=== PATIENT | male | born 1945 | race Caucasian/White ===

== ENCOUNTER → 2017-10-21 17:05 | Outpatient (CLI) | payer MEDICARE, SELFPAY ==
[2017-10-21 18:10] LABS: Bacteria 0 SEEN /hpf (None Seen); Mucous, Urine 0 SEEN /hpf (<or=2+); Red Blood Cells-Urine 0 SEEN /hpf (0-5); Squamous Epithelial Cells - UA 0 SEEN /hpf (0-5); White Blood Cells 0 SEEN /hpf (0-5)
[2017-10-21 18:25] LABS: Color, Urine Yellow (Yellow); Glucose, Dipstick Normal (Normal); Ketone-Dipstick Negative (Negative); Leukocyte Esterase-Dipstick 25 /ul (Negative); Nitrite-Dipstick Negative (Negative); Occult Blood-Urine Negative /ul (Negative); Protein-Dipstick Negative (Negative); Urine Bilirubin Dipstick Negative (Negative); Urine Clarity Clear (Clear); Urine Urobilinogen 1 mg/dl (Normal)
== END ==
PROVIDERS: Family Provider Internal Medicine; PCP Internal Medicine; Visit Provider Internal Medicine
DX: N39.0 Urinary tract infection, site not specified (principal)
CPT/HCPCS: 81001; 87086; 87088

== ENCOUNTER 2017-12-22 13:30 | Outpatient (RCR) | payer MEDICARE, SELFPAY ==
[2017-12-15 14:12] VITALS: BP 142/81; PULSE 116; RESP 20; TEMP 36.4; BMI 35.4
--- NOTE | 2017-12-16 11:58 | HP.PCM_ITS ---
(1) Stage II pressure ulcer of right buttock Status: Acute Current Visit: Yes Code(s): L89.312 - Pressure ulcer of right buttock, stage 2 (2) Bipolar disorder Status: Chronic Current Visit: No Code(s): F31.9 - Bipolar disorder, unspecified (3) CHF (congestive heart failure) Status: Chronic Current Visit: No Code(s): I50.9 - Heart failure, unspecified (4) Charcot ankle Status: Chronic Current Visit: No Code(s): M14.679 - Charcot's joint, unspecified ankle and foot Comment: BL (5) Edema of both legs Status: Chronic Current Visit: Yes Code(s): R60.0 - Localized edema (6) GERD (gastroesophageal reflux disease) Status: Chronic Current Visit: No Code(s): K21.9 - Gastro-esophageal reflux disease without esophagitis (7) History of CVA (cerebrovascular accident) Status: Chronic Current Visit: No Code(s): Z86.73 - Personal history of transient ischemic attack (TIA), and cerebral infarction without residual deficits (8) History of tobacco use Status: Chronic Current Visit: No Code(s): Z87.891 - Personal history of nicotine dependence (9) Hypothyroidism Status: Chronic Current Visit: No Code(s): E03.9 - Hypothyroidism, unspecified Comment: Noted treated prior, not on regimen list. (10) Incontinence of feces Status: Chronic Current Visit: Yes Code(s): R15.9 - Full incontinence of feces (11) Incontinence of urine Status: Chronic Current Visit: Yes Code(s): R32 - Unspecified urinary incontinence (12) Mood disorder Status: Chronic Current Visit: No (13) Obesity (BMI 30-39.9) Status: Chronic Current Visit: No Code(s): E66.9 - Obesity, unspecified (14) COPD (chronic obstructive pulmonary disease) Status: Suspected Current Visit: No Code(s): J44.9 - Chronic obstructive pulmonary disease, unspecified History of Present Illness Date of Service: 12/15/17 Chief Complaint: ulcer right buttock x 1 month, intermittently open over past year. History of Wound: This is a 72-year-old male who presents due to ulcer on the medial right buttock. The patient has multiple comorbidities and an extensive medical history as listed above. The patient and caregiver () noted the ulceration on his right buttock about a month ago and has been using a and D ointment over this. He has had problems with ulcerations on his buttock intermittently over the past year. The patient also has chronic swelling in his lower extremities. He states that he does have a hospital bed at home, however due to chronic pain in his shoulders is only able to sleep in it at 2 hours at a time and then has to go to his recliner chair to sleep. He has limited mobility due to his pain, Charcot ankle deformities bilaterally, and Parkinson's. He spends most of his day in a sitting position, and requires a wheelchair for mobility. He has not been treated recently with antibiotics. He denies any pain around the ulceration or foul-smelling exudate. He denies any systemic signs of infection. The patient is incontinent of both stool and urine, which causes him to have excoriation at times. However he is not currently excoriated. The patient otherwise denies any fever, chills, nausea, vomiting, shortness of breath, chest pain or pressure, palpitations, orthopnea, lower extremity edema, syncope or presyncopal episodes. Past Medical History Past Medical History: Chronic Problems History of CVA (cerebrovascular accident) (Chronic) History of tobacco use (Chronic) GERD (gastroesophageal reflux disease) (Chronic) Hypothyroidism (Chronic) Noted treated prior, not on regimen list. NSTEMI (non-ST elevated myocardial infarction) (Chronic) Bipolar disorder (Chronic) Mood disorder (Chronic) Edema of both legs (Chronic) Dermatomycosis (Chronic) Obesity (BMI 30-39.9) (Chronic) CHF (congestive heart failure) (Chronic) Charcot ankle (Chronic) BL Pre-diabetes (Chronic) Incontinence of urine (Chronic) Incontinence of feces (Chronic) Incontinence associated dermatitis (Chronic) Benign hypertension (Chronic) Surgical History: tonsillectomy Allergies/Adverse Reactions: Allergies codeine Allergy (Verified 07/29/17 18:12) Rash latex Allergy (Verified 07/29/17 18:12) Rash Penicillins Allergy (Verified 07/29/17 18:12) Other colchicine Adverse Reaction (Verified 08/02/17 07:39) Other Home Medications: Ambulatory Orders Medication Instructions Recorded Aripiprazole [Abilify] 30 mg PO QHS 03/10/17 Aspirin [Aspirin, Baby] 81 mg PO DAILY@0800 03/10/17 Clonidine HCl [Catapres] 0.1 mg PO BID 03/10/17 Divalproex Sodium [Depakote] 1,500 mg PO QHS 03/10/17 Levothyroxine [Synthroid] 25 mcg PO DAILY 03/10/17 Tamsulosin HCl [Flomax] 0.4 mg PO BID 03/10/17 Acetaminophen [Tylenol Tablet] 650 mg PO Q6H PRN PRN tablet 08/03/17 Allopurinol 100 mg PO DAILY #30 tablet 08/03/17 Omeprazole [Prilosec] 10 mg PO DAILY 12/15/17 - Family History Maternal Cancer, - - The patient's mother had a history of Alzheimer's disease. She at the age of 70. Paternal Cancer, - - Patient's father at age of 59 with prostate cancer. Smoking Status: Former smoker Review of Systems Constitutional: Denies: Chills, Fever, Weight Change Eyes: Denies: Pain, Vision Change HEENT: Denies: Difficulty Hearing, Difficulty Swallowing, Sinus Congestion Cardiovascular: Denies: Chest Pain, Palpitations Respiratory: Denies: Cough, Shortness of Breath Gastrointestinal: Denies: Diarrhea, Nausea, Vomiting Genitourinary: Denies: Dysuria, Hematuria Skin: Reports: Wounds - See HPI Endocrine: Denies: Heat/ Cold Intolerance, Polydipsia, Polyuria Hematologic/ Lymphatic: Denies: Easy Bruising, Easy Bleeding - Physical Exam Vital Signs Temp Pulse Resp BP 97.5 F L 116 H 20 H 142/81 H 12/15/17 14:12 12/15/17 14:12 12/15/17 14:12 12/15/17 14:12 General: Alert, Oriented x3, Cooperative, No apparent distress HEENT: Atraumatic Oral: Moist Mucosa Lungs: Clear to auscultation Cardiovascular: Regular rate, Regular Rhythm, Normal S1, Normal S2 Abdomen: Bowel Sounds Present, Soft, Non Tender Extremities: Diminished Peripheral Pulses, Edema - Generalized bilateral lower extremity edema Skin: Ulcer/ Wound - Stage II cluster pressure ulcer present right medial buttock, periwound bed is not inflamed and there are no signs of excoriation or systemic infection, no exudate present on exam, ulcer has slough Wound Measurements and Assessment WC - Nurse 1 - General Ulcer Measurement Start: 12/15/17 13:55 Freq: Status: Active Protocol: Activity Type Activity Date Activity User E-Sign Co-Sign Detail Recorded Client Recorded Date Recorded By Document 12/15/17 14:12 EDDA [id number] 12/15/17 14:21 EDDA 12/15/17 14:12 Wound Center Nurse 1 [Ulcer Assessment] 2-right buttocks cluster -Combined with other wound No -Current Size (cm) - Length 0.2 -Current Size (cm) - Width 0.2 -Current Size (cm) - Depth 0.1 -Total Square Cm 0.04 -Photo Taken Yes -Epithelialization Large 67-100% -Tunneling No -Undermining/Tunneling No -Circular Undermining No -Classification - Pressure Ulcer Stage 1 -Exudate Amt None Present (0 %) -Wound Margin Flat & Intact -Granulation Amt Medium (34-66%) -Granulation Quality Red -Slough/Fibrin Yes -Necrosis Amt Small (1-33%) -Necrotic Tissue Type Adherent Slough -Structure Exposed N/A -Texture (Shell-wound Skin Appearance) Assessed Scarring -Moisture (Shell-wound Skin Appearance Assessed ) Dry/Scaly -Color (Shell-wound Skin Appearance) Assessed -Temperature (Shell-wound Skin No Abnormality Appearance) (Pt Warm) -Tenderness on Palpation (Shell-wound No Skin Appearance) -Ulcer Cleansing Wound Cleanser -Foul Odor after Cleansing No -Anesthetic Used 4% Lidocaine Solution [Edema Assessment] -Lower Limb Edema Present NA WC - Nurse 2 - General Ulcer CM Notes Start: 12/15/17 13:55 Freq: Status: Active Protocol: Activity Type Activity Date Activity User E-Sign Co-Sign Detail Recorded Client Recorded Date Recorded By Document 12/15/17 14:22 DV [id number] 12/15/17 15:05 DV 12/15/17 14:22 Wound Center Nurse 2 [Procedure/Treatment] 2-right buttocks cluster -Time 14:53 -Correct Patient Yes -Correct Side, Site, Position Yes -Correct Procedure Yes -Procedure Performed Yes -Type of Procedure Debridement -Clinical Debridement Subcutaneous -Post Debridement Size (cm) - Length 2.0 -Post Debridement Size (cm) - Width 2.0 -Post Debridement Size (cm) - Depth 0.1 -Total Square Cm 4.00 -Wound/Ulcer Outcome Not Healed -Ulcer Cleansing Rinsed/ Irrigated with Saline -Foul Odor after Cleansing No -Bioengineered Tissue No -Bleeding Controlled with Pressure -Treatment Response Procedure Tolerated Well [See Physician Procedure note for Specifics] Pain Scale: 0-10 Numeric [Pain] -Is Patient Pain Free? Yes Musculoskeletal: - - Patient has an essential tremor bilaterally upper extremities, limited range of motion present bilateral upper extremities due to pain Lymphatic: No Cervical, Supraclavicular, or Inguinal Adenopathy Neurological: Neuro grossly intact Psych/Mental Status: Normal Affect, Alert and oriented to time, place, person, mood and affect Debridement Note Post-Debridement Measurements/Treatment WC - Nurse 2 - General Ulcer CM Notes Start: 12/15/17 13:55 Freq: Status: Active Protocol: Activity Type Activity Date Activity User E-Sign Co-Sign Detail Recorded Client Recorded Date Recorded By Document 12/15/17 14:22 DV [id number] 12/15/17 15:05 DV 12/15/17 14:22 Wound Center Nurse 2 2-right buttocks cluster -Time 14:53 -Correct Patient Yes -Correct Side, Site, Position Yes -Correct Procedure Yes -Procedure Performed Yes -Type of Procedure Debridement -Clinical Debridement Subcutaneous -Post Debridement Size (cm) - Length 2.0 -Post Debridement Size (cm) - Width 2.0 -Post Debridement Size (cm) - Depth 0.1 -Total Square Cm 4.00 -Wound/Ulcer Outcome Not Healed -Ulcer Cleansing Rinsed/ Irrigated with Saline -Foul Odor after Cleansing No -Bioengineered Tissue No -Bleeding Controlled with Pressure -Treatment Response Procedure Tolerated Well Pain Scale: 0-10 Numeric Is Patient Pain Free? Yes Wound debrided: Ulcer right buttock Laterality: Right Wound Grade/Stage: Stage II Type of Debridement: Excisional debridement Anesthesia Used: 4% Lidocaine Solution Depth: in the subcutaneous layer Percentage of wound debrided: 100 Instrument Used: 5mm curette Tissue Removed: Slough and devitalized tissue Severity: Fat Layer Exposed Amount of bleeding with debridement: Mild Bleeding Controlled with: Pressure Patient tolerated procedure well Assessment/Plan Active Problems Stage II pressure ulcer of right buttock (Acute) Edema of both legs (Chronic) Incontinence of urine (Chronic) Incontinence of feces (Chronic) Assessment: Stage II pressure ulcer right buttock. Limited mobility. Urinary and fecal incontinence Plan: The patient was seen and examined at the wound center today and was updated on the plan of care. A subcutaneous debridement was performed today. The patient tolerated the procedure well. The patients wound care will consist of: Moistened fibrocol to be applied daily and as needed if becomes soiled. Wound cultures were collected. Baseline bloodwork was done recently by his PCP, will request records for continuity of care. Patient educated on the importance of diet on wound healing and instructed to increase protein and vitamin C intake. Patient verbalized understanding. Good hygiene has been recommended. Patient's undergarments are to be changed frequently, when soiled by fecal or urinary incontinence. Offloading measures such as utilizing the hospital bed more frequently and frequent turning at minimum of every 1-2 hours and utilizing offloading mechanisms while in the wheelchair or his reclining chair have been thoroughly explained, and should prove of benefit to the patient. Patient is return in 1 week for reassessment. This note was generated with [employer] dictation software. It may contain incorrect words, spelling, and punctuation that were not noted in checking the note before signing. Code Visit Office Visits / Consults: [id number] OV L4 Est [id number]: [id number] Alyssa subq tissue 20 sq cm/<
[2017-12-22 13:42] VITALS: PULSE 84; RESP 20; TEMP 36.7; BMI 35.4
--- NOTE | 2017-12-22 17:01 | PCM.WC.PN ---
(1) Stage II pressure ulcer of right buttock Status: Acute Current Visit: Yes Code(s): L89.312 - Pressure ulcer of right buttock, stage 2 (2) Bipolar disorder Status: Chronic Current Visit: No Code(s): F31.9 - Bipolar disorder, unspecified (3) CHF (congestive heart failure) Status: Chronic Current Visit: No Code(s): I50.9 - Heart failure, unspecified (4) Charcot ankle Status: Chronic Current Visit: No Code(s): M14.679 - Charcot's joint, unspecified ankle and foot Comment: BL (5) Edema of both legs Status: Chronic Current Visit: Yes Code(s): R60.0 - Localized edema (6) GERD (gastroesophageal reflux disease) Status: Chronic Current Visit: No Code(s): K21.9 - Gastro-esophageal reflux disease without esophagitis (7) History of CVA (cerebrovascular accident) Status: Chronic Current Visit: No Code(s): Z86.73 - Personal history of transient ischemic attack (TIA), and cerebral infarction without residual deficits (8) History of tobacco use Status: Chronic Current Visit: No Code(s): Z87.891 - Personal history of nicotine dependence (9) Hypothyroidism Status: Chronic Current Visit: No Code(s): E03.9 - Hypothyroidism, unspecified Comment: Noted treated prior, not on regimen list. (10) Incontinence of feces Status: Chronic Current Visit: Yes Code(s): R15.9 - Full incontinence of feces (11) Incontinence of urine Status: Chronic Current Visit: Yes Code(s): R32 - Unspecified urinary incontinence (12) Mood disorder Status: Chronic Current Visit: No (13) Obesity (BMI 30-39.9) Status: Chronic Current Visit: No Code(s): E66.9 - Obesity, unspecified (14) COPD (chronic obstructive pulmonary disease) Status: Suspected Current Visit: No Code(s): J44.9 - Chronic obstructive pulmonary disease, unspecified Type of Wound Date of Service: 12/24/17 Chief Complaint: ulcer right buttock x 1 month, intermittently open over past year. History of Wound: This is a 72-year-old male who presents due to ulcer on the medial right buttock. The patient has multiple comorbidities and an extensive medical history as listed above. The patient and caregiver () noted the ulceration on his right buttock about a month ago and has been using a and D ointment over this. He has had problems with ulcerations on his buttock intermittently over the past year. The patient also has chronic swelling in his lower extremities. He states that he does have a hospital bed at home, however due to chronic pain in his shoulders is only able to sleep in it at 2 hours at a time and then has to go to his recliner chair to sleep. He has limited mobility due to his pain, Charcot ankle deformities bilaterally, and Parkinson's. He spends most of his day in a sitting position, and requires a wheelchair for mobility. He has not been treated recently with antibiotics. He denies any pain around the ulceration or foul-smelling exudate. He denies any systemic signs of infection. The patient is incontinent of both stool and urine, which causes him to have excoriation at times. However he is not currently excoriated. The patient otherwise denies any fever, chills, nausea, vomiting, shortness of breath, chest pain or pressure, palpitations, orthopnea, lower extremity edema, syncope or presyncopal episodes. Progress of Wound: Stage II pressure ulcer right buttock has entirely epithelialized and healed due to patient's compliance with wound care and offloading mechanisms - Physical Exam Vital Signs Temp Pulse Resp BP 98.0 F 84 20 H 142/81 H 12/22/17 13:42 12/22/17 13:42 12/22/17 13:42 12/15/17 14:12 General: Alert, Oriented x3, Cooperative, No apparent distress HEENT: Atraumatic Lungs: Clear to auscultation, Normal air movement Cardiovascular: Regular rate, Regular Rhythm Extremities: Diminished Peripheral Pulses, Edema Skin: Ulcer/ Wound - Stage II right buttock pressure ulcer epithelialized and healed, no signs of infection at this time. Wound Measurements and Assessment WC - Nurse 1 - General Ulcer Measurement Start: 12/15/17 13:55 Freq: Status: Active Protocol: Activity Type Activity Date Activity User E-Sign Co-Sign Detail Recorded Client Recorded Date Recorded By Document 12/22/17 13:42 JUDI [id number] 12/22/17 14:00 JUDI 12/22/17 13:42 Wound Center Nurse 1 [Ulcer Assessment] 2-right buttocks cluster -Combined with other wound No -Current Size (cm) - Length 0.3 -Current Size (cm) - Width 0.3 -Current Size (cm) - Depth 0 -Total Square Cm 0.09 -Photo Taken No -Epithelialization Large 67-100% -Tunneling No -Undermining/Tunneling No -Circular Undermining No -Exudate Amt Small (1-33%) -Wound Margin Distinct, Outline Attached -Granulation Amt None Present (0 %) -Granulation Quality N/A -Slough/Fibrin No -Necrosis Amt None Present (0 %) -Necrotic Tissue Type Eschar -Structure Exposed N/A -Texture (Shell-wound Skin Appearance) No Abnormality -Moisture (Shell-wound Skin Appearance No Abnormality ) -Color (Shell-wound Skin Appearance) Erythema -Temperature (Shell-wound Skin No Abnormality Appearance) (Pt Warm) -Tenderness on Palpation (Shell-wound No Skin Appearance) -Ulcer Cleansing Rinsed/ Irrigated with Saline -Foul Odor after Cleansing No -Anesthetic Used 4% Lidocaine Solution WC - Nurse 2 - General Ulcer CM Notes Start: 12/15/17 13:55 Freq: Status: Active Protocol: Activity Type Activity Date Activity User E-Sign Co-Sign Detail Recorded Client Recorded Date Recorded By Document 12/22/17 14:22 DV [id number] 12/22/17 14:43 DV 12/22/17 14:22 Wound Center Nurse 2 [Procedure/Treatment] -Time 14:41 -Correct Patient Yes -Correct Side, Site, Position Yes -Correct Procedure Yes -Procedure Performed Yes -Type of Procedure Debridement -Clinical Debridement Subcutaneous -Post Debridement Size (cm) - Length 0 -Post Debridement Size (cm) - Width 0 -Post Debridement Size (cm) - Depth 0 -Total Square Cm 0 -Wound/Ulcer Outcome Healed- Epithelialized -Ulcer Cleansing Rinsed/ Irrigated with Saline -Foul Odor after Cleansing No -Bioengineered Tissue No -Bleeding Controlled with Pressure -Treatment Response Procedure Tolerated Well [See Physician Procedure note for Specifics] Pain Scale: 0-10 Numeric [Pain] -Is Patient Pain Free? Yes Neurological: Neuro grossly intact Psych/Mental Status: Normal Affect, Alert and oriented to time, place, person, mood and affect Debridement Note Post-Debridement Measurements/Treatment WC - Nurse 2 - General Ulcer CM Notes Start: 12/15/17 13:55 Freq: Status: Active Protocol: Activity Type Activity Date Activity User E-Sign Co-Sign Detail Recorded Client Recorded Date Recorded By Document 12/15/17 14:22 DV [id number] 12/15/17 15:05 DV Document 12/22/17 14:22 DV [id number] 12/22/17 14:43 DV 12/15/17 12/22/17 14:22 14:22 Wound Center Nurse 2 2-right buttocks cluster -Time 14:53 14:41 -Correct Patient Yes Yes -Correct Side, Site, Position Yes Yes -Correct Procedure Yes Yes -Procedure Performed Yes Yes -Type of Procedure Debridement Debridement -Clinical Debridement Subcutaneous Subcutaneous -Post Debridement Size (cm) - Length 2.0 0 -Post Debridement Size (cm) - Width 2.0 0 -Post Debridement Size (cm) - Depth 0.1 0 -Total Square Cm 4.00 0 -Wound/Ulcer Outcome Not Healed Healed- Epithelialized -Ulcer Cleansing Rinsed/ Rinsed/ Irrigated with Irrigated with Saline Saline -Foul Odor after Cleansing No No -Bioengineered Tissue No No -Bleeding Controlled with Pressure Pressure -Treatment Response Procedure Procedure Tolerated Well Tolerated Well Pain Scale: 0-10 Numeric Is Patient Pain Free? Yes Yes No debridement was completed today Assessment/Plan Active Problems Stage II pressure ulcer of right buttock (Acute) Edema of both legs (Chronic) Incontinence of urine (Chronic) Incontinence of feces (Chronic) Assessment: Stage II pressure ulcer right buttock. Limited mobility. Urinary and fecal incontinence Plan: The patient was seen and examined at the wound center today and was updated on the plan of care. The patient's pressure ulcer on his right buttock has entirely healed secondary to wound care and proper offloading mechanisms. Wound cultures were reviewed with the patient that demonstrated 1+ staph and enterococcus faeCialis where no antibiotic is indicated.. Baseline bloodwork was done recently by his PCP, will request records for continuity of care. Patient educated on the importance of diet on wound healing and instructed to increase protein and vitamin C intake. Patient verbalized understanding. Good hygiene has been recommended. Patient's undergarments are to be changed frequently, when soiled by fecal or urinary incontinence. Offloading measures such as utilizing the hospital bed more frequently and frequent turning at minimum of every 1-2 hours and utilizing offloading mechanisms while in the wheelchair or his reclining chair have been thoroughly explained, and should prove of benefit to the patient. Patient is return to wound healing center on an as-needed basis and educated again on the importance of his offloading mechanisms. This note was generated with [employer] dictation software. It may contain incorrect words, spelling, and punctuation that were not noted in checking the note before signing. Code Visit Office Visits / Consults: [id number] OV L3 Est
== END 2017-12-24 23:59 ==
LOC: WC 13:30
PROVIDERS: Family Provider Internal Medicine; PCP Internal Medicine; Visit Provider Nurse Practitioner Family
DX: L89.312 Pressure ulcer of right buttock, stage 2 (principal)
CPT/HCPCS: 11042; 87070; 87075; 87077; 87186; 87205; 99212; 99213; G0463

== ENCOUNTER → 2018-02-08 15:34 | Outpatient (CLI) | payer MEDICARE, SELFPAY ==
[2018-02-08 15:48] LABS: Absolute Lymphocyte Count 2.27 X10^3/ul (0.83-4.51); Absolute Neutrophil Count 4.5 X10^3/uL (2.0-7.7); Basophil# 0.03 X10^3/uL; Basophil% 0.4 % (0-1); Eosinophil# 0.09 X10^3/uL; Eosinophils% 1.1 % (0-5); Hemoglobin 15.4 g/dl (13.0-16.5); Lymphocyte # 2.27 X10^3/ul (4.0); Lymphocyte % 28.7 % (19-41); Mean Corp Hgb Conc 33.5 g/gl (32-36); Mean Corpuscular Hgb 30.9 pg (27.0-32.0); Mean Corpuscular Volume 92.4 fL (80-94); Mean Platelet Vol. 11.6 fl (6.2-12.0); Monocyte# 0.94 X10^3/uL; Monocyte% 11.9 % (0-10); Neutrophil # 4.53 X10^3/uL (2.7-7.7); Neutrophil % 57.3 % (47-70); Platelet Count 194 K/mm3 (150-450); RBC Distribution Width CV 14.2 % (11.6-14.6); RBC Distribution Width SD 46.4 fl (35.1-43.9); Red Blood Count 4.98 M/mm3 (4.6-6.2); White Blood Count 7.9 K/mm3 (4.4-11.0)
[2018-02-08 15:50] LABS: POSITIVE COUNT NO; POSITIVE DIFFERENTIAL NO; POSITIVE MORPHOLOGY NO
[2018-02-08 16:17] LABS: Vitamin B12 806 pg/mL (211-911)
== END ==
PROVIDERS: Family Provider Internal Medicine; PCP Internal Medicine; Visit Provider Internal Medicine
DX: E53.8 Deficiency of other specified B group vitamins (principal); R53.83 Other fatigue
CPT/HCPCS: 82607; 84550; 85025

== ENCOUNTER 2018-07-05 14:37 | Observation (INO) | payer MEDICARE, SELFPAY ==
[2018-07-05 14:38] VITALS: BP 154/67; PULSE 96; RESP 16; TEMP 36.6; O2SAT 96; BMI 35.4
[2018-07-05 17:03] VITALS: BP 130/94; PULSE 65; RESP 18; O2SAT 95
--- NOTE | 2018-07-05 17:08 | EKG12_ITS ---
Test Reason : WEAKNESS Blood Pressure : / mmHG Vent. Rate : 059 BPM Atrial Rate : 059 BPM P-R Int : 200 ms QRS Dur : 106 ms QT Int : 430 ms P-R-T Axes : 020 -01 022 degrees QTc Int : 425 ms Sinus bradycardia Otherwise normal ECG Confirmed by JORDIN GREENWOOD, ANDREW ([id number]), senior editor REBECCA HILL ([id number]) on 07/10/2018 3:41:37 PM Referred By: ADDISON Confirmed By:ANDREW BRENNER MD
--- NOTE | 2018-07-05 17:10 | ED.VISSUMM ---
- ER Visit Summary Date of Service: 07/05/18 Chief Complaint: Generalized weakness History of Present Illness: The patient is a 73 M who presents for 4 days of progressively worsening weakness. At baseline patient has a lift chair and is able to transfer from his lift chair to his wheelchair from the most upright position. He was also able to take a couple steps with his nurse holding onto his gait belt. Today he has been unable to do any transfers and cannot get out of his chair. Patient denies any associated symptoms other than pain on a buttocks wound and difficulty urinating. He has bipolar disorder, Parkinson-like disease, and Charcot joint in the right foot. He has been on Sinemet for the last 3-4 weeks but stopped taking it 2 days ago because he thought it was contributing to his weakness. Physical Examination: Vital signs: afebrile, hemodynamically stable, no hypoxia on room air General: well nourished, well developed, in no distress Skin: warm, dry, no pallor, skin breakdown of the superficial layer on the bilateral gluteal cleft superior region, abrasion to the right lateral hip HEENT: normocephalic and atraumatic; PERRL, 2 millimeters, EOMI, tacky mucous membranes Cardiovascular: regular rate and rhythm without murmurs, mild peripheral edema in the right ankle, 2+ pulses all distal extremities Respiratory: No increased work of breathing, lungs are clear to auscultation bilaterally, no rales, rhonchi or wheezing Abdominal: Abdomen is soft, nontender with normoactive bowel sounds, no guarding or rebound, no masses MSK: Moves all extremities, diffuse weakness Neuro: Awake and alert, oriented ?4. No facial droop, sensation and motor function intact and symmetric Test Results: Abnormal Lab Results 07/05/18 07/05/18 07/05/18 17:33 17:33 17:33 WBC 8.6 RBC 4.45 L Hgb 14.1 Hct 43.0 MCV 96.6 H MCH 31.7 MCHC 32.8 RDW 14.1 RDW Differential 48.5 H Plt Count 131 L MPV 11.7 Immature Gran % (Auto) 1.200 H Neut % (Auto) 62.3 Lymph % (Auto) 21.0 [place] % (Auto) 12.4 H Eos % (Auto) 2.9 Baso % (Auto) 0.2 Absolute Neuts (auto) 5.3 Absolute Lymphs (auto) 1.80 Total Counted Not Reportable PT 13.0 INR 1.0 APTT 28.8 Sodium 143 Potassium 4.9 Chloride 102 Carbon Dioxide 34.0 H Anion Gap 7 BUN 34 H Creatinine 1.94 H Estim Creat Clear Calc 33.30 Est GFR (MDRD) Af Amer 44 L Est GFR (MDRD) Non-Af 36 L BUN/Creatinine Ratio 17.5 Glucose 111 H Calcium 9.3 Total Bilirubin 0.40 AST 17 ALT 20 Alkaline Phosphatase 118 H Troponin I < 0.015 Total Protein 7.0 Albumin 3.6 Globulin 3.4 Albumin/Globulin Ratio 1.1 Lipase 91 TSH Urine Color Urine Clarity Urine pH Ur Specific [place] Urine Protein Urine Glucose (UA) Urine Ketones Urine Occult Blood Urine Nitrite Urine Bilirubin Urine Urobilinogen Ur Leukocyte Esterase Urine RBC Urine WBC Ur Squamous Epith Cells Urine Bacteria Hyaline Casts Urine Mucus POC Glucose 07/05/18 07/05/18 07/05/18 17:33 17:52 18:10 WBC RBC Hgb Hct MCV MCH MCHC RDW RDW Differential Plt Count MPV Immature Gran % (Auto) Neut % (Auto) Lymph % (Auto) [place] % (Auto) Eos % (Auto) Baso % (Auto) Absolute Neuts (auto) Absolute Lymphs (auto) Total Counted PT INR APTT Sodium Potassium Chloride Carbon Dioxide Anion Gap BUN Creatinine Estim Creat Clear Calc Est GFR (MDRD) Af Amer Est GFR (MDRD) Non-Af BUN/Creatinine Ratio Glucose Calcium Total Bilirubin AST ALT Alkaline Phosphatase Troponin I Total Protein Albumin Globulin Albumin/Globulin Ratio Lipase TSH 3.78 H Urine Color Yellow Urine Clarity Clear Urine pH 5.0 Ur Specific [place] 1.015 Urine Protein Negative Urine Glucose (UA) Normal Urine Ketones Negative Urine Occult Blood Negative Urine Nitrite Negative Urine Bilirubin Negative Urine Urobilinogen Normal Ur Leukocyte Esterase Negative Urine RBC 0 SEEN Urine WBC 0-5 SEEN Ur Squamous Epith Cells 0-5 SEEN Urine Bacteria 0 SEEN Hyaline Casts 0-5 SEEN Urine Mucus 0 SEEN POC Glucose 104 Clinical Impression(s) from Imaging Studies Chest X-Ray 07/05/18 17:25 IMPRESSION: Degenerative changes, as described above. No demonstrated acute cardiopulmonary process. Electronically Signed: Niraj Castellanos MD at 17:51 EDT , Service support , Medications Given Discontinued Medications Last Admin: 07/05/18 17:51 Dose: 1,000 mls/hr Sodium Chloride () 5 - 30 ml IV UD PRN PRN Reason: SALINE FLUSH Emergency Department Course and Treatment: Patient presents for worsening weakness. Discussed with him and the family that if no underlying cause could be identified, he may require admission for placement, and they were amenable to this as they are having difficulty taking care of him at home. Patient was given IV fluids for hydration. EKG showed no ischemia or ectopy. No lab abnormalities noted except for patient's creatinine was elevated above his baseline. Troponin negative. Chest x-ray showed no acute process. No reversible cause of patient's increased weakness was noted. However he is unable to even get out of his own chair even with assistance, and thus will require admission for placement into a intermediate facility or rehab center. Patient was discussed with the hospitalist and admitted. Treatment Plan: [] Disposition: [] Impression: Generalized weakness, acute on chronic renal insufficiency, decubitus ulcer This note was generated with [employer] dictation software. It may contain incorrect words, spelling, and punctuation that were not noted in review of the chart prior to signing ED Disposition - Plan for ED Patient: Disposition: Acute Care Hospital [facility] Chief Complaint: Weakness
--- NOTE | 2018-07-05 17:13 | ED.DCSUM_ITS ---
- ER Visit Summary Date of Service: 07/05/18 Chief Complaint: Generalized weakness History of Present Illness: The patient is a 73 M who presents for 4 days of progressively worsening weakness. At baseline patient has a lift chair and is able to transfer from his lift chair to his wheelchair from the most upright position. He was also able to take a couple steps with his nurse holding onto his gait belt. Today he has been unable to do any transfers and cannot get out of his chair. Patient denies any associated symptoms other than pain on a buttocks wound and difficulty urinating. He has bipolar disorder, Parkinson- like disease, and Charcot joint in the right foot. He has been on Sinemet for the last 3-4 weeks but stopped taking it 2 days ago because he thought it was contributing to his weakness. Physical Examination: Vital signs: afebrile, hemodynamically stable, no hypoxia on room air General: well nourished, well developed, in no distress Skin: warm, dry, no pallor, skin breakdown of the superficial layer on the bilateral gluteal cleft superior region, abrasion to the right lateral hip HEENT: normocephalic and atraumatic; PERRL, 2 millimeters, EOMI, tacky mucous membranes Cardiovascular: regular rate and rhythm without murmurs, mild peripheral edema in the right ankle, 2+ pulses all distal extremities Respiratory: No increased work of breathing, lungs are clear to auscultation bilaterally, no rales, rhonchi or wheezing Abdominal: Abdomen is soft, nontender with normoactive bowel sounds, no guarding or rebound, no masses MSK: Moves all extremities, diffuse weakness Neuro: Awake and alert, oriented ?4. No facial droop, sensation and motor function intact and symmetric Test Results: Abnormal Lab Results 07/05/18 07/05/18 07/05/18 17:33 17:33 17:33 WBC 8.6 RBC 4.45 L Hgb 14.1 Hct 43.0 MCV 96.6 H MCH 31.7 MCHC 32.8 RDW 14.1 RDW Differential 48.5 H Plt Count 131 L MPV 11.7 Immature Gran % (Auto) 1.200 H Neut % (Auto) 62.3 Lymph % (Auto) 21.0 [place] % (Auto) 12.4 H Eos % (Auto) 2.9 Baso % (Auto) 0.2 Absolute Neuts (auto) 5.3 Absolute Lymphs (auto) 1.80 Total Counted Not Reportable PT 13.0 INR 1.0 APTT 28.8 Sodium 143 Potassium 4.9 Chloride 102 Carbon Dioxide 34.0 H Anion Gap 7 BUN 34 H Creatinine 1.94 H Estim Creat Clear Calc 33.30 Est GFR (MDRD) Af Amer 44 L Est GFR (MDRD) Non-Af 36 L BUN/Creatinine Ratio 17.5 Glucose 111 H Calcium 9.3 Total Bilirubin 0.40 AST 17 ALT 20 Alkaline Phosphatase 118 H Troponin I < 0.015 Total Protein 7.0 Albumin 3.6 Globulin 3.4 Albumin/Globulin Ratio 1.1 Lipase 91 TSH Urine Color Urine Clarity Urine pH Ur Specific [place] Urine Protein Urine Glucose (UA) Urine Ketones Urine Occult Blood Urine Nitrite Urine Bilirubin Urine Urobilinogen Ur Leukocyte Esterase Urine RBC Urine WBC Ur Squamous Epith Cells Urine Bacteria Hyaline Casts Urine Mucus POC Glucose 07/05/18 07/05/18 07/05/18 17:33 17:52 18:10 WBC RBC Hgb Hct MCV MCH MCHC RDW RDW Differential Plt Count MPV Immature Gran % (Auto) Neut % (Auto) Lymph % (Auto) [place] % (Auto) Eos % (Auto) Baso % (Auto) Absolute Neuts (auto) Absolute Lymphs (auto) Total Counted PT INR APTT Sodium Potassium Chloride Carbon Dioxide Anion Gap BUN Creatinine Estim Creat Clear Calc Est GFR (MDRD) Af Amer Est GFR (MDRD) Non-Af BUN/Creatinine Ratio Glucose Calcium Total Bilirubin AST ALT Alkaline Phosphatase Troponin I Total Protein Albumin Globulin Albumin/Globulin Ratio Lipase TSH 3.78 H Urine Color Yellow Urine Clarity Clear Urine pH 5.0 Ur Specific [place] 1.015 Urine Protein Negative Urine Glucose (UA) Normal Urine Ketones Negative Urine Occult Blood Negative Urine Nitrite Negative Urine Bilirubin Negative Urine Urobilinogen Normal Ur Leukocyte Esterase Negative Urine RBC 0 SEEN Urine WBC 0-5 SEEN Ur Squamous Epith Cells 0-5 SEEN Urine Bacteria 0 SEEN Hyaline Casts 0-5 SEEN Urine Mucus 0 SEEN POC Glucose 104 Clinical Impression(s) from Imaging Studies Chest X-Ray 07/05/18 17:25 IMPRESSION: Degenerative changes, as described above. No demonstrated acute cardiopulmonary process. Electronically Signed: Niraj Castellanos MD at 17:51 EDT , Service support , Medications Given Discontinued Medications Last Admin: 07/05/18 17:51 Dose: 1,000 mls/hr Sodium Chloride () 5 - 30 ml IV UD PRN PRN Reason: SALINE FLUSH Emergency Department Course and Treatment: Patient presents for worsening weakness. Discussed with him and the family that if no underlying cause could be identified, he may require admission for placement, and they were amenable to this as they are having difficulty taking care of him at home. Patient was given IV fluids for hydration. EKG showed no ischemia or ectopy. No lab abnormalities noted except for patient's creatinine was elevated above his baseline. Troponin negative. Chest x-ray showed no acute process. No reversible cause of patient's increased weakness was noted. However he is unable to even get out of his own chair even with assistance, and thus will require admission for placement into a [facility] facility or rehab center. Patient was discussed with the hospitalist and admitted. Treatment Plan: [] Disposition: [] Impression: Generalized weakness, acute on chronic renal insufficiency, decubitus ulcer This note was generated with [employer] dictation software. It may contain incorrect words, spelling, and punctuation that were not noted in review of the chart prior to signing ED Disposition - Plan for ED Patient: Disposition: Acute Care Hospital [facility] Chief Complaint: Weakness
--- NOTE | 2018-07-05 17:25 | RAD_ITS ---
STUDY: X-RAY CHEST REASON FOR EXAM: Male, 73 years old. Weakness TECHNIQUE: Single AP portable view of the chest. COMPARISON: July 28, 2015 FINDINGS: The lungs are clear and expanded. There is no demonstrated pleural abnormality. Normal size heart. Normal mediastinum and shawna. Normal visualized pulmonary arteries. There is atherosclerotic tortuosity of the aortic arch and descending thoracic aorta. There are diffuse degenerative changes of the visualized thoracic spine. Normal visualized ribs, clavicles, and shoulders. There is no demonstrated abnormality of the visualized soft tissue structures of the upper abdomen. RAD/Chest 1 View (Portable) IMPRESSION: Degenerative changes, as described above. No demonstrated acute cardiopulmonary process. Electronically Signed: Niraj Castellanos MD at 17:51 EDT , Service support ,
[2018-07-05 18:16] LABS: Bedside Glucose 104 mg/dL (70-110)
[2018-07-05 18:16] LABS: Bacteria 0 SEEN /hpf (None Seen); Mucous, Urine 0 SEEN /hpf (<or=2+); Red Blood Cells-Urine 0 SEEN /hpf (0-5)
[2018-07-05 18:20] LABS: Color, Urine Yellow (Yellow); Glucose, Dipstick Normal (Normal); Ketone-Dipstick Negative (Negative); Leukocyte Esterase-Dipstick Negative /ul (Negative); Nitrite-Dipstick Negative (Negative); Occult Blood-Urine Negative /ul (Negative); Protein-Dipstick Negative (Negative); Specific Gravity, Urine 1.015 (1.002-1.030); Urine Bilirubin Dipstick Negative (Negative); Urine Clarity Clear (Clear); Urine Urobilinogen Normal (Normal)
[2018-07-05 18:30] LABS: Hyaline Cast 0-5 SEEN /lpf (0-5); Squamous Epithelial Cells - UA 0-5 SEEN /hpf (0-5); White Blood Cells 0-5 SEEN /hpf (0-5)
[2018-07-05 18:35] LABS: Absolute Neutrophil Count 5.3 X10^3/uL (2.0-7.7); Basophil# 0.02 X10^3/uL; Basophil% 0.2 % (0-1); Eosinophil# 0.25 X10^3/uL; Eosinophils% 2.9 % (0-5); Hemoglobin 14.1 g/dl (13.0-16.5); Mean Corp Hgb Conc 32.8 g/gl (32-36); Mean Corpuscular Hgb 31.7 pg (27.0-32.0); Mean Corpuscular Volume 96.6 fL (80-94); Mean Platelet Vol. 11.7 fl (6.2-12.0); Monocyte# 1.06 X10^3/uL; Monocyte% 12.4 % (0-10); Neutrophil # 5.34 X10^3/uL (2.7-7.7); Neutrophil % 62.3 % (47-70); Platelet Count 131 K/mm3 (150-450); RBC Distribution Width CV 14.1 % (11.6-14.6); RBC Distribution Width SD 48.5 fl (35.1-43.9); Red Blood Count 4.45 M/mm3 (4.6-6.2); White Blood Count 8.6 K/mm3 (4.4-11.0)
[2018-07-05 18:37] LABS: POSITIVE COUNT NO; POSITIVE DIFFERENTIAL NO; POSITIVE MORPHOLOGY NO
[2018-07-05 18:41] LABS: ALB/GLOB Ratio 1.1 RATIO (0.9-2.4); AST(SGOT) 17 U/L (15-37); Alanine Aminotransfer ALT/SGPT 20 U/L (16-61); Albumin, Serum 3.6 g/dL (3.2-5.0); Alkaline Phosphatase 118 U/L (45-117); Anion Gap 7 (5-15); BUN 34 mg/dL (7-18); BUN/Creat Ratio 17.5 RATIO (10-20); Calcium,Total 9.3 mg/dL (8.5-10.1); Chloride 102 mmol/L (98-107); Creatinine, Serum 1.94 mg/dL (0.70-1.30); EST Glomerular Filtration Rate 36 mL/min (>60); Est Glom Filt Rate - Afr Amer 44 mL/min (>60); Globulin 3.4 g/dL (2.2-4.2); Glucose 111 mg/dL (74-106); Lipase 91 U/L (73-393); Potassium 4.9 mmol/L (3.5-5.1); Sodium Level 143 mmol/L (136-145)
[2018-07-05 18:45] LABS: Partial Thromboplast Time 28.8 Seconds (24.1-36.2)
[2018-07-05 19:00] VITALS: PULSE 56; RESP 18; O2SAT 98
[2018-07-05 19:07] VITALS: BP 130/78
--- NOTE | 2018-07-05 19:14 | HP.PCM_ITS ---
Problem List (1) Weakness Status: Acute History of Present Illness Date of Admission: 07/05/18 Chief Complaint: Weakness The patient is a 73 year old M with past medical history of Parkinson's disease, hypothyroidism, BPH and hypertension. He was admitted through the ED on 07/05/2018 with a complaint of worsening generalized weakness. History was taken from patient and his . According to , patient has been getting progressively weak over the past year. is usually able to assist him with activities of daily living. However 1 day ago patient became much more weak and could not even assist him out of the chair or to undertake his activities of daily living. They think he is not able to stay at home because of his worsening weakness and so want to consider placement. Patient was therefore brought to the ED were no other complaints were really elicited. He denied any fever or chills, any cough or chest pain, any shortness of breath, any abdominal pain, any diarrhea vomiting. Review of systems otherwise negative. Patient does complain of persistent weakness. Vitals in the ED show pulse rate of 56 was otherwise normal. CMP showed bicarb of 34 and creatinine of 1.94 with troponin of less than 0.015. CBC was essentially unremarkable. EKG showed mild sinus bradycardia. Chest x-ray done showed degenerative changes of the visualized thoracic spine but no acute cardiopulmonary process. He has been admitted to be managed for severe worsening debility and is for placement. [] Past Medical History Past Medical History (Chronic Problems): Chronic Problems History of CVA (cerebrovascular accident) (Chronic) History of tobacco use (Chronic) GERD (gastroesophageal reflux disease) (Chronic) Hypothyroidism (Chronic) Noted treated prior, not on regimen list. NSTEMI (non-ST elevated myocardial infarction) (Chronic) Bipolar disorder (Chronic) Mood disorder (Chronic) Edema of both legs (Chronic) Dermatomycosis (Chronic) Obesity (BMI 30-39.9) (Chronic) CHF (congestive heart failure) (Chronic) Charcot ankle (Chronic) BL Pre-diabetes (Chronic) Incontinence of urine (Chronic) Incontinence of feces (Chronic) Incontinence associated dermatitis (Chronic) Benign hypertension (Chronic) Allergies codeine Allergy (Verified 07/05/18 14:43) Rash latex Allergy (Verified 07/05/18 14:43) Rash Penicillins Allergy (Verified 07/05/18 14:43) Other Home Medications: Ambulatory Orders Medication Instructions Recorded Aripiprazole [Abilify] 15 mg PO QHS 03/10/17 Aspirin [Aspirin, Baby] 81 mg PO DAILY@0800 03/10/17 Clonidine HCl [Catapres] 0.1 mg PO BID 03/10/17 Divalproex Sodium [Depakote] 1,500 mg PO QHS 03/10/17 Levothyroxine [Synthroid] 25 mcg PO DAILY 03/10/17 Tamsulosin HCl [Flomax] 0.4 mg PO DAILY 03/10/17 Omeprazole [Prilosec] 20 mg PO DAILY 12/15/17 Allopurinol [Zyloprim] 100 mg PO TID 07/05/18 Furosemide 40 mg PO BID 07/05/18 Metoprolol Succinate 25 mg PO DAILY 07/05/18 Naproxen Sodium [Aleve] 220 mg PO Q12H PRN PRN 07/05/18 Quetiapine Fumarate [Seroquel] 100 mg PO DAILY 07/05/18 Surgical History: tonsillectomy Psychiatric History: Bipolar Lives: Spouse/ Significant Other Smoking Status: Former smoker Alcohol: None - *Family History Maternal History Items: Cancer, - - The patient's mother had a history of Alzheimer's disease. She at the age of 70. Paternal History Items: Cancer, - - Patient's father at age of 59 with prostate cancer. Review of Systems Constitutional: Reports: Malaise, Weakness, Fatigue. Denies: Chills, Fever, Weight Change Eyes: Denies: Blurred vision HEENT: Denies: Head Aches, Sinus Congestion, Sinus Drainage Cardiovascular: Denies: Chest Pain, Edema, Heaviness, Light Headedness, Palpitations Respiratory: Denies: Cough, Shortness of breath at rest, Sputum production Gastrointestinal: Denies: Abdominal Pain, Nausea, Vomiting Genitourinary: Denies: Dysuria Musculoskeletal: Denies: Foot Pain, Joint Pain, Joint Tenderness Skin: Denies: Rash, Wounds Neurological: Reports: Balance problems - due to Alzheimer's disease. Denies: Confusion, Focal weakness, Numbness, Tingling Hematologic/ Lymphatic: Denies: Easy Bruising, Easy Bleeding VTE Information - Inpt Only VTE Present on Admission: No VTE Mechan Device Prophylaxis: None VTE Pharm Prophylaxis ordered?: Yes Patient Problems: Active and Suspected Problems Weakness (Acute) - Physical Exam General: Alert, Oriented x3, Cooperative, No apparent distress HEENT: Atraumatic, PERRLA, EOMI, Normocephalic Oral: Dry Mucosa Neck: Supple, No JVD, Negative Carotid Bruits Lungs: Clear to auscultation, Normal air movement, - - breath sounds diminished in all lung corona Cardiovascular: Regular rate, Regular Rhythm, Normal S1, Normal S2, No murmurs Abdomen: Bowel Sounds Present, Soft, Non Tender, Non-Distended, No Hepato- splenomegaly Extremities: No clubbing, No cyanosis, No edema, Capillary Refill Less than 3 Seconds, - - Charcot joint of both feet Skin: - - Stage 2 decubitus ulcer of buttocks Musculoskeletal: No Tenderness to Palpation of Joints or Extremities Lymphatic: No Cervical, Supraclavicular, or Inguinal Adenopathy Neurological: Cranial nerves II-XII grossly intact, Neuro grossly intact Psych/Mental Status: Normal Affect, Appropriate, Alert and oriented to time, place, person, mood and affect Vital Signs Temp Pulse Resp BP Pulse Ox 98 F 56 L 18 130/78 H 98 07/05/18 14:38 07/05/18 19:00 07/05/18 19:00 07/05/18 19:07 07/05/18 19:00 Oxygen Delivery Method Room Air Weight: 233 lb Body Mass Index (BMI) 35.4 Finger Stick Blood Glucose 104 Laboratory Tests Past 24 Hrs 07/05/18 07/05/18 07/05/18 17:33 17:33 17:33 WBC 8.6 RBC 4.45 L Hgb 14.1 Hct 43.0 MCV 96.6 H MCH 31.7 MCHC 32.8 RDW 14.1 RDW Differential 48.5 H Plt Count 131 L MPV 11.7 Immature Gran % (Auto) 1.200 H Neut % (Auto) 62.3 Lymph % (Auto) 21.0 [place] % (Auto) 12.4 H Eos % (Auto) 2.9 Baso % (Auto) 0.2 Absolute Neuts (auto) 5.3 Absolute Lymphs (auto) 1.80 Total Counted Not Reportable PT 13.0 INR 1.0 APTT 28.8 Sodium 143 Potassium 4.9 Chloride 102 Carbon Dioxide 34.0 H Anion Gap 7 BUN 34 H Creatinine 1.94 H Estim Creat Clear Calc 33.30 Est GFR (MDRD) Af Amer 44 L Est GFR (MDRD) Non-Af 36 L BUN/Creatinine Ratio 17.5 Glucose 111 H Calcium 9.3 Total Bilirubin 0.40 AST 17 ALT 20 Alkaline Phosphatase 118 H Troponin I < 0.015 Total Protein 7.0 Albumin 3.6 Globulin 3.4 Albumin/Globulin Ratio 1.1 Lipase 91 Urine Color Urine Clarity Urine pH Ur Specific [place] Urine Protein Urine Glucose (UA) Urine Ketones Urine Occult Blood Urine Nitrite Urine Bilirubin Urine Urobilinogen Ur Leukocyte Esterase Urine RBC Urine WBC Ur Squamous Epith Cells Urine Bacteria Hyaline Casts Urine Mucus 07/05/18 17:52 WBC RBC Hgb Hct MCV MCH MCHC RDW RDW Differential Plt Count MPV Immature Gran % (Auto) Neut % (Auto) Lymph % (Auto) [place] % (Auto) Eos % (Auto) Baso % (Auto) Absolute Neuts (auto) Absolute Lymphs (auto) Total Counted PT INR APTT Sodium Potassium Chloride Carbon Dioxide Anion Gap BUN Creatinine Estim Creat Clear Calc Est GFR (MDRD) Af Amer Est GFR (MDRD) Non-Af BUN/Creatinine Ratio Glucose Calcium Total Bilirubin AST ALT Alkaline Phosphatase Troponin I Total Protein Albumin Globulin Albumin/Globulin Ratio Lipase Urine Color Yellow Urine Clarity Clear Urine pH 5.0 Ur Specific [place] 1.015 Urine Protein Negative Urine Glucose (UA) Normal Urine Ketones Negative Urine Occult Blood Negative Urine Nitrite Negative Urine Bilirubin Negative Urine Urobilinogen Normal Ur Leukocyte Esterase Negative Urine RBC 0 SEEN Urine WBC 0-5 SEEN Ur Squamous Epith Cells 0-5 SEEN Urine Bacteria 0 SEEN Hyaline Casts 0-5 SEEN Urine Mucus 0 SEEN POC Glucose 07/05/18 18:10 POC Glucose 104 Diagnostic Data Chest X-Ray 07/05/18 17:25 IMPRESSION: Degenerative changes, as described above. No demonstrated acute cardiopulmonary process. Electronically Signed: Niraj Castellanos MD at 17:51 EDT , Service support , Assessment/Plan All Active Problems Stage II pressure ulcer of right buttock (Acute) Weakness (Acute) Superficial thrombophlebitis of left upper extremity (Acute) Acute gouty arthritis (Acute) ADÁN (acute kidney injury) (Ruled-out) UTI (urinary tract infection) (Ruled-out) History of urinary tract infection (Ruled-out) 73-year-old male presenting with a history of progressive worsening weakness. 1. Worsening generalised debility possibly due to Alzheimer's disease * Vision unable to perform activities of daily living at home. Has home health janitor caretaker who go in daily. usually helps him with his activities of daily living but she is now unable to. * admit to [facility] with telemetry * EKG showed mild sinus bradycardia, but no acute ST changes * CBC remarkable for platelets of 131 * UA unremarkable * CMP showed Cr of 1.34, with baseline of ~1.5 * hydrate gently with IVF NS ~ 75cc/hr * fall precautions * PT/OT consult * for placement * check TSH * 2. ADÁN likely due to dehydration * Creatinine is 1.94. Baseline is around 1.5. * Patient has dry oral. Will hydrate gently with IV fluids and monitor. * 3. Thrombocytopenia * Platelets of 131 and admission. Baseline is within normal limits * has no petechiae on skin * no clumping of platelets * will monitor, and hold DVT prophylaxis if it falls to <50 * consider hematology referral on outpatient basis if it persists * 4. Hypothyroidism: On Synthroid 25 mg daily. Check TSH. 5. Hypertension. Controlled. On clonidine 0.1 mg twice daily and metoprolol 25 mg daily. 6. history of gout: On allopurinol 100 mg 3 times daily. 7. BPH: on flomaxi 0.4mg daily. DVT prophylaxis: heparin Code status; full code. * According to , she is the patient's healthcare power of proof clerk. Patient and were counseled about differences between full code, DNR CCA and DNR CCA. and patient would want him to be DNR CCA now. however states she has a sister who is a nurse and she wants to discuss it further with a to decide if they would change CODE STATUS subsequently. Total [id number] time-17 minutes. Code Visit Inpatient E&M: 73420 Init Hosp L3 Procedures: 37830 Advncd Care Plan 30 Min
[2018-07-05 19:24] VITALS: BMI 35.4
[2018-07-05 20:23] VITALS: BMI 36.1
[2018-07-05 20:25] VITALS: BP 122/59; PULSE 61; RESP 15; TEMP 36.4; O2SAT 96
[2018-07-05 22:15] LABS: Thyroid Stim Hormone (TSH) 3.78 uIU/mL (0.358-3.74)
[2018-07-05] MEDS: Allopurinol 100 MG Tablet PO (23:12)
[2018-07-05] MEDS: ARIPiprazole 5 MG Tablet 15 MG PO (23:12)
[2018-07-05] MEDS: cloNIDine HCl 0.1 MG Tablet PO (23:12)
[2018-07-05] MEDS: Furosemide 40 MG Tablet PO (23:12)
[2018-07-05] MEDS: Heparin Injection (Vial) 5,000 UNIT/ML VIAL 5000 UNIT SC (23:12)
[2018-07-05] MEDS: 0.9% Normal Saline 1,000 ML 100 ML IV (23:13)
[2018-07-05] MEDS: 0.9% Saline Lock 10 ML Syringe IV (23:19)
[2018-07-06] VITALS (15 sets, daily range): BP systolic 107–140; BP diastolic 63–86; PULSE 57–68; RESP 16–18; TEMP 36.5–36.7; O2SAT 95–96
[2018-07-06] MEDS: Heparin Injection (Vial) 5,000 UNIT/ML VIAL 5000 UNIT SC ×3 (06:11→21:10)
[2018-07-06] MEDS: Allopurinol 100 MG Tablet PO ×3 (06:11→21:09)
[2018-07-06] MEDS: Levothyroxine 25 MCG TABLET PO (06:11)
[2018-07-06 06:20] LABS: Absolute Lymphocyte Count 2.28 X10^3/ul (0.83-4.51); Absolute Neutrophil Count 3.9 X10^3/uL (2.0-7.7); Basophil# 0.02 X10^3/uL; Basophil% 0.3 % (0-1); Eosinophil# 0.27 X10^3/uL; Eosinophils% 3.7 % (0-5); Hematocrit 39.1 % (40-54); Hemoglobin 13.2 g/dl (13.0-16.5); Lymphocyte # 2.28 X10^3/ul (4.0); Lymphocyte % 31.1 % (19-41); Mean Corp Hgb Conc 33.8 g/gl (32-36); Mean Corpuscular Hgb 32.3 pg (27.0-32.0); Mean Corpuscular Volume 95.6 fL (80-94); Mean Platelet Vol. 11.2 fl (6.2-12.0); Monocyte# 0.78 X10^3/uL; Monocyte% 10.7 % (0-10); Neutrophil # 3.88 X10^3/uL (2.7-7.7); Platelet Count 142 K/mm3 (150-450); RBC Distribution Width CV 13.9 % (11.6-14.6); RBC Distribution Width SD 47.1 fl (35.1-43.9); Red Blood Count 4.09 M/mm3 (4.6-6.2); White Blood Count 7.3 K/mm3 (4.4-11.0)
[2018-07-06 06:23] LABS: POSITIVE COUNT NO; POSITIVE DIFFERENTIAL NO; POSITIVE MORPHOLOGY NO
[2018-07-06 06:36] LABS: Anion Gap 6 (5-15); BUN 29 mg/dL (7-18); BUN/Creat Ratio 17.2 RATIO (10-20); Calcium,Total 8.7 mg/dL (8.5-10.1); Chloride 106 mmol/L (98-107); Creatinine, Serum 1.69 mg/dL (0.70-1.30); EST Glomerular Filtration Rate 43 mL/min (>60); Est Glom Filt Rate - Afr Amer 52 mL/min (>60); Estimated Creatinine Clearance 38.22 ml/min; Glucose 87 mg/dL (74-106); Potassium 4.3 mmol/L (3.5-5.1); Sodium Level 142 mmol/L (136-145)
[2018-07-06] MEDS: Aspirin 81 MG TAB.CHEW PO (08:31)
[2018-07-06] MEDS: Tamsulosin HCl 0.4 MG Capsule PO (08:31)
[2018-07-06] MEDS: Menthol/Lanolin/Calamine/Znox 113 GM Tube 1 APPLIC TOPICAL ×3 (08:32→21:10)
[2018-07-06] MEDS: Pantoprazole Sodium 20 MG Tablet PO (08:32)
[2018-07-06] MEDS: QUEtiapine 100 MG Tablet PO (10:21)
[2018-07-06] MEDS: Metoprolol(XL)Succ 25 MG Tablet PO (10:22)
[2018-07-06] MEDS: cloNIDine HCl 0.1 MG Tablet PO ×2 (10:22→21:10)
[2018-07-06] MEDS: Furosemide 40 MG Tablet PO (10:22)
[2018-07-06] MEDS: 0.9% Saline Lock 10 ML Syringe IV (10:26)
--- NOTE | 2018-07-06 11:01 | PN_ITS ---
Patient Problems: Active and Suspected Problems Weakness (Acute) Subjective: Patient was seen and examined. He feels much improved, denies any new complaints. No acute events since being admitted this morning Vitals/I&O's: Vital Signs Temp Pulse Resp BP Pulse Ox 97.9 F 65 18 140/86 H 95 07/06/18 08:08 07/06/18 10:22 07/06/18 10:18 07/06/18 10:18 07/06/18 08:08 Oxygen Delivery Method Room Air Weight: 107.7 kg Body Mass Index (BMI) 36.1 Finger Stick Blood Glucose 104 Intake and Output for Last 24 Hours 07/04/18 07/05/18 07/06/18 23:59 23:59 23:59 Intake Total 812 / 812 Balance 812 / 812 General: Alert, Oriented x3, Cooperative, No apparent distress, - - appears weak HEENT: Atraumatic, PERRLA, EOMI, Normocephalic Oral: Moist Mucosa Neck: Supple, No JVD, Negative Carotid Bruits Lungs: Clear to auscultation, Normal air movement Cardiovascular: Regular rate, Regular Rhythm, Normal S1, Normal S2, No murmurs Abdomen: Bowel Sounds Present, Soft, Non Tender, Non-Distended, No Hepato- splenomegaly Extremities: No edema, Capillary Refill Less than 3 Seconds Skin: No rashes, No breakdown Musculoskeletal: No Tenderness to Palpation of Joints or Extremities Lymphatic: No Cervical, Supraclavicular, or Inguinal Adenopathy Neurological: Cranial nerves II-XII grossly intact, - - slight masked facies Psych/Mental Status: Normal Affect, Appropriate Laboratory Results 07/05/18 17:33: WBC 8.6, RBC 4.45 L, Hgb 14.1, Hct 43.0, MCV 96.6 H, MCH 31.7, MCHC 32.8, RDW 14.1, RDW Differential 48.5 H, Plt Count 131 L, MPV 11.7, Immature Gran % (Auto) 1.200 H, Neut % (Auto) 62.3, Lymph % (Auto) 21.0, [place] % (Auto) 12.4 H, Eos % (Auto) 2.9, Baso % (Auto) 0.2, Absolute Neuts (auto) 5.3, Absolute Lymphs (auto) 1.80, Total Counted Not Reportable 07/05/18 17:33: PT 13.0, INR 1.0, APTT 28.8 07/05/18 17:33: Sodium 143, Potassium 4.9, Chloride 102, Carbon Dioxide 34.0 H, Anion Gap 7, BUN 34 H, Creatinine 1.94 H, Estim Creat Clear Calc 33.30, Est GFR (MDRD) Af Amer 44 L, Est GFR (MDRD) Non-Af 36 L, BUN/Creatinine Ratio 17.5, Glucose 111 H, Calcium 9.3, Total Bilirubin 0.40, AST 17, ALT 20, Alkaline Phosphatase 118 H, Troponin I < 0.015, Total Protein 7.0, Albumin 3.6, Globulin 3.4, Albumin/Globulin Ratio 1.1, Lipase 91 07/05/18 17:33: TSH 3.78 H 07/05/18 17:52: Urine Color Yellow, Urine Clarity Clear, Urine pH 5.0, Ur Specific [place] 1.015, Urine Protein Negative, Urine Glucose (UA) Normal, Urine Ketones Negative, Urine Occult Blood Negative, Urine Nitrite Negative, Urine Bilirubin Negative, Urine Urobilinogen Normal, Ur Leukocyte Esterase Negative, Urine RBC 0 SEEN, Urine WBC 0-5 SEEN, Ur Squamous Epith Cells 0-5 SEEN, Urine Bacteria 0 SEEN, Hyaline Casts 0-5 SEEN, Urine Mucus 0 SEEN 07/05/18 18:10: POC Glucose 104 07/06/18 05:48: WBC 7.3, RBC 4.09 L, Hgb 13.2, Hct 39.1 L, MCV 95.6 H, MCH 32.3 H, MCHC 33.8, RDW 13.9, RDW Differential 47.1 H, Plt Count 142 L, MPV 11.2, I mmature Gran % (Auto) 1.200 H, Neut % (Auto) 53.0, Lymph % (Auto) 31.1, [place] % (Auto) 10.7 H, Eos % (Auto) 3.7, Baso % (Auto) 0.3, Absolute Neuts (auto) 3.9, Absolute Lymphs (auto) 2.28, Total Counted Not Reportable 07/06/18 05:48: Sodium 142, Potassium 4.3, Chloride 106, Carbon Dioxide 30.0, Anion Gap 6, BUN 29 H, Creatinine 1.69 H, Estim Creat Clear Calc 38.22, Est GFR (MDRD) Af Amer 52 L, Est GFR (MDRD) Non-Af 43 L, BUN/Creatinine Ratio 17.2, Glucose 87, Calcium 8.7 Current Medications Allopurinol (Zyloprim) 100 mg PO TID COUNTS [facility]CLUDE 234 BEDS AT [facility] Last Admin: 07/06/18 06:11 Dose: 100 mg Aripiprazole (Abilify) 15 mg PO QHS COUNTS [facility]CLUDE 234 BEDS AT [facility] Last Admin: 07/05/18 23:12 Dose: 15 mg Aspirin (Aspirin, Baby) 81 mg PO DAILY@0800 [facility]S [facility]CLUDE 234 BEDS AT [facility] Last Admin: 07/06/18 08:31 Dose: 81 mg Calamine/Phenol (Calmoseptine Ointment) 1 applic TOPICAL TID COUNTS INCLUDE 234 BEDS AT [facility]; Protocol Last Admin: 07/06/18 08:32 Dose: 1 applicatio Clonidine (Catapres) 0.1 mg PO BID COUNTS INCLUDE 234 BEDS AT [facility] Last Admin: 07/06/18 10:22 Dose: 0.1 mg Divalproex Sodium (Depakote) 1,500 mg PO QHS COUNTS INCLUDE 234 BEDS AT [facility] Furosemide (Lasix) 40 mg PO BID COUNTS INCLUDE 234 BEDS AT [facility] Last Admin: 07/06/18 10:22 Dose: 40 mg Heparin Sodium (Porcine) (Heparin Na) 5,000 unit SC Q8 COUNTS INCLUDE 234 BEDS AT [facility] Last Admin: 07/06/18 06:11 Dose: 5,000 unit Levothyroxine Sodium (Synthroid) 25 mcg PO DAILY@0600 COUNTS [facility]CLUDE 234 BEDS AT [facility] Last Admin: 07/06/18 06:11 Dose: 25 mcg Magnesium Hydroxide (Milk Of Magnesia) 30 ml PO DAILY PRN PRN PRN Reason: Constipation Metoprolol Succinate (Toprol Xl (Beta Milagros)) 25 mg PO DAILY COUNTS [facility]CLUDE 234 BEDS AT [facility] Last Admin: 07/06/18 10:22 Dose: 25 mg Naproxen (Naprosyn) 250 mg PO Q12H PRN PRN PRN Reason: MILD PAIN (1-310) Nutritional Formula (Lactose Free) (Ensure Enlive) 120 ml PO 4X/DAY COUNTS INCLUDE 234 BEDS AT THE [facility] Last Admin: 07/06/18 08:31 Dose: 120 ml Pantoprazole Sodium (Protonix) 20 mg PO DAILY COUNTS [facility]CLUDE 234 BEDS AT [facility] Last Admin: 07/06/18 08:32 Dose: 20 mg Quetiapine Fumarate (Seroquel) 100 mg PO DAILY COUNTS [facility]CLUDE 234 BEDS AT [facility] Last Admin: 07/06/18 10:21 Dose: 100 mg Sodium Chloride () 5 - 30 ml IV UD PRN PRN Reason: SALINE FLUSH Last Admin: 07/06/18 10:26 Dose: 10 ml Tamsulosin HCl (Flomax) 0.4 mg PO DAILY [facility] Last Admin: 07/06/18 08:31 Dose: 0.4 mg Medical Necessity - Tobacco Use Smoking Status: Former smoker Assessment/Plan All Active Problems Stage II pressure ulcer of right buttock (Acute) Weakness (Acute) Superficial thrombophlebitis of left upper extremity (Acute) Acute gouty arthritis (Acute) ADÁN (acute kidney injury) (Ruled-out) UTI (urinary tract infection) (Ruled-out) History of urinary tract infection (Ruled-out) 73-year-old male with past medical history of Parkinson's disease, hypothyroidism, hypertension, BPH who was admitted with progressive weakness with the inability to care for him. 1. Debility related to worsening Parkinson's disease/possibly Alzheimer's disease Family is unable to take care of him, PT and OT as well as case management consulted [facility] Continue on Seroquel, Abilify, will check for QT prolongation in EKG tomorrow 2. ADÁN secondary to dehydration, improving with hydration, creatinine down to 1.69 from 1.94, will hold Lasix for now, resume when renal function is improved 3. Hypothyroidism, on replacement 4. Hypertension, controlled on metoprolol, clonidine, to to monitor vital 5. BPH, on Flomax 6. Gout, no signs of acute exacerbation, on allopurinol 7. DVT prophylaxis on heparin subcu Code Visit Inpatient E&M: 03566 Subs Hosp L2
--- NOTE | 2018-07-06 13:20 | CASEMGMT ---
MATHEW GASPAR Face to Face with patient for initial transition planning/care coordination assessment. MATHEW GASPAR introduced self and role at [facility]. Patient lying in bed, alert and oriented, at bedside. Patient willing to participate in assessment and is able to answer all questions appropriately. Care providers, pharmacy, and demographics verified. Patient lives with in 1 story home. Patient requires 1 assist from to assist with ADLs. Patient has shower chair, raised toilet seat, hospital bed, walker, and WC at home. Patient is currently receiving HHC through [facility]. Patient and wish for patient to discharge to SNF. First choice is TCU and list of in-network facilities provided. Pt states he has no further needs or concerns at this time. FRANK Taylor notified of patient and family request for SNF at discharge. Disposition Plan: SNF pending precert. Patsy CATALAN, RN, CM
--- NOTE | 2018-07-06 14:23 | CHAPLAIN ---
Type of Pastoral Visit _x__ Initial Visit ___ Follow-up Visit ___ On-call Visit ___ General Patient Visit ___ Spiritual Assessment ___ Family Conference ___ Bereavement ___ Rapid Response ___ Code Blue ___ Other (describe below) Pastoral Care Referral From _x__ Patient ___ Family ___ Nurse ___ Physician ___ Database Coordinator ___ Logistics Engineering Manager ___ Other (describe below) Sacrament/Intervention _x__ Active listening ___ Anointing ___ Tenriism ___ Bereavement ___ Communion _x__ Afsaneh exploration ___ _x__ Life review _x__ Prayer ___ Reconciliation ___ Sacrament of Sick _x__ Supportive presence ___ Wedding ___ Other (describe below) Pastoral Comments 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
--- NOTE | 2018-07-06 15:06 | CASEMGMT ---
Social Work Note MATHEW Wilson updated this worker that pt and pt's Patsy are agreeable to TCU at discharge. SW placed a call to Mandy in TCU who states she doesn't have any beds available at this time. MATHEW Wilson informed this worker that she provided list of in network facilities to pt's and encouraged his to review facilities and to have a second and third choice. SW attempted to see pt and pt's regarding discharge plans. Pt's not present in room. SW placed a call to pt's Patsy and left her a message informing her that TCU doesn't have any beds and to give this worker a call back so this worker can send referrals to another facility. SW waiting for call back from pt's . Plan: SNF pending acceptance and pre-cert Patsy Taylor BARGE LOADER, CESSPOOL CLEANER
[2018-07-06] MEDS: Divalproex Sodium 250 MG Tablet 1500 MG PO (21:09)
[2018-07-06] MEDS: ARIPiprazole 5 MG Tablet 15 MG PO (21:09)
[2018-07-07] VITALS (8 sets, daily range): BP systolic 119–155; BP diastolic 72–91; PULSE 54–70; RESP 16–18; TEMP 36.4–36.6; O2SAT 97–98
[2018-07-07] MEDS: Allopurinol 100 MG Tablet PO ×3 (05:18→22:37)
[2018-07-07] MEDS: Menthol/Lanolin/Calamine/Znox 113 GM Tube 1 APPLIC TOPICAL ×3 (05:18→22:38)
[2018-07-07] MEDS: Heparin Injection (Vial) 5,000 UNIT/ML VIAL 5000 UNIT SC ×3 (05:18→22:37)
[2018-07-07] MEDS: Levothyroxine 25 MCG TABLET PO (05:18)
--- NOTE | 2018-07-07 05:55 | EKG12_ITS ---
Test Reason : AM EKG Blood Pressure : / mmHG Vent. Rate : 057 BPM Atrial Rate : 057 BPM P-R Int : 208 ms QRS Dur : 096 ms QT Int : 424 ms P-R-T Axes : 039 -02 035 degrees QTc Int : 412 ms Sinus bradycardia Otherwise normal ECG Confirmed by IVANA GREENWOOD, CAMERON ([id number]), metropolitan editor REBECCA HILL ([id number]) on 07/13/2018 11:57:06 AM Referred By: ROSIE Confirmed By:CAMERON HEATH MD
[2018-07-07 06:40] LABS: Absolute Lymphocyte Count 2.86 X10^3/ul (0.83-4.51); Absolute Neutrophil Count 3.2 X10^3/uL (2.0-7.7); Basophil# 0.02 X10^3/uL; Basophil% 0.3 % (0-1); Eosinophil# 0.27 X10^3/uL; Eosinophils% 3.7 % (0-5); Hematocrit 39.4 % (40-54); Hemoglobin 13.3 g/dl (13.0-16.5); Lymphocyte # 2.86 X10^3/ul (4.0); Lymphocyte % 38.7 % (19-41); Mean Corp Hgb Conc 33.8 g/gl (32-36); Mean Corpuscular Hgb 32.2 pg (27.0-32.0); Mean Corpuscular Volume 95.4 fL (80-94); Mean Platelet Vol. 11.1 fl (6.2-12.0); Monocyte# 0.93 X10^3/uL; Monocyte% 12.6 % (0-10); Neutrophil # 3.17 X10^3/uL (2.7-7.7); Neutrophil % 42.8 % (47-70); Platelet Count 145 K/mm3 (150-450); RBC Distribution Width CV 13.9 % (11.6-14.6); RBC Distribution Width SD 46.4 fl (35.1-43.9); Red Blood Count 4.13 M/mm3 (4.6-6.2); White Blood Count 7.4 K/mm3 (4.4-11.0)
[2018-07-07 06:42] LABS: POSITIVE COUNT NO; POSITIVE DIFFERENTIAL NO; POSITIVE MORPHOLOGY NO
[2018-07-07 06:56] LABS: Anion Gap 8 (5-15); BUN 33 mg/dL (7-18); Calcium,Total 9.2 mg/dL (8.5-10.1); Chloride 108 mmol/L (98-107); Creatinine, Serum 1.65 mg/dL (0.70-1.30); EST Glomerular Filtration Rate 44 mL/min (>60); Est Glom Filt Rate - Afr Amer 53 mL/min (>60); Estimated Creatinine Clearance 39.15 ml/min; Glucose 105 mg/dL (74-106); Potassium 4.3 mmol/L (3.5-5.1); Sodium Level 145 mmol/L (136-145)
[2018-07-07] MEDS: cloNIDine HCl 0.1 MG Tablet PO ×2 (10:20→22:36)
[2018-07-07] MEDS: Aspirin 81 MG TAB.CHEW PO (10:20)
[2018-07-07] MEDS: Tamsulosin HCl 0.4 MG Capsule PO (10:20)
[2018-07-07] MEDS: Pantoprazole Sodium 20 MG Tablet PO (10:20)
[2018-07-07] MEDS: 0.9% Normal Saline 1,000 ML 75 ML IV (10:21)
[2018-07-07] MEDS: 0.9% Saline Lock 10 ML Syringe IV (10:30)
--- NOTE | 2018-07-07 11:04 | CASEMGMT ---
Addendum entered by Patsy Taylor 07/07/18 11:48: FRANK discussed case with RN CHASITY Wilson. SW placed a call to Mandy in TCU who states she will have a bed Tuesday. Per previous notes, TCU is pt and pt's first choice. SW placed a call to Mandy in TCU who again confirms she will have a bed on Tuesday. Mandy reviewed pt and she is able to accept and will submit for pre-cert. SW placed a call to pt's Patsy and updated her on this. Patsy states understanding and is so happy that a bed opened up on TCU. SW explained that pre-cert has been submitted for pt and if pre-cert is received pt will be able to discharge to TCU on Tuesday. Patsy states understanding. Original Note: Social Work Note SW spoke with pt's twice today to discuss discharge plans. SW and pt's Patsy discussed how on the SNF list there are no facilities in [place] that accept pt's insurance and the closest one is 17 miles away and per Patsy that is too far of a distance for her to travel to. FRANK explained that this worker can confirm with SNF in [place] that they aren't in network with pt's insurance.SW also informed Patsy that [facility] has been known to be able to attempt a one time contract with insurances out of network. Patsy states that she would prefer to go to SNF that is individually owned instead of corporate owned. FRANK explained that medically the pt is ready for discharge and this worker would like to have a facility accept pt so pre-cert can be submitted and pt still may be able to be discharged over the weekend. FRANK explained pre-cert process to Patsy. Patsy states understanding. [facility] mentioned that they believe they are in network with pt's insurance. SW updated Patsy of this. Patsy states that [facility] is a place that she won't send pt to as he has visited the place before and it made him sick. Patsy states that she will be calling [facility] next and will give this worker a call back. Plan: SNF pending acceptance and pre-cert Patsy Taylor MAINTENANCE WELDER, SOLDER SPRAYER
--- NOTE | 2018-07-07 13:12 | CASEMGMT ---
MATHEW GASPAR attempted to complete [place] with over the phone. NO answer, voice message left with return contact information.
--- NOTE | 2018-07-07 14:22 | PCM.PN.HOSP ---
Patient Problems: Active and Suspected Problems Weakness (Acute) Subjective: Patient was seen and examined. No acute events overnight. Denies any complaints. Review of systems is negative Objective: Physical exam: General: Alert, Oriented x3, Cooperative, No apparent distress, - - appears weak HEENT: Atraumatic, PERRLA, EOMI, Normocephalic Oral: Moist Mucosa Neck: Supple, No JVD, Negative Carotid Bruits Lungs: Clear to auscultation, Normal air movement Cardiovascular: Regular rate, Regular Rhythm, Normal S1, Normal S2, No murmurs Abdomen: Bowel Sounds Present, Soft, Non Tender, Non-Distended, No Hepato-splenomegaly Extremities: No edema, Capillary Refill Less than 3 Seconds Skin: No rashes, No breakdown Musculoskeletal: No Tenderness to Palpation of Joints or Extremities Lymphatic: No Cervical, Supraclavicular, or Inguinal Adenopathy Neurological: Cranial nerves II-XII grossly intact, - - slight masked facies Psych/Mental Status: Normal Affect, Appropriate Vitals/I&O's: Vital Signs Temp Pulse Resp BP Pulse Ox 97.7 F L 66 18 119/82 H 97 07/07/18 13:51 07/07/18 14:01 07/07/18 13:51 07/07/18 13:51 07/07/18 13:51 Oxygen Delivery Method Room Air Weight: 107.7 kg Body Mass Index (BMI) 36.1 Finger Stick Blood Glucose 104 Intake and Output for Last 24 Hours 07/05/18 07/06/18 07/07/18 23:59 23:59 23:59 Intake Total 1252 / 1252 1025.3 / 1025.3 Balance 1252 / 1252 1025.3 / 1025.3 Microbiology Past 72 Hours 07/05/18 17:52 Urine Catheter - Catheter Urine Culture - Preliminary Culture exhibits no growth. Laboratory Results 07/07/18 06:00: WBC 7.4, RBC 4.13 L, Hgb 13.3, Hct 39.4 L, MCV 95.4 H, MCH 32.2 H, MCHC 33.8, RDW 13.9, RDW Differential 46.4 H, Plt Count 145 L, MPV 11.1, Immature Gran % (Auto) 1.900 H, Neut % (Auto) 42.8 L, Lymph % (Auto) 38.7, [place] % (Auto) 12.6 H, Eos % (Auto) 3.7, Baso % (Auto) 0.3, Absolute Neuts (auto) 3.2, Absolute Lymphs (auto) 2.86, Total Counted Not Reportable 07/07/18 06:00: Sodium 145, Potassium 4.3, Chloride 108 H, Carbon Dioxide 29.0, Anion Gap 8, BUN 33 H, Creatinine 1.65 H, Estim Creat Clear Calc 39.15, Est GFR (MDRD) Af Amer 53 L, Est GFR (MDRD) Non-Af 44 L, BUN/Creatinine Ratio 20.0, Glucose 105, Calcium 9.2 Current Medications Allopurinol (Zyloprim) 100 mg PO TID [facility] Last Admin: 07/07/18 13:56 Dose: 100 mg Aripiprazole (Abilify) 15 mg PO QHS [facility] Last Admin: 07/06/18 21:09 Dose: 15 mg Aspirin (Aspirin, Baby) 81 mg PO DAILY@0800 [facility] Last Admin: 07/07/18 10:20 Dose: 81 mg Calamine/Phenol (Calmoseptine Ointment) 1 applic TOPICAL TID [facility]; Protocol Last Admin: 07/07/18 13:56 Dose: 1 applicatio Clonidine (Catapres) 0.1 mg PO BID [facility] Last Admin: 07/07/18 10:20 Dose: 0.1 mg Divalproex Sodium (Depakote) 1,500 mg PO QHS [facility] Last Admin: 07/06/18 21:09 Dose: 1,500 mg Heparin Sodium (Porcine) (Heparin Na) 5,000 unit SC Q8 [facility] Last Admin: 07/07/18 13:54 Dose: 5,000 unit Sodium Chloride () 1,000 mls @ 75 mls/hr IV .[id number] [facility] Stop: 07/07/18 22:19 Last Admin: 07/07/18 10:21 Dose: 75 mls/hr Levothyroxine Sodium (Synthroid) 25 mcg PO DAILY@0600 [facility] Last Admin: 07/07/18 05:18 Dose: 25 mcg Magnesium Hydroxide (Milk Of Magnesia) 30 ml PO DAILY PRN PRN PRN Reason: Constipation Metoprolol Succinate (Toprol Xl (Beta Milagros)) 25 mg PO DAILY [facility] Last Admin: 07/07/18 10:20 Dose: Not Given Naproxen (Naprosyn) 250 mg PO Q12H PRN PRN PRN Reason: MILD PAIN (-12/03) Nutritional Formula (Lactose Free) (Ensure Enlive) 120 ml PO 4X/DAY [facility] Last Admin: 07/07/18 13:54 Dose: 120 ml Pantoprazole Sodium (Protonix) 20 mg PO DAILY [facility] Last Admin: 07/07/18 10:20 Dose: 20 mg Quetiapine Fumarate (Seroquel) 100 mg PO DAILY [facility] Last Admin: 07/07/18 02:47 Dose: Not Given Sodium Chloride () 5 - 30 ml IV UD PRN PRN Reason: SALINE FLUSH Last Admin: 07/07/18 10:30 Dose: 10 ml Tamsulosin HCl (Flomax) 0.4 mg PO DAILY [facility] Last Admin: 07/07/18 10:20 Dose: 0.4 mg Medical Necessity - Tobacco Use Smoking Status: Former smoker Assessment/Plan All Active Problems Stage II pressure ulcer of right buttock (Acute) Weakness (Acute) Superficial thrombophlebitis of left upper extremity (Acute) Acute gouty arthritis (Acute) ADÁN (acute kidney injury) (Ruled-out) UTI (urinary tract infection) (Ruled-out) History of urinary tract infection (Ruled-out) 73-year-old male with past medical history of Parkinson's disease, hypothyroidism, hypertension, BPH who was admitted with progressive weakness with the inability to care for him. 1. Debility related to worsening Parkinson's disease/possibly Alzheimer's disease, patient is a 2 person assist, Family is unable to take care of him, PT and OT as well as case management consulted Continue on insurance precertification, Continue on Seroquel, Abilify. QTC is 424. 2. ADÁN secondary to dehydration, baseline creatinine of 1.2, steady improvement in creatinine, improving with hydration, will continue to hold Lasix, resume when renal function is improved 3. Hypothyroidism, on replacement 4. Hypertension, controlled on metoprolol, clonidine, will continue monitoring. 5. BPH, on Flomax 6. Gout, no signs of acute exacerbation, on allopurinol 7. DVT prophylaxis on heparin subcu Code Visit Inpatient E&M: 31400 Subs Hosp L2
--- NOTE | 2018-07-07 14:30 | PN_ITS ---
Patient Problems: Active and Suspected Problems Weakness (Acute) Subjective: Patient was seen and examined. No acute events overnight. Denies any complaints. Review of systems is negative Objective: Physical exam: General: Alert, Oriented x3, Cooperative, No apparent distress, - - appears weak HEENT: Atraumatic, PERRLA, EOMI, Normocephalic Oral: Moist Mucosa Neck: Supple, No JVD, Negative Carotid Bruits Lungs: Clear to auscultation, Normal air movement Cardiovascular: Regular rate, Regular Rhythm, Normal S1, Normal S2, No murmurs Abdomen: Bowel Sounds Present, Soft, Non Tender, Non-Distended, No Hepato- splenomegaly Extremities: No edema, Capillary Refill Less than 3 Seconds Skin: No rashes, No breakdown Musculoskeletal: No Tenderness to Palpation of Joints or Extremities Lymphatic: No Cervical, Supraclavicular, or Inguinal Adenopathy Neurological: Cranial nerves II-XII grossly intact, - - slight masked facies Psych/Mental Status: Normal Affect, Appropriate Vitals/I&O's: Vital Signs Temp Pulse Resp BP Pulse Ox 97.7 F L 66 18 119/82 H 97 07/07/18 13:51 07/07/18 14:01 07/07/18 13:51 07/07/18 13:51 07/07/18 13:51 Oxygen Delivery Method Room Air Weight: 107.7 kg Body Mass Index (BMI) 36.1 Finger Stick Blood Glucose 104 Intake and Output for Last 24 Hours 07/05/18 07/06/18 07/07/18 23:59 23:59 23:59 Intake Total 1252 / 1252 1025.3 / 1025.3 Balance 1252 / 1252 1025.3 / 1025.3 Microbiology Past 72 Hours 07/05/18 17:52 Urine Catheter - Catheter Urine Culture - Preliminary Culture exhibits no growth. Laboratory Results 07/07/18 06:00: WBC 7.4, RBC 4.13 L, Hgb 13.3, Hct 39.4 L, MCV 95.4 H, MCH 32.2 H, MCHC 33.8, RDW 13.9, RDW Differential 46.4 H, Plt Count 145 L, MPV 11.1, Immature Gran % (Auto) 1.900 H, Neut % (Auto) 42.8 L, Lymph % (Auto) 38.7, [place] % (Auto) 12.6 H, Eos % (Auto) 3.7, Baso % (Auto) 0.3, Absolute Neuts (auto) 3.2, Absolute Lymphs (auto) 2.86, Total Counted Not Reportable 07/07/18 06:00: Sodium 145, Potassium 4.3, Chloride 108 H, Carbon Dioxide 29.0, Anion Gap 8, BUN 33 H, Creatinine 1.65 H, Estim Creat Clear Calc 39.15, Est GFR (MDRD) Af Amer 53 L, Est GFR (MDRD) Non-Af 44 L, BUN/Creatinine Ratio 20.0, Glucose 105, Calcium 9.2 Current Medications Allopurinol (Zyloprim) 100 mg PO TID [facility] Last Admin: 07/07/18 13:56 Dose: 100 mg Aripiprazole (Abilify) 15 mg PO QHS [facility] Last Admin: 07/06/18 21:09 Dose: 15 mg Aspirin (Aspirin, Baby) 81 mg PO DAILY@0800 [facility] Last Admin: 07/07/18 10:20 Dose: 81 mg Calamine/Phenol (Calmoseptine Ointment) 1 applic TOPICAL TID [facility]; Protocol Last Admin: 07/07/18 13:56 Dose: 1 applicatio Clonidine (Catapres) 0.1 mg PO BID [facility] Last Admin: 07/07/18 10:20 Dose: 0.1 mg Divalproex Sodium (Depakote) 1,500 mg PO QHS [facility] Last Admin: 07/06/18 21:09 Dose: 1,500 mg Heparin Sodium (Porcine) (Heparin Na) 5,000 unit SC Q8 [facility] Last Admin: 07/07/18 13:54 Dose: 5,000 unit Sodium Chloride () 1,000 mls @ 75 mls/hr IV .[id number] [facility] Stop: 07/07/18 22:19 Last Admin: 07/07/18 10:21 Dose: 75 mls/hr Levothyroxine Sodium (Synthroid) 25 mcg PO DAILY@0600 [facility] Last Admin: 07/07/18 05:18 Dose: 25 mcg Magnesium Hydroxide (Milk Of Magnesia) 30 ml PO DAILY PRN PRN PRN Reason: Constipation Metoprolol Succinate (Toprol Xl (Beta Milagros)) 25 mg PO DAILY [facility] Last Admin: 07/07/18 10:20 Dose: Not Given Naproxen (Naprosyn) 250 mg PO Q12H PRN PRN PRN Reason: MILD PAIN (-12/03) Nutritional Formula (Lactose Free) (Ensure Enlive) 120 ml PO 4X/DAY [facility] Last Admin: 07/07/18 13:54 Dose: 120 ml Pantoprazole Sodium (Protonix) 20 mg PO DAILY [facility] Last Admin: 07/07/18 10:20 Dose: 20 mg Quetiapine Fumarate (Seroquel) 100 mg PO DAILY [facility] Last Admin: 07/07/18 02:47 Dose: Not Given Sodium Chloride () 5 - 30 ml IV UD PRN PRN Reason: SALINE FLUSH Last Admin: 07/07/18 10:30 Dose: 10 ml Tamsulosin HCl (Flomax) 0.4 mg PO DAILY [facility] Last Admin: 07/07/18 10:20 Dose: 0.4 mg Medical Necessity - Tobacco Use Smoking Status: Former smoker Assessment/Plan All Active Problems Stage II pressure ulcer of right buttock (Acute) Weakness (Acute) Superficial thrombophlebitis of left upper extremity (Acute) Acute gouty arthritis (Acute) ADÁN (acute kidney injury) (Ruled-out) UTI (urinary tract infection) (Ruled-out) History of urinary tract infection (Ruled-out) 73-year-old male with past medical history of Parkinson's disease, hypothyroidism, hypertension, BPH who was admitted with progressive weakness with the inability to care for him. 1. Debility related to worsening Parkinson's disease/possibly Alzheimer's disease, patient is a 2 person assist, Family is unable to take care of him, PT and OT as well as case management consulted Continue on insurance precertification, Continue on Seroquel, Abilify. QTC is 424. 2. ADÁN secondary to dehydration, baseline creatinine of 1.2, steady improvement in creatinine, improving with hydration, will continue to hold Lasix, resume when renal function is improved 3. Hypothyroidism, on replacement 4. Hypertension, controlled on metoprolol, clonidine, will continue monitoring. 5. BPH, on Flomax 6. Gout, no signs of acute exacerbation, on allopurinol 7. DVT prophylaxis on heparin subcu Code Visit Inpatient E&M: 89961 Subs Hosp L2
--- NOTE | 2018-07-07 16:01 | CASEMGMT ---
Social Work Note SW received call from pt's Patsy requesting Medicaid application to be left in pt's room. SW left Medicaid application in room for pt's to complete. FRANK placed a call to Mandy in TCU and informed her this worker is leaving for the day and to call [facility] if pre-cert is obtained. Green sheet on chart in the event pre-cert is obtained. Plan: TCU pending pre-cert Patsy Taylor [employer], AUTOPSY ASSISTANT
--- NOTE | 2018-07-07 16:07 | NURSING ---
received phone call from bo guzman mgmt tcu, aware we got precert for tcu however, plan not to come until tuesday because of bed status.
[2018-07-07] MEDS: ARIPiprazole 5 MG Tablet 15 MG PO (22:36)
[2018-07-07] MEDS: QUEtiapine 100 MG Tablet PO (22:37)
[2018-07-07] MEDS: Divalproex Sodium 250 MG Tablet 1500 MG PO (22:42)
[2018-07-08] VITALS (10 sets, daily range): BP systolic 113–152; BP diastolic 66–94; PULSE 60–76; RESP 16–18; TEMP 36.4–36.8; O2SAT 95–98
[2018-07-08] MEDS: Heparin Injection (Vial) 5,000 UNIT/ML VIAL 5000 UNIT SC ×3 (07:14→21:14)
[2018-07-08] MEDS: Menthol/Lanolin/Calamine/Znox 113 GM Tube 1 APPLIC TOPICAL ×3 (07:15→21:12)
[2018-07-08] MEDS: Allopurinol 100 MG Tablet PO ×3 (07:15→21:25)
[2018-07-08] MEDS: Levothyroxine 25 MCG TABLET PO (07:15)
[2018-07-08] MEDS: Metoprolol(XL)Succ 25 MG Tablet PO (09:52)
[2018-07-08] MEDS: cloNIDine HCl 0.1 MG Tablet PO ×2 (09:53→21:12)
[2018-07-08] MEDS: Tamsulosin HCl 0.4 MG Capsule PO (09:53)
[2018-07-08] MEDS: Pantoprazole Sodium 20 MG Tablet PO (09:53)
[2018-07-08] MEDS: Aspirin 81 MG TAB.CHEW PO (09:53)
--- NOTE | 2018-07-08 13:29 | PCM.PN.HOSP ---
Patient Problems: Active and Suspected Problems Weakness (Acute) Subjective: Patient was seen and examined. Denies any new complains. No acute events overnight. Denies fever, chills, SOB. Possibly will be discharged to TCU in am Objective: Physical exam: General: Alert, Oriented x3, Cooperative, No apparent distress, - - appears weak HEENT: Atraumatic, PERRLA, EOMI, Normocephalic Oral: Moist Mucosa Neck: Supple, No JVD, Negative Carotid Bruits Lungs: Clear to auscultation, Normal air movement Cardiovascular: Regular rate, Regular Rhythm, Normal S1, Normal S2, No murmurs Abdomen: Bowel Sounds Present, Soft, Non Tender, Non-Distended, No Hepato-splenomegaly Extremities: No edema, Capillary Refill Less than 3 Seconds Skin: No rashes, No breakdown Musculoskeletal: No Tenderness to Palpation of Joints or Extremities Lymphatic: No Cervical, Supraclavicular, or Inguinal Adenopathy Neurological: Cranial nerves II-XII grossly intact, - - slight masked facies Psych/Mental Status: Normal Affect, Appropriate Vitals/I&O's: Vital Signs Temp Pulse Resp BP Pulse Ox 97.5 F L 62 16 113/69 95 07/08/18 09:51 07/08/18 11:29 07/08/18 09:51 07/08/18 09:52 07/08/18 09:51 Oxygen Flow Rate (L/min) 1 Oxygen Delivery Method Room Air Weight: 107.7 kg Body Mass Index (BMI) 36.1 Finger Stick Blood Glucose 104 Intake and Output for Last 24 Hours 07/06/18 07/07/18 07/08/18 23:59 23:59 23:59 Intake Total 1252 / 1252 1704.3 / 1704.3 760 / 760 Balance 1252 / 1252 1704.3 / 1704.3 760 / 760 Microbiology Past 72 Hours 07/05/18 17:52 Urine Catheter - Catheter Urine Culture - Final Culture exhibits no growth. Current Medications Allopurinol (Zyloprim) 100 mg PO TID [facility] Last Admin: 07/08/18 07:15 Dose: 100 mg Aripiprazole (Abilify) 15 mg PO QHS [facility] Last Admin: 07/07/18 22:36 Dose: 15 mg Aspirin (Aspirin, Baby) 81 mg PO DAILY@0800 [facility] Last Admin: 07/08/18 09:53 Dose: 81 mg Calamine/Phenol (Calmoseptine Ointment) 1 applic TOPICAL TID [facility]; Protocol Last Admin: 07/08/18 07:15 Dose: 1 applicatio Clonidine (Catapres) 0.1 mg PO BID [facility] Last Admin: 07/08/18 09:53 Dose: 0.1 mg Divalproex Sodium (Depakote) 1,500 mg PO QHS [facility] Last Admin: 07/07/18 22:42 Dose: 1,500 mg Heparin Sodium (Porcine) (Heparin Na) 5,000 unit SC Q8 [facility] Last Admin: 07/08/18 07:14 Dose: 5,000 unit Levothyroxine Sodium (Synthroid) 25 mcg PO DAILY@0600 [facility] Last Admin: 07/08/18 07:15 Dose: 25 mcg Magnesium Hydroxide (Milk Of Magnesia) 30 ml PO DAILY PRN PRN PRN Reason: Constipation Metoprolol Succinate (Toprol Xl (Beta Milagros)) 25 mg PO DAILY [facility] Last Admin: 07/08/18 09:52 Dose: 25 mg Naproxen (Naprosyn) 250 mg PO Q12H PRN PRN PRN Reason: MILD PAIN (1-310) Nutritional Formula (Lactose Free) (Ensure Enlive) 120 ml PO 4X/DAY [facility] Last Admin: 07/08/18 09:54 Dose: 120 ml Pantoprazole Sodium (Protonix) 20 mg PO DAILY [facility] Last Admin: 07/08/18 09:53 Dose: 20 mg Quetiapine Fumarate (Seroquel) 100 mg PO QHS [facility] Last Admin: 07/07/18 22:37 Dose: 100 mg Sodium Chloride () 5 - 30 ml IV UD PRN PRN Reason: SALINE FLUSH Last Admin: 07/07/18 10:30 Dose: 10 ml Tamsulosin HCl (Flomax) 0.4 mg PO DAILY [facility] Last Admin: 07/08/18 09:53 Dose: 0.4 mg Medical Necessity - Tobacco Use Smoking Status: Former smoker Assessment/Plan All Active Problems Stage II pressure ulcer of right buttock (Acute) Weakness (Acute) Superficial thrombophlebitis of left upper extremity (Acute) Acute gouty arthritis (Acute) ADÁN (acute kidney injury) (Ruled-out) UTI (urinary tract infection) (Ruled-out) History of urinary tract infection (Ruled-out) 73-year-old male with past medical history of Parkinson's disease, hypothyroidism, hypertension, BPH who was admitted with progressive weakness with the inability to care for him. 1. Debility related to worsening Parkinson's disease/possibly Alzheimer's disease, patient is a 2 person assist, patient will be discharged to subacute rehab 2. Parkinson's disease with dementia, appears stable on home meds, will continue to monitor. 3. ADÁN secondary to dehydration, baseline creatinine of 1.2, steady improvement in creatinine, improving with hydration, will continue to hold Lasix, resume when renal function is improved 4. Hypothyroidism, on replacement 5. Hypertension, controlled on metoprolol, clonidine, will continue monitoring. 6. BPH, on Flomax 7. Gout, no signs of acute exacerbation, on allopurinol 8. DVT prophylaxis on heparin subcu Code Visit Inpatient E&M: 00273 Subs Hosp L2
--- NOTE | 2018-07-08 13:33 | PN_ITS ---
Patient Problems: Active and Suspected Problems Weakness (Acute) Subjective: Patient was seen and examined. Denies any new complains. No acute events overnight. Denies fever, chills, SOB. Possibly will be discharged to TCU in am Objective: Physical exam: General: Alert, Oriented x3, Cooperative, No apparent distress, - - appears weak HEENT: Atraumatic, PERRLA, EOMI, Normocephalic Oral: Moist Mucosa Neck: Supple, No JVD, Negative Carotid Bruits Lungs: Clear to auscultation, Normal air movement Cardiovascular: Regular rate, Regular Rhythm, Normal S1, Normal S2, No murmurs Abdomen: Bowel Sounds Present, Soft, Non Tender, Non-Distended, No Hepato- splenomegaly Extremities: No edema, Capillary Refill Less than 3 Seconds Skin: No rashes, No breakdown Musculoskeletal: No Tenderness to Palpation of Joints or Extremities Lymphatic: No Cervical, Supraclavicular, or Inguinal Adenopathy Neurological: Cranial nerves II-XII grossly intact, - - slight masked facies Psych/Mental Status: Normal Affect, Appropriate Vitals/I&O's: Vital Signs Temp Pulse Resp BP Pulse Ox 97.5 F L 62 16 113/69 95 07/08/18 09:51 07/08/18 11:29 07/08/18 09:51 07/08/18 09:52 07/08/18 09:51 Oxygen Flow Rate (L/min) 1 Oxygen Delivery Method Room Air Weight: 107.7 kg Body Mass Index (BMI) 36.1 Finger Stick Blood Glucose 104 Intake and Output for Last 24 Hours 07/06/18 07/07/18 07/08/18 23:59 23:59 23:59 Intake Total 1252 / 1252 1704.3 / 1704.3 760 / 760 Balance 1252 / 1252 1704.3 / 1704.3 760 / 760 Microbiology Past 72 Hours 07/05/18 17:52 Urine Catheter - Catheter Urine Culture - Final Culture exhibits no growth. Current Medications Allopurinol (Zyloprim) 100 mg PO TID [facility] Last Admin: 07/08/18 07:15 Dose: 100 mg Aripiprazole (Abilify) 15 mg PO QHS [facility] Last Admin: 07/07/18 22:36 Dose: 15 mg Aspirin (Aspirin, Baby) 81 mg PO DAILY@0800 [facility] Last Admin: 07/08/18 09:53 Dose: 81 mg Calamine/Phenol (Calmoseptine Ointment) 1 applic TOPICAL TID [facility]; Protocol Last Admin: 07/08/18 07:15 Dose: 1 applicatio Clonidine (Catapres) 0.1 mg PO BID [facility] Last Admin: 07/08/18 09:53 Dose: 0.1 mg Divalproex Sodium (Depakote) 1,500 mg PO QHS [facility] Last Admin: 07/07/18 22:42 Dose: 1,500 mg Heparin Sodium (Porcine) (Heparin Na) 5,000 unit SC Q8 [facility] Last Admin: 07/08/18 07:14 Dose: 5,000 unit Levothyroxine Sodium (Synthroid) 25 mcg PO DAILY@0600 [facility] Last Admin: 07/08/18 07:15 Dose: 25 mcg Magnesium Hydroxide (Milk Of Magnesia) 30 ml PO DAILY PRN PRN PRN Reason: Constipation Metoprolol Succinate (Toprol Xl (Beta Milagros)) 25 mg PO DAILY [facility] Last Admin: 07/08/18 09:52 Dose: 25 mg Naproxen (Naprosyn) 250 mg PO Q12H PRN PRN PRN Reason: MILD PAIN (1-310) Nutritional Formula (Lactose Free) (Ensure Enlive) 120 ml PO 4X/DAY [facility] Last Admin: 07/08/18 09:54 Dose: 120 ml Pantoprazole Sodium (Protonix) 20 mg PO DAILY [facility] Last Admin: 07/08/18 09:53 Dose: 20 mg Quetiapine Fumarate (Seroquel) 100 mg PO QHS [facility] Last Admin: 07/07/18 22:37 Dose: 100 mg Sodium Chloride () 5 - 30 ml IV UD PRN PRN Reason: SALINE FLUSH Last Admin: 07/07/18 10:30 Dose: 10 ml Tamsulosin HCl (Flomax) 0.4 mg PO DAILY [facility] Last Admin: 07/08/18 09:53 Dose: 0.4 mg Medical Necessity - Tobacco Use Smoking Status: Former smoker Assessment/Plan All Active Problems Stage II pressure ulcer of right buttock (Acute) Weakness (Acute) Superficial thrombophlebitis of left upper extremity (Acute) Acute gouty arthritis (Acute) ADÁN (acute kidney injury) (Ruled-out) UTI (urinary tract infection) (Ruled-out) History of urinary tract infection (Ruled-out) 73-year-old male with past medical history of Parkinson's disease, hypothyroidism, hypertension, BPH who was admitted with progressive weakness with the inability to care for him. 1. Debility related to worsening Parkinson's disease/possibly Alzheimer's disease, patient is a 2 person assist, patient will be discharged to subacute rehab 2. Parkinson's disease with dementia, appears stable on home meds, will continue to monitor. 3. ADÁN secondary to dehydration, baseline creatinine of 1.2, steady improvement in creatinine, improving with hydration, will continue to hold Lasix, resume when renal function is improved 4. Hypothyroidism, on replacement 5. Hypertension, controlled on metoprolol, clonidine, will continue monitoring. 6. BPH, on Flomax 7. Gout, no signs of acute exacerbation, on allopurinol 8. DVT prophylaxis on heparin subcu Code Visit Inpatient E&M: 17580 Subs Hosp L2
[2018-07-08] MEDS: 0.9% Normal Saline 1,000 ML 75 ML IV (15:21)
[2018-07-08] MEDS: ARIPiprazole 5 MG Tablet 15 MG PO (21:12)
[2018-07-08] MEDS: Divalproex Sodium 250 MG Tablet 1500 MG PO (21:13)
[2018-07-08] MEDS: QUEtiapine 100 MG Tablet PO (23:47)
[2018-07-09] VITALS (8 sets, daily range): BP systolic 115–141; BP diastolic 63–80; PULSE 58–76; RESP 18; TEMP 36.6; O2SAT 93–97
[2018-07-09] MEDS: 0.9% Saline Lock 10 ML Syringe IV (05:12)
[2018-07-09] MEDS: Menthol/Lanolin/Calamine/Znox 113 GM Tube 1 APPLIC TOPICAL ×2 (05:12→14:32)
[2018-07-09] MEDS: Levothyroxine 25 MCG TABLET PO (05:13)
[2018-07-09] MEDS: Heparin Injection (Vial) 5,000 UNIT/ML VIAL 5000 UNIT SC ×2 (05:13→14:32)
[2018-07-09] MEDS: Allopurinol 100 MG Tablet PO ×2 (05:15→14:45)
[2018-07-09 06:07] LABS: Anion Gap 9 (5-15); BUN 26 mg/dL (7-18); BUN/Creat Ratio 20.2 RATIO (10-20); Calcium,Total 8.7 mg/dL (8.5-10.1); Chloride 108 mmol/L (98-107); Creatinine, Serum 1.29 mg/dL (0.70-1.30); EST Glomerular Filtration Rate 58 mL/min (>60); Est Glom Filt Rate - Afr Amer 70 mL/min (>60); Estimated Creatinine Clearance 50.08 ml/min; Glucose 110 mg/dL (74-106); Potassium 4.5 mmol/L (3.5-5.1); Sodium Level 143 mmol/L (136-145)
[2018-07-09] MEDS: cloNIDine HCl 0.1 MG Tablet PO (08:49)
[2018-07-09] MEDS: Pantoprazole Sodium 20 MG Tablet PO (08:50)
[2018-07-09] MEDS: Aspirin 81 MG TAB.CHEW PO (08:50)
[2018-07-09] MEDS: Tamsulosin HCl 0.4 MG Capsule PO (08:50)
[2018-07-09] MEDS: Metoprolol(XL)Succ 25 MG Tablet PO (08:50)
--- NOTE | 2018-07-09 09:05 | PCM.TXEXTCAR ---
- Diet 07/05/18 21:31 Diet: Cardiac/Low Cholesterol Food consistency:: Regular Liquid Consistency:: Regular/Thin Is pt able to select menu?: Yes - Routine Orders/Code Status Routine Lab Work: CBC - in 3 days, BMP - in 3 days - Wound(s) coccyx Wound Type: Pressure Injury Dressing Change: Calmoseptine - Therapies Weight Bearing: Weight bearing as tolerated Extremity Affected:: Bilateral Lower Physical Therapy: Eval and Treat Occupational Therapy: Eval and Treat Speech Therapy: Eval and Treat - Cognitive impairment assessment and training - Allergies/Procedures Done in Hospital Allergies/Adverse Reactions: Allergies chocolate flavor Allergy (Verified 07/07/18 10:08) Diarrhea codeine Allergy (Verified 07/05/18 14:43) Rash latex Allergy (Verified 07/05/18 14:43) Rash Penicillins Allergy (Verified 07/05/18 14:43) Other Procedures: None - Type of Care/Length of Stay Estimated LOS: Convalescent Care Less Than 30 days Type of Care Needed: Skilled Rehab Potential: Fair Prognosis: Fair - Additional Orders/Day of Discharge Additional Orders: We held his naproxen, resumed his Lasix which was held till day of discharge because of ADÁN. His renal function needs to be closely monitored. Daily weights, CHF precautions Day of Discharge: 07/09/18 - Dietary and Speech Recommendations Dietitian Recommendations/Changes: Suggest diet change to cardiac/low sodium as needed. - Follow Up Care Primary Care Physician: Michelle Romeo MD [Primary Care Provider] - Please follow up with your Primary Care Physician in: within 2 weeks of discharge
--- NOTE | 2018-07-09 09:09 | DS.PCM_ITS ---
Discharge Date and Diagnosis Date of Admission: 07/05/18 Date of Discharge: 07/09/18 - Primary Discharge Diagnosis Active and Suspected Problems Weakness (Acute) Debility Acute kidney injury - Secondary Discharge Diagnosis Chronic Problems History of CVA (cerebrovascular accident) (Chronic) History of tobacco use (Chronic) GERD (gastroesophageal reflux disease) (Chronic) Hypothyroidism (Chronic) Noted treated prior, not on regimen list. NSTEMI (non-ST elevated myocardial infarction) (Chronic) Bipolar disorder (Chronic) Mood disorder (Chronic) Edema of both legs (Chronic) Dermatomycosis (Chronic) Obesity (BMI 30-39.9) (Chronic) CHF (congestive heart failure) (Chronic) Charcot ankle (Chronic) BL Pre-diabetes (Chronic) Incontinence of urine (Chronic) Incontinence of feces (Chronic) Incontinence associated dermatitis (Chronic) Benign hypertension (Chronic) Hospital Course and Treatment Imaging Results: Clinical Impression(s) from Imaging Studies Chest X-Ray 07/05/18 17:25 IMPRESSION: Degenerative changes, as described above. No demonstrated acute cardiopulmonary process. Electronically Signed: Niraj Castellanos MD at 17:51 EDT , Service support , None Operations: None Procedures: None Summary of Care Provided: 73-year-old male with past medical history of Parkinson's disease, hypothyroidism, hypertension, BPH who was admitted with progressive weakness with the inability to care for him. 1. Debility related to worsening Parkinson's disease/possibly Alzheimer's disease, patient was a 2 person assist, Seen by PT and OT and skilled for [facility] facility. 2. Parkinson's disease with dementia, appeared stable on home meds 3. ADÁN secondary to dehydration, baseline creatinine of 1.2, this improved with IV hydration and Lasix being withhold. On the day of discharge patient had his Lasix resumed. Needs to be monitored closely in the subacute rehab Subjective: The day of discharge, patient was seen and examined. Feels much better. Denied any chest pain no dizziness or shortness of breath. Will be discharged to the prison facility Objective: Physical exam: General: Alert, Oriented x3, Cooperative, No apparent distress, - - appears weak HEENT: Atraumatic, PERRLA, EOMI, Normocephalic Oral: Moist Mucosa Neck: Supple, No JVD, Negative Carotid Bruits Lungs: Clear to auscultation, Normal air movement Cardiovascular: Regular rate, Regular Rhythm, Normal S1, Normal S2, No murmurs Abdomen: Bowel Sounds Present, Soft, Non Tender, Non-Distended, No Hepato- splenomegaly Extremities: Bipedal edema trace-+1 Skin: No rashes, No breakdown Musculoskeletal: No Tenderness to Palpation of Joints or Extremities Lymphatic: No Cervical, Supraclavicular, or Inguinal Adenopathy Neurological: Cranial nerves II-XII grossly intact, - - slight masked facies Psych/Mental Status: Normal Affect, Appropriate - Physical Exam Vital Signs Temp Pulse Resp BP Pulse Ox 97.9 F 76 18 115/63 93 07/09/18 08:44 07/09/18 08:50 07/09/18 08:44 07/09/18 08:44 07/09/18 08:44 Oxygen Flow Rate (L/min) 1 Oxygen Delivery Method Room Air Weight: 107.7 kg Body Mass Index (BMI) 36.1 Finger Stick Blood Glucose 104 Intake and Output for Last 24 Hours 07/07/18 07/08/18 07/09/18 23:59 23:59 23:59 Intake Total 1704.3 / 1704.3 2281 / 2281 475 / 475 Balance 1704.3 / 1704.3 2281 / 2281 475 / 475 Microbiology Past 72 Hours 07/05/18 17:52 Urine Culture - Final Urine Catheter - Catheter Culture exhibits no growth. Laboratory Tests Past 24 Hrs 07/09/18 05:25 Sodium 143 Potassium 4.5 Chloride 108 H Carbon Dioxide 26.0 Anion Gap 9 BUN 26 H Creatinine 1.29 Estim Creat Clear Calc 50.08 Est GFR (MDRD) Af Amer 70 Est GFR (MDRD) Non-Af 58 L BUN/Creatinine Ratio 20.2 H Glucose 110 H Calcium 8.7 Discharge Diet: Low fat/ Low Cholesterol, 2000 mg Sodium Diet Discharge Activity: Return to Normal Activity Home Medications: Medications to take at Discharge Aripiprazole [Abilify] 15 mg PO QHS 03/10/17 Aspirin [Aspirin, Baby] 81 mg PO DAILY@0800 03/10/17 Clonidine HCl [Catapres] 0.1 mg PO BID 03/10/17 Divalproex Sodium [Depakote] 1,500 mg PO QHS 06/15/17 Levothyroxine [Synthroid] 25 mcg PO DAILY 03/10/17 Tamsulosin HCl [Flomax] 0.4 mg PO DAILY 03/10/17 Omeprazole [Prilosec] 20 mg PO DAILY 12/15/17 Allopurinol [Zyloprim] 100 mg PO TID 07/05/18 Furosemide 40 mg PO BID 07/05/18 Metoprolol Succinate 25 mg PO DAILY 07/05/18 Quetiapine Fumarate [Seroquel] 100 mg PO DAILY 07/05/18 Acetaminophen [Tylenol Extra Strength] 1,000 mg PO Q8H PRN PRN #30 tablet 07/09/18 Ensure Enlive 120 ml PO 4X/DAY 07/09/18 Heparin Injection (Vial) [Heparin Na] 5,000 unit SC Q8 07/09/18 Magnesium Hydroxide [Milk Of Magnesia] 30 ml PO DAILY PRN PRN udc 07/09/18 Menthol/Lanolin/Calamine/Znox [Calmoseptine Ointment] 1 applic TOPICAL TID 07/09/18 Following Prescrptions Were Given to Patient: Acetaminophen [Tylenol Extra Strength] 1,000 mg PO Q8H PRN PRN #30 tablet PRN Reason: Pain Primary Care Physician: Michelle Romeo MD [Primary Care Provider] - Please follow up with your Primary Care Physician in: within 2 weeks of discharge Disposition: [facility] facility Minutes spent on discharge:: 40 Patient Condition:: Stable Medical Necessity - Tobacco Use Smoking Status: Former smoker Tobacco Use: Non-smoker Meaningful Use Info Meaningful Use Diagnoses (Choose all that apply): None applicable Code Visit Inpatient E&M: 56760 Disch Hosp
[2018-07-09] MEDS: Furosemide 40 MG Tablet PO (10:13)
== END 2018-07-09 15:22 | disposition skilled nursing facility (03) ==
LOC: ED 17:14 → MS3 19:47
PROVIDERS: Admitting Provider Student in an Organized Health Care Education/Training Program; Emergency Provider Emergency Medicine; Family Provider Internal Medicine; PCP Internal Medicine; Visit Provider Internal Medicine
DX: R53.1 Weakness (principal); F31.9 Bipolar disorder, unspecified; M14.671 Charcot's joint, right ankle and foot; E03.9 Hypothyroidism, unspecified; G20 Parkinson's disease; K21.9 Gastro-esophageal reflux disease without esophagitis; I11.0 Hypertensive heart disease with heart failure; I50.9 Heart failure, unspecified; R73.03 Prediabetes; E66.9 Obesity, unspecified; M10.9 Gout, unspecified; N40.0 Benign prostatic hyperplasia without lower urinary tract symptoms; D69.6 Thrombocytopenia, unspecified; N17.9 Acute kidney failure, unspecified; L89.322 Pressure ulcer of left buttock, stage 2; L89.312 Pressure ulcer of right buttock, stage 2; Z68.36 Body mass index [BMI] 36.0-36.9, adult; Z71.3 Dietary counseling and surveillance; Z79.82 Long term (current) use of aspirin; Z79.899 Other long term (current) drug therapy; Z87.891 Personal history of nicotine dependence; Z86.73 Personal history of transient ischemic attack (TIA), and cerebral infarction without residual deficits
CPT/HCPCS: 36415; 71045; 80048; 80053; 81001; 82962; 83690; 84443; 84484; 85025; 85610; 85730; 87086; 93005; 96360; 96361; 96372; 97163; 97165; 97530; 97802; 99218; 99284; J7030; J7040; P9612; A4216; G0378

== ENCOUNTER 2018-07-09 16:07 | Inpatient (IN) | payer MEDICARE, SELFPAY ==
--- NOTE | 2018-07-09 16:30 | NURSING ---
pt arrived via bed from [id number] at 1530
[2018-07-09 16:31] VITALS: BP 114/73; PULSE 62; RESP 18; TEMP 36.6; O2SAT 94; BMI 36.9
--- NOTE | 2018-07-09 18:07 | PCM.HP.STD ---
Problem List (1) Parkinson's disease Status: Chronic (2) Alzheimer's disease Status: Chronic (3) Charcot's joint of left foot Status: Chronic (4) BPH (benign prostatic hyperplasia) Status: Chronic (5) Hypertension Status: Chronic (6) Stroke Status: Chronic (7) Edema Status: Chronic (8) Chronic congestive heart failure Status: Chronic (9) Gout Status: Chronic (10) Weakness Status: Acute (11) GERD (gastroesophageal reflux disease) Status: Chronic (12) Hypothyroidism Status: Chronic Comment: Noted treated prior, not on regimen list. (13) NSTEMI (non-ST elevated myocardial infarction) Status: Chronic (14) Bipolar disorder Status: Chronic (15) ADÁN (acute kidney injury) Status: Chronic History of Present Illness Date of Admission: 07/09/18 Chief Complaint: Here for rehabilitation, strengthening, prior to disposition determination. The patient is a 73 year old Male with below past medical history presented to [facility] Emergency Department 07/05/2018 with generalized weakness. 07/05/2018 Chest X-ray negative for acute cardiopulmonary findings. Worsening weakness x 4 days. Baseline can transfer from left chair to wheelchair. Tender buttock wound. Difficulty urinating. Sinemet not helpful. CBC okay, Coags okay, BUN 34, Cr 1.94. Troponin negative, EKG okay. IV fluids given. 07/05/2018 Admit to Hospital. PT/OT. Gentle hydration. 07/06/2018 EKG to check prolonged QT. Kidney failure improved. 07/07/2018 Patient needs at least short term placement. 07/09/2018 Admit to TCU with debility, here for rehabilitation, strengthening, prior to disposition determination. Past Medical History Past Medical History (Chronic Problems): Chronic Problems Parkinson's disease (Chronic) Alzheimer's disease (Chronic) Charcot's joint of left foot (Chronic) BPH (benign prostatic hyperplasia) (Chronic) Hypertension (Chronic) Stroke (Chronic) Edema (Chronic) Chronic congestive heart failure (Chronic) Gout (Chronic) History of CVA (cerebrovascular accident) (Chronic) History of tobacco use (Chronic) GERD (gastroesophageal reflux disease) (Chronic) Hypothyroidism (Chronic) Noted treated prior, not on regimen list. NSTEMI (non-ST elevated myocardial infarction) (Chronic) Bipolar disorder (Chronic) ADÁN (acute kidney injury) (Chronic) Mood disorder (Chronic) Edema of both legs (Chronic) Dermatomycosis (Chronic) Obesity (BMI 30-39.9) (Chronic) CHF (congestive heart failure) (Chronic) Charcot ankle (Chronic) BL Pre-diabetes (Chronic) Incontinence of urine (Chronic) Incontinence of feces (Chronic) Incontinence associated dermatitis (Chronic) Benign hypertension (Chronic) Allergies chocolate flavor Allergy (Verified 07/07/18 10:08) Diarrhea codeine Allergy (Verified 07/05/18 14:43) Rash latex Allergy (Verified 07/05/18 14:43) Rash Penicillins Allergy (Verified 07/05/18 14:43) Other Home Medications: Ambulatory Orders Medication Instructions Recorded Aripiprazole [Abilify] 15 mg PO QHS 03/10/17 Aspirin [Aspirin, Baby] 81 mg PO DAILY@0800 03/10/17 Clonidine HCl [Catapres] 0.1 mg PO BID 03/10/17 Divalproex Sodium [Depakote] 1,500 mg PO QHS 03/10/17 Levothyroxine [Synthroid] 25 mcg PO DAILY 03/10/17 Tamsulosin HCl [Flomax] 0.4 mg PO DAILY 03/10/17 Omeprazole [Prilosec] 20 mg PO DAILY 12/15/17 Allopurinol [Zyloprim] 100 mg PO TID 07/05/18 Furosemide 40 mg PO BID 07/05/18 Metoprolol Succinate 25 mg PO DAILY 07/05/18 Quetiapine Fumarate [Seroquel] 100 mg PO DAILY 07/05/18 Acetaminophen [Tylenol Extra 1,000 mg PO Q8H PRN PRN #30 tablet 07/09/18 Strength] Ensure Enlive 120 ml PO 4X/DAY 07/09/18 Heparin Injection (Vial) [Heparin 5,000 unit SC Q8 07/09/18 Na] Magnesium Hydroxide [Milk Of 30 ml PO DAILY PRN PRN udc 07/09/18 Magnesia] Menthol/Lanolin/Calamine/Znox 1 applic TOPICAL TID 07/09/18 [Calmoseptine Ointment] Surgical History: tonsillectomy Psychiatric History: Bipolar Lives: Spouse/ Significant Other Smoking Status: Former smoker Tobacco Use: Non-smoker Alcohol: None Drugs: None - *Family History Maternal History Items: Cancer, - - The patient's mother had a history of Alzheimer's disease. She at the age of 70. Paternal History Items: Cancer, - - Patient's father at age of 59 with prostate cancer. Review of Systems Constitutional: Denies: Chills, Fever, Weight Change HEENT: Denies: Head Aches, Sinus Congestion, Sinus Drainage Cardiovascular: Denies: Chest Pain, Palpitations Respiratory: Denies: Cough, Shortness of breath at rest, Sputum production Gastrointestinal: Denies: Abdominal Pain, Nausea, Vomiting Genitourinary: Denies: Dysuria Musculoskeletal: Denies: Joint Pain, Joint Tenderness Skin: Denies: Rash, Wounds Neurological: Denies: Numbness, Tingling, Focal weakness Psychiatric: Denies: Anxiety, Depression, Homicidal Ideations, Suicidal Ideations Hematologic/ Lymphatic: Denies: Easy Bruising, Easy Bleeding VTE Information - Inpt Only VTE Present on Admission: No VTE Mechan Device Prophylaxis: Knee High KIN Hose VTE Pharm Prophylaxis ordered?: Yes - Physical Exam General: Alert, Oriented x3, Cooperative HEENT: Atraumatic, PERRLA, EOMI, Normocephalic Neck: Supple, No JVD, Negative Carotid Bruits Lungs: Clear to auscultation, Normal air movement Cardiovascular: Regular rate, No murmurs Abdomen: Bowel Sounds Present, Soft, Non Tender Extremities: No edema, Capillary Refill Less than 3 Seconds Skin: No rashes, No breakdown Musculoskeletal: No Tenderness to Palpation of Joints or Extremities Neurological: Cranial nerves II-XII grossly intact Psych/Mental Status: Normal Affect, Appropriate Vital Signs Temp Pulse Resp BP Pulse Ox 97.9 F 62 18 114/73 94 07/09/18 16:31 07/09/18 16:31 07/09/18 16:31 07/09/18 16:31 07/09/18 16:31 Oxygen Delivery Method Room Air Finger Stick Blood Glucose 104 Assessment/Plan All Active Problems Stage II pressure ulcer of right buttock (Acute) Weakness (Acute) Superficial thrombophlebitis of left upper extremity (Acute) Acute gouty arthritis (Acute) UTI (urinary tract infection) (Ruled-out) History of urinary tract infection (Ruled-out) 73 year old male with below past medical history significant for Parkinson's Disease, Alzheimer's Disease, hospitalized for weakness, complicated by acute kidney failure, admitted to TCU with debility, here for rehabilitation, strengthening, prior to disposition determination. Debility - PT/OT. Cognition - ST. Pain - Tylenol 1000MG Q8H PRN mild pain. Bowel - Miralax 17GM daily, Senna/colace 1 tablet BID, Dulcolax 10MG PO daily PRN. Pneumonia vaccination - Administer Prevnar 13 and/or Pneumovax 23 as necessary. DVT prophylaxis - Lovenox 40MG SC daily. Gout - Allopurinol 100MG TID. Bipolar Disorder - Abilify 15MG QHS, Depakote 1500MG QHS, Seroquel 100MG QHS (Antipsychotic medications prescribed by psychiatrist for chronic intermediate card tender treatment). Coronary Artery Disease - Metoprolol succinate 25MG daily, Aspirin 81MG daily. Hypertension - Metoprolol succinate 25MG daily, Clonidine 0.1MG BID. Nutrition - Ensure Enlive 120ML 4x/day. Edema - Lasix 40MG BID. Hypothyroidism - Levothyroxine 25MCG daily. Skin irritation - Calmoseptine TID bilateral buttocks, coccyx. GERD - Pantoprazole 20MG daily. BPH - Tamsulosin 0.4MG daily.
--- NOTE | 2018-07-09 18:13 | HP.PCM_ITS ---
Problem List (1) Parkinson's disease Status: Chronic (2) Alzheimer's disease Status: Chronic (3) Charcot's joint of left foot Status: Chronic (4) BPH (benign prostatic hyperplasia) Status: Chronic (5) Hypertension Status: Chronic (6) Stroke Status: Chronic (7) Edema Status: Chronic (8) Chronic congestive heart failure Status: Chronic (9) Gout Status: Chronic (10) Weakness Status: Acute (11) GERD (gastroesophageal reflux disease) Status: Chronic (12) Hypothyroidism Status: Chronic Comment: Noted treated prior, not on regimen list. (13) NSTEMI (non-ST elevated myocardial infarction) Status: Chronic (14) Bipolar disorder Status: Chronic (15) ADÁN (acute kidney injury) Status: Chronic History of Present Illness Date of Admission: 07/09/18 Chief Complaint: Here for rehabilitation, strengthening, prior to disposition determination. The patient is a 73 year old Male with below past medical history presented to [facility] Emergency Department 07/05/2018 with generalized weakness. 07/05/2018 Chest X-ray negative for acute cardiopulmonary findings. Worsening weakness x 4 days. Baseline can transfer from left chair to wheelchair. Tender buttock wound. Difficulty urinating. Sinemet not helpful. CBC okay, Coags okay, BUN 34, Cr 1.94. Troponin negative, EKG okay. IV fluids given. 07/05/2018 Admit to Hospital. PT/OT. Gentle hydration. 07/06/2018 EKG to check prolonged QT. Kidney failure improved. 07/07/2018 Patient needs at least short term placement. 07/09/2018 Admit to TCU with debility, here for rehabilitation, strengthening, prior to disposition determination. Past Medical History Past Medical History (Chronic Problems): Chronic Problems Parkinson's disease (Chronic) Alzheimer's disease (Chronic) Charcot's joint of left foot (Chronic) BPH (benign prostatic hyperplasia) (Chronic) Hypertension (Chronic) Stroke (Chronic) Edema (Chronic) Chronic congestive heart failure (Chronic) Gout (Chronic) History of CVA (cerebrovascular accident) (Chronic) History of tobacco use (Chronic) GERD (gastroesophageal reflux disease) (Chronic) Hypothyroidism (Chronic) Noted treated prior, not on regimen list. NSTEMI (non-ST elevated myocardial infarction) (Chronic) Bipolar disorder (Chronic) ADÁN (acute kidney injury) (Chronic) Mood disorder (Chronic) Edema of both legs (Chronic) Dermatomycosis (Chronic) Obesity (BMI 30-39.9) (Chronic) CHF (congestive heart failure) (Chronic) Charcot ankle (Chronic) BL Pre-diabetes (Chronic) Incontinence of urine (Chronic) Incontinence of feces (Chronic) Incontinence associated dermatitis (Chronic) Benign hypertension (Chronic) Allergies chocolate flavor Allergy (Verified 07/07/18 10:08) Diarrhea codeine Allergy (Verified 07/05/18 14:43) Rash latex Allergy (Verified 07/05/18 14:43) Rash Penicillins Allergy (Verified 07/05/18 14:43) Other Home Medications: Ambulatory Orders Medication Instructions Recorded Aripiprazole [Abilify] 15 mg PO QHS 03/10/17 Aspirin [Aspirin, Baby] 81 mg PO DAILY@0800 03/10/17 Clonidine HCl [Catapres] 0.1 mg PO BID 03/10/17 Divalproex Sodium [Depakote] 1,500 mg PO QHS 03/10/17 Levothyroxine [Synthroid] 25 mcg PO DAILY 03/10/17 Tamsulosin HCl [Flomax] 0.4 mg PO DAILY 03/10/17 Omeprazole [Prilosec] 20 mg PO DAILY 12/15/17 Allopurinol [Zyloprim] 100 mg PO TID 07/05/18 Furosemide 40 mg PO BID 07/05/18 Metoprolol Succinate 25 mg PO DAILY 07/05/18 Quetiapine Fumarate [Seroquel] 100 mg PO DAILY 07/05/18 Acetaminophen [Tylenol Extra 1,000 mg PO Q8H PRN PRN #30 tablet 07/09/18 Strength] Ensure Enlive 120 ml PO 4X/DAY 07/09/18 Heparin Injection (Vial) [Heparin 5,000 unit SC Q8 07/09/18 Na] Magnesium Hydroxide [Milk Of 30 ml PO DAILY PRN PRN udc 07/09/18 Magnesia] Menthol/Lanolin/Calamine/Znox 1 applic TOPICAL TID 07/09/18 [Calmoseptine Ointment] Surgical History: tonsillectomy Psychiatric History: Bipolar Lives: Spouse/ Significant Other Smoking Status: Former smoker Tobacco Use: Non-smoker Alcohol: None Drugs: None - *Family History Maternal History Items: Cancer, - - The patient's mother had a history of Alzheimer's disease. She at the age of 70. Paternal History Items: Cancer, - - Patient's father at age of 59 with prostate cancer. Review of Systems Constitutional: Denies: Chills, Fever, Weight Change HEENT: Denies: Head Aches, Sinus Congestion, Sinus Drainage Cardiovascular: Denies: Chest Pain, Palpitations Respiratory: Denies: Cough, Shortness of breath at rest, Sputum production Gastrointestinal: Denies: Abdominal Pain, Nausea, Vomiting Genitourinary: Denies: Dysuria Musculoskeletal: Denies: Joint Pain, Joint Tenderness Skin: Denies: Rash, Wounds Neurological: Denies: Numbness, Tingling, Focal weakness Psychiatric: Denies: Anxiety, Depression, Homicidal Ideations, Suicidal Ideations Hematologic/ Lymphatic: Denies: Easy Bruising, Easy Bleeding VTE Information - Inpt Only VTE Present on Admission: No VTE Mechan Device Prophylaxis: Knee High KIN Hose VTE Pharm Prophylaxis ordered?: Yes - Physical Exam General: Alert, Oriented x3, Cooperative HEENT: Atraumatic, PERRLA, EOMI, Normocephalic Neck: Supple, No JVD, Negative Carotid Bruits Lungs: Clear to auscultation, Normal air movement Cardiovascular: Regular rate, No murmurs Abdomen: Bowel Sounds Present, Soft, Non Tender Extremities: No edema, Capillary Refill Less than 3 Seconds Skin: No rashes, No breakdown Musculoskeletal: No Tenderness to Palpation of Joints or Extremities Neurological: Cranial nerves II-XII grossly intact Psych/Mental Status: Normal Affect, Appropriate Vital Signs Temp Pulse Resp BP Pulse Ox 97.9 F 62 18 114/73 94 07/09/18 16:31 07/09/18 16:31 07/09/18 16:31 07/09/18 16:31 07/09/18 16:31 Oxygen Delivery Method Room Air Finger Stick Blood Glucose 104 Assessment/Plan All Active Problems Stage II pressure ulcer of right buttock (Acute) Weakness (Acute) Superficial thrombophlebitis of left upper extremity (Acute) Acute gouty arthritis (Acute) UTI (urinary tract infection) (Ruled-out) History of urinary tract infection (Ruled-out) 73 year old male with below past medical history significant for Parkinson's Disease, Alzheimer's Disease, hospitalized for weakness, complicated by acute kidney failure, admitted to TCU with debility, here for rehabilitation, strengthening, prior to disposition determination. * Debility - PT/OT. * Cognition - ST. * Pain - Tylenol 1000MG Q8H PRN mild pain. * Bowel - Miralax 17GM daily, Senna/colace 1 tablet BID, Dulcolax 10MG PO daily PRN. * Pneumonia vaccination - Administer Prevnar 13 and/or Pneumovax 23 as necessary. * DVT prophylaxis - Lovenox 40MG SC daily. * Gout - Allopurinol 100MG TID. 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 * Coronary Artery Disease - Metoprolol succinate 25MG daily, Aspirin 81MG daily. * Hypertension - Metoprolol succinate 25MG daily, Clonidine 0.1MG BID. * Nutrition - Ensure Enlive 120ML 4x/day. * Edema - Lasix 40MG BID. * Hypothyroidism - Levothyroxine 25MCG daily. * Skin irritation - Calmoseptine TID bilateral buttocks, coccyx. * GERD - Pantoprazole 20MG daily. * BPH - Tamsulosin 0.4MG daily.
[2018-07-09] MEDS: Allopurinol 100 MG Tablet PO (18:41)
[2018-07-09] MEDS: Furosemide 40 MG Tablet PO (18:41)
[2018-07-09] MEDS: cloNIDine HCl 0.1 MG Tablet PO (18:41)
[2018-07-09] MEDS: Divalproex Sodium 250 MG Tablet 1500 MG PO (20:17)
[2018-07-09] MEDS: QUEtiapine 100 MG Tablet PO (20:19)
[2018-07-09] MEDS: ARIPiprazole 5 MG Tablet 15 MG PO (20:19)
[2018-07-09] MEDS: Menthol/Lanolin/Calamine/Znox 113 GM Tube 1 APPLIC TOPICAL (20:23)
--- NOTE | 2018-07-09 20:45 | NURSING ---
Discussed code status with patient, patient wishes to be a DNR-CC.
[2018-07-10 05:38] VITALS: BP 128/76; PULSE 55
[2018-07-10] MEDS: cloNIDine HCl 0.1 MG Tablet PO ×2 (05:38→16:37)
[2018-07-10] MEDS: Metoprolol(XL)Succ 25 MG Tablet PO (05:38)
[2018-07-10] MEDS: Enoxaparin 40 MG/0.4 ML Syringe SC (05:38)
[2018-07-10] MEDS: Senna/Docusate Sodium 1 Tablet PO (05:38)
[2018-07-10] MEDS: Pantoprazole Sodium 20 MG Tablet PO (05:38)
[2018-07-10] MEDS: Polyethylene Glycol 3350 17 GM PACKET PO (05:38)
[2018-07-10] MEDS: Furosemide 40 MG Tablet PO ×2 (05:39→16:37)
[2018-07-10] MEDS: Levothyroxine 25 MCG TABLET PO (05:39)
[2018-07-10] MEDS: Menthol/Lanolin/Calamine/Znox 113 GM Tube 1 APPLIC TOPICAL ×3 (05:46→20:44)
[2018-07-10] MEDS: Nystatin Powder 15gm Bottle 1 APPLIC TOPICAL ×2 (05:47→20:44)
[2018-07-10 06:07] LABS: Hematocrit 40.7 % (40-54); Hemoglobin 13.4 g/dl (13.0-16.5); Mean Corp Hgb Conc 32.9 g/gl (32-36); Mean Corpuscular Hgb 31.5 pg (27.0-32.0); Mean Corpuscular Volume 95.8 fL (80-94); Mean Platelet Vol. 11.5 fl (6.2-12.0); Platelet Count 163 K/mm3 (150-450); RBC Distribution Width CV 14.3 % (11.6-14.6); RBC Distribution Width SD 48.2 fl (35.1-43.9); Red Blood Count 4.25 M/mm3 (4.6-6.2)
[2018-07-10 06:08] LABS: Differential Indicated MANUAL DIFF; POSITIVE COUNT YES; POSITIVE DIFFERENTIAL NO; POSITIVE MORPHOLOGY YES
[2018-07-10 06:27] LABS: Anion Gap 7 (5-15); BUN 26 mg/dL (7-18); BUN/Creat Ratio 17.6 RATIO (10-20); Calcium,Total 9.2 mg/dL (8.5-10.1); Chloride 104 mmol/L (98-107); Creatinine, Serum 1.48 mg/dL (0.70-1.30); EST Glomerular Filtration Rate 50 mL/min (>60); Est Glom Filt Rate - Afr Amer 60 mL/min (>60); Estimated Creatinine Clearance 43.65 ml/min; Glucose 95 mg/dL (74-106); Potassium 4.3 mmol/L (3.5-5.1); Sodium Level 142 mmol/L (136-145)
[2018-07-10 06:56] LABS: Basophil 1 % (0-1); Eosinophil 3 % (0-5); Lymphocyte 30 % (19-41); Metamyelocyte 1 % (0-1); Monocyte 12 % (0-10); Neutrophil-Segmented 53 % (47-70); Platelet Estimate ADEQUATE (ADEQ); Red Cell Morphology NORM C+C NORMAL (NORM C&C); Total Cells Counted 100 (MANUAL DIFF)
[2018-07-10 06:57] LABS: Absolute Neutrophil Count 4.8 X10^3/uL (2.0-7.7); Neutrophil # 4.77 X10^3/uL (2.7-7.7)
[2018-07-10] MEDS: Aspirin 81 MG TAB.CHEW PO (09:11)
[2018-07-10] MEDS: Tamsulosin HCl 0.4 MG Capsule PO (09:11)
[2018-07-10] MEDS: Allopurinol 100 MG Tablet PO ×3 (09:11→16:37)
[2018-07-10] MEDS: Tuberculin,Purif.prot.deriv. 50 TU/ML Vial 5 ML ID (12:37)
[2018-07-10 14:13] LABS: Pathologist Review Reviewed
[2018-07-10 15:14] VITALS: BP 104/66; PULSE 66; RESP 14; TEMP 36.1; O2SAT 94
[2018-07-10] MEDS: Divalproex Sodium 250 MG Tablet 1500 MG PO (20:43)
[2018-07-10] MEDS: ARIPiprazole 5 MG Tablet 15 MG PO (20:43)
[2018-07-10] MEDS: QUEtiapine 100 MG Tablet PO (20:44)
[2018-07-11] MEDS: cloNIDine HCl 0.1 MG Tablet PO ×2 (05:51→18:22)
[2018-07-11 05:52] VITALS: BP 118/65; PULSE 71
[2018-07-11] MEDS: Furosemide 40 MG Tablet PO ×2 (05:52→18:22)
[2018-07-11] MEDS: Pantoprazole Sodium 20 MG Tablet PO (05:52)
[2018-07-11] MEDS: Enoxaparin 40 MG/0.4 ML Syringe SC (05:52)
[2018-07-11] MEDS: Levothyroxine 25 MCG TABLET PO (05:52)
[2018-07-11] MEDS: Metoprolol(XL)Succ 25 MG Tablet PO (05:52)
[2018-07-11] MEDS: Nystatin Powder 15gm Bottle 1 APPLIC TOPICAL ×2 (05:56→19:50)
[2018-07-11] MEDS: Acetaminophen 500 MG Tablet 1000 MG PO ×2 (06:02→15:05)
[2018-07-11] MEDS: Menthol/Lanolin/Calamine/Znox 113 GM Tube 1 APPLIC TOPICAL ×3 (06:02→19:49)
[2018-07-11] MEDS: Tamsulosin HCl 0.4 MG Capsule PO (08:27)
[2018-07-11] MEDS: Aspirin 81 MG TAB.CHEW PO (08:27)
[2018-07-11] MEDS: Allopurinol 100 MG Tablet PO ×3 (08:27→18:22)
[2018-07-11 11:00] VITALS: PULSE 59; RESP 18; O2SAT 96
--- NOTE | 2018-07-11 15:01 | PCM.PN.RX ---
<Jamari Erwin Barron - Last Filed: 07/11/18 15:01> Progress Note - Pharmacy Subjective: TCU Admission Objective: Allergies chocolate flavor Allergy (Verified 07/07/18 10:08) Diarrhea codeine Allergy (Verified 07/05/18 14:43) Rash latex Allergy (Verified 07/05/18 14:43) Rash Penicillins Allergy (Verified 07/05/18 14:43) Other Current Medications Generic Name Dose Route Start Last Admin Trade Name Freq PRN Reason Stop Dose Admin Acetaminophen 1,000 mg 07/09/18 18:26 07/11/18 06:02 Tylenol PO 1,000 mg Q8H PRN PRN Administration MILD PAIN (1-310) Allopurinol 100 mg 07/09/18 17:45 07/11/18 12:22 Zyloprim PO 100 mg TIDCM ADAM Administration Aripiprazole 15 mg 07/09/18 22:00 07/10/18 20:43 Abilify PO 15 mg QHS ADAM Administration Aspirin 81 mg 07/10/18 08:00 07/11/18 08:27 Aspirin, Baby PO 81 mg DAILY@0800 ADAM Administration Bisacodyl 10 mg 07/09/18 18:25 Dulcolax PO DAILY PRN Constipation Calamine/Phenol 1 applic 07/09/18 22:00 07/11/18 13:55 Calmoseptine Ointment TOPICAL 1 applicatio TID ADAM Administration Protocol Clonidine 0.1 mg 07/09/18 18:00 07/11/18 05:51 Catapres PO 0.1 mg BID ADAM Administration Divalproex Sodium 1,500 mg 07/09/18 22:00 07/10/18 20:43 Depakote PO 1,500 mg QHS ADAM Administration Enoxaparin Sodium 40 mg 07/10/18 06:00 07/11/18 05:52 Lovenox SC 40 mg DAILY@0600 ADAM Administration Furosemide 40 mg 07/09/18 18:00 07/11/18 05:52 Lasix PO 40 mg BID ADAM Administration Levothyroxine Sodium 25 mcg 07/10/18 06:00 07/11/18 05:52 Synthroid PO 25 mcg DAILY ADAM Administration Metoprolol Succinate 25 mg 07/10/18 06:00 07/11/18 05:52 Toprol Xl (Beta Milagros) PO 25 mg DAILY ADAM Administration Nutritional Formula (Lactose Free) 120 ml 07/09/18 17:00 07/11/18 12:22 Ensure Enlive PO 120 ml 4X/DAY ADAM Administration Nystatin 1 applic 07/10/18 06:00 07/11/18 05:56 Mycostatin Powder TOPICAL 1 applicatio 0600,2200 ADAM Administration Protocol Pantoprazole Sodium 20 mg 07/10/18 06:00 07/11/18 05:52 Protonix PO 20 mg DAILY ADAM Administration Polyethylene Glycol 17 gm 07/10/18 06:00 07/11/18 05:52 Miralax PO Not Given DAILY ADAM Quetiapine Fumarate 100 mg 07/09/18 22:00 07/10/18 20:44 Seroquel PO 100 mg QHS ADAM Administration Senna/Docusate Sodium 1 tablet 07/10/18 06:00 07/11/18 05:53 Senokot-S, Shell-Colace PO Not Given BID ADAM Tamsulosin HCl 0.4 mg 07/10/18 08:30 07/11/18 08:27 Flomax PO 0.4 mg DAILY@0830 ADAM Administration Tuberculin PPD 5 tu 07/17/18 10:00 Tubersol, Aplisol, Ppd ID 07/17/18 10:01 X1 ONE Problem List Parkinson's disease (Chronic) Alzheimer's disease (Chronic) Charcot's joint of left foot (Chronic) BPH (benign prostatic hyperplasia) (Chronic) Hypertension (Chronic) Stroke (Chronic) Edema (Chronic) Chronic congestive heart failure (Chronic) Gout (Chronic) Vital Signs Temp Pulse Resp BP Pulse Ox 96.9 F L 71 14 118/65 94 07/10/18 15:14 07/11/18 05:52 07/10/18 15:14 07/11/18 05:52 07/10/18 15:14 Oxygen Delivery Method Room Air Weight: 110.223 kg Body Mass Index (BMI) 36.9 Finger Stick Blood Glucose 104 Sodium 142 mmol/L (136-145) 07/10/18 05:10 Potassium 4.3 mmol/L (3.5-5.1) 07/10/18 05:10 Chloride 104 mmol/L (98-107) 07/10/18 05:10 Carbon Dioxide 31.0 mmol/L (21.0-32.0) 07/10/18 05:10 Anion Gap 7 (5-15) 07/10/18 05:10 BUN 26 mg/dL (7-18) H 07/10/18 05:10 Creatinine 1.48 mg/dL (0.70-1.30) H 07/10/18 05:10 Est GFR (MDRD) Af Amer 60 mL/min (>60) 07/10/18 05:10 Est GFR (MDRD) Non-Af 50 mL/min (>60) L 07/10/18 05:10 BUN/Creatinine Ratio 17.6 RATIO (10-20) 07/10/18 05:10 Glucose 95 mg/dL (74-106) 07/10/18 05:10 Assessment/Plan: 1) Pain APAP for mild pain. Continue to monitor prn medication use, daily pain scores. 2) CAD ASA, metoprolol XL. Continue to monitor BP/HR. 3) BPD Quetiapine, divalproex, aripiprazole. Patient following with psychiatrist. Continue to monitor clinically. 4) Edema Furosemide daily. Continue to monitor BP/HR, renal function, electrolytes, swelling. 5) GI Pantoprazole daily. Continue to monitor s/s GI distress. 6) Gout Allopurinol. Continue to monitor clinically. 7) BPH Tamsulosin daily. Continue to monitor for symptoms. 8) Derm Calmoseptine, nystatin powder topically. Continue to monitor clinically. 9) Hypothyroidism Levothyroxine daily. Continue to monitor s/s hyper/hypothyroidism. 10) DVT PPx Enoxaparin daily. Continue to monitor s/s bleeding/clot. Psychotropic Medications: None Unnecessary Medications: None Bowel Regimen: 11) Senna/s, PEG, prn bisacodyl. Continue to monitor prn medication use, for constipation/diarrhea. Date of Note:: 07/11/18 - Provider Comments Provider responsibility: Provider responsible to enter orders to implement recommendations <Marquis Garcia Chi - Last Filed: 07/11/18 18:11> Progress Note - Pharmacy Subjective: [] Objective: Allergies chocolate flavor Allergy (Verified 07/07/18 10:08) Diarrhea codeine Allergy (Verified 07/05/18 14:43) Rash latex Allergy (Verified 07/05/18 14:43) Rash Penicillins Allergy (Verified 07/05/18 14:43) Other Current Medications Generic Name Dose Route Start Last Admin Trade Name Freq PRN Reason Stop Dose Admin Acetaminophen 1,000 mg 07/09/18 18:26 07/11/18 15:05 Tylenol PO 1,000 mg Q8H PRN PRN Administration MILD PAIN (1-3/10) Allopurinol 100 mg 07/09/18 17:45 07/11/18 12:22 Zyloprim PO 100 mg TIDCM ADAM Administration Aripiprazole 15 mg 07/09/18 22:00 07/10/18 20:43 Abilify PO 15 mg QHS ADAM Administration Aspirin 81 mg 07/10/18 08:00 07/11/18 08:27 Aspirin, Baby PO 81 mg DAILY@0800 ADAM Administration Bisacodyl 10 mg 07/09/18 18:25 Dulcolax PO DAILY PRN Constipation Calamine/Phenol 1 applic 07/09/18 22:00 07/11/18 13:55 Calmoseptine Ointment TOPICAL 1 applicatio TID ADAM Administration Protocol Clonidine 0.1 mg 07/09/18 18:00 07/11/18 05:51 Catapres PO 0.1 mg BID ADAM Administration Divalproex Sodium 1,500 mg 07/09/18 22:00 07/10/18 20:43 Depakote PO 1,500 mg QHS ADAM Administration Enoxaparin Sodium 40 mg 07/10/18 06:00 07/11/18 05:52 Lovenox SC 40 mg DAILY@0600 ADAM Administration Furosemide 40 mg 07/09/18 18:00 07/11/18 05:52 Lasix PO 40 mg BID ADAM Administration Levothyroxine Sodium 25 mcg 07/10/18 06:00 07/11/18 05:52 Synthroid PO 25 mcg DAILY ADAM Administration Metoprolol Succinate 25 mg 07/10/18 06:00 07/11/18 05:52 Toprol Xl (Beta Milagros) PO 25 mg DAILY ADAM Administration Nutritional Formula (Lactose Free) 120 ml 07/09/18 17:00 07/11/18 12:22 Ensure Enlive PO 120 ml 4X/DAY ADAM Administration Nystatin 1 applic 07/10/18 06:00 07/11/18 05:56 Mycostatin Powder TOPICAL 1 applicatio 0600,2200 ADAM Administration Protocol Pantoprazole Sodium 20 mg 07/10/18 06:00 07/11/18 05:52 Protonix PO 20 mg DAILY ADAM Administration Polyethylene Glycol 17 gm 07/10/18 06:00 07/11/18 05:52 Miralax PO Not Given DAILY ADAM Quetiapine Fumarate 100 mg 07/09/18 22:00 07/10/18 20:44 Seroquel PO 100 mg QHS ADAM Administration Senna/Docusate Sodium 1 tablet 07/10/18 06:00 07/11/18 05:53 Senokot-S, Shell-Colace PO Not Given BID ADAM Tamsulosin HCl 0.4 mg 07/10/18 08:30 07/11/18 08:27 Flomax PO 0.4 mg DAILY@0830 ADAM Administration Tuberculin PPD 5 tu 07/17/18 10:00 Tubersol, Aplisol, Ppd ID 07/17/18 10:01 X1 ONE Problem List Parkinson's disease (Chronic) Alzheimer's disease (Chronic) Charcot's joint of left foot (Chronic) BPH (benign prostatic hyperplasia) (Chronic) Hypertension (Chronic) Stroke (Chronic) Edema (Chronic) Chronic congestive heart failure (Chronic) Gout (Chronic) Vital Signs Temp Pulse Resp BP Pulse Ox 97.1 F L 69 18 123/72 H 94 07/11/18 16:00 07/11/18 16:00 07/11/18 16:00 07/11/18 16:00 07/11/18 16:00 Oxygen Delivery Method Room Air Weight: 110.223 kg Body Mass Index (BMI) 36.9 Finger Stick Blood Glucose 104 Sodium 142 mmol/L (136-145) 07/10/18 05:10 Potassium 4.3 mmol/L (3.5-5.1) 07/10/18 05:10 Chloride 104 mmol/L (98-107) 07/10/18 05:10 Carbon Dioxide 31.0 mmol/L (21.0-32.0) 07/10/18 05:10 Anion Gap 7 (5-15) 07/10/18 05:10 BUN 26 mg/dL (7-18) H 07/10/18 05:10 Creatinine 1.48 mg/dL (0.70-1.30) H 07/10/18 05:10 Est GFR (MDRD) Af Amer 60 mL/min (>60) 07/10/18 05:10 Est GFR (MDRD) Non-Af 50 mL/min (>60) L 07/10/18 05:10 BUN/Creatinine Ratio 17.6 RATIO (10-20) 07/10/18 05:10 Glucose 95 mg/dL (74-106) 07/10/18 05:10 Assessment/Plan: Psychotropic Medications: Unnecessary Medications: Bowel Regimen: - Provider Comments Provider responsibility: Provider responsible to enter orders to implement recommendations Provider Comments to Recommendations by Pharmacy: Agree
[2018-07-11 16:00] VITALS: BP 123/72; PULSE 69; RESP 18; TEMP 36.2; O2SAT 94
[2018-07-11] MEDS: Senna/Docusate Sodium 1 Tablet PO (18:22)
[2018-07-11] MEDS: Divalproex Sodium 250 MG Tablet 1500 MG PO (19:46)
[2018-07-11] MEDS: QUEtiapine 100 MG Tablet PO (19:46)
[2018-07-11] MEDS: ARIPiprazole 5 MG Tablet 15 MG PO (19:46)
[2018-07-12] MEDS: Pantoprazole Sodium 20 MG Tablet PO (05:13)
[2018-07-12] MEDS: Polyethylene Glycol 3350 17 GM PACKET PO (05:13)
[2018-07-12] MEDS: Senna/Docusate Sodium 1 Tablet PO ×2 (05:13→17:26)
[2018-07-12] MEDS: Furosemide 40 MG Tablet PO ×2 (05:13→17:26)
[2018-07-12] MEDS: cloNIDine HCl 0.1 MG Tablet PO ×2 (05:13→17:26)
[2018-07-12 05:14] VITALS: BP 101/57; PULSE 70
[2018-07-12] MEDS: Levothyroxine 25 MCG TABLET PO (05:14)
[2018-07-12] MEDS: Enoxaparin 40 MG/0.4 ML Syringe SC (05:14)
[2018-07-12] MEDS: Metoprolol(XL)Succ 25 MG Tablet PO (05:14)
[2018-07-12] MEDS: Menthol/Lanolin/Calamine/Znox 113 GM Tube 1 APPLIC TOPICAL ×3 (05:18→19:52)
[2018-07-12] MEDS: Nystatin Powder 15gm Bottle 1 APPLIC TOPICAL ×2 (05:19→19:52)
[2018-07-12] MEDS: Acetaminophen 500 MG Tablet 1000 MG PO (06:38)
[2018-07-12] MEDS: Allopurinol 100 MG Tablet PO ×3 (08:15→17:26)
[2018-07-12] MEDS: Tamsulosin HCl 0.4 MG Capsule PO (08:15)
[2018-07-12] MEDS: Aspirin 81 MG TAB.CHEW PO (08:15)
--- NOTE | 2018-07-12 09:31 | CASEMGMT ---
Plan of care meeting held. Resident present as well as resident spouse and resident son. No discharge date set at this time. Resident with insurance update due on 07/14/18. Resident and resident family aware that continued stay approval from insurance is not guaranteed. Resident plans to continue with further care and treatment on the Transitional Care Unit. Resident currently active with adult day care ([facility]) as well. Resident family broaching topic a extended care facility at discharge as resident is requiring more assistance then resident family is able to manage within the community. This social group worker to meet with resident and resident family later today to discuss extended care facility versus home options. Support given. Will continue to follow. Carla CEJA, BRICK UNLOADER TENDER
[2018-07-12 10:00] VITALS: PULSE 76; RESP 18; O2SAT 95
--- NOTE | 2018-07-12 15:40 | CASEMGMT ---
Social Work Meeting with resident and resident spouse. This long term care social worker assisted in completing medicaid application as resident and resident spouse are reporting to be unable to afford an extended care facility. Resident spouse, Patsy plans to bring the application along with supportive documentation to [facility] by the end of the week. Resident reporting that first choice of facility would be the [facility] and second choice would be [facility]. Resident aware that insurance is continuing to cover at this time and that the plan is to continue to collaborate on discharge planning as needed. Resident planning to continue with stay on the Transitional Care Unit at this time. Support given. Will continue to follow. Carla CEJA, HEEL TOP LIFT SPLITTER
[2018-07-12 16:00] VITALS: BP 100/69; PULSE 72; RESP 20; TEMP 36.3; O2SAT 94
[2018-07-12] MEDS: ARIPiprazole 5 MG Tablet 15 MG PO (19:45)
[2018-07-12] MEDS: QUEtiapine 100 MG Tablet PO (19:45)
[2018-07-12] MEDS: Divalproex Sodium 250 MG Tablet 1500 MG PO (19:45)
[2018-07-13] MEDS: Polyethylene Glycol 3350 17 GM PACKET PO (05:16)
[2018-07-13 05:19] VITALS: BP 105/71; PULSE 75
[2018-07-13] MEDS: Enoxaparin 40 MG/0.4 ML Syringe SC (05:19)
[2018-07-13] MEDS: Senna/Docusate Sodium 1 Tablet PO (05:19)
[2018-07-13] MEDS: cloNIDine HCl 0.1 MG Tablet PO ×2 (05:19→16:50)
[2018-07-13] MEDS: Levothyroxine 25 MCG TABLET PO (05:19)
[2018-07-13] MEDS: Pantoprazole Sodium 20 MG Tablet PO (05:19)
[2018-07-13] MEDS: Furosemide 40 MG Tablet PO ×2 (05:19→16:50)
[2018-07-13] MEDS: Metoprolol(XL)Succ 25 MG Tablet PO (05:19)
[2018-07-13] MEDS: Menthol/Lanolin/Calamine/Znox 113 GM Tube 1 APPLIC TOPICAL ×3 (05:26→21:58)
[2018-07-13] MEDS: Nystatin Powder 15gm Bottle 1 APPLIC TOPICAL ×2 (05:26→21:58)
[2018-07-13] MEDS: Allopurinol 100 MG Tablet PO ×3 (08:15→16:50)
[2018-07-13] MEDS: Aspirin 81 MG TAB.CHEW PO (08:15)
[2018-07-13] MEDS: Tamsulosin HCl 0.4 MG Capsule PO (08:15)
[2018-07-13 15:53] VITALS: BP 104/68; PULSE 70; RESP 20; TEMP 36.1; O2SAT 96
[2018-07-13] MEDS: QUEtiapine 100 MG Tablet PO (21:54)
[2018-07-13] MEDS: Divalproex Sodium 250 MG Tablet 1500 MG PO (21:54)
[2018-07-13] MEDS: ARIPiprazole 5 MG Tablet 15 MG PO (21:54)
[2018-07-13] MEDS: traMADol 50 MG Tablet PO (23:54)
[2018-07-14 05:45] VITALS: BP 108/59; PULSE 80
[2018-07-14] MEDS: Pantoprazole Sodium 20 MG Tablet PO (05:45)
[2018-07-14] MEDS: Metoprolol(XL)Succ 25 MG Tablet PO (05:45)
[2018-07-14] MEDS: cloNIDine HCl 0.1 MG Tablet PO ×2 (05:45→18:17)
[2018-07-14] MEDS: Levothyroxine 25 MCG TABLET PO (05:45)
[2018-07-14] MEDS: Furosemide 40 MG Tablet PO ×2 (05:45→18:17)
[2018-07-14] MEDS: Senna/Docusate Sodium 1 Tablet PO ×2 (05:46→18:17)
[2018-07-14] MEDS: Menthol/Lanolin/Calamine/Znox 113 GM Tube 1 APPLIC TOPICAL ×3 (05:46→20:30)
[2018-07-14] MEDS: Enoxaparin 40 MG/0.4 ML Syringe SC (05:46)
[2018-07-14] MEDS: Nystatin Powder 15gm Bottle 1 APPLIC TOPICAL ×2 (05:46→20:29)
[2018-07-14] MEDS: Allopurinol 100 MG Tablet PO ×3 (08:52→18:17)
[2018-07-14] MEDS: Tamsulosin HCl 0.4 MG Capsule PO (08:52)
[2018-07-14] MEDS: Aspirin 81 MG TAB.CHEW PO (08:52)
[2018-07-14 09:30] VITALS: BP 107/78; PULSE 76; PULSE 78; RESP 18; TEMP 36.8; O2SAT 95
--- NOTE | 2018-07-14 09:53 | CASEMGMT ---
Insurance Clinical information faxed. Pending continued stay approval at this time. Auth#[id number] Carla CEJA, AIRCRAFT HYDRAULIC EQUIPMENT MECHANIC
--- NOTE | 2018-07-14 09:59 | NURSING ---
THERAPY CAME TO THIS NURSE AND STATED PT COMPLAINING OF ITCHING. THIS NURSE FOUND RED RASH TO PT UPPER ARMS AND LOWER BELOW KNEE ON BOTH LEGS. THERAPY ALSO STATED PT CANT SEEM TO STAY AWAKE FOR THERAPY. PT PUPILS SIZE OF A PIN, CAN STATE WHERE HE IS AND MONTH/YEAR. VITALS DONE. PT ALSO STATED HE WAS AFRAID. ASKED PT WHY, PT STATED TO . PT ASKED THIS NURSE TO CALL HIS . CALLED WITH AID IN ROOM. WILL BE COMING IN. REPORTED TO MATHEW HERNANDEZ
--- NOTE | 2018-07-14 11:35 | CASEMGMT ---
Insurance Continued stay approved with next update due on 07/19/18. Auth#[id number] Carla CEJA, CLINICAL SOCIAL WORK THERAPIST
--- NOTE | 2018-07-14 12:59 | CASEMGMT ---
Addendum entered by Carla Alcaraz 07/14/18 13:03: Reviewed and approved oncology social work student MDS documentation. Carla NARANJOW, ASSEMBLER [employer] Original Note: Brief interview for mental status (BIMS) and mood (PHQ-9) completed on this day. BIMS score 10/15. PHQ-9 score 11/22. Yoko Kaminski social work student
--- NOTE | 2018-07-14 13:25 | MDS.RN ---
Pain interview for TING 07/16/18 completed.
--- NOTE | 2018-07-14 13:31 | CHAPLAIN ---
Type of Pastoral Visit _x__ Initial Visit ___ Follow-up Visit ___ On-call Visit ___ General Patient Visit ___ Spiritual Assessment ___ Family Conference ___ Bereavement ___ Rapid Response ___ Code Blue ___ Other (describe below) Pastoral Care Referral From _x__ Patient ___ Family _x__ Nurse ___ Physician ___ Accident Examiner ___ Dynamo Repairer ___ Other (describe below) Sacrament/Intervention _x__ Active listening ___ Anointing ___ Zoroastrian ___ Bereavement ___ Communion _x__ Afsaneh exploration ___ ___ Life review _x__ Prayer ___ Reconciliation ___ Sacrament of Sick _x__ Supportive presence ___ Wedding ___ Other (describe below) Pastoral Comments patient visit recommended by RN; pt has some anxiety today; pt would like to make confession and have prayer; scripture readings and prayer given; pt reported relief
[2018-07-14] MEDS: Hydrocortisone 2.5% Crm 1 APPLIC TOPICAL ×2 (15:14→20:39)
[2018-07-14 15:51] VITALS: BP 106/61; PULSE 76; RESP 16; TEMP 36.2; O2SAT 94
[2018-07-14] MEDS: Bisacodyl 5 MG Tablet 10 MG PO (18:13)
[2018-07-14] MEDS: Divalproex Sodium 250 MG Tablet 1500 MG PO (20:29)
[2018-07-14] MEDS: QUEtiapine 100 MG Tablet PO (20:29)
[2018-07-14] MEDS: ARIPiprazole 5 MG Tablet 15 MG PO (20:29)
[2018-07-14] MEDS: traMADol 50 MG Tablet PO (22:30)
--- NOTE | 2018-07-14 23:01 | NURSING ---
Pt c/o itching after hydrocortisone cream applied. Dr Garcia aware N.O. entered.
[2018-07-14] MEDS: hydrOXYzine PAM 25 MG Capsule 50 MG PO (23:39)
--- NOTE | 2018-07-15 00:58 | NURSING ---
pt c/o of itchy legs. instructed pt i am unable to give him anything else. Kendra applied lotion to legs. Offered to put cool towels on his legs to help with the itch. pt refused. Pt wanting to call at this hour. instructed pt that we will call her first thing in the morning. I told him that getting a call at 1am is scarry but we will call her at 6am if he wishes.
[2018-07-15] MEDS: Acetaminophen 500 MG Tablet 1000 MG PO (01:04)
--- NOTE | 2018-07-15 01:07 | NURSING ---
tylenol given for generalize pain. [facility] removed and had only the sheet on. instructed if a rash get warm it can get itchier. Offered to put tv on to distract pt but he refused.
--- NOTE | 2018-07-15 02:40 | NURSING ---
Pt continues to c/o itching Dr Garcia aware. N.O. entered
[2018-07-15] MEDS: Furosemide 40 MG Tablet PO ×2 (06:30→17:56)
[2018-07-15] MEDS: Polyethylene Glycol 3350 17 GM PACKET PO (06:30)
[2018-07-15] MEDS: Levothyroxine 25 MCG TABLET PO (06:30)
[2018-07-15] MEDS: Senna/Docusate Sodium 1 Tablet PO ×2 (06:30→17:59)
[2018-07-15] MEDS: Pantoprazole Sodium 20 MG Tablet PO (06:30)
[2018-07-15] MEDS: hydrOXYzine PAM 25 MG Capsule 50 MG PO (06:30)
[2018-07-15] MEDS: cloNIDine HCl 0.1 MG Tablet PO ×2 (06:30→17:57)
[2018-07-15 06:31] VITALS: BP 125/68; PULSE 74
[2018-07-15] MEDS: Metoprolol(XL)Succ 25 MG Tablet PO (06:31)
[2018-07-15] MEDS: Enoxaparin 40 MG/0.4 ML Syringe SC (06:31)
[2018-07-15] MEDS: Menthol/Lanolin/Calamine/Znox 113 GM Tube 1 APPLIC TOPICAL ×3 (06:33→21:21)
[2018-07-15] MEDS: Nystatin Powder 15gm Bottle 1 APPLIC TOPICAL ×2 (06:33→21:21)
[2018-07-15] MEDS: Tamsulosin HCl 0.4 MG Capsule PO (09:20)
[2018-07-15] MEDS: Aspirin 81 MG TAB.CHEW PO (09:20)
[2018-07-15] MEDS: Allopurinol 100 MG Tablet PO ×3 (09:20→17:56)
[2018-07-15 10:00] VITALS: PULSE 68; O2SAT 95
--- NOTE | 2018-07-15 14:11 | NURSING ---
Pt still has c/o itching to rash on lower legs and arms. Rash pinpoint, red and raised. Dr. Garcia updated. NO for medrol dosepak. Patient updated.
[2018-07-15 15:17] VITALS: BP 113/73; PULSE 66; RESP 16; TEMP 36.1; O2SAT 94
[2018-07-15] MEDS: Hydrocortisone 2.5% Crm 1 APPLIC TOPICAL (15:19)
[2018-07-15] MEDS: MethylPREDNISolone DosePak 4 MG BOX 8 MG PO ×2 (17:54→21:21)
[2018-07-15] MEDS: ARIPiprazole 5 MG Tablet 15 MG PO (21:21)
[2018-07-15] MEDS: Divalproex Sodium 250 MG Tablet 1500 MG PO (21:21)
[2018-07-15] MEDS: QUEtiapine 100 MG Tablet PO (21:22)
[2018-07-16] MEDS: Menthol/Lanolin/Calamine/Znox 113 GM Tube 1 APPLIC TOPICAL ×3 (06:45→21:16)
[2018-07-16] MEDS: Enoxaparin 40 MG/0.4 ML Syringe SC (06:46)
[2018-07-16] MEDS: cloNIDine HCl 0.1 MG Tablet PO ×2 (06:46→17:36)
[2018-07-16] MEDS: Furosemide 40 MG Tablet PO ×2 (06:46→17:36)
[2018-07-16 06:47] VITALS: PULSE 91
[2018-07-16] MEDS: Nystatin Powder 15gm Bottle 1 APPLIC TOPICAL ×2 (06:47→21:17)
[2018-07-16] MEDS: Levothyroxine 25 MCG TABLET PO (06:47)
[2018-07-16] MEDS: Pantoprazole Sodium 20 MG Tablet PO (06:47)
[2018-07-16] MEDS: Senna/Docusate Sodium 1 Tablet PO ×2 (06:47→17:37)
[2018-07-16] MEDS: Metoprolol(XL)Succ 25 MG Tablet PO (06:47)
[2018-07-16] MEDS: Tamsulosin HCl 0.4 MG Capsule PO (09:12)
[2018-07-16] MEDS: Hydrocortisone 2.5% Crm 1 APPLIC TOPICAL (09:12)
[2018-07-16] MEDS: Aspirin 81 MG TAB.CHEW PO (09:12)
[2018-07-16] MEDS: MethylPREDNISolone DosePak 4 MG BOX 8 MG PO ×4 (09:12→21:17)
[2018-07-16] MEDS: Allopurinol 100 MG Tablet PO ×3 (09:12→17:36)
[2018-07-16 10:00] VITALS: PULSE 83; O2SAT 94
[2018-07-16 15:34] VITALS: BP 112/68; PULSE 73; RESP 14; TEMP 36.2; O2SAT 95
[2018-07-16] MEDS: ARIPiprazole 5 MG Tablet 15 MG PO (21:16)
[2018-07-16] MEDS: Divalproex Sodium 250 MG Tablet 1500 MG PO (21:16)
[2018-07-16] MEDS: QUEtiapine 100 MG Tablet PO (21:17)
--- NOTE | 2018-07-16 22:50 | NURSING ---
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 Dr Garcia updated. Original Note: Addendum entered by Anika Atkins 07/17/18 05:55: updated this morning per pt request. Original Note: Pt very anxious this evening. VS WNL. Pt stating I feel like I'm going to have a nervous breakdown. Dr Garcia notified. N.O. to DC medrol dose pack and give x1 dose Ativan 1 mg PO.
[2018-07-16] MEDS: LORazepam 1 MG Tablet PO (23:01)
[2018-07-17] MEDS: Menthol/Lanolin/Calamine/Znox 113 GM Tube 1 APPLIC TOPICAL ×3 (05:39→20:28)
[2018-07-17 05:40] VITALS: BP 119/68; PULSE 62
[2018-07-17] MEDS: Enoxaparin 40 MG/0.4 ML Syringe SC (05:40)
[2018-07-17] MEDS: Senna/Docusate Sodium 1 Tablet PO ×2 (05:40→17:48)
[2018-07-17] MEDS: Furosemide 40 MG Tablet PO ×2 (05:40→17:48)
[2018-07-17] MEDS: Pantoprazole Sodium 20 MG Tablet PO (05:40)
[2018-07-17] MEDS: Nystatin Powder 15gm Bottle 1 APPLIC TOPICAL ×2 (05:40→20:28)
[2018-07-17] MEDS: cloNIDine HCl 0.1 MG Tablet PO ×2 (05:40→17:48)
[2018-07-17] MEDS: Metoprolol(XL)Succ 25 MG Tablet PO (05:40)
[2018-07-17] MEDS: Levothyroxine 25 MCG TABLET PO (05:40)
[2018-07-17 06:11] LABS: Anion Gap 9 (5-15); BUN 42 mg/dL (7-18); BUN/Creat Ratio 25.6 RATIO (10-20); Calcium,Total 9.5 mg/dL (8.5-10.1); Chloride 102 mmol/L (98-107); Creatinine, Serum 1.64 mg/dL (0.70-1.30); EST Glomerular Filtration Rate 44 mL/min (>60); Est Glom Filt Rate - Afr Amer 53 mL/min (>60); Estimated Creatinine Clearance 39.39 ml/min; Glucose 138 mg/dL (74-106); Potassium 4.5 mmol/L (3.5-5.1); Sodium Level 144 mmol/L (136-145)
[2018-07-17 06:16] LABS: Absolute Lymphocyte Count 1.98 X10^3/ul (0.83-4.51); Absolute Neutrophil Count 9.7 X10^3/uL (2.0-7.7); Basophil# 0.03 X10^3/uL; Basophil% 0.2 % (0-1); Eosinophil# 0.01 X10^3/uL; Eosinophils% 0.1 % (0-5); Hematocrit 40.6 % (40-54); Hemoglobin 13.4 g/dl (13.0-16.5); Lymphocyte # 1.98 X10^3/ul (4.0); Lymphocyte % 15.5 % (19-41); Mean Corpuscular Hgb 32.1 pg (27.0-32.0); Mean Corpuscular Volume 97.1 fL (80-94); Mean Platelet Vol. 11.6 fl (6.2-12.0); Monocyte# 0.87 X10^3/uL; Monocyte% 6.8 % (0-10); Neutrophil # 9.65 X10^3/uL (2.7-7.7); Neutrophil % 75.8 % (47-70); Platelet Count 184 K/mm3 (150-450); RBC Distribution Width CV 14.3 % (11.6-14.6); RBC Distribution Width SD 48.3 fl (35.1-43.9); Red Blood Count 4.18 M/mm3 (4.6-6.2); White Blood Count 12.7 K/mm3 (4.4-11.0)
[2018-07-17 06:22] LABS: POSITIVE COUNT NO; POSITIVE DIFFERENTIAL NO; POSITIVE MORPHOLOGY NO
[2018-07-17] MEDS: Allopurinol 100 MG Tablet PO ×3 (07:46→17:48)
[2018-07-17] MEDS: Aspirin 81 MG TAB.CHEW PO (07:46)
[2018-07-17] MEDS: Tamsulosin HCl 0.4 MG Capsule PO (07:49)
--- NOTE | 2018-07-17 08:21 | PCM.TCUNOT ---
Subjective: Resident has rash on arms, legs, not responsive to HC 2.5% cream twice daily, Medrol dosepak added, which helped rash, but caused resident agitation. After non-pharmacologic/behavioral treatments failed, resident given Lorazepam 1MG PO x 1 dose last night which was effective. Vitals/I&O's: Vital Signs Temp Pulse Resp BP Pulse Ox 97.2 F L 62 14 119/68 95 07/16/18 15:34 07/17/18 05:40 07/16/18 15:34 07/17/18 05:40 07/16/18 15:34 Oxygen Delivery Method Room Air Weight: 110.308 kg Body Mass Index (BMI) 36.9 Finger Stick Blood Glucose 104 Intake and Output for Last 24 Hours 07/15/18 07/16/18 07/17/18 23:59 23:59 23:59 Intake Total 480 / 480 720 / 720 Balance 480 / 480 720 / 720 Laboratory Results 07/17/18 05:15: WBC 12.7 H, RBC 4.18 L, Hgb 13.4, Hct 40.6, MCV 97.1 H, MCH 32.1 H, MCHC 33.0, RDW 14.3, RDW Differential 48.3 H, Plt Count 184, MPV 11.6, Immature Gran % (Auto) 1.600 H, Neut % (Auto) 75.8 H, Lymph % (Auto) 15.5 L, Camp % (Auto) 6.8, Eos % (Auto) 0.1, Baso % (Auto) 0.2, Absolute Neuts (auto) 9.7 H, Absolute Lymphs (auto) 1.98, Total Counted Not Reportable 07/17/18 05:15: Sodium 144, Potassium 4.5, Chloride 102, Carbon Dioxide 33.0 H, Anion Gap 9, BUN 42 H, Creatinine 1.64 H, Estim Creat Clear Calc 39.39, Est GFR (MDRD) Af Amer 53 L, Est GFR (MDRD) Non-Af 44 L, BUN/Creatinine Ratio 25.6 H, Glucose 138 H, Calcium 9.5 Past Medical History Past Medical History (Chronic Problems): Chronic Problems Parkinson's disease (Chronic) Alzheimer's disease (Chronic) Charcot's joint of left foot (Chronic) BPH (benign prostatic hyperplasia) (Chronic) Hypertension (Chronic) Stroke (Chronic) Edema (Chronic) Chronic congestive heart failure (Chronic) Gout (Chronic) History of CVA (cerebrovascular accident) (Chronic) History of tobacco use (Chronic) GERD (gastroesophageal reflux disease) (Chronic) Hypothyroidism (Chronic) Noted treated prior, not on regimen list. NSTEMI (non-ST elevated myocardial infarction) (Chronic) Bipolar disorder (Chronic) ADÁN (acute kidney injury) (Chronic) Mood disorder (Chronic) Edema of both legs (Chronic) Dermatomycosis (Chronic) Obesity (BMI 30-39.9) (Chronic) CHF (congestive heart failure) (Chronic) Charcot ankle (Chronic) BL Pre-diabetes (Chronic) Incontinence of urine (Chronic) Incontinence of feces (Chronic) Incontinence associated dermatitis (Chronic) Benign hypertension (Chronic) Allergies chocolate flavor Allergy (Verified 07/07/18 10:08) Diarrhea codeine Allergy (Verified 07/05/18 14:43) Rash latex Allergy (Verified 07/05/18 14:43) Rash Penicillins Allergy (Verified 07/05/18 14:43) Other Home Medications: Ambulatory Orders Medication Instructions Recorded Aripiprazole [Abilify] 15 mg PO QHS 03/10/17 Aspirin [Aspirin, Baby] 81 mg PO DAILY@0800 03/10/17 Clonidine HCl [Catapres] 0.1 mg PO BID 03/10/17 Divalproex Sodium [Depakote] 1,500 mg PO QHS 03/10/17 Levothyroxine [Synthroid] 25 mcg PO DAILY 03/10/17 Tamsulosin HCl [Flomax] 0.4 mg PO DAILY 03/10/17 Omeprazole [Prilosec] 20 mg PO DAILY 12/15/17 Allopurinol [Zyloprim] 100 mg PO TID 07/05/18 Furosemide 40 mg PO BID 07/05/18 Metoprolol Succinate 25 mg PO DAILY 07/05/18 Quetiapine Fumarate [Seroquel] 100 mg PO DAILY 07/05/18 Acetaminophen [Tylenol Extra 1,000 mg PO Q8H PRN PRN #30 tablet 07/09/18 Strength] Ensure Enlive 120 ml PO 4X/DAY 07/09/18 Heparin Injection (Vial) [Heparin 5,000 unit SC Q8 07/09/18 Na] Magnesium Hydroxide [Milk Of 30 ml PO DAILY PRN PRN udc 07/09/18 Magnesia] Menthol/Lanolin/Calamine/Znox 1 applic TOPICAL TID 07/09/18 [Calmoseptine Ointment] Surgical History: tonsillectomy Psychiatric History: Bipolar Lives: Spouse/ Significant Other Smoking Status: Former smoker Tobacco Use: Non-smoker Alcohol: None Drugs: None - *Family History Maternal History Items: Cancer, - - The patient's mother had a history of Alzheimer's disease. She at the age of 70. Paternal History Items: Cancer, - - Patient's father at age of 59 with prostate cancer. Review of Systems Constitutional: Denies: Chills, Fever, Weight Change HEENT: Denies: Head Aches, Sinus Congestion, Sinus Drainage Cardiovascular: Denies: Chest Pain, Palpitations Respiratory: Denies: Cough, Shortness of breath at rest, Sputum production Gastrointestinal: Denies: Abdominal Pain, Nausea, Vomiting Genitourinary: Denies: Dysuria Musculoskeletal: Denies: Joint Pain, Joint Tenderness Skin: Denies: Rash, Wounds Neurological: Denies: Numbness, Tingling, Focal weakness Psychiatric: Denies: Anxiety, Depression, Homicidal Ideations, Suicidal Ideations Hematologic/ Lymphatic: Denies: Easy Bruising, Easy Bleeding - Physical Exam General: Alert, Oriented x3, Cooperative HEENT: Atraumatic, PERRLA, EOMI, Normocephalic Neck: Supple, No JVD, Negative Carotid Bruits Lungs: Clear to auscultation, Normal air movement Cardiovascular: Regular rate, No murmurs Abdomen: Bowel Sounds Present, Soft, Non Tender Extremities: No edema, Capillary Refill Less than 3 Seconds Skin: No rashes, No breakdown, Rash Present - Fine rash arms, legs. Musculoskeletal: No Tenderness to Palpation of Joints or Extremities Neurological: Cranial nerves II-XII grossly intact Psych/Mental Status: Normal Affect, Appropriate Vital Signs Temp Pulse Resp BP Pulse Ox 97.2 F L 62 14 119/68 95 07/16/18 15:34 07/17/18 05:40 07/16/18 15:34 07/17/18 05:40 07/16/18 15:34 Oxygen Delivery Method Room Air Weight: 110.308 kg Body Mass Index (BMI) 36.9 Finger Stick Blood Glucose 104 Intake and Output for Last 24 Hours 07/15/18 07/16/18 07/17/18 23:59 23:59 23:59 Intake Total 480 / 480 720 / 720 Balance 480 / 480 720 / 720 Laboratory Tests Past 24 Hrs 07/17/18 07/17/18 05:15 05:15 WBC 12.7 H RBC 4.18 L Hgb 13.4 Hct 40.6 MCV 97.1 H MCH 32.1 H MCHC 33.0 RDW 14.3 RDW Differential 48.3 H Plt Count 184 MPV 11.6 Immature Gran % (Auto) 1.600 H Neut % (Auto) 75.8 H Lymph % (Auto) 15.5 L Camp % (Auto) 6.8 Eos % (Auto) 0.1 Baso % (Auto) 0.2 Absolute Neuts (auto) 9.7 H Absolute Lymphs (auto) 1.98 Total Counted Not Reportable Sodium 144 Potassium 4.5 Chloride 102 Carbon Dioxide 33.0 H Anion Gap 9 BUN 42 H Creatinine 1.64 H Estim Creat Clear Calc 39.39 Est GFR (MDRD) Af Amer 53 L Est GFR (MDRD) Non-Af 44 L BUN/Creatinine Ratio 25.6 H Glucose 138 H Calcium 9.5 Assessment/Plan All Active Problems Stage II pressure ulcer of right buttock (Acute) Weakness (Acute) Superficial thrombophlebitis of left upper extremity (Acute) Acute gouty arthritis (Acute) UTI (urinary tract infection) (Ruled-out) History of urinary tract infection (Ruled-out) 73 year old male with below past medical history significant for Parkinson's Disease, Alzheimer's Disease, hospitalized for weakness, complicated by acute kidney failure, admitted to TCU with debility, here for rehabilitation, strengthening, prior to disposition determination. Rash - Hydrocortisone 2.5% cream twice daily, Medrol dose kale discontinued due to agitation. 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 Resident doing well on these medications, GDR clinically contraindicated. Anxiety - Last night, Failed non-pharmacologic/behavioral treatments, Lorazepam 1MG PO x 1 dose given, effective.
--- NOTE | 2018-07-17 08:25 | PN_ITS ---
Subjective: Resident has rash on arms, legs, not responsive to HC 2.5% cream twice daily, Medrol dosepak added, which helped rash, but caused resident agitation. After non-pharmacologic/behavioral treatments failed, resident given Lorazepam 1MG PO x 1 dose last night which was effective. Vitals/I&O's: Vital Signs Temp Pulse Resp BP Pulse Ox 97.2 F L 62 14 119/68 95 07/16/18 15:34 07/17/18 05:40 07/16/18 15:34 07/17/18 05:40 07/16/18 15:34 Oxygen Delivery Method Room Air Weight: 110.308 kg Body Mass Index (BMI) 36.9 Finger Stick Blood Glucose 104 Intake and Output for Last 24 Hours 07/15/18 07/16/18 07/17/18 23:59 23:59 23:59 Intake Total 480 / 480 720 / 720 Balance 480 / 480 720 / 720 Laboratory Results 07/17/18 05:15: WBC 12.7 H, RBC 4.18 L, Hgb 13.4, Hct 40.6, MCV 97.1 H, MCH 32.1 H, MCHC 33.0, RDW 14.3, RDW Differential 48.3 H, Plt Count 184, MPV 11.6, Immature Gran % (Auto) 1.600 H, Neut % (Auto) 75.8 H, Lymph % (Auto) 15.5 L, Todd % (Auto) 6.8, Eos % (Auto) 0.1, Baso % (Auto) 0.2, Absolute Neuts (auto) 9.7 H, Absolute Lymphs (auto) 1.98, Total Counted Not Reportable 07/17/18 05:15: Sodium 144, Potassium 4.5, Chloride 102, Carbon Dioxide 33.0 H, Anion Gap 9, BUN 42 H, Creatinine 1.64 H, Estim Creat Clear Calc 39.39, Est GFR (MDRD) Af Amer 53 L, Est GFR (MDRD) Non-Af 44 L, BUN/Creatinine Ratio 25.6 H, Glucose 138 H, Calcium 9.5 Past Medical History Past Medical History (Chronic Problems): Chronic Problems Parkinson's disease (Chronic) Alzheimer's disease (Chronic) Charcot's joint of left foot (Chronic) BPH (benign prostatic hyperplasia) (Chronic) Hypertension (Chronic) Stroke (Chronic) Edema (Chronic) Chronic congestive heart failure (Chronic) Gout (Chronic) History of CVA (cerebrovascular accident) (Chronic) History of tobacco use (Chronic) GERD (gastroesophageal reflux disease) (Chronic) Hypothyroidism (Chronic) Noted treated prior, not on regimen list. NSTEMI (non-ST elevated myocardial infarction) (Chronic) Bipolar disorder (Chronic) ADÁN (acute kidney injury) (Chronic) Mood disorder (Chronic) Edema of both legs (Chronic) Dermatomycosis (Chronic) Obesity (BMI 30-39.9) (Chronic) CHF (congestive heart failure) (Chronic) Charcot ankle (Chronic) BL Pre-diabetes (Chronic) Incontinence of urine (Chronic) Incontinence of feces (Chronic) Incontinence associated dermatitis (Chronic) Benign hypertension (Chronic) Allergies chocolate flavor Allergy (Verified 07/07/18 10:08) Diarrhea codeine Allergy (Verified 07/05/18 14:43) Rash latex Allergy (Verified 07/05/18 14:43) Rash Penicillins Allergy (Verified 07/05/18 14:43) Other Home Medications: Ambulatory Orders Medication Instructions Recorded Aripiprazole [Abilify] 15 mg PO QHS 03/10/17 Aspirin [Aspirin, Baby] 81 mg PO DAILY@0800 03/10/17 Clonidine HCl [Catapres] 0.1 mg PO BID 03/10/17 Divalproex Sodium [Depakote] 1,500 mg PO QHS 03/10/17 Levothyroxine [Synthroid] 25 mcg PO DAILY 03/10/17 Tamsulosin HCl [Flomax] 0.4 mg PO DAILY 03/10/17 Omeprazole [Prilosec] 20 mg PO DAILY 12/15/17 Allopurinol [Zyloprim] 100 mg PO TID 07/05/18 Furosemide 40 mg PO BID 07/05/18 Metoprolol Succinate 25 mg PO DAILY 07/05/18 Quetiapine Fumarate [Seroquel] 100 mg PO DAILY 07/05/18 Acetaminophen [Tylenol Extra 1,000 mg PO Q8H PRN PRN #30 tablet 07/09/18 Strength] Ensure Enlive 120 ml PO 4X/DAY 07/09/18 Heparin Injection (Vial) [Heparin 5,000 unit SC Q8 07/09/18 Na] Magnesium Hydroxide [Milk Of 30 ml PO DAILY PRN PRN udc 07/09/18 Magnesia] Menthol/Lanolin/Calamine/Znox 1 applic TOPICAL TID 07/09/18 [Calmoseptine Ointment] Surgical History: tonsillectomy Psychiatric History: Bipolar Lives: Spouse/ Significant Other Smoking Status: Former smoker Tobacco Use: Non-smoker Alcohol: None Drugs: None - *Family History Maternal History Items: Cancer, - - The patient's mother had a history of Alzheimer's disease. She at the age of 70. Paternal History Items: Cancer, - - Patient's father at age of 59 with prostate cancer. Review of Systems Constitutional: Denies: Chills, Fever, Weight Change HEENT: Denies: Head Aches, Sinus Congestion, Sinus Drainage Cardiovascular: Denies: Chest Pain, Palpitations Respiratory: Denies: Cough, Shortness of breath at rest, Sputum production Gastrointestinal: Denies: Abdominal Pain, Nausea, Vomiting Genitourinary: Denies: Dysuria Musculoskeletal: Denies: Joint Pain, Joint Tenderness Skin: Denies: Rash, Wounds Neurological: Denies: Numbness, Tingling, Focal weakness Psychiatric: Denies: Anxiety, Depression, Homicidal Ideations, Suicidal Ideations Hematologic/ Lymphatic: Denies: Easy Bruising, Easy Bleeding - Physical Exam General: Alert, Oriented x3, Cooperative HEENT: Atraumatic, PERRLA, EOMI, Normocephalic Neck: Supple, No JVD, Negative Carotid Bruits Lungs: Clear to auscultation, Normal air movement Cardiovascular: Regular rate, No murmurs Abdomen: Bowel Sounds Present, Soft, Non Tender Extremities: No edema, Capillary Refill Less than 3 Seconds Skin: No rashes, No breakdown, Rash Present - Fine rash arms, legs. Musculoskeletal: No Tenderness to Palpation of Joints or Extremities Neurological: Cranial nerves II-XII grossly intact Psych/Mental Status: Normal Affect, Appropriate Vital Signs Temp Pulse Resp BP Pulse Ox 97.2 F L 62 14 119/68 95 07/16/18 15:34 07/17/18 05:40 07/16/18 15:34 07/17/18 05:40 07/16/18 15:34 Oxygen Delivery Method Room Air Weight: 110.308 kg Body Mass Index (BMI) 36.9 Finger Stick Blood Glucose 104 Intake and Output for Last 24 Hours 07/15/18 07/16/18 07/17/18 23:59 23:59 23:59 Intake Total 480 / 480 720 / 720 Balance 480 / 480 720 / 720 Laboratory Tests Past 24 Hrs 07/17/18 07/17/18 05:15 05:15 WBC 12.7 H RBC 4.18 L Hgb 13.4 Hct 40.6 MCV 97.1 H MCH 32.1 H MCHC 33.0 RDW 14.3 RDW Differential 48.3 H Plt Count 184 MPV 11.6 Immature Gran % (Auto) 1.600 H Neut % (Auto) 75.8 H Lymph % (Auto) 15.5 L Todd % (Auto) 6.8 Eos % (Auto) 0.1 Baso % (Auto) 0.2 Absolute Neuts (auto) 9.7 H Absolute Lymphs (auto) 1.98 Total Counted Not Reportable Sodium 144 Potassium 4.5 Chloride 102 Carbon Dioxide 33.0 H Anion Gap 9 BUN 42 H Creatinine 1.64 H Estim Creat Clear Calc 39.39 Est GFR (MDRD) Af Amer 53 L Est GFR (MDRD) Non-Af 44 L BUN/Creatinine Ratio 25.6 H Glucose 138 H Calcium 9.5 Assessment/Plan All Active Problems Stage II pressure ulcer of right buttock (Acute) Weakness (Acute) Superficial thrombophlebitis of left upper extremity (Acute) Acute gouty arthritis (Acute) UTI (urinary tract infection) (Ruled-out) History of urinary tract infection (Ruled-out) 73 year old male with below past medical history significant for Parkinson's Disease, Alzheimer's Disease, hospitalized for weakness, complicated by acute kidney failure, admitted to TCU with debility, here for rehabilitation, strengthening, prior to disposition determination. * Rash - Hydrocortisone 2.5% cream twice daily, Medrol dose kale discontinued due to agitation. * Bipolar Disorder - Abilify 15MG QHS, Depakote 1500MG QHS, Seroquel 100MG QHS (Antipsychotic medications prescribed by psychiatrist for chronic [facility] treatment). Resident doing well on these medications, GDR clinically contraindicated. * Anxiety - Last night, Failed non-pharmacologic/behavioral treatments, Lorazep am 1MG PO x 1 dose given, effective.
[2018-07-17 10:40] VITALS: PULSE 72; RESP 18; O2SAT 95
[2018-07-17] MEDS: Tuberculin,Purif.prot.deriv. 50 TU/ML Vial 5 ML ID (11:06)
--- NOTE | 2018-07-17 14:59 | CASEMGMT ---
Social Work Spoke with resident and resident family. Resident is requesting for this social services specialist to look into the [facility] for resident to transition to under Medicaid pending. Resident Medicaid Case #[id number]. Resident aware that skilled services are still being approved by [facility] but wanting to look into transition sooner rather then later as resident is aware that the [facility] is not able to hold the bed for resident. This social services specialist voicing understanding and supporting resident plan. Support given. Telephone call to the [facility]. Jenny reporting to have an opening at this time and to be able to review resident case. Jenny also voicing to have been able to get a contract with [facility] for one case a while back and might be able to do that again for resident. Clinical information faxed. Pending approal from the [facility] at this time. Will continue to follow. Carla CEJA, DETECTIVE NARCOTICS AND VICE
[2018-07-17 15:44] VITALS: BP 139/81; PULSE 72; RESP 20; TEMP 36.1; O2SAT 96
[2018-07-17 17:57] VITALS: BP 122/84
[2018-07-17] MEDS: QUEtiapine 100 MG Tablet PO (20:24)
[2018-07-17] MEDS: Divalproex Sodium 250 MG Tablet 1500 MG PO (20:24)
[2018-07-17] MEDS: ARIPiprazole 5 MG Tablet 15 MG PO (20:25)
[2018-07-18] MEDS: Nystatin Powder 15gm Bottle 1 APPLIC TOPICAL ×2 (05:36→20:26)
[2018-07-18] MEDS: Menthol/Lanolin/Calamine/Znox 113 GM Tube 1 APPLIC TOPICAL ×3 (05:36→20:25)
[2018-07-18] MEDS: Pantoprazole Sodium 20 MG Tablet PO (05:37)
[2018-07-18] MEDS: Furosemide 40 MG Tablet PO ×2 (05:37→16:48)
[2018-07-18] MEDS: Levothyroxine 25 MCG TABLET PO (05:37)
[2018-07-18] MEDS: Senna/Docusate Sodium 1 Tablet PO ×2 (05:37→16:48)
[2018-07-18] MEDS: Enoxaparin 40 MG/0.4 ML Syringe SC (05:37)
[2018-07-18 05:38] VITALS: PULSE 73
[2018-07-18] MEDS: cloNIDine HCl 0.1 MG Tablet PO ×2 (05:38→16:48)
[2018-07-18] MEDS: Metoprolol(XL)Succ 25 MG Tablet PO (05:38)
[2018-07-18] MEDS: Tamsulosin HCl 0.4 MG Capsule PO (08:51)
[2018-07-18] MEDS: Aspirin 81 MG TAB.CHEW PO (08:51)
[2018-07-18] MEDS: Allopurinol 100 MG Tablet PO ×3 (08:51→16:48)
--- NOTE | 2018-07-18 09:57 | CASEMGMT ---
Social Work Telephone call from the [facility]. [facility] reporting to be able to accept resident and to have attempted to get alf approval through insurance but that it was denied due the the [facility] being out of network with resident insurance. Telephone call to resident spouse, Patsy. This social services manager leaving voicemail communicating above information. Patsy to contact this social services manager back. Spoke with resident in room. This social services manager communicating above information. This social services manager inquiring as to when resident would like to transition. Resident unsure and wanting to wait to speak further with resident spouse, Patsy in regards to this. Support given. Transfer form initiated. Will continue to follow. Carla CEJA, BAKERY SALES CLERK
--- NOTE | 2018-07-18 12:30 | PCM.TXEXTCAR ---
- Diet 07/09/18 16:40 Diet: Cardiac/Low Cholesterol Is pt able to select menu?: Yes Diet Comments: Total Feed, Weighted utensils & sippy cups w/meals, NO MILK - Routine Orders/Code Status Suppository Type: Dulcolax 10mg Suppository Frequency: Daily PRN Routine Lab Work: CBC, BMP Code Status: DNRCC - Wound(s) Under Right knee Wound Type: Abrasion Right Side Thigh Wound Type: Abrasion Coccyx Wound Type: Pressure Injury Dressing Change: mepilex 07/16 - Therapies Weight Bearing: Weight bearing as tolerated Extremity Affected:: Bilateral Lower Physical Therapy: Eval and Treat Occupational Therapy: Eval and Treat Speech Therapy: Eval and Treat - Problem/Diagnosis (1) Parkinson's disease Status: Chronic Current Visit: Yes (2) Alzheimer's disease Status: Chronic Current Visit: Yes (3) Charcot's joint of left foot Status: Chronic Current Visit: Yes (4) BPH (benign prostatic hyperplasia) Status: Chronic Current Visit: Yes (5) Hypertension Status: Chronic Current Visit: Yes (6) Stroke Status: Chronic Current Visit: Yes (7) Edema Status: Chronic Current Visit: Yes (8) Chronic congestive heart failure Status: Chronic Current Visit: Yes (9) Gout Status: Chronic Current Visit: Yes (10) Weakness Status: Acute Current Visit: No (11) GERD (gastroesophageal reflux disease) Status: Chronic Current Visit: No (12) Hypothyroidism Status: Chronic Comment: Noted treated prior, not on regimen list. Current Visit: No (13) NSTEMI (non-ST elevated myocardial infarction) Status: Chronic Current Visit: No (14) Bipolar disorder Status: Chronic Current Visit: No (15) ADÁN (acute kidney injury) Status: Chronic Current Visit: No - Allergies/Procedures Done in Hospital Allergies/Adverse Reactions: Allergies chocolate flavor Allergy (Verified 07/07/18 10:08) Diarrhea codeine Allergy (Verified 07/05/18 14:43) Rash latex Allergy (Verified 07/05/18 14:43) Rash Penicillins Allergy (Verified 07/05/18 14:43) Other - Type of Care/Length of Stay Estimated LOS: More Than 30 Days Type of Care Needed: Intermediate Rehab Potential: Fair Prognosis: Fair - Additional Orders/Day of Discharge Day of Discharge: 07/19/18 - Dietary and Speech Recommendations Dietitian Recommendations/Changes: Rec continue liberal diet as ordered d/t hx alzheimers and bld gluc wnl. Rec continue ONS medpass to help w/ wound healing - Follow Up Care Primary Care Physician: Michelle Romeo MD [Primary Care Provider] - Please follow up with your Primary Care Physician in: 1 week.
--- NOTE | 2018-07-18 13:01 | CASEMGMT ---
Social Work Level of Care and PASRR sent to the [facility]. Will continue to follow. Carla CEJA, TRAILER CHIEF
--- NOTE | 2018-07-18 14:02 | CASEMGMT ---
Social Work Met with resident and resident spouse in room. Resident and resident spouse are confirming that resident would like to discharge on 07/19/18 to the [facility] under Medicaid pending. Team is agreeable to this discharge date and plan. Resident also requesting for transportation to be set up via wheelchair van. Support given. Telephone call to [facility]. Transportation set up for 07/19/18 @ 2:30pm. Transportation form completed and placed with resident discharge information. Proposed discharge date: 07/19/18 PLAN: Discharge to the [facility] intermediate level of care. Carla CEJA, BUSINESS SEGMENT MANAGER
[2018-07-18 15:37] VITALS: BP 117/78; PULSE 77; RESP 20; TEMP 36.7; O2SAT 95
[2018-07-18] MEDS: ARIPiprazole 5 MG Tablet 15 MG PO (20:21)
[2018-07-18] MEDS: QUEtiapine 100 MG Tablet PO (20:21)
[2018-07-18] MEDS: Divalproex Sodium 250 MG Tablet 1500 MG PO (20:21)
--- NOTE | 2018-07-18 21:03 | PCM.DC.SUM ---
Discharge Date and Diagnosis Date of Admission: 07/09/18 Date of Discharge: 07/19/18 - Secondary Discharge Diagnosis Chronic Problems Parkinson's disease (Chronic) Alzheimer's disease (Chronic) Charcot's joint of left foot (Chronic) BPH (benign prostatic hyperplasia) (Chronic) Hypertension (Chronic) Stroke (Chronic) Edema (Chronic) Chronic congestive heart failure (Chronic) Gout (Chronic) History of CVA (cerebrovascular accident) (Chronic) History of tobacco use (Chronic) GERD (gastroesophageal reflux disease) (Chronic) Hypothyroidism (Chronic) Noted treated prior, not on regimen list. NSTEMI (non-ST elevated myocardial infarction) (Chronic) Bipolar disorder (Chronic) ADÁN (acute kidney injury) (Chronic) Mood disorder (Chronic) Edema of both legs (Chronic) Dermatomycosis (Chronic) Obesity (BMI 30-39.9) (Chronic) CHF (congestive heart failure) (Chronic) Charcot ankle (Chronic) BL Pre-diabetes (Chronic) Incontinence of urine (Chronic) Incontinence of feces (Chronic) Incontinence associated dermatitis (Chronic) Benign hypertension (Chronic) Hospital Course and Treatment Imaging Results: 07/09/18 16:40 Diet: Cardiac/Low Cholesterol Is pt able to select menu?: Yes Diet Comments: Total Feed, Weighted utensils & sippy cups w/meals, NO MILK Labs (Last 48 Hours) 07/17/18 07/17/18 05:15 05:15 WBC 12.7 H RBC 4.18 L Hgb 13.4 Hct 40.6 MCV 97.1 H MCH 32.1 H MCHC 33.0 RDW 14.3 RDW Differential 48.3 H Plt Count 184 MPV 11.6 Immature Gran % (Auto) 1.600 H Neut % (Auto) 75.8 H Lymph % (Auto) 15.5 L [place] % (Auto) 6.8 Eos % (Auto) 0.1 Baso % (Auto) 0.2 Absolute Neuts (auto) 9.7 H Absolute Lymphs (auto) 1.98 Total Counted Not Reportable Sodium 144 Potassium 4.5 Chloride 102 Carbon Dioxide 33.0 H Anion Gap 9 BUN 42 H Creatinine 1.64 H Estim Creat Clear Calc 39.39 Est GFR (MDRD) Af Amer 53 L Est GFR (MDRD) Non-Af 44 L BUN/Creatinine Ratio 25.6 H Glucose 138 H Calcium 9.5 Operations: None Procedures: None Summary of Care Provided: The patient is a 73 year old Male with below past medical history significant for Parkinson's Disease, Alzheimer's Disease, hospitalized for weakness, complicated by acute kidney failure, admitted to TCU with debility, here for rehabilitation, strengthening, prior to disposition determination. Discharge to the [facility], under Medicaid pending, intermediate level of care. - Physical Exam Vital Signs Temp Pulse Resp BP Pulse Ox 98.0 F 77 20 H 117/78 95 07/18/18 15:37 07/18/18 15:37 07/18/18 15:37 07/18/18 15:37 07/18/18 15:37 Oxygen Delivery Method Room Air Weight: 108.465 kg Body Mass Index (BMI) 36.9 Finger Stick Blood Glucose 104 Intake and Output for Last 24 Hours 07/16/18 07/17/18 07/18/18 23:59 23:59 23:59 Intake Total 720 / 720 1140 / 1140 500 / 500 Balance 720 / 720 1140 / 1140 500 / 500 Discharge Diet: No Restrictions Discharge Activity: Return to Normal Activity, May Shower, Use Walker Weight Bearing Status: Weight bearing as tolerated Call your doctor if you observe: Fever of 101 or Higher, Inability to urinate, Inability to have a bowel movement, Shortness of breath, Chest pain, Uncontrolled pain Home Medications: Medications to take at Discharge Aripiprazole [Abilify] 15 mg PO QHS 03/10/17 Aspirin [Aspirin, Baby] 81 mg PO DAILY@0800 03/10/17 Clonidine HCl [Catapres] 0.1 mg PO BID 03/10/17 Divalproex Sodium [Depakote] 1,500 mg PO QHS 03/10/17 Levothyroxine [Synthroid] 25 mcg PO DAILY 03/10/17 Tamsulosin HCl [Flomax] 0.4 mg PO DAILY 03/10/17 Omeprazole [Prilosec] 20 mg PO DAILY 12/15/17 Allopurinol [Zyloprim] 100 mg PO TID 07/05/18 Furosemide 40 mg PO BID 07/05/18 Metoprolol Succinate 25 mg PO DAILY 07/05/18 Quetiapine Fumarate [Seroquel] 100 mg PO DAILY 07/05/18 Acetaminophen [Tylenol] 1,000 mg PO Q8H PRN PRN #30 tablet 07/09/18 Ensure Enlive 120 ml PO 4X/DAY 07/09/18 Menthol/Lanolin/Calamine/Znox [Calmoseptine Ointment] 1 applic TOPICAL TID 07/09/18 Hydrocortisone 2.5% Crm [Hytone] 1 applic TOPICAL BID PRN PRN tube 07/18/18 Nystatin Powder [Mycostatin Powder] 1 applic TOPICAL 0600,2200 bottle 07/18/18 Polyethylene Glycol 3350 [Miralax] 17 gm PO DAILY packet 07/18/18 Primary Care Physician: Michelle Romeo MD [Primary Care Provider] - Please follow up with your Primary Care Physician in: 1 week. Disposition: Asstd Living/Non-Skill NH Minutes spent on discharge:: 30 Patient Condition:: Stable Medical Necessity - Tobacco Use Smoking Status: Former smoker Tobacco Use: Non-smoker Meaningful Use Info Meaningful Use Diagnoses (Choose all that apply): None applicable
[2018-07-19 04:58] VITALS: BP 103/69; PULSE 78
[2018-07-19] MEDS: Pantoprazole Sodium 20 MG Tablet PO (04:58)
[2018-07-19] MEDS: Metoprolol(XL)Succ 25 MG Tablet PO (04:58)
[2018-07-19] MEDS: cloNIDine HCl 0.1 MG Tablet PO (04:58)
[2018-07-19] MEDS: Furosemide 40 MG Tablet PO (04:58)
[2018-07-19] MEDS: Levothyroxine 25 MCG TABLET PO (04:58)
[2018-07-19] MEDS: Enoxaparin 40 MG/0.4 ML Syringe SC (04:58)
[2018-07-19] MEDS: Senna/Docusate Sodium 1 Tablet PO (04:58)
[2018-07-19] MEDS: Nystatin Powder 15gm Bottle 1 APPLIC TOPICAL (05:04)
[2018-07-19] MEDS: Menthol/Lanolin/Calamine/Znox 113 GM Tube 1 APPLIC TOPICAL ×2 (05:04→12:58)
[2018-07-19 05:15] VITALS: O2SAT 98
[2018-07-19] MEDS: Tamsulosin HCl 0.4 MG Capsule PO (08:51)
[2018-07-19] MEDS: Allopurinol 100 MG Tablet PO ×2 (08:51→12:57)
[2018-07-19] MEDS: Aspirin 81 MG TAB.CHEW PO (08:51)
--- NOTE | 2018-07-19 10:41 | CASEMGMT ---
Social Work Level of Care obtained. Level of Care and discharge information faxed to the [facility]. Proposed discharge date: 07/19/18 PLAN: Discharge to the [facility] intermediate level of care. Carla CEJA, CNA GNA
[2018-07-19 13:05] VITALS: BP 114/64; PULSE 74; RESP 18; TEMP 36.7; O2SAT 94
--- NOTE | 2018-07-19 13:38 | CHAPLAIN ---
Type of Pastoral Visit ___ Initial Visit _x__ Follow-up Visit ___ On-call Visit ___ General Patient Visit ___ Spiritual Assessment ___ Family Conference ___ Bereavement ___ Rapid Response ___ Code Blue ___ Other (describe below) Pastoral Care Referral From _x__ Patient ___ Family ___ Nurse ___ Physician ___ Irrigating Pump Operator ___ Shopping Centre Manager ___ Other (describe below) Sacrament/Intervention _x__ Active listening ___ Anointing ___ Oriental Orthodox ___ Bereavement ___ Communion _x__ Afsaneh exploration ___ ___ Life review _x__ Prayer ___ Reconciliation ___ Sacrament of Sick _x__ Supportive presence ___ Wedding ___ Other (describe below) Pastoral Comments follow up with patient on his spiritual questions and concerns that he expressed last week; pt repeats questions and fears that he has concerning his spiritual condition; scriptures read for pt; time to listen; prayers offered; pt expresses his appreciation for these responses; pt talks about his transfer today to [facility]; pt has some normal anxiety about how that situation will be for him there
--- NOTE | 2018-07-19 13:41 | MDS.RN ---
Information for the mds was obtained from review of the clinical record, interview of resident, staff, and direct observation of resident's care.resident is non-ambulatory, dependent in w/c on /off unit, corridor.
--- NOTE | 2018-07-19 14:28 | NURSING ---
Addendum entered by Patsy Teran 07/19/18 14:47: Report called to LISA Castillo at [facility]. Transport here to take pt Original Note: attempted to call report twice, no answer and then put on hold for awhile. will try later
--- NOTE | 2018-07-19 16:41 | CASEMGMT ---
Insurance Notified insurance of resident discharge on 07/19/18 to the [facility]. Auth#[id number] Carla CEJA, CARDROOM DRAWING RUNNER
== END 2018-07-19 14:50 | disposition intermediate care facility (04) | DRG 948 ==
PROVIDERS: Admitting Provider Family Medicine Geriatric Medicine; Family Provider Internal Medicine; PCP Internal Medicine; Visit Provider Family Medicine Geriatric Medicine
DX: R53.81 Other malaise (principal); G30.9 Alzheimer's disease, unspecified; F02.80 Dementia in other diseases classified elsewhere, unspecified severity, without behavioral disturbance, psychotic disturbance, mood disturbance, and anxiety; G20 Parkinson's disease; F31.9 Bipolar disorder, unspecified; I25.10 Atherosclerotic heart disease of native coronary artery without angina pectoris; E03.9 Hypothyroidism, unspecified; K21.9 Gastro-esophageal reflux disease without esophagitis; N40.0 Benign prostatic hyperplasia without lower urinary tract symptoms; M10.9 Gout, unspecified; L89.312 Pressure ulcer of right buttock, stage 2; Z87.891 Personal history of nicotine dependence; I25.2 Old myocardial infarction; I11.0 Hypertensive heart disease with heart failure; I50.9 Heart failure, unspecified; Z86.73 Personal history of transient ischemic attack (TIA), and cerebral infarction without residual deficits; R21 Rash and other nonspecific skin eruption; E66.9 Obesity, unspecified; Z68.36 Body mass index [BMI] 36.0-36.9, adult; Z71.3 Dietary counseling and surveillance
CPT/HCPCS: 36415; 80048; 85025; 92507; 92523; 97110; 97163; 97166; 97530; 97535; 97802

== ENCOUNTER → 2018-07-20 05:00 | Outpatient (REF) | payer MEDICARE, SELFPAY ==
[2018-07-20 08:48] LABS: Hematocrit 42.3 % (40-54); Hemoglobin 13.9 g/dl (13.0-16.5); Mean Corp Hgb Conc 32.9 g/gl (32-36); Mean Corpuscular Volume 97.2 fL (80-94); Mean Platelet Vol. 11.2 fl (6.2-12.0); Platelet Count 200 K/mm3 (150-450); RBC Distribution Width CV 14.4 % (11.6-14.6); RBC Distribution Width SD 49.5 fl (35.1-43.9); Red Blood Count 4.35 M/mm3 (4.6-6.2); Scan Indicated on CBC? Y/N NO; White Blood Count 10.6 K/mm3 (4.4-11.0)
[2018-07-20 08:56] LABS: Anion Gap 6 (5-15); BUN 37 mg/dL (7-18); BUN/Creat Ratio 24.8 RATIO (10-20); Calcium,Total 9.1 mg/dL (8.5-10.1); Chloride 101 mmol/L (98-107); Creatinine, Serum 1.49 mg/dL (0.70-1.30); EST Glomerular Filtration Rate 49 mL/min (>60); Est Glom Filt Rate - Afr Amer 60 mL/min (>60); Glucose 131 mg/dL (74-106); Sodium Level 140 mmol/L (136-145)
== END ==
LOC: OLS.AVED 05:00
PROVIDERS: Visit Provider Family Medicine
DX: I10 Essential (primary) hypertension (principal); R53.83 Other fatigue
CPT/HCPCS: 36415; 80048; 85027

== ENCOUNTER → 2018-07-21 05:15 | Outpatient (REF) | payer MEDICARE, SELFPAY ==
[2018-07-21 08:24] LABS: Hematocrit 40.7 % (40-54); Hemoglobin 13.5 g/dl (13.0-16.5); Mean Corp Hgb Conc 33.2 g/gl (32-36); Mean Corpuscular Hgb 32.1 pg (27.0-32.0); Mean Corpuscular Volume 96.7 fL (80-94); Mean Platelet Vol. 11.6 fl (6.2-12.0); Platelet Count 200 K/mm3 (150-450); RBC Distribution Width CV 14.5 % (11.6-14.6); RBC Distribution Width SD 49.1 fl (35.1-43.9); Red Blood Count 4.21 M/mm3 (4.6-6.2)
[2018-07-21 08:25] LABS: Scan Indicated on CBC? Y/N NO
[2018-07-21 08:31] LABS: Anion Gap 8 (5-15); BUN 37 mg/dL (7-18); BUN/Creat Ratio 26.6 RATIO (10-20); Calcium,Total 8.9 mg/dL (8.5-10.1); Chloride 104 mmol/L (98-107); Creatinine, Serum 1.39 mg/dL (0.70-1.30); EST Glomerular Filtration Rate 53 mL/min (>60); Est Glom Filt Rate - Afr Amer 65 mL/min (>60); Glucose 138 mg/dL (74-106); Potassium 3.9 mmol/L (3.5-5.1); Sodium Level 142 mmol/L (136-145)
== END ==
LOC: OLS.AVEB 05:15
PROVIDERS: Visit Provider Family Medicine
DX: I11.0 Hypertensive heart disease with heart failure (principal); I10 Essential (primary) hypertension; E03.9 Hypothyroidism, unspecified
CPT/HCPCS: 36415; 80048; 85027

== ENCOUNTER → 2018-07-22 06:45 | Outpatient (REF) | payer MEDICARE, SELFPAY ==
[2018-07-22 08:21] LABS: Anion Gap 7 (5-15); BUN 27 mg/dL (7-18); Calcium,Total 9.2 mg/dL (8.5-10.1); Chloride 105 mmol/L (98-107); Creatinine, Serum 1.23 mg/dL (0.70-1.30); EST Glomerular Filtration Rate 61 mL/min (>60); Est Glom Filt Rate - Afr Amer 74 mL/min (>60); Glucose 131 mg/dL (74-106); Potassium 4.1 mmol/L (3.5-5.1); Sodium Level 139 mmol/L (136-145); Thyroid Stim Hormone (TSH) 3.78 uIU/mL (0.358-3.74)
== END ==
LOC: OLS.AVEC 06:45
PROVIDERS: Visit Provider Family Medicine
DX: E03.9 Hypothyroidism, unspecified (principal)
CPT/HCPCS: 36415; 80048; 84443

== ENCOUNTER 2018-08-13 13:48 | Emergency (ER) | payer MEDICARE, SELFPAY ==
[2018-08-13 13:49] VITALS: BP 122/69; PULSE 79; RESP 15; TEMP 36.7; O2SAT 96; BMI 37.2
--- NOTE | 2018-08-13 13:59 | EKG12_ITS ---
Test Reason : Blood Pressure : / mmHG Vent. Rate : 080 BPM Atrial Rate : 080 BPM P-R Int : 180 ms QRS Dur : 100 ms QT Int : 400 ms P-R-T Axes : 034 -11 039 degrees QTc Int : 461 ms Sinus rhythm with frequent Premature ventricular complexes Inferior infarct , age undetermined Abnormal ECG Confirmed by JORDIN GREENWOOD, ANDREW ([id number]), photo editor REBECCA HILL ([id number]) on 08/16/2018 1:02:54 PM Referred By: DINO Confirmed By:ANDREW BRENNER MD
--- NOTE | 2018-08-13 14:20 | RAD_ITS ---
STUDY: X-RAY CHEST REASON FOR EXAM: Male, 73 years old. Chest pain TECHNIQUE: Frontal view of the chest COMPARISON: 07/05/2018 FINDINGS: The lungs are clear. There are no pleural effusions. There is no pneumothorax. The heart is normal in size. The visualized osseous structures are within normal limits. RAD/Chest 1 View (Portable) IMPRESSION: No acute thoracic pathology. Electronically Signed: Bobby Paiz, at 14:58 EST Tel , Service support ,
--- NOTE | 2018-08-13 14:26 | ED.VISSUMM ---
- ER Visit Summary Date of Service: 08/13/18 Chief Complaint: [] Does not want to stay at current jail wants to be transferred to a different one History of Present Illness: The patient is a 73 M [] G of Parkinson's disease Alzheimer's disease Charcot joint lower extremities multiple other medical problems please see full chart, he indicates he was placed in a jail about a month ago related to generalized weakness and debilitation he indicates that jail is not caring for him to the degree that he feels appropriate he indicates he has to wait long periods of time before the nurses respond to his needs, he indicates that he for example needed his diaper changed he had to wait 2 hours. He indicates today he insisted that the nurses transfer him to the hospital as he did not which with nursing, He is eating and drinking having normal bowel and urinary habits indicates he has not suffered any physical direct harm from anyone, he has a and son who lives somewhere in the area who are aware of his desire to be transferred to a different jail but that has not been accomplished yet The ED staff took report and spoke with the nurses at this jail they report the patient is on one-on-one nursing care that he has been upset about being at the jail in general and at that nursing specifically and he is received the appropriate care, there was some notation that the patient stated something to the fact that if he could be transferred either back home or to a different jail he would just prefer to , but again he is under one-on-one nursing care is a full care patient has Charcot joint cannot walk on his own etc. Physical Examination: [] His vital signs are within normal range he is resting comforting the bed in no distress head neck unremarkable the lungs are clear the heart tones are normal abdomen soft nontender he has deformities of both ankles with a Charcot joint and again he has no specific complaint Test Results: [] Emergency Department Course and Treatment: []'s time or trying to reach the patient's family will obtain screening labs we discussed the above with the jail they are happy to continue his care there under the instructions have been given by his physicians, there apparently is an element to the fact that the patient up until June had been living at home and being in a jail as a new living arrangement for him, the patient admits that he cannot return back to home as his family cannot care for him due to his current status The patient's lab studies are generally unremarkable for him please see those reports, The is here now she confirms the above history she indicates they have been trying to get the patient to a different nursing center there has been some roadblocks related to the weekend contact in the right individuals etc., our staff spoke with the hospital social work staff who suggested the patient be admitted and then transfer to nursing center, I spoke with the hospitalist who was concerned the patient would not meet criteria for admission given that he is currently under jail care, the hospice is coming down to discussed the case with the patient his at which point time of disposition will be determined. Treatment Plan: [] Disposition: [] Pending hospitalist evaluation of patient's current status Impression: [] Parkinson's disease, depression Alzheimer's disease, diabetes Charcot joints multiple other medical problems, request to be transferred to a different jail This note was generated with [employer] dictation software. It may contain incorrect words, spelling, and punctuation that were not noted in review of the chart prior to signing ED Disposition - Plan for ED Patient: Chief Complaint: General Illness Referrals: Michelle Romeo MD [Primary Care Provider] -
--- NOTE | 2018-08-13 14:29 | ED.DCSUM_ITS ---
- ER Visit Summary Date of Service: 08/13/18 Chief Complaint: [] Does not want to stay at current prison wants to be transferred to a different one History of Present Illness: The patient is a 73 M [] G of Parkinson's disease Alzheimer's disease Charcot joint lower extremities multiple other medical p roblems please see full chart, he indicates he was placed in a prison about a month ago related to generalized weakness and debilitation he indicates that prison is not caring for him to the degree that he feels appropriate he indicates he has to wait long periods of time before the nurses respond to his needs, he indicates that he for example needed his diaper changed he had to wait 2 hours. He indicates today he insisted that the nurses transfer him to the hospital as he did not which with nursing, He is eating and drinking having normal bowel and urinary habits indicates he h as not suffered any physical direct harm from anyone, he has a and son who lives somewhere in the area who are aware of his desire to be transferred to a different prison but that has not been accomplished yet The ED staff took report and spoke with the nurses at this prison they report the patient is on one-on-one nursing care that he has been upset about being at the prison in general and at that nursing specifically and he is received the appropriate care, there was some notation that the patient stated something to the fact that if he could be transferred either back home or to a different prison he would just prefer to , but again he is under one-on-one nursing care is a full care patient has Charcot joint cannot walk on his own etc. Physical Examination: [] His vital signs are within normal range he is resting comforting the bed in no distress head neck unremarkable the lungs are clear the heart tones are normal abdomen soft nontender he has deformities of both ankles with a Charcot joint and again he has no specific complaint Test Results: [] Emergency Department Course and Treatment: []'s time or trying to reach the patient's family will obtain screening labs we discussed the above with the prison they are happy to continue his care there under the instructions have been given by his physicians, there apparently is an element to the fact that the patient up until June had been living at home and being in a prison as a new living arrangement for him, the patient admits that he cannot return back to home as his family cannot care for him due to his current status The patient's lab studies are generally unremarkable for him please see those reports, The is here now she confirms the above history she indicates they have been trying to get the patient to a different nursing center there has been some roadblocks related to the weekend contact in the right individuals etc., our staff spoke with the hospital social work staff who suggested the patient be admitted and then transfer to nursing center, I spoke with the hospitalist who was concerned the patient would not meet criteria for admission given that he is currently under prison care, the hospice is coming down to discussed the case with the patient his at which point time of disposition will be determined. Treatment Plan: [] Disposition: [] Pending hospitalist evaluation of patient's current status Impression: [] Parkinson's disease, depression Alzheimer's disease, diabetes Charcot joints multiple other medical problems, request to be transferred to a different prison This note was generated with [employer] dictation software. It may contain incorrect words, spelling, and punctuation that were not noted in review of the chart prior to signing ED Disposition - Plan for ED Patient: Chief Complaint: General Illness Referrals: Michelle Romeo MD [Primary Care Provider] -
[2018-08-13 14:34] LABS: Absolute Lymphocyte Count 2.14 X10^3/ul (0.83-4.51); Absolute Neutrophil Count 4.9 X10^3/uL (2.0-7.7); Basophil# 0.02 X10^3/uL; Basophil% 0.2 % (0-1); Eosinophil# 0.23 X10^3/uL; Eosinophils% 2.8 % (0-5); Hematocrit 42.1 % (40-54); Hemoglobin 13.7 g/dl (13.0-16.5); Lymphocyte # 2.14 X10^3/ul (4.0); Lymphocyte % 25.7 % (19-41); Mean Corp Hgb Conc 32.5 g/gl (32-36); Mean Corpuscular Hgb 31.6 pg (27.0-32.0); Mean Platelet Vol. 10.8 fl (6.2-12.0); Monocyte# 0.86 X10^3/uL; Monocyte% 10.3 % (0-10); Neutrophil # 4.94 X10^3/uL (2.7-7.7); Neutrophil % 59.4 % (47-70); Platelet Count 200 K/mm3 (150-450); RBC Distribution Width SD 52.5 fl (35.1-43.9); Red Blood Count 4.34 M/mm3 (4.6-6.2); White Blood Count 8.3 K/mm3 (4.4-11.0)
[2018-08-13 14:38] LABS: POSITIVE COUNT NO; POSITIVE DIFFERENTIAL NO; POSITIVE MORPHOLOGY NO
[2018-08-13 14:53] LABS: AST(SGOT) 10 U/L (15-37); Alanine Aminotransfer ALT/SGPT 15 U/L (16-61); Albumin, Serum 2.8 g/dL (3.2-5.0); Alkaline Phosphatase 139 U/L (45-117); Anion Gap 8 (5-15); BUN 17 mg/dL (7-18); BUN/Creat Ratio 11.8 RATIO (10-20); Bilirubin, Direct 0.11 mg/dL (0.00-0.30); Calcium,Total 8.7 mg/dL (8.5-10.1); Chloride 104 mmol/L (98-107); Creatinine, Serum 1.44 mg/dL (0.70-1.30); EST Glomerular Filtration Rate 51 mL/min (>60); Est Glom Filt Rate - Afr Amer 62 mL/min (>60); Estimated Creatinine Clearance 44.86 ml/min; Glucose 157 mg/dL (74-106); Lipase 90 U/L (73-393); Potassium 3.6 mmol/L (3.5-5.1); Protein, Total 6.8 g/dL (6.4-8.2); Sodium Level 142 mmol/L (136-145)
[2018-08-13 14:54] VITALS: O2SAT 95
[2018-08-13 14:55] VITALS: BP 108/83; PULSE 76; RESP 18
[2018-08-13] MEDS: 0.9% Normal Saline 1,000 ML 15 ML IV (15:22)
--- NOTE | 2018-08-13 15:25 | ED.RN ---
pt stating that he will commit suicide if I go back to that place. pt says that I hate that place. This nurse called [facility] and talked to Jessica RN. Jessica was told what the patient was saying and her reply was So he was just saying he was suicidal to get out of here? Than she said why didnt he just ask for a fucking transfer? Jessica was told that we would keep her updated. This nurse was in the room talking to the patient and the . Patient said multiple times that if he had to go back to that place that he would commit suicide. Pt was asked how he would do it and he said well I dont know I would have to think about it. Patient also said multiple times after being asked if he was suicidal here and he said No. I called Patsy who was nurse practitioner case management. She said that we could admit him for 23 hours and they would try to place him somewhere else tomorrow. That because of his insurance that he needs a precert. She wanted to clear it with Jenny. Jenny called back and she was ok with the patient staying and getting precerted tomorrow. The patient and and Dr Cobb were told about this. The was saying that they almost missed his lunch for a 3rd time. The patient said that he had to sit in poop for over 2 hours before he was changed. When I explained what would happen patient said Oh good. God bless you. Hospitalist are being called to admit patient
--- NOTE | 2018-08-13 15:39 | ED.DEP ---
ED Disposition - Plan for ED Patient: Chief Complaint: General Illness Instructions: Discharge Instructions for Parkinson's Disease Referrals: Michelle Romeo MD [Primary Care Provider] -
--- NOTE | 2018-08-13 16:14 | PCM.PN.HOSP ---
Subjective: Medical Consult note: 73-year-old male with past medical history of Parkinson's disease, CVA, hypothyroidism, CKD stage 3 who was recently discharged from the TCU on 07/18/18 to SNF. Patient comes in because he is unhappy with the care and wants to leave the place. He says that he was kept in his faeces for more than 2 hours before anybody could attend to him. His meals are also always delayed. He expressed general unhappiness with the place. He denied any fever or chills or shortness of breath or chest pain. His is at the bedside and states that the care in [place] [facility] very [place]. Patient states that if he stays there, he was going to kill himself. He wants to be transferred to some other [place] [facility] [place] as he knows that he is unable to do well at home and his family cannot take care of him. Discussion with the ED physician, patient denies any active suicidal or homicidal ideation here in the hospital. Patient has a one on one care in the facility, his stayed at his bedside last night and is willing to stay one more day. Objective: Vitals in the ED showed temperature of 98.1F, heart rate of 79, blood pressure 122/69, respiratory rate of 15, SPO2 of 96% on room air. Routine blood work showed RBC count of 8.3, hemoglobin 13.7, platelet count of 200, BMP shows sodium 142, potassium 3.6, chloride 104, bicarbonate 30, BUN 17, creatinine 1.44 which is about his baseline(CKD stage 3) Physical exam: GEN: Alert, oriented x3, not pale, not jaundiced CVS: HS I +II, regular, no murmurs RESP: CTA EXT: No edema RAILROAD FIRER: Alert, oriented x3, tremors all over from Parkinson's disease. Vitals/I&O's: Vital Signs Temp Pulse Resp BP Pulse Ox 98.1 F 76 18 108/83 H 95 08/13/18 13:49 08/13/18 14:55 08/13/18 14:55 08/13/18 14:55 08/13/18 14:54 Oxygen Delivery Method Room Air Weight: 111 kg Body Mass Index (BMI) 37.2 Finger Stick Blood Glucose 104 Laboratory Results 08/13/18 14:24: WBC 8.3, RBC 4.34 L, Hgb 13.7, Hct 42.1, MCV 97.0 H, MCH 31.6, MCHC 32.5, RDW 15.0 H, RDW Differential 52.5 H, Plt Count 200, MPV 10.8, Immature Gran % (Auto) 1.600 H, Neut % (Auto) 59.4, Lymph % (Auto) 25.7, [place] % (Auto) 10.3 H, Eos % (Auto) 2.8, Baso % (Auto) 0.2, Absolute Neuts (auto) 4.9, Absolute Lymphs (auto) 2.14, Total Counted Not Reportable 08/13/18 14:24: Sodium 142, Potassium 3.6, Chloride 104, Carbon Dioxide 30.0, Anion Gap 8, BUN 17, Creatinine 1.44 H, Estim Creat Clear Calc 44.86, Est GFR (MDRD) Af Amer 62, Est GFR (MDRD) Non-Af 51 L, BUN/Creatinine Ratio 11.8, Glucose 157 H, Calcium 8.7, Total Bilirubin 0.30, Direct Bilirubin 0.11, AST 10 L, ALT 15 L, Alkaline Phosphatase 139 H, Troponin I < 0.015, Total Protein 6.8, Albumin 2.8 L, Globulin 4.0, Lipase 90 Current Medications Sodium Chloride () 1,000 mls @ 0 mls/hr IV .Q0M [facility] Last Admin: 08/13/18 15:22 Dose: 15 mls/hr Medical Necessity - Tobacco Use Smoking Status: Never smoker Assessment/Plan All Active Problems Stage II pressure ulcer of right buttock (Acute) Weakness (Acute) Superficial thrombophlebitis of left upper extremity (Acute) Acute gouty arthritis (Acute) UTI (urinary tract infection) (Ruled-out) History of urinary tract infection (Ruled-out) Discussed with Jenny the psychologist social conveyancer; patient has [facility] Medicare and likely his [facility] Medicare insurance was cut at the discharge from TCU. He is on pending [place] in the [place] [facility]. I confirmed that the patient does not need to be hospitalized to facilitate transfer from one [place] [facility] [place] the other. Sofia([facility]) has spoken to the admission person psychologist social in the [place] [facility], Marybeth ([phone]), who is eager to speak to the family and see what they can do to help facilitate and make his stay there better. She is going to help also facilitate transfer from the facility tomorrow, Tuesday morning. Discussed with ED physician; Patient is not going to be admitted because there is no medical necessity to justify the admission. Patient is not actively suicidal or homicidal to also justify admission to a psych facility. Discussed with his at the bedside, offered to give her the [facility] number( which I gave - ) and also Marybeth, the SW/admissions person from the [facility] -[phone]. I encouraged his to advocate for him. She will stay tonight with him and her son will stay the next night if needed. Code Visit Office Visits / Consults: [id number] OP Consult L3
[2018-08-13 16:21] VITALS: BP 114/86; PULSE 82; RESP 18
--- NOTE | 2018-08-13 16:25 | ED.RN ---
this nurse has had multiple conversations with benton from social work. she is going to come in and talk to the patient and . at this time dr christian does not feel that there is a need to admit the patient. Patient has pending medicaid and alot of facilities will not accept pending insurance. Lita Hubbard was also called and is aware of the situation.
[2018-08-13 16:48] VITALS: BP 117/93; PULSE 73; RESP 16; O2SAT 97
--- NOTE | 2018-08-13 16:49 | ED.RN ---
ronnie bhardwaj pt is going to go back to [facility]. pts will stay with the patient [facility]. pt understands that the situation will be dealt with tomorrow by the admissions nurse.
--- NOTE | 2018-08-13 16:52 | PN_ITS ---
Subjective: Medical Consult note: 73-year-old male with past medical history of Parkinson's disease, CVA, hypothyroidism, CKD stage 3 who was recently discharged from the [facility] on 07/18/18 to SNF. Patient comes in because he is unhappy with the care and wants to leave the place. He says that he was kept in his faeces for more than 2 hours before anybody could attend to him. His meals are also always delayed. He expressed general unhappiness with the place. He denied any fever or chills or shortness of breath or chest pain. His is at the bedside and states that the care in the prison very poor. Patient states that if he stays there, he was going to kill himself. He wants to be transferred to some other prison as he knows that he is unable to do well at home and his family cannot take care of him. Discussion with the ED physician, patient denies any active suicidal or homicidal ideation here in the hospital. Patient has a one on one care in the facility, his stayed at his bedside last night and is willing to stay one more day. Objective: Vitals in the ED showed temperature of 98.1F, heart rate of 79, blood pressure 122/69, respiratory rate of 15, SPO2 of 96% on room air. Routine blood work showed RBC count of 8.3, hemoglobin 13.7, platelet count of 200, BMP shows sodium 142, potassium 3.6, chloride 104, bicarbonate 30, BUN 17, creatinine 1.44 which is about his baseline(CKD stage 3) Physical exam: GEN: Alert, oriented x3, not pale, not jaundiced CVS: HS I +II, regular, no murmurs RESP: CTA EXT: No edema IT OPERATIONS ANALYST: Alert, oriented x3, tremors all over from Parkinson's disease. Vitals/I&O's: Vital Signs Temp Pulse Resp BP Pulse Ox 98.1 F 76 18 108/83 H 95 08/13/18 13:49 08/13/18 14:55 08/13/18 14:55 08/13/18 14:55 08/13/18 14:54 Oxygen Delivery Method Room Air Weight: 111 kg Body Mass Index (BMI) 37.2 Finger Stick Blood Glucose 104 Laboratory Results 08/13/18 14:24: WBC 8.3, RBC 4.34 L, Hgb 13.7, Hct 42.1, MCV 97.0 H, MCH 31.6, MCHC 32.5, RDW 15.0 H, RDW Differential 52.5 H, Plt Count 200, MPV 10.8, Immature Gran % (Auto) 1.600 H, Neut % (Auto) 59.4, Lymph % (Auto) 25.7, Hemphill % (Auto) 10.3 H, Eos % (Auto) 2.8, Baso % (Auto) 0.2, Absolute Neuts (auto) 4.9, Absolute Lymphs (auto) 2.14, Total Counted Not Reportable 08/13/18 14:24: Sodium 142, Potassium 3.6, Chloride 104, Carbon Dioxide 30.0, Anion Gap 8, BUN 17, Creatinine 1.44 H, Estim Creat Clear Calc 44.86, Est GFR (MDRD) Af Amer 62, Est GFR (MDRD) Non-Af 51 L, BUN/Creatinine Ratio 11.8, Glucose 157 H, Calcium 8.7, Total Bilirubin 0.30, Direct Bilirubin 0.11, AST 10 L, ALT 15 L, Alkaline Phosphatase 139 H, Troponin I < 0.015, Total Protein 6.8, Albumin 2.8 L, Globulin 4.0, Lipase 90 Current Medications Sodium Chloride () 1,000 mls @ 0 mls/hr IV .Q0M [facility] Last Admin: 08/13/18 15:22 Dose: 15 mls/hr Medical Necessity - Tobacco Use Smoking Status: Never smoker Assessment/Plan All Active Problems Stage II pressure ulcer of right buttock (Acute) Weakness (Acute) Superficial thrombophlebitis of left upper extremity (Acute) Acute gouty arthritis (Acute) UTI (urinary tract infection) (Ruled-out) History of urinary tract infection (Ruled-out) Discussed with Jenny the mental health social worker call worker person; patient has [facility] Medicare and likely his [facility] Medicare insurance was cut at the discharge from TCU. He is on pending Medicaid in the prison. I confirmed that the patient does not need to be hospitalized to facilitate transfer from one prison to the other. Sofia([facility]) has spoken to the admission person mental health social worker in the prison, Marybeth ([phone]), who is eager to speak to the family and see what they can do to help facilitate and make his stay there better. She is going to help also facilitate transfer from the facility tomorrow, Tuesday morning. Discussed with ED physician; Patient is not going to be admitted because there is no medical necessity to justify the admission. Patient is not actively suicidal or homicidal to also justify admission to a psych facility. Discussed with his at the bedside, offered to give her the Staci's number( which I gave - ) and also Marybeth, the SW/admissions person from the [facility] -[phone]. I encouraged his to advocate for him. She will stay tonight with him and her son will stay the next night if needed. Code Visit Office Visits / Consults: [id number] OP Consult L3
== END 2018-08-13 17:06 | disposition home or self-care (01) ==
LOC: ED 14:41
PROVIDERS: Emergency Provider Emergency Medicine; Family Provider Internal Medicine; PCP Internal Medicine
DX: G20 Parkinson's disease (principal); F02.80 Dementia in other diseases classified elsewhere, unspecified severity, without behavioral disturbance, psychotic disturbance, mood disturbance, and anxiety; G30.9 Alzheimer's disease, unspecified; E11.9 Type 2 diabetes mellitus without complications; F32.9 Major depressive disorder, single episode, unspecified; A52.16 Charcot's arthropathy (tabetic); E03.9 Hypothyroidism, unspecified; Z86.73 Personal history of transient ischemic attack (TIA), and cerebral infarction without residual deficits; Z79.82 Long term (current) use of aspirin; Z79.899 Other long term (current) drug therapy
CPT/HCPCS: 71045; 80048; 80076; 83690; 84484; 85025; 93005; 99285; J7030; A4216

== ENCOUNTER → 2018-08-19 07:45 | Outpatient (REF) | payer MEDICARE, SELFPAY ==
[2018-08-13 13:49] VITALS: BMI 37.2
[2018-08-19 09:36] LABS: Hematocrit 45.6 % (40-54); Hemoglobin 15.1 g/dl (13.0-16.5); Mean Corp Hgb Conc 33.1 g/gl (32-36); Mean Corpuscular Hgb 31.6 pg (27.0-32.0); Mean Corpuscular Volume 95.4 fL (80-94); Mean Platelet Vol. 11.1 fl (6.2-12.0); Platelet Count 228 K/mm3 (150-450); RBC Distribution Width SD 52.3 fl (35.1-43.9); Red Blood Count 4.78 M/mm3 (4.6-6.2); White Blood Count 11.6 K/mm3 (4.4-11.0)
[2018-08-19 09:37] LABS: Scan Indicated on CBC? Y/N YES- FLAGS NOTED
[2018-08-19 09:43] LABS: Anion Gap 15 (5-15); BUN 22 mg/dL (7-18); BUN/Creat Ratio 15.1 RATIO (10-20); Chloride 100 mmol/L (98-107); Creatinine, Serum 1.46 mg/dL (0.70-1.30); EST Glomerular Filtration Rate 50 mL/min (>60); Est Glom Filt Rate - Afr Amer 61 mL/min (>60); Glucose 113 mg/dL (74-106); Potassium 3.7 mmol/L (3.5-5.1); Sodium Level 142 mmol/L (136-145)
== END ==
LOC: OLS.AVED 07:45
PROVIDERS: Visit Provider Family Medicine
DX: I11.0 Hypertensive heart disease with heart failure (principal); I50.9 Heart failure, unspecified; E03.9 Hypothyroidism, unspecified
CPT/HCPCS: 36415; 80048; 85027

== ENCOUNTER → 2018-09-18 04:00 | Outpatient (REF) | payer MEDICARE, SELFPAY ==
[2018-09-18 07:45] LABS: Anion Gap 11 (5-15); BUN 17 mg/dL (7-18); BUN/Creat Ratio 13.4 RATIO (10-20); Calcium,Total 8.9 mg/dL (8.5-10.1); Chloride 103 mmol/L (98-107); Creatinine, Serum 1.27 mg/dL (0.70-1.30); EST Glomerular Filtration Rate 59 mL/min (>60); Est Glom Filt Rate - Afr Amer 72 mL/min (>60); Glucose 83 mg/dL (74-106); Hematocrit 39.8 % (40-54); Hemoglobin 13.3 g/dl (13.0-16.5); Mean Corp Hgb Conc 33.4 g/gl (32-36); Mean Corpuscular Volume 95.7 fL (80-94); Mean Platelet Vol. 11.4 fl (6.2-12.0); Platelet Count 211 K/mm3 (150-450); Potassium 3.8 mmol/L (3.5-5.1); RBC Distribution Width CV 14.8 % (11.6-14.6); Red Blood Count 4.16 M/mm3 (4.6-6.2); Sodium Level 142 mmol/L (136-145); White Blood Count 9.4 K/mm3 (4.4-11.0)
[2018-09-18 08:00] LABS: Scan Indicated on CBC? Y/N NO
== END ==
LOC: OLS.AVEB 04:00
PROVIDERS: Visit Provider Family Medicine
DX: I10 Essential (primary) hypertension (principal)
CPT/HCPCS: 36415; 80048; 85027

== ENCOUNTER → 2018-09-28 05:25 | Outpatient (REF) | payer MEDICARE, SELFPAY ==
[2018-09-28 08:56] LABS: Hemoglobin A1c 6.2 % (4.2-6.3)
== END ==
LOC: OLS.AVEB 05:25
PROVIDERS: Visit Provider Family Medicine
DX: E11.9 Type 2 diabetes mellitus without complications (principal)
CPT/HCPCS: 36415; 83036

== ENCOUNTER → 2018-10-14 06:55 | Outpatient (REF) | payer MEDICARE, SELFPAY ==
[2018-10-14 09:05] LABS: Hematocrit 41.4 % (40-54); Hemoglobin 13.5 g/dl (13.0-16.5); Mean Corp Hgb Conc 32.6 g/gl (32-36); Mean Corpuscular Volume 95.2 fL (80-94); Mean Platelet Vol. 10.7 fl (6.2-12.0); Platelet Count 172 K/mm3 (150-450); RBC Distribution Width CV 14.6 % (11.6-14.6); RBC Distribution Width SD 51.1 fl (35.1-43.9); Red Blood Count 4.35 M/mm3 (4.6-6.2); White Blood Count 8.1 K/mm3 (4.4-11.0)
[2018-10-14 09:06] LABS: Scan Indicated on CBC? Y/N NO
[2018-10-14 09:17] LABS: Anion Gap 11 (5-15); BUN 17 mg/dL (7-18); Calcium,Total 8.9 mg/dL (8.5-10.1); Chloride 104 mmol/L (98-107); Creatinine, Serum 1.21 mg/dL (0.70-1.30); EST Glomerular Filtration Rate 63 mL/min (>60); Est Glom Filt Rate - Afr Amer 76 mL/min (>60); Glucose 95 mg/dL (74-106); Potassium 3.9 mmol/L (3.5-5.1); Sodium Level 145 mmol/L (136-145)
--- OUTSIDE RECORDS SUMMARY | 2018-12-18 09:22 | XMS RPT_ITS ---
:1945 Author Organization OHIP Support Name Relationship Address Phone Patsy Sanders Unavailable [address] + [place] [address] R Unavailable Unavailable Unavailable Patsy Sanders Unavailable [address] + [place] [address] R Unavailable Unavailable Unavailable Patsy Sanders Unavailable [address] + [place] [address] R Unavailable Unavailable Unavailable Patsy Sanders Unavailable [address] + [place] [address] R Unavailable Unavailable Unavailable PATSY SANDERS Unavailable [address] + [place] [address] R Unavailable Unavailable Unavailable PATSY SANDERS Unavailable [address] + [place] [address] R Unavailable Unavailable Unavailable PATSY SANDERS Unavailable [address] + [place] [address] R Unavailable Unavailable Unavailable PATSY SANDERS Unavailable [address] + [place] [address] R Unavailable Unavailable Unavailable PATSY SANDERS Unavailable [address] + [place] [address] R Unavailable Unavailable Unavailable Patsy Sanders Unavailable [address] + [place] [address] R Unavailable Unavailable Unavailable Patsy Sanders Unavailable [address] + [place] [address] R Unavailable Unavailable Unavailable PATSY SANDERS Unavailable [address] + [place] [address] R Unavailable Unavailable Unavailable PATSY SANDERS Unavailable [address] + [place] [address] R Unavailable Unavailable Unavailable PATSY SANDERS Unavailable [address] + [place] [address] R Unavailable Unavailable Unavailable PATSY SANDERS Unavailable [address] + [place] [address] R Unavailable Unavailable Unavailable PATSY SANDERS Unavailable [address] + [place] [address] R Unavailable Unavailable Unavailable PATSY SANDERS Unavailable [address] + [place] [address] R Unavailable Unavailable Unavailable Aislinn Sanders Unavailable Unavailable + PATSY SANDERS Unavailable [address] + [place] [address] R Unavailable Unavailable Unavailable PATSY SANDERS Unavailable [address] + [place] [address] R Unavailable Unavailable Unavailable PATSY SANDERS Unavailable [address] + [place] [address] R Unavailable Unavailable Unavailable PATSY SANDERS Unavailable [address] + [place] [address] R Unavailable Unavailable Unavailable PATSY SANDERS Unavailable [address] + [place] [address] R Unavailable Unavailable Unavailable Aislinn Sanders Unavailable Unavailable + Care Team Providers Name Role Phone LEEANNA COOPER ([facility]) Attending Unavailable GER HERNANDEZ ([facility]) Attending Unavailable GER HERNANDEZ ([facility]) Referring Unavailable MANUEL DOMINGUEZ Attending Unavailable GER HERNANDEZ ([facility]) Referring Unavailable GANTA, NIKOS Attending Unavailable GANTA, NIKOS Referring Unavailable GANTA, NIKOS Referring Unavailable GANTA, NIKOS Attending Unavailable GANTA, NIKOS Referring Unavailable GANTA, NIKOS Referring Unavailable GANTA, NIKOS Attending Unavailable LUCINDA HOWE Referring Unavailable KIYA DAVIS Attending Unavailable GANTA, NIKOS Referring Unavailable GANTA, NIKOS Attending Unavailable Sissy Acosta Attending Unavailable PROVIDER, UNKNOWN Referring Unavailable UNKNOWN, PROVIDER Primary Care Unavailable Sissy Acosta Attending Unavailable PROVIDER, UNKNOWN Referring Unavailable UNKNOWN, PROVIDER Primary Care Unavailable Manuel Rivera Attending Unavailable Manuel Rivera Attending Unavailable Manuel Rivera Attending Unavailable Granados, Oumar SUPERVISOR AIR CONDITIONING INSTALLER-C Attending Unavailable Ganta, Nikos Primary Care Unavailable Granados, Oumar SUPERVISOR AIR CONDITIONING INSTALLER-C Attending Unavailable Ganta, Nikos Primary Care Unavailable Granados, Oumar SUPERVISOR AIR CONDITIONING INSTALLER-C Consulting Unavailable Granados, Oumar SUPERVISOR AIR CONDITIONING INSTALLER-C Attending Unavailable Ganta, Nikos Primary Care Unavailable Granados, Oumar SUPERVISOR AIR CONDITIONING INSTALLER-C Consulting Unavailable Granados, Oumar SUPERVISOR AIR CONDITIONING INSTALLER-C Attending Unavailable Ganta, Nikos Primary Care Unavailable Ganta, Nikos Attending Unavailable Ganta, Nikos Primary Care Unavailable Ganta, Nikos Referring Unavailable Ganta, Nikos Primary Care Unavailable Koram, Humaira Jana Admitting Unavailable Paintsil, Itmann Attending Unavailable Koram, Humaira Jana Admitting Unavailable Koram, Humaira Jana Attending Unavailable Ganta, Nikos Primary Care Unavailable Koram, Humaira Jana Consulting Unavailable Koram, Humaira Jana Admitting Unavailable Paintsil, Itmann Attending Unavailable Ganta, [facility] Primary Care Unavailable Paintsil, Itmann Consulting Unavailable Koram, Humaira Jana Admitting Unavailable Paintsil, Itmann Attending Unavailable Ganta, Nikos Primary Care Unavailable Paintsil, Itmann Consulting Unavailable Koram, Humaira Jana Admitting Unavailable Paintsil, Itmann Attending Unavailable Ganta, Nikos Primary Care Unavailable Paintsil, Itmann Consulting Unavailable Koram, Humaira Jana Admitting Unavailable Paintsil, Itmann Attending Unavailable Ganta, Nikos Primary Care Unavailable Paintsil, Itmann Consulting Unavailable Jose, Marquis Chi Admitting Unavailable Jose, Marquis Chi Attending Unavailable Ganta, Nikos Primary Care Unavailable Rivera, Manuel Attending Unavailable Rivera, Manuel Attending Unavailable Rivera, Manuel Attending Unavailable MoodispawManuel Attending Unavailable Koram, Humaira Jana Referring Unavailable Ganta, Nikos Primary Care Unavailable Bia Cobb Attending Unavailable Paintsil, Itmann Attending Unavailable Ganta, Nikos Primary Care Unavailable Rivera, Manuel Attending Unavailable PROBLEMS PROBLEMS DATE TYPE CONDITION / CODE ATTENDING STATUS SOURCE 10/13/2018 Unknown E11.9 - Type 2 Manuel Rivera Active [place] diabetes mellitus Community without Hospital complications / Repository E11.9(ICD-10) 10/06/2018 Unknown I10 - Essential Manuel Rivera Active [place] (primary) Community hypertension / Hospital I10(ICD-10) Repository 09/13/2018 Unknown I50.9 - Heart Manuel Rivera Active [place] failure, Community unspecified / Hospital I50.9(ICD-10) Repository 09/13/2018 Unknown E03.9 - Manuel Rivera Active [place] Hypothyroidism, Community unspecified / Hospital E03.9(ICD-10) Repository 08/14/2018 Unknown R53.83 - Other Manuel Rivera Active [place] fatigue / Community R53.83(ICD-10) Hospital Repository 08/24/2018 Unknown R53.81 - Other Jose, Marquis Chi Active [place] malaise / Community R53.81(ICD-10) Hospital Repository 08/01/2018 Unknown R00.1 - Manuel Kiser Active [place] Bradycardia, Community unspecified / Hospital R00.1(ICD-10) Repository 08/01/2018 Unknown I11.0 - Manuel Kiser Active [place] Hypertensive heart Community disease with heart Hospital failure / Repository I11.0(ICD-10) 02/08/2018 Active Deficiency of other NA Active [facility] specified B group [facility] [place] vitamins / Repository E53.8(ICD-10) 02/08/2018 Active Gout, unspecified / NA Active [facility] M10.9(ICD-10) [facility] [place] Repository 02/08/2018 Active Charcot's joint, NA Active 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 (current) drug [facility] [place] therapy / Repository Z79.899(ICD-10) 01/23/2018 Active Other fatigue / NA Active [facility] R53.83(ICD-10) [facility] [place] Repository 12/07/2017 Active Unknown / NIKOS CHONG Active [facility] UNK(Unknown) [facility] [place] Repository 11/17/2017 Active Unspecified fall, NA Active [facility] subsequent [facility] [place] encounter / Repository W19.XXXD(ICD-10) 11/17/2017 Active Pain in right hip / NA Active [facility] M25.551(ICD-10) [facility] [place] Repository PROCEDURES PROCEDURES No Procedure Records FoundRESULTS RESULTS CBC-COMPLETE BLOOD CNT Collected: 10/14/2018 Status: F Source: [place] NO DIFF 6:55 AM [facility] TYPE CODE TESTS RESULT OUT OF RANGE REFERENCE UNITS LAB L100.1000 4.4-11.0 K/mm3 Normal WBC 8.1 LAB L100.1200 4.6-6.2 M/mm3 Low RBC 4.35 LAB L100.1300 13.0-16.5 g/dl Normal HGB 13.5 LAB L100.1400 40-54 % Normal HCT 41.4 LAB L100.1500 80-94 fL High MCV 95.2 LAB L100.1600 27.0-32.0 pg Normal MCH 31.0 LAB L100.1700 32-36 g/gl Normal MCHC 32.6 LAB L100.1810 11.6-14.6 % Normal RDW CV 14.6 LAB L100.1820 35.1-43.9 fl High RDW SD 51.1 LAB L100.1900 150-450 K/mm3 Normal PLT 172 LAB L100.2000 6.2-12.0 fl Normal MPV 10.7 Performed By: #### L100.0500 #### [facility] [address] [place], [address] BASIC METABOLIC Collected: 10/14/2018 Status: F Source: [place] PROFILE (BMP) 6:55 AM [facility] REPOSITORY TYPE CODE TESTS RESULT OUT OF RANGE REFERENCE UNITS LAB L501.0100 74-106 mg/dL Normal GLU 95 Result Comment: Please note revised GLUCOSE reference range effective 2017. LAB L501.1000 7-18 mg/dL Normal BUN 17 LAB L501.1100 0.70-1.30 mg/dL Normal CREAT,SERUM 1.21 Result Comment: The validity of the calculated GFR AND GFRAA in patients over 70 years has not been determined. Clinical correlation is essential. LAB L501.1110 >60 mL/min Normal EST GFR 63 Result Comment: Non- GFR Calc LAB L501.1115 >60 mL/min Normal EST GFR - AA 76 Result Comment: GFR Calc LAB L501.1300 10-20 RATIO Normal BUN/CRE 14.0 LAB L501.2200 8.5-10.1 mg/dL CA Normal 8.9 LAB L501.5300 136-145 mmol/L NA Normal 145 LAB L501.5600 3.5-5.1 mmol/L K Normal 3.9 LAB L501.5900 98-107 mmol/L CL Normal 104 LAB L501.6100 21.0-32.0 mmol/L Normal CO2 30.0 LAB L501.6200 5-15 Normal GAP 11 Performed By: #### L500.2500 #### [facility] [address] [place], [address] HEMOGLOBIN A1C Collected: 09/28/2018 Status: F Source: [place] 5:25 AM [facility] REPOSITORY TYPE CODE TESTS RESULT OUT OF RANGE REFERENCE UNITS LAB L501.9985 4.2-6.3 % Normal HGB A1C 6.2 Performed By: #### L501.9985 #### [facility] [address] [place], [address] BASIC METABOLIC Collected: 09/18/2018 Status: F Source: [place] PROFILE (BMP) 4:50 AM [facility] REPOSITORY Order Comment: 109 TYPE CODE TESTS RESULT OUT OF RANGE REFERENCE UNITS LAB L501.0100 74-106 mg/dL Normal GLU 83 Result Comment: Please note revised GLUCOSE reference range effective 2017. LAB L501.1000 7-18 mg/dL Normal BUN 17 LAB L501.1100 0.70-1.30 mg/dL Normal CREAT,SERUM 1.27 Result Comment: The validity of the calculated GFR AND GFRAA in patients over 70 years has not been determined. Clinical correlation is essential. LAB L501.1110 >60 mL/min Low EST GFR 59 Result Comment: Non- GFR Calc LAB L501.1115 >60 mL/min Normal EST GFR - AA 72 Result Comment: GFR Calc LAB L501.1300 10-20 RATIO Normal BUN/CRE 13.4 LAB L501.2200 8.5-10.1 mg/dL CA Normal 8.9 LAB L501.5300 136-145 mmol/L NA Normal 142 LAB L501.5600 3.5-5.1 mmol/L K Normal 3.8 LAB L501.5900 98-107 mmol/L CL Normal 103 LAB L501.6100 21.0-32.0 mmol/L Normal CO2 28.0 LAB L501.6200 5-15 Normal GAP 11 Performed By: #### L500.2500 #### [facility] [address] [place], [address] CBC-COMPLETE BLOOD CNT Collected: 09/18/2018 Status: F Source: [place] NO DIFF 4:50 AM [facility] REPOSITORY Order Comment: 109 TYPE CODE TESTS RESULT OUT OF RANGE REFERENCE UNITS LAB L100.1000 4.4-11.0 K/mm3 Normal WBC 9.4 LAB L100.1200 4.6-6.2 M/mm3 Low RBC 4.16 LAB L100.1300 13.0-16.5 g/dl Normal HGB 13.3 LAB L100.1400 40-54 % Low HCT 39.8 LAB L100.1500 80-94 fL High MCV 95.7 LAB L100.1600 27.0-32.0 pg Normal MCH 32.0 LAB L100.1700 32-36 g/gl Normal MCHC 33.4 LAB L100.1810 11.6-14.6 % High RDW CV 14.8 LAB L100.1820 35.1-43.9 fl High RDW SD 50.0 LAB L100.1900 150-450 K/mm3 Normal PLT 211 LAB L100.2000 6.2-12.0 fl Normal MPV 11.4 Performed By: #### L100.0500 #### [facility] [address] [facility] [facility] [place], [place], [address] 12 LEAD ELECTROCARDIOGRAM Observed: 08/25/2018 Status: F Source: [place] 9:15 AM [facility] REPOSITORY [facility] Cardiovascular Services [address] [place] [address] 12 Lead EKG 08/13/18 1422 MR#: [id number] Acct: [id number] Name: MIGUEL ANGEL SANDERS Rep #: [id number] : 1945 73 From: Nick Tello MD Attending Dr: Status: DEP ER Ordering Dr: Bia Cobb MD Date: 08/13/18 Location: ED Sex: M C Admitted: Test Reason : Blood Pressure : / mmHG Vent. Rate : 080 BPM Atrial Rate : 080 BPM P-R Int : 180 ms QRS Dur : 100 ms QT Int : 400 ms P-R-T Axes : 034 -11 039 degrees QTc Int : 461 ms Sinus rhythm with frequent Premature ventricular complexes Inferior infarct , age undetermined Abnormal ECG Confirmed by JORDIN GREENWOOD, NICK ([id number]), development editor REBECCA HILL ([id number]) on 08/16/2018 1:02:54 PM Referred By: DINO Confirmed By:NICK TELLO MD 08/16/18 1302 Date Nick Tello MD CC: MD Zoe Cobb; Nikos Chong MD Signed CBC-COMPLETE BLOOD CNT Collected: 08/19/2018 Status: F Source: [place] NO DIFF 7:45 AM [facility] REPOSITORY TYPE CODE TESTS RESULT OUT OF RANGE REFERENCE UNITS LAB L100.1000 4.4-11.0 K/mm3 High WBC 11.6 LAB L100.1200 4.6-6.2 M/mm3 Normal RBC 4.78 LAB L100.1300 13.0-16.5 g/dl Normal HGB 15.1 LAB L100.1400 40-54 % Normal HCT 45.6 LAB L100.1500 80-94 fL High MCV 95.4 LAB L100.1600 27.0-32.0 pg Normal MCH 31.6 LAB L100.1700 32-36 g/gl Normal MCHC 33.1 LAB L100.1810 11.6-14.6 % High RDW CV 15.0 LAB L100.1820 35.1-43.9 fl High RDW SD 52.3 LAB L100.1900 150-450 K/mm3 Normal PLT 228 LAB L100.2000 6.2-12.0 fl Normal MPV 11.1 Performed By: #### L100.0500 #### [facility] [address] [place], [place], [address] BASIC METABOLIC Collected: 08/19/2018 Status: F Source: [place] PROFILE (BMP) 7:45 AM [facility] REPOSITORY TYPE CODE TESTS RESULT OUT OF RANGE REFERENCE UNITS LAB L501.0100 74-106 mg/dL High GLU 113 Result Comment: Fasting Glucose result from 100 to 125 mg/dL suggests IMPAIRED HOMEOSTASIS per A.D.A. criteria. Please note revised GLUCOSE reference range effective 2017. LAB L501.1000 7-18 mg/dL High BUN 22 LAB L501.1100 0.70-1.30 mg/dL High CREAT,SERUM 1.46 Result Comment: The validity of the calculated GFR AND GFRAA in patients over 70 years has not been determined. Clinical correlation is essential. LAB L501.1110 >60 mL/min Low EST GFR 50 Result Comment: Non- GFR Calc LAB L501.1115 >60 mL/min Normal EST GFR - AA 61 Result Comment: GFR Calc LAB L501.1300 10-20 RATIO Normal BUN/CRE 15.1 LAB L501.2200 8.5-10.1 mg/dL CA Normal 10.0 LAB L501.5300 136-145 mmol/L NA Normal 142 LAB L501.5600 3.5-5.1 mmol/L K Normal 3.7 LAB L501.5900 98-107 mmol/L CL Normal 100 LAB L501.6100 21.0-32.0 mmol/L Normal CO2 27.0 LAB L501.6200 5-15 Normal GAP 15 Performed By: #### L500.2500 #### [facility] [address] [facility] [place], [address] EMERGENCY DEPARTMENT Observed: 08/13/2018 Status: F Source: JULIAN SUMMARY 3:44 PM [facility] REPOSITORY [facility] Medical Records Department [address] [place] [address] Emergency Department Summary 08/13/18 1426 MR#: [id number] Acct: [id number] Name: MIGUEL ANGEL SANDERS Mami Rep #: [id number] : 1945 73 From: Bia Cobb MD PCP: Nikos Chong MD Status: REG ER - ER Visit Summary Date of Service: 08/13/18 Chief Complaint: [] Does not want to stay at current fpc wants to be transferred to a different one History of Present Illness: The patient is a 73 M [] G of Parkinson's disease Alzheimer's disease Charcot joint lower extremities multiple other medical problems please see full chart, he indicates he was placed in a fpc about a month ago related to generalized weakness and debilitation he indicates that fpc is not caring for him to the degree that he feels appropriate he indicates he has to wait long periods of time before the nurses respond to his needs, he indicates that he for example needed his diaper changed he had to wait 2 hours. He indicates today he insisted that the nurses transfer him to the hospital as he did not which with nursing, He is eating and drinking having normal bowel and urinary habits indicates he has not suffered any physical direct harm from anyone, he has a and son who lives somewhere in the area who are aware of his desire to be transferred to a different fpc but that has not been accomplished yet The ED staff took report and spoke with the nurses at this fpc they report the patient is on one-on-one nursing care that he has been upset about being at the fpc in general and at that nursing specifically and he is received the appropriate care, there was some notation that the patient stated something to the fact that if he could be transferred either back home or to a different fpc he would just prefer to , but again he is under one-on-one nursing care is a full care patient has Charcot joint cannot walk on his own etc. Physical Examination: [] His vital signs are within normal range he is resting comforting the bed in no distress head neck unremarkable the lungs are clear the heart tones are normal abdomen soft nontender he has deformities of both ankles with a Charcot joint and again he has no specific complaint Test Results: [] Emergency Department Course and Treatment: []'s time or trying to reach the patient's family will obtain screening labs we discussed the above with the fpc they are happy to continue his care there under the instructions have been given by his physicians, there apparently is an element to the fact that the patient up until June had been living at home and being in a fpc as a new living arrangement for him, the patient admits that he cannot return back to home as his family cannot care for him due to his current status The patient's lab studies are generally unremarkable for him please see those reports, The is here now she confirms the above history she indicates they have been trying to get the patient to a different nursing center there has been some roadblocks related to the weekend contact in the right individuals etc., our staff spoke with the hospital social work staff who suggested the patient be admitted and then transfer to nursing center, I spoke with the hospitalist who was concerned the patient would not meet criteria for admission given that he is currently under fpc care, the hospice is coming down to discussed the case with the patient his at which point time of disposition will be determined. Treatment Plan: [] Disposition: [] Pending hospitalist evaluation of patient's current status Impression: [] Parkinson's disease, depression Alzheimer's disease, diabetes Charcot joints multiple other medical problems, request to be transferred to a different fpc This note was generated with GeoPageation software. It may contain incorrect words, spelling, and punctuation that were not noted in review of the chart prior to signing ED Disposition - Plan for ED Patient: Chief Complaint: General Illness Referrals: Nikos Chong MD [Primary Care Provider] - What to do if you have Problems For any increased pain, shortness of breath, bleeding, nausea or vomiting, chest pain, or any unexpected problems, contact your Primary Care Provider. Call [facility] ([phone]) or report to the closest Emergency Room. Call 911 if necessary. 08/13/18 1544 <Electronically signed by Bia Cobb MD> Date Bia Cobb MD Cosigner Signature (If Indicated): Date CC: Nikos Chong MD DISCHARGE INSTRUCTION Observed: 08/13/2018 Status: F Source: [place] 3:40 PM [facility] REPOSITORY [facility] Medical Records Department [address] [place] [address] Discharge Instruction 08/13/18 1539 MR#: [id number] Acct: [id number] Name: MIGUEL ANGEL SANDERS Rep #: [id number] : 1945 73 From: Bia Cobb MD PCP: Nikos Chong MD Status: REG ER ED Disposition - Plan for ED Patient: Chief Complaint: General Illness Instructions: Discharge Instructions for Parkinson's Disease Referrals: Nikos Chong MD [Primary Care Provider] - What to do if you have Problems For any increased pain, shortness of breath, bleeding, nausea or vomiting, chest pain, or any unexpected problems, contact your Primary Care Provider. Call [facility] ([phone]) or report to the closest Emergency Room. Call 911 if necessary. 08/13/18 1540 <Electronically signed by Bia Cobb MD> Date Bia Cobb MD Cosigner Signature (If Indicated): Date CC: Nikos Chong MD CBC W/DIFF, AUTOMATED Collected: 08/13/2018 Status: F Source: [place] 2:24 PM [facility] REPOSITORY TYPE CODE TESTS RESULT OUT OF RANGE REFERENCE UNITS LAB L100.1000 4.4-11.0 K/mm3 Normal WBC 8.3 LAB L100.1200 4.6-6.2 M/mm3 Low RBC 4.34 LAB L100.1300 13.0-16.5 g/dl Normal HGB 13.7 LAB L100.1400 40-54 % Normal HCT 42.1 LAB L100.1500 80-94 fL High MCV 97.0 LAB L100.1600 27.0-32.0 pg Normal MCH 31.6 LAB L100.1700 32-36 g/gl Normal MCHC 32.5 LAB L100.1810 11.6-14.6 % High RDW CV 15.0 LAB L100.1820 35.1-43.9 fl High RDW SD 52.5 LAB L100.1900 150-450 K/mm3 Normal PLT 200 LAB L100.2000 6.2-12.0 fl Normal MPV 10.8 LAB L100.2100 47-70 % Normal NEUT% 59.4 LAB L100.2200 19-41 % Normal LY% 25.7 LAB L100.2300 0-10 % High MONO% 10.3 LAB L100.2400 0-5 % Normal EO% 2.8 LAB L100.2500 0-1 % Normal BASO% 0.2 LAB L100.2550 0.0-0.9 % High IM GRAN % 1.600 Result Comment: IG% - Immature Granulocytes (promyelocytes, myelocytes and metamyelocytes) > 1% indicates that a LEFT SHIFT is Present. LAB L100.2620 2.0-7.7 X10 3/uL Normal Absolute Neut 4.9 LAB L100.2720 0.83-4.51 X10 3/ul Normal Absolute Lymph 2.14 Performed By: #### L100.0100 #### [facility] [address] [place], [address] BASIC METABOLIC Collected: 08/13/2018 Status: F Source: JULIAN PROFILE (BMP) 2:24 PM [facility] REPOSITORY TYPE CODE TESTS RESULT OUT OF RANGE REFERENCE UNITS LAB L501.0100 74-106 mg/dL High GLU 157 Result Comment: Fasting Glucose result greater than or equal to 126 mg/dL suggests DIABETES MELLITUS per A.D.A. criteria. Please note revised GLUCOSE reference range effective 2017. LAB L501.1000 7-18 mg/dL Normal BUN 17 LAB L501.1100 0.70-1.30 mg/dL High CREAT,SERUM 1.44 Result Comment: The validity of the calculated GFR AND GFRAA in patients over 70 years has not been determined. Clinical correlation is essential. LAB L501.1110 >60 mL/min Low EST GFR 51 Result Comment: Non- GFR Calc LAB L501.1115 >60 mL/min Normal EST GFR - AA 62 Result Comment: GFR Calc LAB L501.1255 ml/min Normal Estimated CRCL 44.86 LAB L501.1300 10-20 RATIO Normal BUN/CRE 11.8 LAB L501.2200 8.5-10 mg/dL Normal .1 CA 8.7 LAB L501.5300 136-14 mmol/L Normal 5 NA 142 LAB L501.5600 3.5-5. mmol/L Normal 1 K 3.6 LAB L501.5900 98-107 mmol/L Normal CL 104 LAB L501.6100 21.0-3 mmol/L Normal 2.0 CO2 30.0 LAB L501.6200 5-15 Normal GAP 8 Performed By: #### L500.2500, L500.3400, L501.2450, L501.4010 #### [facility] [address] [place], [place], [id number] LIVER PROFILE Collected: 08/13/2018 Status: F Source: JULIAN 2:24 PM [facility] REPOSITORY TYPE CODE TESTS RESULT OUT OF RANGE REFERENCE UNITS LAB L501.1500 6.4-8.2 g/dL Normal T PROT 6.8 LAB L501.1800 3.2-5.0 g/dL Low ALB 2.8 LAB L501.1950 2.2-4.2 g/dL Normal GLOB 4.0 LAB L501.4100 15-37 U/L Low AST 10 LAB L501.4305 45-117 U/L High ALK P 139 LAB L501.4405 16-61 U/L Low ALT 15 LAB L501.4600 0.20-1.00 mg/dL Normal T BILI 0.30 LAB L501.4700 0.00-0.30 mg/dL Normal D BILI 0.11 Performed By: #### L500.2500, L500.3400, L501.2450, L501.4010 #### [facility] [address] [place], [place], [id number] LIPASE Collected: 08/13/2018 Status: F Source: JULIAN 2:24 PM [facility] REPOSITORY TYPE CODE TESTS RESULT OUT OF RANGE REFERENCE UNITS LAB L501.2450 73-393 U/L Normal LIPASE 90 Performed By: #### L500.2500, L500.3400, L501.2450, L501.4010 #### [facility] [address] [place], [address] TROPONIN-I Collected: 08/13/2018 Status: F Source: JULIAN 2:24 PM [facility] REPOSITORY TYPE CODE TESTS RESULT OUT OF RANGE REFERENCE UNITS LAB L501.4010 <0.045 ng/mL Normal < 0.015 TROPONIN-I Result Comment: TROPONIN-I EXPECTED VALUES <0.045 Negative 0.045 - 0.590 Consistent with Cardiac Damage > OR = 0.600 Critical Value Not every elevated troponin is indicative of AK. These values should be used with clinical judgement in examining the patient's clinical picture for diagnosis. To establish a diagnosis of AK versus myocardial injury, there must be a demonstrated rise and/or fall in the troponin values, in addition to ischemic symptoms, EKG changes, new regional wall motion abnormality, and/or angiographical evidence. PLEASE NOTE: REFERENCE RANGES EDITED 18 Performed By: #### L500.2500, L500.3400, L501.2450, L501.4010 #### [facility] [address] [place], [address] CHEST 1 VIEW Observed: 08/13/2018 Status: F Source: JULIAN (PORTABLE) 2:00 PM [facility] REPOSITORY [facility] Imaging Services [address] [place] [address] Chest 1 View (Portable) MR#: [id number] Acct: [id number] Name: MIGUEL ANGEL SANDERS Rep #: [id number] : 1945 M 73 From: Bobby Paiz MD PCP: Nikos Chong MD Status: REG ER Study: Chest 1 View (Portable) Date of Exam: 08/13/18 Exam# [id number] Ordering Dr: Bia Cobb MD STUDY: X-RAY CHEST REASON FOR EXAM: Male, 73 years old. Chest pain TECHNIQUE: Frontal view of the chest COMPARISON: 07/05/2018 FINDINGS: The lungs are clear. There are no pleural effusions. There is no pneumothorax. The heart is normal in size. The visualized osseous structures are within normal limits. RAD/Chest 1 View (Portable) IMPRESSION: No acute thoracic pathology. Electronically Signed: Bobby Paiz, at 14:58 EST Tel , Service support , CC: MD Zoe Cobb; Nikos Chong MD Family Physician: Signed BASIC METABOLIC Collected: 07/22/2018 Status: F Source: CIARRA PROFILE (BMP) 6:45 AM [facility] REPOSITORY TYPE CODE TESTS RESULT OUT OF RANGE REFERENCE UNITS LAB L501.0100 74-106 mg/dL High GLU 131 Result Comment: Fasting Glucose result greater than or equal to 126 mg/dL suggests DIABETES MELLITUS per A.D.A. criteria. Please note revised GLUCOSE reference range effective 2017. LAB L501.1000 7-18 mg/dL High BUN 27 LAB L501.1100 0.70-1.30 mg/dL Normal CREAT,SERUM 1.23 Result Comment: The validity of the calculated GFR AND GFRAA in patients over 70 years has not been determined. Clinical correlation is essential. LAB L501.1110 >60 mL/min Normal EST GFR 61 Result Comment: Non- GFR Calc LAB L501.1115 >60 mL/min Normal EST GFR - AA 74 Result Comment: GFR Calc LAB L501.1300 10-20 RATIO High BUN/CRE 22.0 LAB L501.2200 8.5-10.1 mg/dL CA Normal 9.2 LAB L501.5300 136-145 mmol/L NA Normal 139 LAB L501.5600 3.5-5.1 mmol/L K Normal 4.1 LAB L501.5900 98-107 mmol/L CL Normal 105 LAB L501.6100 21.0-32.0 mmol/L Normal CO2 27.0 LAB L501.6200 5-15 Normal GAP 7 Performed By: #### L500.2500, L501.9520 #### [facility] [address] [place], [place], [address] THYROID STIM HORMONE Collected: 07/22/2018 Status: F Source: CIARRA (TSH) 6:45 AM [facility] REPOSITORY TYPE CODE TESTS RESULT OUT OF RANGE REFERENCE UNITS LAB L501.9520 0.358-3.74 uIU/mL High TSH 3.78 Performed By: #### L500.2500, L501.9520 #### [facility] [address] [place], [place], [address] CBC-COMPLETE BLOOD CNT Collected: 07/21/2018 Status: F Source: CIARRA NO DIFF 5:15 AM [facility] REPOSITORY TYPE CODE TESTS RESULT OUT OF RANGE REFERENCE UNITS LAB L100.1000 4.4-11.0 K/mm3 Normal WBC 11.0 LAB L100.1200 4.6-6.2 M/mm3 Low RBC 4.21 LAB L100.1300 13.0-16.5 g/dl Normal HGB 13.5 LAB L100.1400 40-54 % Normal HCT 40.7 LAB L100.1500 80-94 fL High MCV 96.7 LAB L100.1600 27.0-32.0 pg High MCH 32.1 LAB L100.1700 32-36 g/gl Normal MCHC 33.2 LAB L100.1810 11.6-14.6 % Normal RDW CV 14.5 LAB L100.1820 35.1-43.9 fl High RDW SD 49.1 LAB L100.1900 150-450 K/mm3 Normal PLT 200 LAB L100.2000 6.2-12.0 fl Normal MPV 11.6 Performed By: #### L100.0500 #### [facility] [address] [place], [address] BASIC METABOLIC Collected: 07/21/2018 Status: F Source: CIARRA PROFILE (BMP) 5:15 AM [facility] REPOSITORY TYPE CODE TESTS RESULT OUT OF RANGE REFERENCE UNITS LAB L501.0100 74-106 mg/dL High GLU 138 Result Comment: Fasting Glucose result greater than or equal to 126 mg/dL suggests DIABETES MELLITUS per A.D.A. criteria. Please note revised GLUCOSE reference range effective 2017. LAB L501.1000 7-18 mg/dL High BUN 37 LAB L501.1100 0.70-1.30 mg/dL High CREAT,SERUM 1.39 Result Comment: The validity of the calculated GFR AND GFRAA in patients over 70 years has not been determined. Clinical correlation is essential. LAB L501.1110 >60 mL/min Low EST GFR 53 Result Comment: Non- GFR Calc LAB L501.1115 >60 mL/min Normal EST GFR - AA 65 Result Comment: GFR Calc LAB L501.1300 10-20 RATIO High BUN/CRE 26.6 LAB L501.2200 8.5-10.1 mg/dL CA Normal 8.9 LAB L501.5300 136-145 mmol/L NA Normal 142 LAB L501.5600 3.5-5.1 mmol/L K Normal 3.9 LAB L501.5900 98-107 mmol/L CL Normal 104 LAB L501.6100 21.0-32.0 mmol/L Normal CO2 30.0 LAB L501.6200 5-15 Normal GAP 8 Performed By: #### L500.2500 #### [facility] [address] [facility] [place], [address] CBC-COMPLETE BLOOD CNT Collected: 07/20/2018 Status: F Source: CIARRA NO DIFF 5:35 AM [facility] REPOSITORY Order Comment: ROOM 147 TYPE CODE TESTS RESULT OUT OF RANGE REFERENCE UNITS LAB L100.1000 4.4-11.0 K/mm3 Normal WBC 10.6 LAB L100.1200 4.6-6.2 M/mm3 Low RBC 4.35 LAB L100.1300 13.0-16.5 g/dl Normal HGB 13.9 LAB L100.1400 40-54 % Normal HCT 42.3 LAB L100.1500 80-94 fL High MCV 97.2 LAB L100.1600 27.0-32.0 pg Normal MCH 32.0 LAB L100.1700 32-36 g/gl Normal MCHC 32.9 LAB L100.1810 11.6-14.6 % Normal RDW CV 14.4 LAB L100.1820 35.1-43.9 fl High RDW SD 49.5 LAB L100.1900 150-450 K/mm3 Normal PLT 200 LAB L100.2000 6.2-12.0 fl Normal MPV 11.2 Performed By: #### L100.0500 #### [facility] [address] [place], [address] BASIC METABOLIC Collected: 07/20/2018 Status: F Source: CIARRA PROFILE (BMP) 5:35 AM [facility] REPOSITORY Order Comment: ROOM 147 TYPE CODE TESTS RESULT OUT OF RANGE REFERENCE UNITS LAB L501.0100 74-106 mg/dL High GLU 131 Result Comment: Fasting Glucose result greater than or equal to 126 mg/dL suggests DIABETES MELLITUS per A.D.A. criteria. Please note revised GLUCOSE reference range effective 2017. LAB L501.1000 7-18 mg/dL High BUN 37 LAB L501.1100 0.70-1.30 mg/dL High CREAT,SERUM 1.49 Result Comment: The validity of the calculated GFR AND GFRAA in patients over 70 years has not been determined. Clinical correlation is essential. LAB L501.1110 >60 mL/min Low EST GFR 49 Result Comment: Non- GFR Calc LAB L501.1115 >60 mL/min Normal EST GFR - AA 60 Result Comment: GFR Calc LAB L501.1300 10-20 RATIO High BUN/CRE 24.8 LAB L501.2200 8.5-10.1 mg/dL CA Normal 9.1 LAB L501.5300 136-145 mmol/L NA Normal 140 LAB L501.5600 3.5-5.1 mmol/L K Normal 4.0 LAB L501.5900 98-107 mmol/L CL Normal 101 LAB L501.6100 21.0-32.0 mmol/L High CO2 33.0 LAB L501.6200 5-15 Normal GAP 6 Performed By: #### L500.2500 #### [facility] [address] [place], [address] DISCHARGE SUMMARY Observed: 07/18/2018 Status: F Source: JULIAN 9:06 PM [facility] REPOSITORY [facility] Medical Records Department [address] [place] [address] Discharge Summary 07/18/18 2103 MR#: [id number] Acct: [id number] Name: MIGUEL ANGEL SANDERS Rep #: [id number] : 1945 73 From: Marquis Garcia MD PCP: Nikos Chong MD Status: ADM IN Y Location: [place] [address] Discharge Date and Diagnosis Date of Admission: 07/09/18 Date of Discharge: 07/19/18 - Secondary Discharge Diagnosis Chronic Problems Parkinson's disease (Chronic) Alzheimer's disease (Chronic) Charcot's joint of left foot (Chronic) BPH (benign prostatic hyperplasia) (Chronic) Hypertension (Chronic) Stroke (Chronic) Edema (Chronic) Chronic congestive heart failure (Chronic) Gout (Chronic) History of CVA (cerebrovascular accident) (Chronic) History of tobacco use (Chronic) GERD (gastroesophageal reflux disease) (Chronic) Hypothyroidism (Chronic) Noted treated prior, not on regimen list. NSTEMI (non-ST elevated myocardial infarction) (Chronic) Bipolar disorder (Chronic) ADÁN (acute kidney injury) (Chronic) Mood disorder (Chronic) Edema of both legs (Chronic) Dermatomycosis (Chronic) Obesity (BMI 30-39.9) (Chronic) CHF (congestive heart failure) (Chronic) Charcot ankle (Chronic) BL Pre-diabetes (Chronic) Incontinence of urine (Chronic) Incontinence of feces (Chronic) Incontinence associated dermatitis (Chronic) Benign hypertension (Chronic) Hospital Course and Treatment Imaging Results: 07/09/18 16:40 Diet: Cardiac/Low Cholesterol Is pt able to select menu?: Yes Diet Comments: Total Feed, Weighted utensils AND sippy cups w/meals, NO MILK Labs (Last 48 Hours) WBC 12.7 H RBC 4.18 L Hgb 13.4 Hct 40.6 MCV 97.1 H MCH 32.1 H MCHC 33.0 RDW 14.3 Operations: None Procedures: None Summary of Care Provided: The patient is a 73 year old Male with below past medical history significant for Parkinson's Disease, Alzheimer's Disease, hospitalized for weakness, complicated by acute kidney failure, admitted to TCU with debility, here for rehabilitation, strengthening, prior to disposition determination. Discharge to the [facility] ([place], [place]), under Medicaid pending, intermediate level of care. - Physical Exam Vital Signs Temp Pulse Resp BP Pulse Ox 98.0 F 77 20 H 117/78 95 07/18/18 15:37 07/18/18 15:37 07/18/18 15:37 07/18/18 15:37 07/18/18 15:37 Oxygen Delivery Method Room Air Weight: 108.465 kg Body Mass Index (BMI) 36.9 Finger Stick Blood Glucose 104 Intake and Output for Last 24 Hours Intake Total 720 / 720 1140 / 1140 500 / 500 Balance 720 / 720 1140 / 1140 500 / 500 Discharge Diet: No Restrictions Discharge Activity: Return to Normal Activity, May Shower, Use Walker Weight Bearing Status: Weight bearing as tolerated Call your doctor if you observe: Fever of 101 or Higher, Inability to urinate, Inability to have a bowel movement, Shortness of breath, Chest pain, Uncontrolled pain Home Medications: Medications to take at Discharge Aripiprazole [Abilify] 15 mg PO QHS 03/10/17 Aspirin [Aspirin, Baby] 81 mg PO DAILY@0800 03/10/17 Clonidine HCl [Catapres] 0.1 mg PO BID 03/10/17 Divalproex Sodium [Depakote] 1,500 mg PO QHS 03/10/17 Levothyroxine [Synthroid] 25 mcg PO DAILY 03/10/17 Tamsulosin HCl [Flomax] 0.4 mg PO DAILY 03/10/17 Omeprazole [Prilosec] 20 mg PO DAILY 12/15/17 Allopurinol [Zyloprim] 100 mg PO TID 07/05/18 Furosemide 40 mg PO BID 07/05/18 Metoprolol Succinate 25 mg PO DAILY 07/05/18 Quetiapine Fumarate [Seroquel] 100 mg PO DAILY 07/05/18 Acetaminophen [Tylenol] 1,000 mg PO Q8H PRN PRN #30 tablet 07/09/18 Ensure Enlive 120 ml PO 4X/DAY 07/09/18 Menthol/Lanolin/Calamine/Znox [Calmoseptine Ointment] 1 applic TOPICAL TID 07/09/18 Hydrocortisone 2.5% Crm [Hytone] 1 applic TOPICAL BID PRN PRN tube 07/18/18 Nystatin Powder [Mycostatin Powder] 1 applic TOPICAL 0600,2200 bottle 07/18/18 Polyethylene Glycol 3350 [Miralax] 17 gm PO DAILY packet 07/18/18 Primary Care Physician: Nikos Chong MD [Primary Care Provider] - Please follow up with your Primary Care Physician in: 1 week. Disposition: Asstd Living/Non-Skill NH Minutes spent on discharge:: 30 Patient Condition:: Stable Medical Necessity - Tobacco Use Smoking Status: Former smoker Tobacco Use: Non-smoker Meaningful Use Info Meaningful Use Diagnoses (Choose all that apply): None applicable 07/18/187 <Electronically signed by Marquis Garcia MD> Date Marquis Garcia MD Cosigner Signature (if applicable): Date CC: Nikos Chong MD; Marquis Garcia MD Signed TRANSFER TO EXTENDED Observed: 07/18/2018 Status: F Source: JULIAN CARE 12:34 PM [facility] REPOSITORY [facility] Medical Records Department [address] [place] [address] Transfer to [facility] MR#: [id number] Acct: [id number] Name: MIGUEL ANGEL SANDERS Rep #: [id number] : 1945 73 From: Marquis Garcia MD PCP: Nikos Chong MD Status: ADM IN MIGUEL ANGEL SANDERS [id number] (Patient) (Health Ins. Claim No.) (Day of Discharge to Facility) Certification of patient admission REQUIRED AT TIME OF ADMISSION. I CERTIFY THAT POST-HOSPITAL ECF SERVICES ARE REQUIRED TO BE GIVEN ON AN IN-PATIENT BASIS BECAUSE OF THE ABOVE NAMED PATIENT'S NEED FOR FDC CARE ON A CONTINUING BASIS FOR THE CONDITION(S) FOR WHICH HE/SHE WAS RECEIVING IN-PATIENT HOSPITAL SERVICES PRIOR TO HIS/HER TRANSFER TO THE ECF. 07/18/18 1234 <Electronically signed by Marquis Garcia MD> Date Marquis Garcia MD - Diet 07/09/18 16:40 Diet: Cardiac/Low Cholesterol Is pt able to select menu?: Yes Diet Comments: Total Feed, Weighted utensils AND sippy cups w/meals, NO MILK - Routine Orders/Code Status Suppository Type: Dulcolax 10mg Suppository Frequency: Daily PRN Routine Lab Work: CBC, BMP Code Status: DNRCC - Wound(s) Under Right knee Wound Type: Abrasion Right Side Thigh Wound Type: Abrasion Coccyx Wound Type: Pressure Injury Dressing Change: mepilex 07/16 - Therapies Weight Bearing: Weight bearing as tolerated Extremity Affected:: Bilateral Lower Physical Therapy: Eval and Treat Occupational Therapy: Eval and Treat Speech Therapy: Eval and Treat - Problem/Diagnosis (1) Parkinson's disease Status: Chronic Current Visit: Yes (2) Alzheimer's disease Status: Chronic Current Visit: Yes (3) Charcot's joint of left foot Status: Chronic Current Visit: Yes (4) BPH (benign prostatic hyperplasia) Status: Chronic Current Visit: Yes (5) Hypertension Status: Chronic Current Visit: Yes (6) Stroke Status: Chronic Current Visit: Yes (7) Edema Status: Chronic Current Visit: Yes (8) Chronic congestive heart failure Status: Chronic Current Visit: Yes (9) Gout Status: Chronic Current Visit: Yes (10) Weakness Status: Acute Current Visit: No (11) GERD (gastroesophageal reflux disease) Status: Chronic Current Visit: No (12) Hypothyroidism Status: Chronic Comment: Noted treated prior, not on regimen list. Current Visit: No (13) NSTEMI (non-ST elevated myocardial infarction) Status: Chronic Current Visit: No (14) Bipolar disorder Status: Chronic Current Visit: No (15) ADÁN (acute kidney injury) Status: Chronic Current Visit: No - Allergies/Procedures Done in Hospital Allergies/Adverse Reactions: Allergies chocolate flavor Allergy (Verified 07/07/18 10:08) Diarrhea codeine Allergy (Verified 07/05/18 14:43) Rash latex Allergy (Verified 07/05/18 14:43) Rash Penicillins Allergy (Verified 07/05/18 14:43) Other - Type of Care/Length of Stay Estimated LOS: More Than 30 Days Type of Care Needed: Intermediate Rehab Potential: Fair Prognosis: Fair - Additional Orders/Day of Discharge Day of Discharge: 07/19/18 - Dietary and Speech Recommendations Dietitian Recommendations/Changes: Rec continue liberal diet as ordered d/t hx alzheimers and bld gluc wnl. Rec continue ONS medpass to help w/ wound healing - Follow Up Care Primary Care Physician: Nikos Chong MD [Primary Care Provider] - Please follow up with your Primary Care Physician in: 1 week. 07/18/18 6344 <Electronically signed by Marquis Garcia MD> Date Marquis Garcia MD CC: Nikos Chong MD Signed CNPTOUTREACH Observed: 07/18/2018 Status: COMPLETED Source: [place] 12:00 AM [facility] REPOSITORY Patient Outreach (INTM[facility]) MIGUEL ANGEL SANDERS ([id number]) 1945 M Date Time Provider Department 07/18/18 NIKOS CHONG During your visit today, we recorded the following information about you: Allergies As of Date: 07/18/2018 Noted Allergy Reaction IODINE 08/27/2005 5 - Intolerance Comments: increased heart rate. LATEX 08/27/2005 2 - Rash CIMETIDINE 08/27/2005 5 - Intolerance Comments: loose stools. Pt. States he is not allergic to 05/05/2009 CODEINE 08/27/2005 8 - GI Upset DETROL (TOLTERODINE TARTRATE) 08/27/2005 5 - Intolerance PENICILLINS 08/27/2005 5 - Intolerance DYAZIDE (TRIAMTERENE-HYDROCHLOROT*12/17/2011 5 - Intolerance Comments: leg cramps after 1 dose LIPITOR (ATORVASTATIN CALCIUM) 02/15/2015 1 - Mental Status Change Comments: depression,anxiety MILK 05/23/2018 16 - Unknown SULINDAC 11/07/2009 6 - Diarrhea TESSALON (BENZONATATE) 10/11/2007 5 - Intolerance Comments: dyspnea Date Reviewed: 06/07/2018 Reviewed by: Pawel Montesinos LPN - Fully Assessed Visit Diagnosis:Medication management [Z79.899] Order(s):LIPID PANEL BASIC [SQLIPB] Order #: [id number] FUTURE Prescriptions as of 07/18/2018 Sig: LEVOTHYROXINE 25 MCG TABLET TAKE ONE TABLET AT 7AM BEFORE* CARBIDOPA 25 MG-LEVODOPA 100 * increase as directed by /2 t* COMPOUNDED PRESCRIPTION Occupational therapy to eval * COMPOUNDED PRESCRIPTION Home health 3 times a week f* SEROQUEL ORAL Take by mouth. ALLOPURINOL 100 MG TABLET TAKE ONE TABLET AT 8AM/NOON/8* MENTHOL 0.44 %-ZINC OXIDE 20.* Apply 1 application to affect* ARIPIPRAZOLE 30 MG TABLET Take 0.5 tablets by mouth onc* CLONIDINE HCL 0.1 MG TABLET Takes 1 tabs at bedtime and 1* FUROSEMIDE 40 MG TABLET TAKE ONE TABLET BY MOUTH TWIC* METOPROLOL SUCCINATE ER 25 MG* Take 1 tablet by mouth once d* DIVALPROEX 500 MG TABLET,JAVI* Take 1 tablet by mouth three * OMEPRAZOLE 20 MG CAPSULE,JAVI* Take 1 capsule by mouth once * TAMSULOSIN 0.4 MG CAPSULE Take 1 capsule by mouth once * NITROGLYCERIN 0.4 MG SUBLINGU* Dissolve 0.4mg tab (1tab) und* DIAPER,BRIEF,ADULT,DISPOSABLE 1 pad as needed for urinary c* CATHETER Apply 1 catheter at bedtime d* CHOLECALCIFEROL (VITAMIN D3) * Take 1,000 Units by mouth onc* CCRTDYUN-MWG-JGXWO ACID 0.4 M* Take 1 tablet by mouth. B-COMPLEX WITH VITAMIN C TABL* Take 1 tablet by mouth once d* * ASPIRIN 81 MG TABLET Take 1 tablet by mouth once d* Problem List As Of Date 07/18/2018 Noted Resolved Unspecified schizophrenia, unspecified conditio*INVALID FOR*03/11/2014 DIVERTICULOSIS OF COLON W/O BLEED [K57.30] INVALID FOR* SCIATICA [M54.30] INVALID FOR*06/06/2006 JOINT PAIN-SHLDER [M25.519] INVALID FOR*05/05/2009 Essential hypertension [I10] INVALID FOR* More... Contact dermatitis and other eczema, due to uns*INVALID FOR*10/31/2013 Other abnormal blood chemistry [R79.89] 10/31/2013 ESOPHAGEAL REFLUX [K21.9] Obesity [E66.9] INVALID FOR* Dysmetabolic syndrome X [E88.81] INVALID FOR*10/31/2013 JOINT PAIN-HAND [M25.549] INVALID FOR*05/05/2009 Backache, unspecified [M54.9] INVALID FOR*10/31/2013 Allergic rhinitis, cause unspecified [J30.9] INVALID FOR*10/31/2013 Cervicalgia [M54.2] INVALID FOR*10/31/2013 BPH W URINARY OBS/LUTS [N40.1] INVALID FOR* Charcot joint INVALID FOR*05/26/2014 Macular Degeneration [H35.30] Tremor [R25.1] INVALID FOR* Bipolar 1 disorder, mixed (HCC) [F31.60] INVALID FOR* More... Right gluteus medius Bursitis [M71.9] INVALID FOR*10/31/2013 CHF (congestive heart failure) [I50.9] INVALID FOR* More... Lacunar infarction [I63.81] INVALID FOR* More... Cardiomyopathy [I42.9] INVALID FOR* Near syncope [R55] INVALID FOR*10/31/2013 Diabetic peripheral neuropathy (HCC) [E11.42] INVALID FOR*02/02/2017 Hypothyroid [E03.9] INVALID FOR* More... Charcot foot due to diabetes mellitus (HCC) [E1*INVALID FOR*01/25/2018 More... Bipolar affective disorder, mixed (HCC) [F31.60]INVALID FOR* More... BPH (benign prostatic hyperplasia) [N40.0] INVALID FOR* Family history of prostate cancer [Z80.42] INVALID FOR* Venous (peripheral) insufficiency [I87.2] INVALID FOR* Hyperlipidemia [E78.5] INVALID FOR* Benign non-nodular prostatic hyperplasia with l*INVALID FOR* More... Elevated prostate specific antigen (PSA) [R97.2*INVALID FOR* Urinary tract infection associated with cathete*INVALID FOR* Diastolic heart failure (HCC) [I50.30] INVALID FOR* Renal insufficiency [N28.9] INVALID FOR* Gastroesophageal reflux disease without esophag*INVALID FOR* More... History of colonic polyps [Z86.010] INVALID FOR* More... Parkinsonism (HCC) [G20] INVALID FOR* Encounter Status:Closed by IVET, PRODUSER on 08/18/18 BASIC METABOLIC Collected: 07/17/2018 Status: F Source: CIARRA PROFILE (BMP) 5:15 AM [facility] REPOSITORY TYPE CODE TESTS RESULT OUT OF RANGE REFERENCE UNITS LAB L501.0100 74-106 mg/dL High GLU 138 Result Comment: Fasting Glucose result greater than or equal to 126 mg/dL suggests DIABETES MELLITUS per A.D.A. criteria. Please note revised GLUCOSE reference range effective 2017. LAB L501.1000 7-18 mg/dL High BUN 42 LAB L501.1100 0.70-1.30 mg/dL High CREAT,SERUM 1.64 Result Comment: The validity of the calculated GFR AND GFRAA in patients over 70 years has not been determined. Clinical correlation is essential. LAB L501.1110 >60 mL/min Low EST GFR 44 Result Comment: Non- GFR Calc LAB L501.1115 >60 mL/min Low EST GFR - AA 53 Result Comment: GFR Calc LAB L501.1255 ml/min Normal Estimated CRCL 39.39 LAB L501.1300 10-20 RATIO High BUN/CRE 25.6 LAB L501.2200 8.5-10 mg/dL Normal .1 CA 9.5 LAB L501.5300 136-14 mmol/L Normal 5 NA 144 LAB L501.5600 3.5-5. mmol/L Normal 1 K 4.5 LAB L501.5900 98-107 mmol/L Normal CL 102 LAB L501.6100 21.0-3 mmol/L High 2.0 CO2 33.0 LAB L501.6200 5-15 Normal GAP 9 Performed By: #### L500.2500 #### [facility] [address] [facility]. [place], [place], [address] CBC W/DIFF, AUTOMATED Collected: 07/17/2018 Status: F Source: JULIAN 5:15 AM [facility] REPOSITORY TYPE CODE TESTS RESULT OUT OF RANGE REFERENCE UNITS LAB L100.1000 4.4-11.0 K/mm3 High WBC 12.7 LAB L100.1200 4.6-6.2 M/mm3 Low RBC 4.18 LAB L100.1300 13.0-16.5 g/dl Normal HGB 13.4 LAB L100.1400 40-54 % Normal HCT 40.6 LAB L100.1500 80-94 fL High MCV 97.1 LAB L100.1600 27.0-32.0 pg High MCH 32.1 LAB L100.1700 32-36 g/gl Normal MCHC 33.0 LAB L100.1810 11.6-14.6 % Normal RDW CV 14.3 LAB L100.1820 35.1-43.9 fl High RDW SD 48.3 LAB L100.1900 150-450 K/mm3 Normal PLT 184 LAB L100.2000 6.2-12.0 fl Normal MPV 11.6 LAB L100.2100 47-70 % High NEUT% 75.8 LAB L100.2200 19-41 % Low LY% 15.5 LAB L100.2300 0-10 % Normal MONO% 6.8 LAB L100.2400 0-5 % Normal EO% 0.1 LAB L100.2500 0-1 % Normal BASO% 0.2 LAB L100.2550 0.0-0.9 % High IM GRAN % 1.600 Result Comment: IG% - Immature Granulocytes (promyelocytes, myelocytes and metamyelocytes) > 1% indicates that a LEFT SHIFT is Present. LAB L100.2620 2.0-7.7 X10 3/uL High Absolute Neut 9.7 LAB L100.2720 0.83-4.51 X10 3/ul Normal Absolute Lymph 1.98 Performed By: #### L100.0100 #### [facility] [address] [place], [address] 12 LEAD ELECTROCARDIOGRAM Observed: 07/13/2018 Status: F Source: JULIAN 11:57 AM [facility] REPOSITORY [facility] Cardiovascular Services [address] [place] [address] 12 Lead EKG 07/07/18 0516 MR#: [id number] Acct: [id number] Name: MIGUEL ANGEL SANDERS Rep #: [id number] : 1945 73 From: Manuel Kiser MD Attending Dr: Fouzia Weber MD Status: DIS NHUNG Ordering Dr: Fouzia Weber MD Date: 07/07/18 Location: OR3 Sex: M C Admitted: 07/05/18 Test Reason : AM EKG Blood Pressure : / mmHG Vent. Rate : 057 BPM Atrial Rate : 057 BPM P-R Int : 208 ms QRS Dur : 096 ms QT Int : 424 ms P-R-T Axes : 039 -02 035 degrees QTc Int : 412 ms Sinus bradycardia Otherwise normal ECG Confirmed by IVANA GREENWOOD, MANUEL ([id number]), development editor REBECCA HILL ([id number]) on 07/13/2018 11:57:06 AM Referred By: ROSIE Confirmed By:MANUEL KISER MD 07/13/18 1157 Date Manuel Kiser MD CC: Fouzia Weber MD; Nikos Chong MD Signed DISCHARGE SUMMARY Observed: 07/11/2018 Status: F Source: JULIAN 7:48 AM [facility] REPOSITORY [facility] Medical Records Department [address] [place] [address] Discharge Summary 07/09/18 0909 MR#: [id number] Acct: [id number] Name: MIGUEL ANGEL SANDERS Rep #: [id number] : 1945 73 From: Fouzia Weber MD PCP: Nikos Chong MD Status: DIS NHUNG Y Location: OR3 [id number] Discharge Date and Diagnosis Date of Admission: 07/05/18 Date of Discharge: 07/09/18 - Primary Discharge Diagnosis Active and Suspected Problems Weakness (Acute) Debility Acute kidney injury - Secondary Discharge Diagnosis Chronic Problems History of CVA (cerebrovascular accident) (Chronic) History of tobacco use (Chronic) GERD (gastroesophageal reflux disease) (Chronic) Hypothyroidism (Chronic) Noted treated prior, not on regimen list. NSTEMI (non-ST elevated myocardial infarction) (Chronic) Bipolar disorder (Chronic) Mood disorder (Chronic) Edema of both legs (Chronic) Dermatomycosis (Chronic) Obesity (BMI 30-39.9) (Chronic) CHF (congestive heart failure) (Chronic) Charcot ankle (Chronic) BL Pre-diabetes (Chronic) Incontinence of urine (Chronic) Incontinence of feces (Chronic) Incontinence associated dermatitis (Chronic) Benign hypertension (Chronic) Hospital Course and Treatment Imaging Results: Clinical Impression(s) from Imaging Studies Chest X-Ray 07/05/18 17:25 IMPRESSION: Degenerative changes, as described above. No demonstrated acute cardiopulmonary process. Electronically Signed: Niraj Castellanos MD at 17:51 EDT , Service support , None Operations: None Procedures: None Summary of Care Provided: 73-year-old male with past medical history of Parkinson's disease, hypothyroidism, hypertension, BPH who was admitted with progressive weakness with the inability to care for him. 1. Debility related to worsening Parkinson's disease/possibly Alzheimer's disease, patient was a 2 person assist, Seen by PT and OT and skilled for residential facility. 2. Parkinson's disease with dementia, appeared stable on home meds 3. ADÁN secondary to dehydration, baseline creatinine of 1.2, this improved with IV hydration and Lasix being withhold. On the day of discharge patient had his Lasix resumed. Needs to be monitored closely in the subacute rehab Subjective: The day of discharge, patient was seen and examined. Feels much better. Denied any chest pain no dizziness or shortness of breath. Will be discharged to the residential facility Objective: Physical exam: General: Alert, Oriented x3, Cooperative, No apparent distress, - - appears weak HEENT: Atraumatic, PERRLA, EOMI, Normocephalic Oral: Moist Mucosa Neck: Supple, No JVD, Negative Carotid Bruits Lungs: Clear to auscultation, Normal air movement Cardiovascular: Regular rate, Regular Rhythm, Normal S1, Normal S2, No murmurs Abdomen: Bowel Sounds Present, Soft, Non Tender, Non-Distended, No Hepato-splenomegaly Extremities: Bipedal edema trace-+1 Skin: No rashes, No breakdown Musculoskeletal: No Tenderness to Palpation of Joints or Extremities Lymphatic: No Cervical, Supraclavicular, or Inguinal Adenopathy Neurological: Cranial nerves II-XII grossly intact, - - slight masked facies Psych/Mental Status: Normal Affect, Appropriate - Physical Exam Vital Signs Temp Pulse Resp BP Pulse Ox 97.9 F 76 18 115/63 93 07/09/18 08:44 07/09/18 08:50 07/09/18 08:44 07/09/18 08:44 07/09/18 08:44 Oxygen Flow Rate (L/min) 1 Oxygen Delivery Method Room Air Weight: 107.7 kg Body Mass Index (BMI) 36.1 Finger Stick Blood Glucose 104 Intake and Output for Last 24 Hours Intake Total 1704.3 / 1704.3 2281 / 2281 475 / 475 Balance 1704.3 / 1704.3 2281 / 2281 475 / 475 Microbiology Past 72 Hours 07/05/18 17:52 Urine Culture - Final Urine Catheter - Catheter Culture exhibits no growth. Laboratory Tests Past 24 Hrs Sodium 143 Potassium 4.5 Chloride 108 H Carbon Dioxide 26.0 Discharge Diet: Low fat/ Low Cholesterol, 2000 mg Sodium Diet Discharge Activity: Return to Normal Activity Home Medications: Medications to take at Discharge Aripiprazole [Abilify] 15 mg PO QHS 03/10/17 Aspirin [Aspirin, Baby] 81 mg PO DAILY@0800 03/10/17 Clonidine HCl [Catapres] 0.1 mg PO BID 03/10/17 Divalproex Sodium [Depakote] 1,500 mg PO QHS 03/10/17 Levothyroxine [Synthroid] 25 mcg PO DAILY 03/10/17 Tamsulosin HCl [Flomax] 0.4 mg PO DAILY 03/10/17 Omeprazole [Prilosec] 20 mg PO DAILY 12/15/17 Allopurinol [Zyloprim] 100 mg PO TID 07/05/18 Furosemide 40 mg PO BID 07/05/18 Metoprolol Succinate 25 mg PO DAILY 07/05/18 Quetiapine Fumarate [Seroquel] 100 mg PO DAILY 07/05/18 Acetaminophen [Tylenol Extra Strength] 1,000 mg PO Q8H PRN PRN #30 tablet 07/09/18 Ensure Enlive 120 ml PO 4X/DAY 07/09/18 Heparin Injection (Vial) [Heparin Na] 5,000 unit SC Q8 07/09/18 Magnesium Hydroxide [Milk Of Magnesia] 30 ml PO DAILY PRN PRN udc 07/09/18 Menthol/Lanolin/Calamine/Znox [Calmoseptine Ointment] 1 applic TOPICAL TID 07/09/18 Following Prescrptions Were Given to Patient: Acetaminophen [Tylenol Extra Strength] 1,000 mg PO Q8H PRN PRN #30 tablet PRN Reason: Pain Primary Care Physician: Nikos Chong MD [Primary Care Provider] - Please follow up with your Primary Care Physician in: within 2 weeks of discharge Disposition: Long Term facility Minutes spent on discharge:: 40 Patient Condition:: Stable Medical Necessity - Tobacco Use Smoking Status: Former smoker Tobacco Use: Non-smoker Meaningful Use Info Meaningful Use Diagnoses (Choose all that apply): None applicable Code Visit Inpatient PJ: [id number] Disch Hosp 07/11/18 0748 <Electronically signed by Fouzia Weber MD> Date Fouzia Weber MD Cosigner Signature (if applicable): Date CC: Fouzia Weber MD; Nikos Chong MD Signed 12 LEAD ELECTROCARDIOGRAM Observed: 07/10/2018 Status: F Source: JULIAN 3:41 PM [facility] REPOSITORY [facility] Cardiovascular Services [address] [place] [id number] 12 Lead EKG 07/05/18 1723 MR#: [id number] Acct: [id number] Name: MIGUEL ANGEL SANDERS Rep #: [id number] : 1945 73 From: Nick Tello MD Attending Dr: Fouzia Weber MD Status: DIS NHUNG Ordering Dr: Jessica Govea MD Date: 07/05/18 Location: [facility] Sex: M C Admitted: 07/05/18 Test Reason : WEAKNESS Blood Pressure : / mmHG Vent. Rate : 059 BPM Atrial Rate : 059 BPM P-R Int : 200 ms QRS Dur : 106 ms QT Int : 430 ms P-R-T Axes : 020 -01 022 degrees QTc Int : 425 ms Sinus bradycardia Otherwise normal ECG Confirmed by NICK TELLO MD ([id number]), development editor REBECCA HILL ([id number]) on 07/10/2018 3:41:37 PM Referred By: ADDISON Confirmed By:NICK TELLO MD 07/10/18 1541 Date Nick Tello MD CC: Fouzia Weber MD; Nikos Chong MD; Jessica Govea MD Signed PROGRESS Observed: 07/10/2018 Status: COMPLETED Source: [place] 1:44 PM [facility] [place] REPOSITORY HNO ID: [id number] Author: Mariam Hutchinson Service: (none) Author Type: Registered Nurse Type: Progress Notes Filed: 07/10/2018 2:18 PM Note Text: PRIMARY CARE COORDINATION FOLLOW-UP NOTE Provider Action/FYI: Pt is in TCU SNF at [facility]. planning on more permanent SNF placement. Patient identified by name and date of . YES Spoke to spouse Summary: called to notify us that pt has been in the hospital since last week. He has gone to TCU for rehab and is hoping to place him permanent SNF, but difficulty finding one close, that takes their insurance. Since he has no money in his name, he may qualify for Medicaid. Concerns: Concerned that will be alone and may not navigate well on her own. Will need to follow and include son in her care. Healthcare Financial Analyst plan for next outreach: Will follow up next week Signature Mariam Hutchinson senior science consultant Underground Distribution Engineer Internal Medicine [facility] July 10, 2018 HISTORY AND PHYSICAL Observed: 07/10/2018 Status: F Source: JULIAN EXAM 8:34 AM [facility] REPOSITORY [facility] Medical Records Department [address] [place] [address] History and Physical 07/09/18 1807 MR#: [id number] Acct: [id number] Name: MIGUEL ANGEL SANDERS Rep #: [id number] : 1945 73 From: Marquis Garcia MD PCP: Nikos Chong MD Status: ADM IN Y Location: [place] [id number] Problem List (1) Parkinson's disease Status: Chronic (2) Alzheimer's disease Status: Chronic (3) Charcot's joint of left foot Status: Chronic (4) BPH (benign prostatic hyperplasia) Status: Chronic (5) Hypertension Status: Chronic (6) Stroke Status: Chronic (7) Edema Status: Chronic (8) Chronic congestive heart failure Status: Chronic (9) Gout Status: Chronic (10) Weakness Status: Acute (11) GERD (gastroesophageal reflux disease) Status: Chronic (12) Hypothyroidism Status: Chronic Comment: Noted treated prior, not on regimen list. (13) NSTEMI (non-ST elevated myocardial infarction) Status: Chronic (14) Bipolar disorder Status: Chronic (15) ADÁN (acute kidney injury) Status: Chronic History of Present Illness Date of Admission: 07/09/18 Chief Complaint: Here for rehabilitation, strengthening, prior to disposition determination. The patient is a 73 year old Male with below past medical history presented to [facility] Emergency Department 07/05/2018 with generalized weakness. 07/05/2018 Chest X-ray negative for acute cardiopulmonary findings. Worsening weakness x 4 days. Baseline can transfer from left chair to wheelchair. Tender buttock wound. Difficulty urinating. Sinemet not helpful. CBC okay, Coags okay, BUN 34, Cr 1.94. Troponin negative, EKG okay. IV fluids given. 07/05/2018 Admit to Hospital. PT/OT. Gentle hydration. 07/06/2018 EKG to check prolonged QT. Kidney failure improved. 07/07/2018 Patient needs at least short term placement. 07/09/2018 Admit to TCU with debility, here for rehabilitation, strengthening, prior to disposition determination. Past Medical History Past Medical History (Chronic Problems): Chronic Problems Parkinson's disease (Chronic) Alzheimer's disease (Chronic) Charcot's joint of left foot (Chronic) BPH (benign prostatic hyperplasia) (Chronic) Hypertension (Chronic) Stroke (Chronic) Edema (Chronic) Chronic congestive heart failure (Chronic) Gout (Chronic) History of CVA (cerebrovascular accident) (Chronic) History of tobacco use (Chronic) GERD (gastroesophageal reflux disease) (Chronic) Hypothyroidism (Chronic) Noted treated prior, not on regimen list. NSTEMI (non-ST elevated myocardial infarction) (Chronic) Bipolar disorder (Chronic) ADÁN (acute kidney injury) (Chronic) Mood disorder (Chronic) Edema of both legs (Chronic) Dermatomycosis (Chronic) Obesity (BMI 30-39.9) (Chronic) CHF (congestive heart failure) (Chronic) Charcot ankle (Chronic) BL Pre-diabetes (Chronic) Incontinence of urine (Chronic) Incontinence of feces (Chronic) Incontinence associated dermatitis (Chronic) Benign hypertension (Chronic) Allergies chocolate flavor Allergy (Verified 07/07/18 10:08) Diarrhea codeine Allergy (Verified 07/05/18 14:43) Rash latex Allergy (Verified 07/05/18 14:43) Rash Penicillins Allergy (Verified 07/05/18 14:43) Other Home Medications: Ambulatory Orders Medication Instructions Recorded Aripiprazole [Abilify] 15 mg PO QHS 03/10/17 Aspirin [Aspirin, Baby] 81 mg PO DAILY@0800 03/10/17 Clonidine HCl [Catapres] 0.1 mg PO BID 03/10/17 Surgical History: tonsillectomy Psychiatric History: Bipolar Lives: Spouse/ Significant Other Smoking Status: Former smoker Tobacco Use: Non-smoker Alcohol: None Drugs: None - *Family History Maternal History Items: Cancer, - - The patient's mother had a history of Alzheimer's disease. She at the age of 70. Paternal History Items: Cancer, - - Patient's father at age of 59 with prostate cancer. Review of Systems Constitutional: Denies: Chills, Fever, Weight Change HEENT: Denies: Head Aches, Sinus Congestion, Sinus Drainage Cardiovascular: Denies: Chest Pain, Palpitations Respiratory: Denies: Cough, Shortness of breath at rest, Sputum production Gastrointestinal: Denies: Abdominal Pain, Nausea, Vomiting Genitourinary: Denies: Dysuria Musculoskeletal: Denies: Joint Pain, Joint Tenderness Skin: Denies: Rash, Wounds Neurological: Denies: Numbness, Tingling, Focal weakness Psychiatric: Denies: Anxiety, Depression, Homicidal Ideations, Suicidal Ideations Hematologic/ Lymphatic: Denies: Easy Bruising, Easy Bleeding VTE Information - Inpt Only VTE Present on Admission: No VTE Mechan Device Prophylaxis: Knee High KIN Hose VTE Pharm Prophylaxis ordered?: Yes - Physical Exam General: Alert, Oriented x3, Cooperative HEENT: Atraumatic, PERRLA, EOMI, Normocephalic Neck: Supple, No JVD, Negative Carotid Bruits Lungs: Clear to auscultation, Normal air movement Cardiovascular: Regular rate, No murmurs Abdomen: Bowel Sounds Present, Soft, Non Tender Extremities: No edema, Capillary Refill Less than 3 Seconds Skin: No rashes, No breakdown Musculoskeletal: No Tenderness to Palpation of Joints or Extremities Neurological: Cranial nerves II-XII grossly intact Psych/Mental Status: Normal Affect, Appropriate Vital Signs Temp Pulse Resp BP Pulse Ox 97.9 F 62 18 114/73 94 07/09/18 16:31 07/09/18 16:31 07/09/18 16:31 07/09/18 16:31 07/09/18 16:31 Oxygen Delivery Method Room Air Finger Stick Blood Glucose 104 Assessment/Plan All Active Problems Stage II pressure ulcer of right buttock (Acute) Weakness (Acute) Superficial thrombophlebitis of left upper extremity (Acute) Acute gouty arthritis (Acute) UTI (urinary tract infection) (Ruled-out) History of urinary tract infection (Ruled-out) 73 year old male with below past medical history significant for Parkinson's Disease, Alzheimer's Disease, hospitalized for weakness, complicated by acute kidney failure, admitted to TCU with debility, here for rehabilitation, strengthening, prior to disposition determination. * Debility - PT/OT. * Cognition - ST. * Pain - Tylenol 1000MG Q8H PRN mild pain. * Bowel - Miralax 17GM daily, Senna/colace 1 tablet BID, Dulcolax 10MG PO daily PRN. * Pneumonia vaccination - Administer Prevnar 13 and/or Pneumovax 23 as necessary. * DVT prophylaxis - Lovenox 40MG SC daily. * Gout - Allopurinol 100MG TID. * Bipolar Disorder - Abilify 15MG QHS, Depakote 1500MG QHS, Seroquel 100MG QHS (Antipsychotic medications prescribed by psychiatrist for chronic senior living treatment). * Coronary Artery Disease - Metoprolol succinate 25MG daily, Aspirin 81MG daily. * Hypertension - Metoprolol succinate 25MG daily, Clonidine 0.1MG BID. * Nutrition - Ensure Enlive 120ML 4x/day. * Edema - Lasix 40MG BID. * Hypothyroidism - Levothyroxine 25MCG daily. * Skin irritation - Calmoseptine TID bilateral buttocks, coccyx. * GERD - Pantoprazole 20MG daily. * BPH - Tamsulosin 0.4MG daily. 07/10/18 0105 <Electronically signed by Marquis Garcia MD> Date Marquis Garcia MD Cosigner Signature: Date (if applicable) CC: Nikos Chong MD; Marquis Garcia MD Signed CBC W/DIFF, AUTOMATED Collected: 07/10/2018 Status: C Source: [place] 5:10 AM [facility] REPOSITORY TYPE CODE TESTS RESULT OUT OF RANGE REFERENCE UNITS LAB L100.1000 4.4-11.0 K/mm3 Normal WBC 9.0 LAB L100.1200 4.6-6.2 M/mm3 Low RBC 4.25 LAB L100.1300 13.0-16.5 g/dl Normal HGB 13.4 LAB L100.1400 40-54 % Normal HCT 40.7 LAB L100.1500 80-94 fL High MCV 95.8 LAB L100.1600 27.0-32.0 pg Normal MCH 31.5 LAB L100.1700 32-36 g/gl Normal MCHC 32.9 LAB L100.1810 11.6-14.6 % Normal RDW CV 14.3 LAB L100.1820 35.1-43.9 fl High RDW SD 48.2 LAB L100.1900 150-450 K/mm3 Normal PLT 163 LAB L100.2000 6.2-12.0 fl Normal MPV 11.5 LAB L100.3100 MANUAL DIFF Normal CELLS COUNTED 100 LAB L100.3200 47-70 % 53 Normal SEGS LAB L100.3400 0-1 % 1 Normal META LAB L100.3800 19-41 % 30 Normal LYMPH LAB L100.3900 0-10 % High 12 MONOCYTE LAB L100.4000 0-5 % 3 Normal EOS LAB L100.4100 0-1 % 1 Normal BASOPHIL LAB L100.5500 ADEQ Normal PLT EST ADEQUATE LAB L100.7000 NORM C AND C NORMAL Normal RED CELL MORPH NORM C+C LAB L100.2620 2.0-7.7 X10 3/uL Normal Absolute Neut 4.8 LAB L100.2720 0.83-4.51 X10 3/ul Normal Absolute Lymph 2.70 LAB L100.9900 Normal PATH REV Reviewed Result Comment: AMENDED REPORT 07/10/18 1413 PATH REV previously reported as: January Performed By: #### L100.0100 #### [facility] [address] [place], [address] BASIC METABOLIC Collected: 07/10/2018 Status: F Source: JULIAN PROFILE (BMP) 5:10 AM [facility] REPOSITORY TYPE CODE TESTS RESULT OUT OF RANGE REFERENCE UNITS LAB L501.0100 74-106 mg/dL Normal GLU 95 Result Comment: Please note revised GLUCOSE reference range effective 2017. LAB L501.1000 7-18 mg/dL High BUN 26 LAB L501.1100 0.70-1.30 mg/dL High CREAT,SERUM 1.48 Result Comment: The validity of the calculated GFR AND GFRAA in patients over 70 years has not been determined. Clinical correlation is essential. LAB L501.1110 >60 mL/min Low EST GFR 50 Result Comment: Non- GFR Calc LAB L501.1115 >60 mL/min Normal EST GFR - AA 60 Result Comment: GFR Calc LAB L501.1255 ml/min Normal Estimated CRCL 43.65 LAB L501.1300 10-20 RATIO Normal BUN/CRE 17.6 LAB L501.2200 8.5-10 mg/dL Normal .1 CA 9.2 LAB L501.5300 136-14 mmol/L Normal 5 NA 142 LAB L501.5600 3.5-5. mmol/L Normal 1 K 4.3 LAB L501.5900 98-107 mmol/L Normal CL 104 LAB L501.6100 21.0-3 mmol/L Normal 2.0 CO2 31.0 LAB L501.6200 5-15 Normal GAP 7 Performed By: #### L500.2500 #### [facility] [address] [place], [address] CNPTOUTREACH Observed: 07/10/2018 Status: COMPLETED Source: [place] 12:00 AM [facility] REPOSITORY Patient Outreach (INTMWS) TOMMYMIGUEL ANGEL ([id number]) 1945 M Date Time Provider Department 07/10/18 MARIAM CHOI During your visit today, we recorded the following information about you: Mariam Grimes RN 07/10/2018 2:18 PM Signed PRIMARY CARE COORDINATION FOLLOW-UP NOTE Provider Action/FYI: Pt is in TCU SNF at [facility]. planning on more permanent SNF placement. Patient identified by name and date of . YES Spoke to spouse Summary: called to notify us that pt has been in the hospital since last week. He has gone to TCU for rehab and is hoping to place him permanent SNF, but difficulty finding one close, that takes their insurance. Since he has no money in his name, he may qualify for Medicaid. Concerns: Concerned that will be alone and may not navigate well on her own. Will need to follow and include son in her care. Healthcare Financial Analyst plan for next outreach: Will follow up next week Signature Mariam Hutchinson senior science consultant Underground Distribution Engineer Internal Medicine [facility] July 10, 2018 Allergies As of Date: 07/10/2018 Noted Allergy Reaction IODINE 08/27/2005 5 - Intolerance Comments: increased heart rate. LATEX 08/27/2005 2 - Rash CIMETIDINE 08/27/2005 5 - Intolerance Comments: loose stools. Pt. States he is not allergic to 05/05/2009 CODEINE 08/27/2005 8 - GI Upset DETROL (TOLTERODINE TARTRATE) 08/27/2005 5 - Intolerance PENICILLINS 08/27/2005 5 - Intolerance DYAZIDE (TRIAMTERENE-HYDROCHLOROT*12/17/2011 5 - Intolerance Comments: leg cramps after 1 dose LIPITOR (ATORVASTATIN CALCIUM) 02/15/2015 1 - Mental Status Change Comments: depression,anxiety MILK 05/23/2018 16 - Unknown SULINDAC 11/07/2009 6 - Diarrhea TESSALON (BENZONATATE) 10/11/2007 5 - Intolerance Comments: dyspnea Date Reviewed: 06/07/2018 Reviewed by: Pawel Montesinos LPN - Fully Assessed Reason for Visit: Underground Distribution Engineer Chronic Care [[id number]] Prescriptions as of 07/10/2018 Sig: LEVOTHYROXINE 25 MCG TABLET TAKE ONE TABLET AT 7AM BEFORE* CARBIDOPA 25 MG-LEVODOPA 100 * increase as directed by /2 t* COMPOUNDED PRESCRIPTION Occupational therapy to eval * COMPOUNDED PRESCRIPTION Home health 3 times a week f* SEROQUEL ORAL Take by mouth. ALLOPURINOL 100 MG TABLET TAKE ONE TABLET AT 8AM/NOON/8* MENTHOL 0.44 %-ZINC OXIDE 20.* Apply 1 application to affect* ARIPIPRAZOLE 30 MG TABLET Take 0.5 tablets by mouth onc* CLONIDINE HCL 0.1 MG TABLET Takes 1 tabs at bedtime and 1* FUROSEMIDE 40 MG TABLET TAKE ONE TABLET BY MOUTH TWIC* METOPROLOL SUCCINATE ER 25 MG* Take 1 tablet by mouth once d* DIVALPROEX 500 MG TABLET,JAVI* Take 1 tablet by mouth three * OMEPRAZOLE 20 MG CAPSULE,JAVI* Take 1 capsule by mouth once * TAMSULOSIN 0.4 MG CAPSULE Take 1 capsule by mouth once * NITROGLYCERIN 0.4 MG SUBLINGU* Dissolve 0.4mg tab (1tab) und* DIAPER,BRIEF,ADULT,DISPOSABLE 1 pad as needed for urinary c* CATHETER Apply 1 catheter at bedtime d* CHOLECALCIFEROL (VITAMIN D3) * Take 1,000 Units by mouth onc* HZHVBZTD-SMG-AORNW ACID 0.4 M* Take 1 tablet by mouth. B-COMPLEX WITH VITAMIN C TABL* Take 1 tablet by mouth once d* * ASPIRIN 81 MG TABLET Take 1 tablet by mouth once d* Problem List As Of Date 07/10/2018 Noted Resolved Unspecified schizophrenia, unspecified conditio*INVALID FOR*03/11/2014 DIVERTICULOSIS OF COLON W/O BLEED [K57.30] INVALID FOR* SCIATICA [M54.30] INVALID FOR*06/06/2006 JOINT PAIN-SHLDER [M25.519] INVALID FOR*05/05/2009 Essential hypertension [I10] INVALID FOR* More... Contact dermatitis and other eczema, due to uns*INVALID FOR*10/31/2013 Other abnormal blood chemistry [R79.89] 10/31/2013 ESOPHAGEAL REFLUX [K21.9] Obesity [E66.9] INVALID FOR* Dysmetabolic syndrome X [E88.81] INVALID FOR*10/31/2013 JOINT PAIN-HAND [M25.549] INVALID FOR*05/05/2009 Backache, unspecified [M54.9] INVALID FOR*10/31/2013 Allergic rhinitis, cause unspecified [J30.9] INVALID FOR*10/31/2013 Cervicalgia [M54.2] INVALID FOR*10/31/2013 BPH W URINARY OBS/LUTS [N40.1] INVALID FOR* Charcot joint INVALID FOR*05/26/2014 Macular Degeneration [H35.30] Tremor [R25.1] INVALID FOR* Bipolar 1 disorder, mixed (HCC) [F31.60] INVALID FOR* More... Right gluteus medius Bursitis [M71.9] INVALID FOR*10/31/2013 CHF (congestive heart failure) [I50.9] INVALID FOR* More... Lacunar infarction [I63.81] INVALID FOR* More... Cardiomyopathy [I42.9] INVALID FOR* Near syncope [R55] INVALID FOR*10/31/2013 Diabetic peripheral neuropathy (HCC) [E11.42] INVALID FOR*02/02/2017 Hypothyroid [E03.9] INVALID FOR* More... Charcot foot due to diabetes mellitus (HCC) [E1*INVALID FOR*01/25/2018 More... Bipolar affective disorder, mixed (HCC) [F31.60]INVALID FOR* More... BPH (benign prostatic hyperplasia) [N40.0] INVALID FOR* Family history of prostate cancer [Z80.42] INVALID FOR* Venous (peripheral) insufficiency [I87.2] INVALID FOR* Hyperlipidemia [E78.5] INVALID FOR* Benign non-nodular prostatic hyperplasia with l*INVALID FOR* More... Elevated prostate specific antigen (PSA) [R97.2*INVALID FOR* Urinary tract infection associated with cathete*INVALID FOR* Diastolic heart failure (HCC) [I50.30] INVALID FOR* Renal insufficiency [N28.9] INVALID FOR* Gastroesophageal reflux disease without esophag*INVALID FOR* More... History of colonic polyps [Z86.010] INVALID FOR* More... Parkinsonism (HCC) [G20] INVALID FOR* Encounter Status:Closed by MARIAM HUTCHINSON on 07/10/18 TRANSFER TO EXTENDED Observed: 07/09/2018 Status: F Source: [facility] 9:09 [facility] REPOSITORY [facility] Medical Records Department [address] [place] [address] Transfer to Extended Care MR#: [id number] Acct: [id number] Name: MIGUEL ANGEL SANDERS Rep #: [id number] : 1945 73 From: Fouzia Weber MD PCP: Nikos Chong MD Status: ADM NHUNG TOMMYMIGUEL ANGEL Mami (Patient) (Health Ins. Claim No.) (Day of Discharge to Facility) Certification of patient admission REQUIRED AT TIME OF ADMISSION. I CERTIFY THAT POST-HOSPITAL ECF SERVICES ARE REQUIRED TO BE GIVEN ON AN IN-PATIENT BASIS BECAUSE OF THE ABOVE NAMED PATIENT'S NEED FOR FDC CARE ON A CONTINUING BASIS FOR THE CONDITION(S) FOR WHICH HE/SHE WAS RECEIVING IN-PATIENT HOSPITAL SERVICES PRIOR TO HIS/HER TRANSFER TO THE F. 07/09/18 09 <Electronically signed by Fouzia Weber MD> Date Fouzia Weber MD - Diet 07/05/18 21:31 Diet: Cardiac/Low Cholesterol Food consistency:: Regular Liquid Consistency:: Regular/Thin Is pt able to select menu?: Yes - Routine Orders/Code Status Routine Lab Work: CBC - in 3 days, BMP - in 3 days - Wound(s) coccyx Wound Type: Pressure Injury Dressing Change: Calmoseptine - Therapies Weight Bearing: Weight bearing as tolerated Extremity Affected:: Bilateral Lower Physical Therapy: Eval and Treat Occupational Therapy: Eval and Treat Speech Therapy: Eval and Treat - Cognitive impairment assessment and training - Allergies/Procedures Done in Hospital Allergies/Adverse Reactions: Allergies chocolate flavor Allergy (Verified 07/07/18 10:08) Diarrhea codeine Allergy (Verified 07/05/18 14:43) Rash latex Allergy (Verified 07/05/18 14:43) Rash Penicillins Allergy (Verified 07/05/18 14:43) Other Procedures: None - Type of Care/Length of Stay Estimated LOS: Convalescent Care Less Than 30 days Type of Care Needed: Skilled Rehab Potential: Fair Prognosis: Fair - Additional Orders/Day of Discharge Additional Orders: We held his naproxen, resumed his Lasix which was held till day of discharge because of ADÁN. His renal function needs to be closely monitored. Daily weights, CHF precautions Day of Discharge: 07/09/18 - Dietary and Speech Recommendations Dietitian Recommendations/Changes: Suggest diet change to cardiac/low sodium as needed. - Follow Up Care Primary Care Physician: Nikos Chong MD [Primary Care Provider] - Please follow up with your Primary Care Physician in: within 2 weeks of discharge 07/09/18 09 <Electronically signed by Fouzia Weber MD> Date Fouzia Weber MD CC: Nikos Chong MD Signed BASIC METABOLIC Collected: 07/09/2018 Status: F Source: ICARRA PROFILE (BMP) 5:25 AM [facility] REPOSITORY TYPE CODE TESTS RESULT OUT OF RANGE REFERENCE UNITS LAB L501.0100 74-106 mg/dL High GLU 110 Result Comment: Fasting Glucose result from 100 to 125 mg/dL suggests IMPAIRED HOMEOSTASIS per A.D.A. criteria. Please note revised GLUCOSE reference range effective 2017. LAB L501.1000 7-18 mg/dL High BUN 26 LAB L501.1100 0.70-1.30 mg/dL Normal CREAT,SERUM 1.29 Result Comment: The validity of the calculated GFR AND GFRAA in patients over 70 years has not been determined. Clinical correlation is essential. LAB L501.1110 >60 mL/min Low EST GFR 58 Result Comment: Non- GFR Calc LAB L501.1115 >60 mL/min Normal EST GFR - AA 70 Result Comment: GFR Calc LAB L501.1255 ml/min Normal Estimated CRCL 50.08 LAB L501.1300 10-20 RATIO High BUN/CRE 20.2 LAB L501.2200 8.5-10 mg/dL Normal .1 CA 8.7 LAB L501.5300 136-14 mmol/L Normal 5 NA 143 LAB L501.5600 3.5-5. mmol/L Normal 1 K 4.5 LAB L501.5900 98-107 mmol/L High CL 108 LAB L501.6100 21.0-3 mmol/L Normal 2.0 CO2 26.0 LAB L501.6200 5-15 Normal GAP 9 Performed By: #### L500.2500 #### [facility] [address] [place], [place], [address] CBC W/DIFF, AUTOMATED Collected: 07/07/2018 Status: F Source: JULIAN 6:00 AM [facility] REPOSITORY TYPE CODE TESTS RESULT OUT OF RANGE REFERENCE UNITS LAB L100.1000 4.4-11.0 K/mm3 Normal WBC 7.4 LAB L100.1200 4.6-6.2 M/mm3 Low RBC 4.13 LAB L100.1300 13.0-16.5 g/dl Normal HGB 13.3 LAB L100.1400 40-54 % Low HCT 39.4 LAB L100.1500 80-94 fL High MCV 95.4 LAB L100.1600 27.0-32.0 pg High MCH 32.2 LAB L100.1700 32-36 g/gl Normal MCHC 33.8 LAB L100.1810 11.6-14.6 % Normal RDW CV 13.9 LAB L100.1820 35.1-43.9 fl High RDW SD 46.4 LAB L100.1900 150-450 K/mm3 Low PLT 145 LAB L100.2000 6.2-12.0 fl Normal MPV 11.1 LAB L100.2100 47-70 % Low NEUT% 42.8 LAB L100.2200 19-41 % Normal LY% 38.7 LAB L100.2300 0-10 % High MONO% 12.6 LAB L100.2400 0-5 % Normal EO% 3.7 LAB L100.2500 0-1 % Normal BASO% 0.3 LAB L100.2550 0.0-0.9 % High IM GRAN % 1.900 Result Comment: IG% - Immature Granulocytes (promyelocytes, myelocytes and metamyelocytes) > 1% indicates that a LEFT SHIFT is Present. LAB L100.2620 2.0-7.7 X10 3/uL Normal Absolute Neut 3.2 LAB L100.2720 0.83-4.51 X10 3/ul Normal Absolute Lymph 2.86 Performed By: #### L100.0100 #### [facility] [address] [place], [address] BASIC METABOLIC Collected: 07/07/2018 Status: F Source: JULIAN PROFILE (BMP) 6:00 AM [facility] REPOSITORY TYPE CODE TESTS RESULT OUT OF RANGE REFERENCE UNITS LAB L501.0100 74-106 mg/dL Normal GLU 105 Result Comment: Fasting Glucose result from 100 to 125 mg/dL suggests IMPAIRED HOMEOSTASIS per A.D.A. criteria. Please note revised GLUCOSE reference range effective 2017. LAB L501.1000 7-18 mg/dL High BUN 33 LAB L501.1100 0.70-1.30 mg/dL High CREAT,SERUM 1.65 Result Comment: The validity of the calculated GFR AND GFRAA in patients over 70 years has not been determined. Clinical correlation is essential. LAB L501.1110 >60 mL/min Low EST GFR 44 Result Comment: Non- GFR Calc LAB L501.1115 >60 mL/min Low EST GFR - AA 53 Result Comment: GFR Calc LAB L501.1255 ml/min Normal Estimated CRCL 39.15 LAB L501.1300 10-20 RATIO Normal BUN/CRE 20.0 LAB L501.2200 8.5-10 mg/dL Normal .1 CA 9.2 LAB L501.5300 136-14 mmol/L Normal 5 NA 145 LAB L501.5600 3.5-5. mmol/L Normal 1 K 4.3 LAB L501.5900 98-107 mmol/L High CL 108 LAB L501.6100 21.0-3 mmol/L Normal 2.0 CO2 29.0 LAB L501.6200 5-15 Normal GAP 8 Performed By: #### L500.2500 #### [facility] [address] [place], [address] CBC W/DIFF, AUTOMATED Collected: 07/06/2018 Status: F Source: CIARRA 5:48 AM [facility] REPOSITORY TYPE CODE TESTS RESULT OUT OF RANGE REFERENCE UNITS LAB L100.1000 4.4-11.0 K/mm3 Normal WBC 7.3 LAB L100.1200 4.6-6.2 M/mm3 Low RBC 4.09 LAB L100.1300 13.0-16.5 g/dl Normal HGB 13.2 LAB L100.1400 40-54 % Low HCT 39.1 LAB L100.1500 80-94 fL High MCV 95.6 LAB L100.1600 27.0-32.0 pg High MCH 32.3 LAB L100.1700 32-36 g/gl Normal MCHC 33.8 LAB L100.1810 11.6-14.6 % Normal RDW CV 13.9 LAB L100.1820 35.1-43.9 fl High RDW SD 47.1 LAB L100.1900 150-450 K/mm3 Low PLT 142 LAB L100.2000 6.2-12.0 fl Normal MPV 11.2 LAB L100.2100 47-70 % Normal NEUT% 53.0 LAB L100.2200 19-41 % Normal LY% 31.1 LAB L100.2300 0-10 % High MONO% 10.7 LAB L100.2400 0-5 % Normal EO% 3.7 LAB L100.2500 0-1 % Normal BASO% 0.3 LAB L100.2550 0.0-0.9 % High IM GRAN % 1.200 Result Comment: IG% - Immature Granulocytes (promyelocytes, myelocytes and metamyelocytes) > 1% indicates that a LEFT SHIFT is Present. LAB L100.2620 2.0-7.7 X10 3/uL Normal Absolute Neut 3.9 LAB L100.2720 0.83-4.51 X10 3/ul Normal Absolute Lymph 2.28 Performed By: #### L100.0100 #### [facility] [address] [place], [place], [address] BASIC METABOLIC Collected: 07/06/2018 Status: F Source: CIARRA PROFILE ([facility]) 5:48 AM [facility] REPOSITORY TYPE CODE TESTS RESULT OUT OF RANGE REFERENCE UNITS LAB L501.0100 74-106 mg/dL Normal GLU 87 Result Comment: Please note revised GLUCOSE reference range effective 2017. LAB L501.1000 7-18 mg/dL High BUN 29 LAB L501.1100 0.70-1.30 mg/dL High CREAT,SERUM 1.69 Result Comment: The validity of the calculated GFR AND GFRAA in patients over 70 years has not been determined. Clinical correlation is essential. LAB L501.1110 >60 mL/min Low EST GFR 43 Result Comment: Non- GFR Calc LAB L501.1115 >60 mL/min Low EST GFR - AA 52 Result Comment: GFR Calc LAB L501.1255 ml/min Normal Estimated CRCL 38.22 LAB L501.1300 10-20 RATIO Normal BUN/CRE 17.2 LAB L501.2200 8.5-10 mg/dL Normal .1 CA 8.7 LAB L501.5300 136-14 mmol/L Normal 5 NA 142 LAB L501.5600 3.5-5. mmol/L Normal 1 K 4.3 LAB L501.5900 98-107 mmol/L Normal CL 106 LAB L501.6100 21.0-3 mmol/L Normal 2.0 CO2 30.0 LAB L501.6200 5-15 Normal GAP 6 Performed By: #### L500.2500 #### [facility] [address] [facility] [place], [address] HISTORY AND PHYSICAL Observed: 07/06/2018 Status: F Source: JULIAN EXAM 3:40 AM [facility] REPOSITORY [facility] Medical Records Department [address] [place] [address] History and Physical 07/05/184 MR#: [id number] Acct: [id number] Name: MIGUEL ANGEL SANDERS Rep #: [id number] : 1945 73 From: Humaira Yanez MD PCP: Nikos Chong MD Status: ADM IN Location: [facility] [id number] Problem List (1) Weakness Status: Acute History of Present Illness Date of Admission: 07/05/18 Chief Complaint: Weakness The patient is a 73 year old M with past medical history of Parkinson's disease, hypothyroidism, BPH and hypertension. He was admitted through the ED on 07/05/2018 with a complaint of worsening generalized weakness. History was taken from patient and his . According to , patient has been getting progressively weak over the past year. is usually able to assist him with activities of daily living. However 1 day ago patient became much more weak and could not even assist him out of the chair or to undertake his activities of daily living. They think he is not able to stay at home because of his worsening weakness and so want to consider placement. Patient was therefore brought to the ED were no other complaints were really elicited. He denied any fever or chills, any cough or chest pain, any shortness of breath, any abdominal pain, any diarrhea vomiting. Review of systems otherwise negative. Patient does complain of persistent weakness. Vitals in the ED show pulse rate of 56 was otherwise normal. CMP showed bicarb of 34 and creatinine of 1.94 with troponin of less than 0.015. CBC was essentially unremarkable. EKG showed mild sinus bradycardia. Chest x-ray done showed degenerative changes of the visualized thoracic spine but no acute cardiopulmonary process. He has been admitted to be managed for severe worsening debility and is for placement. [] Past Medical History Past Medical History (Chronic Problems): Chronic Problems History of CVA (cerebrovascular accident) (Chronic) History of tobacco use (Chronic) GERD (gastroesophageal reflux disease) (Chronic) Hypothyroidism (Chronic) Noted treated prior, not on regimen list. NSTEMI (non-ST elevated myocardial infarction) (Chronic) Bipolar disorder (Chronic) Mood disorder (Chronic) Edema of both legs (Chronic) Dermatomycosis (Chronic) Obesity (BMI 30-39.9) (Chronic) CHF (congestive heart failure) (Chronic) Charcot ankle (Chronic) BL Pre-diabetes (Chronic) Incontinence of urine (Chronic) Incontinence of feces (Chronic) Incontinence associated dermatitis (Chronic) Benign hypertension (Chronic) Allergies codeine Allergy (Verified 07/05/18 14:43) Rash latex Allergy (Verified 07/05/18 14:43) Rash Penicillins Allergy (Verified 07/05/18 14:43) Other Home Medications: Ambulatory Orders Medication Instructions Recorded Aripiprazole [Abilify] 15 mg PO QHS 03/10/17 Surgical History: tonsillectomy Psychiatric History: Bipolar Lives: Spouse/ Significant Other Smoking Status: Former smoker Alcohol: None - *Family History Maternal History Items: Cancer, - - The patient's mother had a history of Alzheimer's disease. She at the age of 70. Paternal History Items: Cancer, - - Patient's father at age of 59 with prostate cancer. Review of Systems Constitutional: Reports: Malaise, Weakness, Fatigue. Denies: Chills, Fever, Weight Change Eyes: Denies: Blurred vision HEENT: Denies: Head Aches, Sinus Congestion, Sinus Drainage Cardiovascular: Denies: Chest Pain, Edema, Heaviness, Light Headedness, Palpitations Respiratory: Denies: Cough, Shortness of breath at rest, Sputum production Gastrointestinal: Denies: Abdominal Pain, Nausea, Vomiting Genitourinary: Denies: Dysuria Musculoskeletal: Denies: Foot Pain, Joint Pain, Joint Tenderness Skin: Denies: Rash, Wounds Neurological: Reports: Balance problems - due to Alzheimer's disease. Denies: Confusion, Focal weakness, Numbness, Tingling Hematologic/ Lymphatic: Denies: Easy Bruising, Easy Bleeding VTE Information - Inpt Only VTE Present on Admission: No VTE Mechan Device Prophylaxis: None VTE Pharm Prophylaxis ordered?: Yes Patient Problems: Active and Suspected Problems Weakness (Acute) - Physical Exam General: Alert, Oriented x3, Cooperative, No apparent distress HEENT: Atraumatic, PERRLA, EOMI, Normocephalic Oral: Dry Mucosa Neck: Supple, No JVD, Negative Carotid Bruits Lungs: Clear to auscultation, Normal air movement, - - breath sounds diminished in all lung corona Cardiovascular: Regular rate, Regular Rhythm, Normal S1, Normal S2, No murmurs Abdomen: Bowel Sounds Present, Soft, Non Tender, Non-Distended, No Hepato-splenomegaly Extremities: No clubbing, No cyanosis, No edema, Capillary Refill Less than 3 Seconds, - - Charcot joint of both feet Skin: - - Stage 2 decubitus ulcer of buttocks Musculoskeletal: No Tenderness to Palpation of Joints or Extremities Lymphatic: No Cervical, Supraclavicular, or Inguinal Adenopathy Neurological: Cranial nerves II-XII grossly intact, Neuro grossly intact Psych/Mental Status: Normal Affect, Appropriate, Alert and oriented to time, place, person, mood and affect Vital Signs Temp Pulse Resp BP Pulse Ox 98 F 56 L 18 130/78 H 98 07/05/18 14:38 07/05/18 19:00 07/05/18 19:00 07/05/18 19:07 07/05/18 19:00 Oxygen Delivery Method Room Air Weight: 233 lb Body Mass Index (BMI) 35.4 Finger Stick Blood Glucose 104 Laboratory Tests Past 24 Hrs WBC RBC Hgb Hct MCV MCH MCHC RDW RDW Differential Plt Count MPV Immature Gran % (Auto) Neut % (Auto) POC Glucose POC Glucose 104 Diagnostic Data Chest X-Ray 07/05/18 17:25 IMPRESSION: Degenerative changes, as described above. No demonstrated acute cardiopulmonary process. Electronically Signed: Niraj Castellanos MD at 17:51 EDT , Service support , Assessment/Plan All Active Problems Stage II pressure ulcer of right buttock (Acute) Weakness (Acute) Superficial thrombophlebitis of left upper extremity (Acute) Acute gouty arthritis (Acute) ADÁN (acute kidney injury) (Ruled-out) UTI (urinary tract infection) (Ruled-out) History of urinary tract infection (Ruled-out) 73-year-old male presenting with a history of progressive worsening weakness. 1. Worsening generalised debility possibly due to Alzheimer's disease * Vision unable to perform activities of daily living at home. Has home health healthcare market consultant who go in daily. usually helps him with his activities of daily living but she is now unable to. * admit to [facility] with telemetry * EKG showed mild sinus bradycardia, but no acute ST changes * CBC remarkable for platelets of 131 * UA unremarkable * CMP showed Cr of 1.34, with baseline of 1.5 * hydrate gently with IVF NS 75cc/hr * fall precautions * PT/OT consult * for placement * check TSH * 2. ADÁN likely due to dehydration * Creatinine is 1.94. Baseline is around 1.5. * Patient has dry oral. Will hydrate gently with IV fluids and monitor. * 3. Thrombocytopenia * Platelets of 131 and admission. Baseline is within normal limits * has no petechiae on skin * no clumping of platelets * will monitor, and hold DVT prophylaxis if it falls to <50 * consider hematology referral on outpatient basis if it persists * 4. Hypothyroidism: On Synthroid 25 mg daily. Check TSH. 5. Hypertension. Controlled. On clonidine 0.1 mg twice daily and metoprolol 25 mg daily. 6. history of gout: On allopurinol 100 mg 3 times daily. 7. BPH: on flomaxi 0.4mg daily. DVT prophylaxis: heparin Code status; full code. * According to , she is the patient's healthcare power of trust and estates attorney. Patient and were counseled about differences between full code, DNR CCA and DNR CCA. and patient would want him to be DNR CCA now. however states she has a sister who is a nurse and she wants to discuss it further with a to decide if they would change CODE STATUS subsequently. Total [id number] time-17 minutes. Code Visit Inpatient E AND M: 57904 Init Hosp L3 Procedures: 50505 Advncd Care Plan 30 Min 07/06/18 0340 <Electronically signed by Humaira Yanez MD> Date Humaira Yanez MD Cosigner Signature: Date (if applicable) CC: Nikos Chong MD; Humaira Yanez MD Signed EMERGENCY DEPARTMENT Observed: 07/06/2018 Status: F Source: JULIAN SUMMARY 1:01 AM [facility] REPOSITORY [facility] Medical Records Department [address] [place] [address] Emergency Department Summary 07/05/18 1710 MR#: [id number] Acct: [id number] Name: MIGUEL ANGEL SANDERS Rep #: [id number] : 1945 73 From: Jessica Govea MD PCP: Nikos Chong MD Status: ADM IN - ER Visit Summary Date of Service: 07/05/18 Chief Complaint: Generalized weakness History of Present Illness: The patient is a 73 M who presents for 4 days of progressively worsening weakness. At baseline patient has a lift chair and is able to transfer from his lift chair to his wheelchair from the most upright position. He was also able to take a couple steps with his nurse holding onto his gait belt. Today he has been unable to do any transfers and cannot get out of his chair. Patient denies any associated symptoms other than pain on a buttocks wound and difficulty urinating. He has bipolar disorder, Parkinson-like disease, and Charcot joint in the right foot. He has been on Sinemet for the last 3-4 weeks but stopped taking it 2 days ago because he thought it was contributing to his weakness. Physical Examination: Vital signs: afebrile, hemodynamically stable, no hypoxia on room air General: well nourished, well developed, in no distress Skin: warm, dry, no pallor, skin breakdown of the superficial layer on the bilateral gluteal cleft superior region, abrasion to the right lateral hip HEENT: normocephalic and atraumatic; PERRL, 2 millimeters, EOMI, tacky mucous membranes Cardiovascular: regular rate and rhythm without murmurs, mild peripheral edema in the right ankle, 2+ pulses all distal extremities Respiratory: No increased work of breathing, lungs are clear to auscultation bilaterally, no rales, rhonchi or wheezing Abdominal: Abdomen is soft, nontender with normoactive bowel sounds, no guarding or rebound, no masses MSK: Moves all extremities, diffuse weakness Neuro: Awake and alert, oriented 4. No facial droop, sensation and motor function intact and symmetric Test Results: Abnormal Lab Results WBC RBC Hgb Hct MCV MCH MCHC RDW RDW Differential Clinical Impression(s) from Imaging Studies Chest X-Ray 07/05/18 17:25 IMPRESSION: Degenerative changes, as described above. No demonstrated acute cardiopulmonary process. Electronically Signed: Niraj Castellanos MD at 17:51 EDT , Service support , Medications Given Discontinued Medications Last Admin: 07/05/18 17:51 Dose: 1,000 mls/hr Sodium Chloride () 5 - 30 ml IV UD PRN PRN Reason: SALINE FLUSH Emergency Department Course and Treatment: Patient presents for worsening weakness. Discussed with him and the family that if no underlying cause could be identified, he may require admission for placement, and they were amenable to this as they are having difficulty taking care of him at home. Patient was given IV fluids for hydration. EKG showed no ischemia or ectopy. No lab abnormalities noted except for patient's creatinine was elevated above his baseline. Troponin negative. Chest x-ray showed no acute process. No reversible cause of patient's increased weakness was noted. However he is unable to even get out of his own chair even with assistance, and thus will require admission for placement into a residential facility or rehab center. Patient was discussed with the hospitalist and admitted. Treatment Plan: [] Disposition: [] Impression: Generalized weakness, acute on chronic renal insufficiency, decubitus ulcer This note was generated with [employer] dictation software. It may contain incorrect words, spelling, and punctuation that were not noted in review of the chart prior to signing ED Disposition - Plan for ED Patient: Disposition: Acute Care Hospital [facility] Chief Complaint: Weakness What to do if you have Problems For any increased pain, shortness of breath, bleeding, nausea or vomiting, chest pain, or any unexpected problems, contact your Primary Care Provider. Call [facility] ([phone]) or report to the closest Emergency Room. Call 911 if necessary. 07/06/18 0101 <Electronically signed by Jessica Govea MD> Date Jessica Govea MD Cosigner Signature (If Indicated): Date CC: Nikos Chong MD BEDSIDE GLUCOSE Collected: 07/05/2018 Status: F Source: JULIAN 6:10 PM [facility] REPOSITORY TYPE CODE TESTS RESULT OUT OF RANGE REFERENCE UNITS LAB L501.080 70-110 mg/dL Normal BEDSIDE GLU 104 Result Comment: MANAGEMENT OF PATIENT CARE PER NURSING PROTOCOL Performed By: #### L501.080 #### [facility] Point of Care [address] [place] [address] URINALYSIS, COMPLETE Collected: 07/05/2018 Status: F Source: JULIAN 5:52 PM [facility] REPOSITORY Order Comment: Order Date: 07/05/18 How was Urine Obtained? CATHETER SPECIMEN TYPE CODE TESTS RESULT OUT OF RANGE REFERENCE UNITS LAB L400.3000 Yellow COLOR Normal Yellow LAB L400.3050 Clear Normal CLARITY Clear LAB L400.3200 Normal mg/dl Normal GLUCOSE, UR Normal LAB L400.3300 Negative mg/dL Normal BILIRUBIN URINE Negative LAB L400.3400 Negative mg/dl Normal KETONE UR Negative LAB L400.3465 1.002-1.030 Normal SP.GR. DIPSTX 1.015 LAB L400.3550 5.0 - 8.0 pH UR Normal 5.0 LAB L400.3600 Negative mg/dl PROT Normal DIPSTX Negative LAB L400.3700 Normal mg/dl Normal UROBILI Normal LAB L400.3750 Negative Normal NITRITE UR Negative LAB L400.3780 Negative /ul Normal OCCULT BLOOD-UR Negative LAB L400.3800 Negative /ul LEUK Normal ESTERASE Negative LAB L400.4050 0-5 /hpf WBC Normal 0-5 SEEN LAB L400.4100 0-5 /hpf 0 Normal RBC-UA SEEN LAB L400.4150 0-5 /hpf SQUAM Normal EPI 0-5 SEEN LAB L400.4300 None Seen /hpf 0 Normal BACTERIA SEEN LAB L400.4350 <or=2+ /hpf 0 Normal MUCUS, URINE SEEN LAB L400.4400 0-5 /lpf Normal HYALINE CAST 0-5 SEEN Performed By: #### L400.0001 #### [facility] [address] [facility] [place], [address] Observed: 07/05/2018 Status: F Source: JULIAN CULTURE, URINE 5:52 PM [facility] REPOSITORY Order Date: 07/05/18 Urine Culture Culture exhibits no growth. Performed By: #### M100.0650 #### [facility] [address] [place], [address] CBC W/DIFF, AUTOMATED Collected: 07/05/2018 Status: F Source: JULIAN 5:33 PM [facility] REPOSITORY TYPE CODE TESTS RESULT OUT OF RANGE REFERENCE UNITS LAB L100.1000 4.4-11.0 K/mm3 Normal WBC 8.6 LAB L100.1200 4.6-6.2 M/mm3 Low RBC 4.45 LAB L100.1300 13.0-16.5 g/dl Normal HGB 14.1 LAB L100.1400 40-54 % Normal HCT 43.0 LAB L100.1500 80-94 fL High MCV 96.6 LAB L100.1600 27.0-32.0 pg Normal MCH 31.7 LAB L100.1700 32-36 g/gl Normal MCHC 32.8 LAB L100.1810 11.6-14.6 % Normal RDW CV 14.1 LAB L100.1820 35.1-43.9 fl High RDW SD 48.5 LAB L100.1900 150-450 K/mm3 Low PLT 131 LAB L100.2000 6.2-12.0 fl Normal MPV 11.7 LAB L100.2100 47-70 % Normal NEUT% 62.3 LAB L100.2200 19-41 % Normal LY% 21.0 LAB L100.2300 0-10 % High MONO% 12.4 LAB L100.2400 0-5 % Normal EO% 2.9 LAB L100.2500 0-1 % Normal BASO% 0.2 LAB L100.2550 0.0-0.9 % High IM GRAN % 1.200 Result Comment: IG% - Immature Granulocytes (promyelocytes, myelocytes and metamyelocytes) > 1% indicates that a LEFT SHIFT is Present. LAB L100.2620 2.0-7.7 X10 3/uL Normal Absolute Neut 5.3 LAB L100.2720 0.83-4.51 X10 3/ul Normal Absolute Lymph 1.80 Performed By: #### L100.0100 #### [facility] [address] [place] [address]. [place], [place], [address] COMPREHENSIVE METABOLIC Collected: 07/05/2018 Status: F Source: [facility] 5:33 PM [facility] REPOSITORY TYPE CODE TESTS RESULT OUT OF RANGE REFERENCE UNITS LAB L501.0100 74-106 mg/dL High GLU 111 Result Comment: Fasting Glucose result from 100 to 125 mg/dL suggests IMPAIRED HOMEOSTASIS per A.D.A. criteria. Please note revised GLUCOSE reference range effective 2017. LAB L501.1000 7-18 mg/dL High BUN 34 LAB L501.1100 0.70-1.30 mg/dL High CREAT,SERUM 1.94 Result Comment: The validity of the calculated GFR AND GFRAA in patients over 70 years has not been determined. Clinical correlation is essential. LAB L501.1110 >60 mL/min Low EST GFR 36 Result Comment: Non- GFR Calc LAB L501.1115 >60 mL/min Low EST GFR - AA 44 Result Comment: GFR Calc LAB L501.1255 ml/min Normal Estimated CRCL 33.30 LAB L501.1300 10-20 RATIO Normal BUN/CRE 17.5 LAB L501.1500 6.4-8. g/dL Normal 2 T PROT 7.0 LAB L501.1800 3.2-5. g/dL Normal 0 ALB 3.6 LAB L501.1950 2.2-4. g/dL Normal 2 GLOB 3.4 LAB L501.2000 0.9-2. RATIO Normal 4 A/G 1.1 LAB L501.2200 8.5-10 mg/dL Normal .1 CA 9.3 LAB L501.4100 15-37 U/L Normal AST 17 LAB L501.4305 45-117 U/L High ALK P 118 LAB L501.4405 16-61 U/L Normal ALT 20 LAB L501.4600 0.20-1 mg/dL Normal .00 T BILI 0.40 LAB L501.5300 136-14 mmol/L Normal 5 NA 143 LAB L501.5600 3.5-5. mmol/L Normal 1 K 4.9 LAB L501.5900 98-107 mmol/L Normal CL 102 LAB L501.6100 21.0-3 mmol/L High 2.0 CO2 34.0 LAB L501.6200 5-15 Normal GAP 7 Performed By: #### L500.4050, L501.2450, L501.4010 #### [facility] [facility] [address] [place], [address] LIPASE Collected: 07/05/2018 Status: F Source: JULIAN 5:33 PM [facility] REPOSITORY TYPE CODE TESTS RESULT OUT OF RANGE REFERENCE UNITS LAB L501.2450 73-393 U/L Normal LIPASE 91 Performed By: #### L500.4050, L501.2450, L501.4010 #### [facility] [address] [place], [address] TROPONIN-I Collected: 07/05/2018 Status: F Source: [place] 5:33 PM [facility] REPOSITORY TYPE CODE TESTS RESULT OUT OF RANGE REFERENCE UNITS LAB L501.4010 <0.045 ng/mL Normal < 0.015 TROPONIN-I Result Comment: TROPONIN-I EXPECTED VALUES <0.045 Negative 0.045 - 0.590 Consistent with Cardiac Damage > OR = 0.600 Critical Value Not every elevated troponin is indicative of AK. These values should be used with clinical judgement in examining the patient's clinical picture for diagnosis. To establish a diagnosis of AK versus myocardial injury, there must be a demonstrated rise and/or fall in the troponin values, in addition to ischemic symptoms, EKG changes, new regional wall motion abnormality, and/or angiographical evidence. PLEASE NOTE: REFERENCE RANGES EDITED 18 Performed By: #### L500.4050, L501.2450, L501.4010 #### [facility] [address] [place], [address] PROTHROMBIN TIME W/INR Collected: 07/05/2018 Status: F Source: JULIAN 5:33 PM [facility] REPOSITORY TYPE CODE TESTS RESULT OUT OF RANGE REFERENCE UNITS LAB L300.4150 11.7-14.9 SECONDS Normal PROTIME 13.0 LAB L300.4200 Normal INR 1.0 Performed By: #### L300.3900, L300.4310 #### [facility] [address] [place], [address] PARTIAL THROMBOPLAST Collected: 07/05/2018 Status: F Source: JULIAN TIME 5:33 PM [facility] REPOSITORY TYPE CODE TESTS RESULT OUT OF RANGE REFERENCE UNITS LAB L300.4310 24.1-36.2 Seconds Normal PTT 28.8 Performed By: #### L300.3900, L300.4310 #### [facility] [address] [place], [address] THYROID STIM HORMONE Collected: 07/05/2018 Status: F Source: JULIAN (TSH) 5:33 PM [facility] REPOSITORY TYPE CODE TESTS RESULT OUT OF RANGE REFERENCE UNITS LAB L501.9520 0.358-3.74 uIU/mL High TSH 3.78 Performed By: #### L501.9520 #### [facility] [address] [place], [address] CHEST 1 VIEW Observed: 07/05/2018 Status: F Source: JULIAN (PORTABLE) 5:10 PM [facility] REPOSITORY [facility] Imaging Services [address] [place] [address] Chest 1 View (Portable) MR#: [id number] Acct: [id number] Name: MIGUEL ANGEL SANDERS Rep #: [id number] : 1945 M 73 From: Niraj Castellanos MD PCP: Nikos Chong MD Status: REG ER Study: Chest 1 View (Portable) Date of Exam: 07/05/18 Exam# [id number] Ordering Dr: Jessica Govea MD STUDY: X-RAY CHEST REASON FOR EXAM: Male, 73 years old. Weakness TECHNIQUE: Single AP portable view of the chest. COMPARISON: July 28, 2015 FINDINGS: The lungs are clear and expanded. There is no demonstrated pleural abnormality. Normal size heart. Normal mediastinum and shawna. Normal visualized pulmonary arteries. There is atherosclerotic tortuosity of the aortic arch and descending thoracic aorta. There are diffuse degenerative changes of the visualized thoracic spine. Normal visualized ribs, clavicles, and shoulders. There is no demonstrated abnormality of the visualized soft tissue structures of the upper abdomen. RAD/Chest 1 View (Portable) IMPRESSION: Degenerative changes, as described above. No demonstrated acute cardiopulmonary process. Electronically Signed: Niraj Castellanos MD at 17:51 EDT , Service support , CC: Nikos Chong MD; Jessica Govea MD Family Physician: Signed PROGRESS Observed: 06/07/2018 Status: COMPLETED Source: [place] 2:43 PM [facility] REPOSITORY HNO ID: [id number] Author: Nikos Chong Service: (none) Author Type: Physician Type: Progress Notes Filed: 06/07/2018 8:40 PM Note Text: Reason for Visit Patient presents with: Established Patient: 4 month follow up Miguel Angel Sanders is a 73 year old male who presents here today for Above Complaints.. Health Maintenance DILATED RETINAL EXAM HANH/ARB MED PRESCRIBED DTAP,TDAP,TD(1 - Tdap) COLORECTAL CANCER SCREENING,SEE MODIFIER DIABETIC FOOT EXAM INFLUENZA(1) HPI He has home health once Week who a week to evaluate him , he goes to [email or web address] 2 times a week. He has Physical Therapy 2 times a week, and speech 2 times a week. Physical Therapy is helping him with transferring, he has lost a considerable amount of energy, he went to see the neurologist: Patient is not able to toilet , bathe, grooming, eating, ambulating, because of his tremor either from parkinsons disease or parkinsonism from all the medication he has been taking for the past 50 years for biploar disease and schizophrenia. Below is copy pasted impression of the neurologist note. 73 year old male with history significant for schizophrenia, bipolar disorder, with tremors and parkinsonism. Tremors for many years possibly due to Depakote. More recent development of parkinsonism which is either drug-induced or neurodegenerative. To differentiate would need to stop Abilify and Seroquel which is not prudent or to obtain DaTscan. He adamantly does not want any imaging. Discussed possibility of trial of Sinemet and then reassess for improvement. He does not want to do this either, argues he is not walking as it is. After discussion of potential benefits and side effects he does not want to try Sinemet. He will see his psychiatrist in a couple of weeks and discuss again with him. If he does want to pursue Sinemet would use titration below and have him follow-up with me in 3 months for recheck. He has enjoyed being in [email or web address]. Says the games are more stimulating to the mind. Need to check his thyroid. No problem-specific Assessment AND Plan notes found for this encounter. PAST MEDICAL HISTORY Diagnosis Date - BPH (benign prostatic hyperplasia) Seeing Dr. Quesada, unsure of diagnosis - Diverticulosis of colon (without mention of hemorrhage) Diverticulosis - Dysmetabolic syndrome X 09/29/2006 - Esophageal reflux - Hypothyroidism - Lower extremity edema - Macular degeneration - Obesity, unspecified 09/29/2006 - Other abnormal blood chemistry - Stable angina (HCC) Seeing Dr. Lang - Unspecified essential hypertension - Unspecified schizophrenia, unspecified condition Seeing Dr. Preciado PAST SURGICAL HISTORY Procedure Laterality Date - COLONOSCOP W/ OR W/O [facility] SPEC 08/02/2003 Colonoscopy - COLONOSCOP W/ OR W/O [facility] SPEC 08/19/08 - COLONOSCOP W/ OR W/O [facility] SPEC 06/04/2013 Colonoscopy - PAST SURGICAL HISTORY OF throat polyps - REMOVAL OF TONSILS,<12 Y/O FAMILY HISTORY Problem Relation Age of Onset - Prostate Cancer Father [address] Quesada - Diabetes Mother - Colon Cancer Sister Social History Substance Use Topics - Smoking status: Former Smoker Quit date: 09/26/1971 - Smokeless tobacco: Never Used - Alcohol use No Past medical history, appointments, medications, allergies reviewed. Pertinent Lab/Diagnostic Studies are reviewed and discussed today Current Outpatient Prescriptions: - quetiapine fumarate (SEROQUEL ORAL) - allopurinol (ZYLOPRIM) 100 mg tablet - Menthol-Zinc Oxide (CALMOSEPTINE) 0.44-20.6 % - ARIPiprazole (ABILIFY) 30 mg tablet - cloNIDine HCl (CATAPRES) 0.1 mg tablet - furosemide (LASIX) 40 mg tablet - metoprolol succinate ER (TOPROL XL) 25 mg 24 hr tablet - levothyroxine (SYNTHROID) 25 mcg tablet - divalproex DR (DEPAKOTE) 500 mg EC tablet - omeprazole (PRILOSEC) 20 mg capsule - tamsulosin ER (FLOMAX) 0.4 mg cp24 - nitroglycerin sublingual (NITROQUICK) 0.4 mg SL tablet - Diaper,Brief, Adult,Disposable (DEPEND REAL FIT BRIEF MEN L/XL) misc - Catheter ([facility] MALE EXTERNAL CATH) misc - Cholecalciferol, Vitamin D3, (VITAMIN D) 1,000 unit cap - MV with Yrg-Jmkvyywj-Rruqxa (CENTRUM SILVER) 0.4-300-250 mg-mcg-mcg tab - B-complex with vitamin C (ALLBEE WITH C) tablet - Aspirin 81 mg ORAL Tab Review of Systems CONSTITUTIONAL: No fevers, chills night sweats, unintended weight loss CARDIOVASCULAR: No chest pain, dyspnea, palpitations, orthopnea, PND, ankle edema. PULM: No dyspnea, unexplained cough. GI: No dysphagia/odynophagia, problematic reflux, constipation, diarrhea, changes in stool habits, hematochezia, melena. : No new urinary complaints, including dysuria, gross hematuria or pyuria. NEURO: No new balance problems, peripheral weakness/paresthesias or numbness of concern. Physical Exam Pulse 71 Resp 14 Ht 172.7 cm (5' 8) Wt 105.7 kg (233 lb) SpO2 98% BMI 35.43 kg/m? General appearance: Well appearing, alert, in no acute distress, well nourished. Skin: Skin color, texture, turgor normal, no suspicious rashes or lesions Head: Normocephalic, no masses, lesions, tenderness or abnormalities Eyes: Anicteric sclera. Pupils are equally round and reactive to light. Extraocular movements are intact. Lungs: Lungs clear to auscultation. No wheezing, rhonchi, rales Heart: RRR without murmur, gallop, or rubs. Extremities: No deformities, edema, skin discoloration, clubbing or cyanosis. Good capillary refill. ASSESSMENT/PLAN: 1. Debility - ICD9: 799.3, ICD10: R53.81 (primary diagnosis) - COMPOUNDED PRESCRIPTION 2. Need for vaccination - ICD9: V05.9, ICD10: Z23 - ADMIN OF INFLUENZA VACCINE - INFLUENZA SEASONAL HIGH DOSE AGE 65+ 3. Essential hypertension - ICD9: 401.9, ICD10: I10 - good control - Recommended regular aerobic exercise. - Recommend home blood pressure monitoring, to bring results in on next visit - Goal of BP <130/80 4. Bipolar 1 disorder, mixed (HCC) - ICD9: 296.60, ICD10: F31.60 - COMPOUNDED PRESCRIPTION 5. Systolic congestive heart failure, unspecified HF chronicity (HCC) - ICD9: 428.20, 428.0, ICD10: I50.20 6. Acquired hypothyroidism - ICD9: 244.9, ICD10: E03.9 - Instructed patient on importance of taking on an empty stomach either first thing in the morning or at bedtime. - TSH BLD 7. Parkinsonism, unspecified Parkinsonism type (HCC) - ICD9: 332.0, ICD10: G20 - COMPOUNDED PRESCRIPTION 8. Parkinson's disease (HCC) - ICD9: 332.0, ICD10: G20 - COMPOUNDED PRESCRIPTION Greater than 40 mins FTF time Used in direct counseling and make plans to help him with his daily living situation NIKOS CHONG MD CNOV Observed: 06/07/2018 Status: COMPLETED Source: [place] 2:00 PM [facility] REPOSITORY Office Visit (INTMWS) TOMMYMIGUEL ANGEL ([id number]) 1945 M Date Time Provider Department 06/07/18 2:00 PM NIKOS CHONG INTMWS During your visit today, we recorded the following information about you: Pulse Respiration Weight Height 71/minute 14/minute 105.7 kg 1.727 m NIKOS CHONG MD 06/07/2018 8:40 PM Signed Reason for Visit Patient presents with: Established Patient: 4 month follow up Miguel Angel Sanders is a 73 year old male who presents here today for Above Complaints.. Health Maintenance DILATED RETINAL EXAM HANH/ARB MED PRESCRIBED DTAP,TDAP,TD(1 - Tdap) COLORECTAL CANCER SCREENING,SEE MODIFIER DIABETIC FOOT EXAM INFLUENZA(1) HPI He has home health once Week who a week to evaluate him , he goes to [place] 2 times a week. He has Physical Therapy 2 times a week, and speech 2 times a week. Physical Therapy is helping him with transferring, he has lost a considerable amount of energy, he went to see the neurologist: Patient is not able to toilet , bathe, grooming, eating, ambulating, because of his tremor either from parkinsons disease or parkinsonism from all the medication he has been taking for the past 50 years for biploar disease and schizophrenia. Below is copy pasted impression of the neurologist note. 73 year old male with history significant for schizophrenia, bipolar disorder, with tremors and parkinsonism. Tremors for many years possibly due to Depakote. More recent development of parkinsonism which is either drug- induced or neurodegenerative. To differentiate would need to stop Abilify and Seroquel which is not prudent or to obtain DaTscan. He adamantly does not want any imaging. Discussed possibility of trial of Sinemet and then reassess for improvement. He does not want to do this either, argues he is not walking as it is. After discussion of potential benefits and side effects he does not want to try Sinemet. He will see his psychiatrist in a couple of weeks and discuss again with him. If he does want to pursue Sinemet would use titration below and have him follow-up with me in 3 months for recheck. He has enjoyed being in [email or web address]. Says the games are more stimulating to the mind. Need to check his thyroid. No problem-specific Assessment AND Plan notes found for this encounter. PAST MEDICAL HISTORY Diagnosis Date - BPH (benign prostatic hyperplasia) Seeing Dr. Quesada, unsure of diagnosis - Diverticulosis of colon (without mention of hemorrhage) Diverticulosis - Dysmetabolic syndrome X 09/29/2006 - Esophageal reflux - Hypothyroidism - Lower extremity edema - Macular degeneration - Obesity, unspecified 09/29/2006 - Other abnormal blood chemistry - Stable angina (HCC) Seeing Dr. Lang - Unspecified essential hypertension - Unspecified schizophrenia, unspecified condition Seeing Dr. Preciado PAST SURGICAL HISTORY Procedure Laterality Date - COLONOSCOP W/ OR W/O [facility] SPEC 08/02/2003 Colonoscopy - COLONOSCOP W/ OR W/O [facility] SPEC 08/19/08 - COLONOSCOP W/ OR W/O [facility] SPEC 06/04/2013 Colonoscopy - PAST SURGICAL HISTORY OF throat polyps - REMOVAL OF TONSILS,<12 Y/O FAMILY HISTORY Problem Relation Age of Onset - Prostate Cancer Father [address] Quesada - Diabetes Mother - Colon Cancer Sister Social History Substance Use Topics - Smoking status: Former Smoker Quit date: 09/26/1971 - Smokeless tobacco: Never Used - Alcohol use No Past medical history, appointments, medications, allergies reviewed. Pertinent Lab/Diagnostic Studies are reviewed and discussed today Current Outpatient Prescriptions: - quetiapine fumarate (SEROQUEL ORAL) - allopurinol (ZYLOPRIM) 100 mg tablet - Menthol-Zinc Oxide (CALMOSEPTINE) 0.44-20.6 % - ARIPiprazole (ABILIFY) 30 mg tablet - cloNIDine HCl (CATAPRES) 0.1 mg tablet - furosemide (LASIX) 40 mg tablet - metoprolol succinate ER (TOPROL XL) 25 mg 24 hr tablet - levothyroxine (SYNTHROID) 25 mcg tablet - divalproex DR (DEPAKOTE) 500 mg EC tablet - omeprazole (PRILOSEC) 20 mg capsule - tamsulosin ER (FLOMAX) 0.4 mg cp24 - nitroglycerin sublingual (NITROQUICK) 0.4 mg SL tablet - Diaper,Brief, Adult,Disposable (DEPEND REAL FIT BRIEF MEN L/XL) misc - Catheter ([facility] MALE EXTERNAL CATH) misc - Cholecalciferol, Vitamin D3, (VITAMIN D) 1,000 unit cap - MV with Csr-Kniclxqy-Zdggwg (CENTRUM SILVER) 0.4-300-250 mg-mcg-mcg tab - B-complex with vitamin C (ALLBEE WITH C) tablet - Aspirin 81 mg ORAL Tab Review of Systems CONSTITUTIONAL: No fevers, chills night sweats, unintended weight loss CARDIOVASCULAR: No chest pain, dyspnea, palpitations, orthopnea, PND, ankle edema. PULM: No dyspnea, unexplained cough. GI: No dysphagia/odynophagia, problematic reflux, constipation, diarrhea, changes in stool habits, hematochezia, melena. : No new urinary complaints, including dysuria, gross hematuria or pyuria. NEURO: No new balance problems, peripheral weakness/paresthesias or numbness of concern. Physical Exam Pulse 71 Resp 14 Ht 172.7 cm (5' 8) Wt 105.7 kg (233 lb) SpO2 98% BMI 35.43 kg/m? General appearance: Well appearing, alert, in no acute distress, well nourished. Skin: Skin color, texture, turgor normal, no suspicious rashes or lesions Head: Normocephalic, no masses, lesions, tenderness or abnormalities Eyes: Anicteric sclera. Pupils are equally round and reactive to light. Extraocular movements are intact. Lungs: Lungs clear to auscultation. No wheezing, rhonchi, rales Heart: RRR without murmur, gallop, or rubs. Extremities: No deformities, edema, skin discoloration, clubbing or cyanosis. Good capillary refill. ASSESSMENT/PLAN: 1. Debility - ICD9: 799.3, ICD10: R53.81 (primary diagnosis) - COMPOUNDED PRESCRIPTION 2. Need for vaccination - ICD9: V05.9, ICD10: Z23 - ADMIN OF INFLUENZA VACCINE - INFLUENZA SEASONAL HIGH DOSE AGE 65+ 3. Essential hypertension - ICD9: 401.9, ICD10: I10 - good control - Recommended regular aerobic exercise. - Recommend home blood pressure monitoring, to bring results in on next visit - Goal of BP <130/80 4. Bipolar 1 disorder, mixed (HCC) - ICD9: 296.60, ICD10: F31.60 - COMPOUNDED PRESCRIPTION 5. Systolic congestive heart failure, unspecified HF chronicity (HCC) - ICD9: 428.20, 428.0, ICD10: I50.20 6. Acquired hypothyroidism - ICD9: 244.9, ICD10: E03.9 - Instructed patient on importance of taking on an empty stomach either first thing in the morning or at bedtime. - TSH BLD 7. Parkinsonism, unspecified Parkinsonism type (HCC) - ICD9: 332.0, ICD10: G20 - COMPOUNDED PRESCRIPTION 8. Parkinson's disease (HCC) - ICD9: 332.0, ICD10: G20 - COMPOUNDED PRESCRIPTION Greater than 40 mins FTF time Used in direct counseling and make plans to help him with his daily living situation NIKOS CHONG MD Referring Provider: SELF [[id number]] Allergies As of Date: 06/07/2018 Noted Allergy Reaction IODINE 08/27/2005 5 - Intolerance Comments: increased heart rate. LATEX 08/27/2005 2 - Rash CIMETIDINE 08/27/2005 5 - Intolerance Comments: loose stools. Pt. States he is not allergic to 05/05/2009 CODEINE 08/27/2005 8 - GI Upset DETROL (TOLTERODINE TARTRATE) 08/27/2005 5 - Intolerance PENICILLINS 08/27/2005 5 - Intolerance DYAZIDE (TRIAMTERENE-HYDROCHLOROT*12/17/2011 5 - Intolerance Comments: leg cramps after 1 dose LIPITOR (ATORVASTATIN CALCIUM) 02/15/2015 1 - Mental Status Change Comments: depression,anxiety MILK 05/23/2018 16 - Unknown SULINDAC 11/07/2009 6 - Diarrhea TESSALON (BENZONATATE) 10/11/2007 5 - Intolerance Comments: dyspnea Date Reviewed: 06/07/2018 Reviewed by: Pawel Montesinos LPN - Fully Assessed Reason for Visit: Established Patient [175] Cmt: 4 month follow up Primary Visit Diagnosis:Debility [R53.81] Other Visit Diagnoses:Need for vaccination [Z23] Essential hypertension [I10] Bipolar 1 disorder, mixed ([facility]) [F31.60] Systolic congestive heart failure, unspecified HF chronicity ([facility]) [I50.20] Acquired hypothyroidism [E03.9] Parkinsonism, unspecified Parkinsonism type ([facility]) [G20] Parkinson's disease ([facility]) [G20] Decreased independence with activities of daily living [Z65.8] Order(s):ADMIN OF INFLUENZA VACCINE [[id number]] Order #: [id number]: 1 INFLUENZA SEASONAL HIGH DOSE AGE 65+ [[id number]] Order #: [id number] TSH BLD [SQTSH] Order #: [id number] FUTURE COMPOUNDED PRESCRIPTIONHome health 3 times a week for grooming, bathing, toiletting, ambulating, And sometimes needs help with eating, and transfersDisp: 1 EachRfl: 1 Prescriptions as of 06/07/2018 Sig: COMPOUNDED PRESCRIPTION Home health 3 times a week f* SEROQUEL ORAL Take by mouth. ALLOPURINOL 100 MG TABLET TAKE ONE TABLET AT 8AM/NOON/8* MENTHOL 0.44 %-ZINC OXIDE 20.* Apply 1 application to affect* ARIPIPRAZOLE 30 MG TABLET Take 0.5 tablets by mouth onc* CLONIDINE HCL 0.1 MG TABLET Takes 1 tabs at bedtime and 1* FUROSEMIDE 40 MG TABLET TAKE ONE TABLET BY MOUTH TWIC* METOPROLOL SUCCINATE ER 25 MG* Take 1 tablet by mouth once d* LEVOTHYROXINE 25 MCG TABLET Take 1 tablet by mouth daily * DIVALPROEX 500 MG TABLET,JAVI* Take 1 tablet by mouth three * OMEPRAZOLE 20 MG CAPSULE,JAVI* Take 1 capsule by mouth once * TAMSULOSIN 0.4 MG CAPSULE Take 1 capsule by mouth once * NITROGLYCERIN 0.4 MG SUBLINGU* Dissolve 0.4mg tab (1tab) und* DIAPER,BRIEF,ADULT,DISPOSABLE 1 pad as needed for urinary c* CATHETER Apply 1 catheter at bedtime d* CHOLECALCIFEROL (VITAMIN D3) * Take 1,000 Units by mouth onc* ERTNQLNU-YRN-YEVSP ACID 0.4 M* Take 1 tablet by mouth. B-COMPLEX WITH VITAMIN C TABL* Take 1 tablet by mouth once d* * ASPIRIN 81 MG TABLET Take 1 tablet by mouth once d* Problem List As Of Date 06/07/2018 Noted Resolved Unspecified schizophrenia, unspecified conditio*INVALID FOR*03/11/2014 DIVERTICULOSIS OF COLON W/O BLEED [K57.30] INVALID FOR* SCIATICA [M54.30] INVALID FOR*06/06/2006 JOINT PAIN-SHLDER [M25.519] INVALID FOR*05/05/2009 Essential hypertension [I10] INVALID FOR* More... Contact dermatitis and other eczema, due to uns*INVALID FOR*10/31/2013 Other abnormal blood chemistry [R79.89] 10/31/2013 ESOPHAGEAL REFLUX [K21.9] Obesity [E66.9] INVALID FOR* Dysmetabolic syndrome X [E88.81] INVALID FOR*10/31/2013 JOINT PAIN-HAND [M25.549] INVALID FOR*05/05/2009 Backache, unspecified [M54.9] INVALID FOR*10/31/2013 Allergic rhinitis, cause unspecified [J30.9] INVALID FOR*10/31/2013 Cervicalgia [M54.2] INVALID FOR*10/31/2013 BPH W URINARY OBS/LUTS [N40.1] INVALID FOR* Charcot joint INVALID FOR*05/26/2014 Macular Degeneration [H35.30] Tremor [R25.1] INVALID FOR* Bipolar 1 disorder, mixed (HCC) [F31.60] INVALID FOR* More... Right gluteus medius Bursitis [M71.9] INVALID FOR*10/31/2013 CHF (congestive heart failure) [I50.9] INVALID FOR* More... Lacunar infarction [I63.9] INVALID FOR* More... Cardiomyopathy [I42.9] INVALID FOR* Near syncope [R55] INVALID FOR*10/31/2013 Diabetic peripheral neuropathy (HCC) [E11.42] INVALID FOR*02/02/2017 Hypothyroid [E03.9] INVALID FOR* More... Charcot foot due to diabetes mellitus (HCC) [E1*INVALID FOR*01/25/2018 More... Bipolar affective disorder, mixed (HCC) [F31.60]INVALID FOR* More... BPH (benign prostatic hyperplasia) [N40.0] INVALID FOR* Family history of prostate cancer [Z80.42] INVALID FOR* Venous (peripheral) insufficiency [I87.2] INVALID FOR* Hyperlipidemia [E78.5] INVALID FOR* Benign non-nodular prostatic hyperplasia with l*INVALID FOR* More... Elevated prostate specific antigen (PSA) [R97.2*INVALID FOR* Urinary tract infection associated with cathete*INVALID FOR* Diastolic heart failure (HCC) [I50.30] INVALID FOR* Renal insufficiency [N28.9] INVALID FOR* Gastroesophageal reflux disease without esophag*INVALID FOR* More... History of colonic polyps [Z86.010] INVALID FOR* More... Parkinsonism (HCC) [G20] INVALID FOR* Prescriptions ordered this encounter Disp Refills Start End COMPOUNDED PRESCRIPTION 1 Ea* 1 06/07/2018 Class: Print RX Sig: Home health 3 times a week for grooming, bathing, toiletting, ambulating, And sometimes needs help with eating, and transfers Encounter Status:Closed by NIKOS CHONG MD on 06/07/18 RAKESH Observed: 06/05/2018 Status: COMPLETED Source: [place] 12:00 AM [facility] REPOSITORY Telephone (CEDRICK) MIGUEL ANGEL SANDERS ([id number]) 1945 M Date Time Provider Department 06/05/18 KIYA DAVIS During your visit today, we recorded the following information about you: Nicol Duque Psr 06/05/2018 5:02 PM Signed Patients Patsy called into office to follow up on recent telephone call regarding possibly starting Miguel Angel on Sinemet medication. Patsy was going to also follow up with Dr. Bhupendra Marshall who only has office hours on Tuesdays as well. Patsy can be reached at [phone] to discuss if this medication is appropriate at this time for her and will await confirmation from Dr. Davis's office. Please advise and thank you. Nicol Jimenezr Cecille Cox RN [employer].[facility] 06/06/2018 10:40 AM Signed Spoke with , changed his mind and wants to try the Sinemet. Smiley Hendrickson wanted to speak with Dr. Marshall, he is only available on Tuesdays. I will pass the message on to Dr. Davis who likely will be ble to take care of it next Tuesday. Cecille Cox RN SUPERVISOR [employer] Sujata Aguilera RN, RN 06/14/2018 12:32 PM Signed Received a call from Dr. Marshall. Reports he received message from about starting this patient on Sinemet. states that he is ok with starting patient on this medication. 's can be reached at [phone] with any questions (cell number). Cecille Cox RN SUPERVISOR [employer]ASHING DEPARTMENT.[facility] 06/14/2018 3:45 PM Signed Sending to MARBELLA galvez to call patient and notify the RX will be sent to pharmacy, I will send instructions for medication titration to the patient in a message. Cecille Cox RN SUPERVISOR SLASHING DEPARTMENT.[facility] Cecille Cox RN SUPERVISOR SLASHING DEPARTMENT.[facility] 06/14/2018 3:45 PM Signed Addended by: CECILLE CHASE on: 06/14/2018 03:45 PM Modules accepted: Jame Hui Ma 06/15/2018 8:33 AM Signed Pt has been notified of message below. Pt understood and had no questions or concerns. Allergies As of Date: 06/05/2018 Noted Allergy Reaction IODINE 08/27/2005 5 - Intolerance Comments: increased heart rate. LATEX 08/27/2005 2 - Rash CIMETIDINE 08/27/2005 5 - Intolerance Comments: loose stools. Pt. States he is not allergic to 05/05/2009 CODEINE 08/27/2005 8 - GI Upset DETROL (TOLTERODINE TARTRATE) 08/27/2005 5 - Intolerance PENICILLINS 08/27/2005 5 - Intolerance DYAZIDE (TRIAMTERENE-HYDROCHLOROT*12/17/2011 5 - Intolerance Comments: leg cramps after 1 dose LIPITOR (ATORVASTATIN CALCIUM) 02/15/2015 1 - Mental Status Change Comments: depression,anxiety MILK 05/23/2018 16 - Unknown SULINDAC 11/07/2009 6 - Diarrhea TESSALON (BENZONATATE) 10/11/2007 5 - Intolerance Comments: dyspnea Date Reviewed: 05/23/2018 Reviewed by: Kiya Davis - Fully Assessed Reason for Visit: Patient Update [1234] Order(s):carbidopa-levodopa (SINEMET) 25-100 mg per tabletincrease as directed by 1/2 tab TID to 2 tabs TID. Stop at the lowest dose that improves symptomsDisp: 180 tabletRfl: 2 Prescriptions as of 06/05/2018 Sig: CARBIDOPA 25 MG-LEVODOPA 100 * increase as directed by 1/2 t* SEROQUEL ORAL Take by mouth. ALLOPURINOL 100 MG TABLET TAKE ONE TABLET AT 8AM/NOON/8* MENTHOL 0.44 %-ZINC OXIDE 20.* Apply 1 application to affect* ARIPIPRAZOLE 30 MG TABLET Take 0.5 tablets by mouth onc* CLONIDINE HCL 0.1 MG TABLET Takes 1 tabs at bedtime and 1* FUROSEMIDE 40 MG TABLET TAKE ONE TABLET BY MOUTH TWIC* METOPROLOL SUCCINATE ER 25 MG* Take 1 tablet by mouth once d* X LEVOTHYROXINE 25 MCG TABLET Take 1 tablet by mouth daily * DIVALPROEX 500 MG TABLET,JAVI* Take 1 tablet by mouth three * OMEPRAZOLE 20 MG CAPSULE,JAVI* Take 1 capsule by mouth once * TAMSULOSIN 0.4 MG CAPSULE Take 1 capsule by mouth once * NITROGLYCERIN 0.4 MG SUBLINGU* Dissolve 0.4mg tab (1tab) und* DIAPER,BRIEF,ADULT,DISPOSABLE 1 pad as needed for urinary c* CATHETER Apply 1 catheter at bedtime d* CHOLECALCIFEROL (VITAMIN D3) * Take 1,000 Units by mouth onc* HCMXHCXI-ALM-VCBBE ACID 0.4 M* Take 1 tablet by mouth. B-COMPLEX WITH VITAMIN C TABL* Take 1 tablet by mouth once d* * ASPIRIN 81 MG TABLET Take 1 tablet by mouth once d* Problem List As Of Date 06/05/2018 Noted Resolved Unspecified schizophrenia, unspecified conditio*INVALID FOR*03/11/2014 DIVERTICULOSIS OF COLON W/O BLEED [K57.30] INVALID FOR* SCIATICA [M54.30] INVALID FOR*06/06/2006 JOINT PAIN-SHLDER [M25.519] INVALID FOR*05/05/2009 Essential hypertension [I10] INVALID FOR* More... Contact dermatitis and other eczema, due to uns*INVALID FOR*10/31/2013 Other abnormal blood chemistry [R79.89] 10/31/2013 ESOPHAGEAL REFLUX [K21.9] Obesity [E66.9] INVALID FOR* Dysmetabolic syndrome X [E88.81] INVALID FOR*10/31/2013 JOINT PAIN-HAND [M25.549] INVALID FOR*05/05/2009 Backache, unspecified [M54.9] INVALID FOR*10/31/2013 Allergic rhinitis, cause unspecified [J30.9] INVALID FOR*10/31/2013 Cervicalgia [M54.2] INVALID FOR*10/31/2013 BPH W URINARY OBS/LUTS [N40.1] INVALID FOR* Charcot joint INVALID FOR*05/26/2014 Macular Degeneration [H35.30] Tremor [R25.1] INVALID FOR* Bipolar 1 disorder, mixed (HCC) [F31.60] INVALID FOR* More... Right gluteus medius Bursitis [M71.9] INVALID FOR*10/31/2013 CHF (congestive heart failure) [I50.9] INVALID FOR* More... Lacunar infarction [I63.9] INVALID FOR* More... Cardiomyopathy [I42.9] INVALID FOR* Near syncope [R55] INVALID FOR*10/31/2013 Diabetic peripheral neuropathy (HCC) [E11.42] INVALID FOR*02/02/2017 Hypothyroid [E03.9] INVALID FOR* More... Charcot foot due to diabetes mellitus (HCC) [E1*INVALID FOR*01/25/2018 More... Bipolar affective disorder, mixed (HCC) [F31.60]INVALID FOR* More... BPH (benign prostatic hyperplasia) [N40.0] INVALID FOR* Family history of prostate cancer [Z80.42] INVALID FOR* Venous (peripheral) insufficiency [I87.2] INVALID FOR* Hyperlipidemia [E78.5] INVALID FOR* Benign non-nodular prostatic hyperplasia with l*INVALID FOR* More... Elevated prostate specific antigen (PSA) [R97.2*INVALID FOR* Urinary tract infection associated with cathete*INVALID FOR* Diastolic heart failure (HCC) [I50.30] INVALID FOR* Renal insufficiency [N28.9] INVALID FOR* Gastroesophageal reflux disease without esophag*INVALID FOR* More... History of colonic polyps [Z86.010] INVALID FOR* More... Parkinsonism (HCC) [G20] INVALID FOR* Prescriptions ordered this encounter Disp Refills Start End CARBIDOPA 25 MG-LEVODOPA 100 MG TABL* 180 * 2 06/14/2018 Sig: increase as directed by 1/2 tab TID to 2 tabs TID. Stop at the lowest dose that improves symptoms Encounter Status:Closed by CECILLE CHASE on 06/07/18 PROGRESS Observed: 05/23/2018 Status: COMPLETED Source: [place] 2:09 PM [facility] [place] REPOSITORY HNO ID: [id number] Author: Kiya Davis Service: (none) Author Type: Physician Type: Progress Notes Filed: 05/23/2018 3:04 PM Note Text: Previous records (physician notes, laboratory reports, and radiology reports) and imaging studies were reviewed and summarized as below. My recommendations will be communicated back to the patient's primary care physician and/or consulting physician(s) by way of shared medical record or letter via US mail. Thank you for allowing me to contribute to the care of your patient. REFERRING PHYSICIAN: NIKOS [facility]ONG [facility] [id number] PCP: [place] [facility] [id number] Accompanied by: Spouse CC: Tremors, r/o PD HxCC: 73 year old RHW male with history significant for bipolar disorder, schizophrenia, who presents for evaluation of tremors, r/o PD. Initial symptoms and onset: tremors since 2003. On Depakote and Abilify. Previously on Geodon and thorazine. Current status: hard to picker a spoon, bring it to his mouth. Overall slowness. Attributes to recent stroke. feels he has been slowing down longer, more like 5 years. Adult day care twice per week. Sore 'butt.' has a little skin breakdown. Has home care. Speech, nurses. 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 Scooter for 3 years. Always walking slower than . No walking for about a year or more. Psychiatrist wants him to see neurology, concerned for parkinsonism. Occasionally falls. Non motor parkinsonism symptoms Loss of sense of smell: no Hypomimia: yes Hypophonia: yes Neuropsychiatric symptoms; Depress mood/anxiety: stable Impaired Memory/Cognitive: not to bad. Probably could not handle affairs Hallucination: no Sleep disorders; Sleep problem: yes. Takes Depakote and Seroquel to sleep. Sleeps during the day. REM behavioral disorder (RBD): no Restless leg syndrome (RLS): no RLS. Used to get leg cramps. Better with potassium Autonomic symptoms; Bowel/bladder control: yes, both for about 1 year. Sialorrhea: no Swallowing: no Orthostatic hypotension symptoms: only if up too fast On further neurologic questioning, the patient denies new headaches, neck or back pain. No new focal weakness, numbness or paresthesias. No new blurry, double or loss of vision. No new loss of hearing, vertigo, or tinnitus. RECENT LABS: Component Latest Ref Rng AND Units 01/23/2018 02/08/2018 04/25/2018 Protein, Total 6.3 - 8.0 g/dL 6.9 Albumin 3.9 - 4.9 g/dL 3.9 Calcium 8.5 - 10.2 mg/dL 9.8 Bilirubin, Total 0.2 - 1.3 mg/dL 0.3 Alkaline Phosphatase 36 - 108 U/L 108 AST 14 - 40 U/L 31 Glucose 74 - 99 mg/dL 112 (H) BUN 9 - 24 mg/dL 21 Creatinine 0.73 - 1.22 mg/dL 1.54 (H) Sodium 136 - 144 mmol/L 142 Potassium 3.7 - 5.1 mmol/L 4.4 Chloride 97 - 105 mmol/L 99 CO2 22 - 30 mmol/L 32 (H) Anion Gap 9 - 18 mmol/L 11 ALT 10 - 54 U/L 15 eGFR- 54 eGFR-All Other Races . 45 Hemoglobin A1C 4.3 - 5.6 % 5.8 (H) Estimated Average Glucose mg/dL 120 TSH 0.400 - 5.500 uU/mL 2.510 Vitamin B12 232 - 1245 pg/mL Test sent to [facility]. Uric Acid 4.0 - 8.1 mg/dL Test sent to [facility]. RECENT IMAGING/DIAGNOSTICS: none PMH: PAST MEDICAL HISTORY Diagnosis Date - BPH (benign prostatic hyperplasia) Seeing Dr. Quesada, unsure of diagnosis - Diverticulosis of colon (without mention of hemorrhage) Diverticulosis - Dysmetabolic syndrome X 09/29/2006 - Esophageal reflux - Hypothyroidism - Lower extremity edema - Macular degeneration - Obesity, unspecified 09/29/2006 - Other abnormal blood chemistry - Stable angina (HCC) Seeing Dr. Lang - Unspecified essential hypertension - Unspecified schizophrenia, unspecified condition Seeing Dr. Preciado PSH: PAST SURGICAL HISTORY Procedure Laterality Date - COLONOSCOP W/ OR W/O [facility] SPEC 08/02/2003 Colonoscopy - COLONOSCOP W/ OR W/O [facility] SPEC 08/19/08 - COLONOSCOP W/ OR W/O [facility] SPEC 06/04/2013 Colonoscopy - PAST SURGICAL HISTORY OF throat polyps - REMOVAL OF TONSILS,<12 Y/O CURRENT MEDS: Current Outpatient Prescriptions: quetiapine fumarate (SEROQUEL ORAL) Take by mouth. ARIPiprazole (ABILIFY) 30 mg tablet Take 0.5 tablets by mouth once daily. allopurinol (ZYLOPRIM) 100 mg tablet TAKE ONE TABLET AT 8AM/NOON/8PM Menthol-Zinc Oxide (CALMOSEPTINE) 0.44-20.6 % Apply 1 application to affected area twice daily. Apply thin layer on inner buttocks twice a day and PRN soiled cloNIDine HCl (CATAPRES) 0.1 mg tablet Takes 1 tabs at bedtime and 1 tab in am by mouth. furosemide (LASIX) 40 mg tablet TAKE ONE TABLET BY MOUTH TWICE DAILY metoprolol succinate ER (TOPROL XL) 25 mg 24 hr tablet Take 1 tablet by mouth once daily. levothyroxine (SYNTHROID) 25 mcg tablet Take 1 tablet by mouth daily before breakfast. divalproex DR (DEPAKOTE) 500 mg EC tablet Take 1 tablet by mouth three times daily. omeprazole (PRILOSEC) 20 mg capsule Take 1 capsule by mouth once daily. (short fill supply for med sync program) tamsulosin ER (FLOMAX) 0.4 mg cp24 Take 1 capsule by mouth once daily. Take 30 minutes after supper. nitroglycerin sublingual (NITROQUICK) 0.4 mg SL tablet Dissolve 0.4mg tab (1tab) under tongue every 5min as needed for chest pain. If no response after max 3 tabs go to ED/notify doctor. Diaper,Brief, Adult,Disposable (DEPEND REAL FIT BRIEF MEN L/XL) misc 1 pad as needed for urinary continence Catheter ([facility] MALE EXTERNAL CATH) misc Apply 1 catheter at bedtime daily Cholecalciferol, Vitamin D3, (VITAMIN D) 1,000 unit cap Take 1,000 Units by mouth once daily. MV with Pfr-Mwvqtzkh-Klvssy (CENTRUM SILVER) 0.4-300-250 mg-mcg-mcg tab Take 1 tablet by mouth. B-complex with vitamin C (ALLBEE WITH C) tablet Take 1 tablet by mouth once daily. Aspirin 81 mg ORAL Tab Take 1 tablet by mouth once daily. Take with food. No current facility-administered medications for this visit. ALLERGIES: ALLERGIES Allergen Reactions - Iodine Intolerance increased heart rate. - Latex Rash - Cimetidine Intolerance loose stools. Pt. States he is not allergic to 05/05/2009 - Codeine GI Upset - Detrol [Tolterodine* Intolerance - Penicillins Intolerance - Dyazide [Triamteren* Intolerance leg cramps after 1 dose - Lipitor [Atorvastat* Mental Status Change depression,anxiety - Sulindac Diarrhea - Tessalon [Benzonata* Intolerance dyspnea FMH: FAMILY HISTORY Problem Relation Age of Onset - Prostate Cancer Father 59 [address] Quesada - Diabetes Mother - Colon Cancer Sister SOCIAL: Social History Marital status: Spouse name: Years of education: Number of children: 1 Social History Main Topics Smoking status: Former Smoker Packs/day: 0.00 Years: 0.00 Quit date: 09/26/1971 Smokeless tobacco: Never Used Alcohol use: No Drug use: No Sexual activity: Yes Partners with: Female REVIEW OF SYSTEMS (In addition to HPI): Review of Systems Constitutional Positive for Weight Gain Negative for Fevers, Night Sweats and Weight Loss Eyes: Negative Hent: Negative Cardiovascular Negative for Chest Pain and Lightheadedness Respiratory Negative for SOB at rest, SOB with exertion and Cough GI Positive for Diarrhea Negative for Abdominal Pain, Constipation and Nausea/Vomiting Positive for Incontinence Endocrine Negative for Heat Intolerance Musculoskeletal Negative for Back Pain and Muscle Pain Neurologic Positive for Memory Problems Negative for Headache, Numbness/Tingling, Weakness, Double Vision and Trouble Swallowing Psychiatric Negative for Hallucinations Patient's Review of Systems has been reviewed with the patient and updated as appropriate. PHYSICAL EXAM: BP 110/66 (BP Site: Right Arm, BP Position: Sitting, BP Cuff Size: Regular Adult) Pulse 76 GEN: Alert. NAD. Normal affect. Cooperative. HEENT: No icterus. Normal mucosa. NECK/BACK: Supple RESP: easy respirations CV: no edema EXT: No cyanosis. No erythema. SKIN: No rashes. No lesions. NEUROLOGICAL: MENTAL STATUS: Alert and oriented. Thought process and content unremarkable. Follows commands appropriately. Speech fluent. CN: II: PERRLA. III, IV, : EOMI. No ptosis present. V: Symmetric facial sensation to LT. VII: Face symmetric. VIII: Hearing symmetric. No nystagmus. IX, X: Symmetric palatal rise. XI: Symmetric shoulder shrug. XII: Tongue midline with symmetric movements. MOTOR: RIGHT UE: LEFT UE Deltoid 5/5 Deltoid 5/5 Biceps 5/5 Biceps 5/5 WE 5/5 WE 5/5 RIGHT LE: LEFT LE: HF 5/5 HF 5/5 KF 5/5 KF 5/5 DF 4/5 DF 4/5 REFLEXES: Reflexes decreased diffusely and symmetrically . SENSATION: LT intact and symmetric. CEREBELLAR: Normal F-N-F. No dysmetria. No nystagmus. GAIT: Deferred, not ambulatory MOVEMENT EXAM: Movement disorders examination: To quantify parkinsonism, Part III of the MDS-Unified Parkinson?s Disease Rating Scale was performed and detailed in the succeeding sections in this report. Please see the neurological health status section or the next paragraph for details. Each item is scored from 0 to 4. In general, a score of 0 means normal; 1 means mild; 2 means moderate; 3 means moderate to severe; 4 means severe. 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 Spiral smooth with right hand and shaky with left ASSESSMENT: 73 year old male with history significant for schizophrenia, bipolar disorder, with tremors and parkinsonism. Tremors for many years possibly due to Depakote. More recent development of parkinsonism which is either drug-induced or neurodegenerative. To differentiate would need to stop Abilify and Seroquel which is not prudent or to obtain DaTscan. He adamantly does not want any imaging. Discussed possibility of trial of Sinemet and then reassess for improvement. He does not want to do this either, argues he is not walking as it is. After discussion of potential benefits and side effects he does not want to try Sinemet. He will see his psychiatrist in a couple of weeks and discuss again with him. If he does want to pursue Sinemet would use titration below and have him follow-up with me in 3 months for recheck. Sinemet (carbidopa/levodopa) 25/100 Week 1: 1/2 tab 3 times a day Week 2: 1 tab 3 times a day Week 3: 1-1/2 tab 3 times a day Week 4 and on: 2 tabs 3 times a day Take with light food around mealtimes Ok to stop increasing the dose at any point you are better. ---> Follow-up: og Davis M.D. [facility] [place] Department [facility] cc: NIKOS CHONG MD [id number] [facility] [id number] [facility] [id number] JESSICA Observed: 05/23/2018 Status: COMPLETED Source: [place] 1:40 PM [facility] REPOSITORY Office Visit ([id number]) MIGUEL ANGEL SANDERS ([id number]) 1945 M Date Time Provider Department 05/23/18 1:40 PM KIYA DAVIS [id number] During your visit today, we recorded the following information about you: Pulse Blood pressure 76/minute 110/66 Kiya Davis MD 05/23/2018 3:04 PM Signed Previous records (physician notes, laboratory reports, and radiology reports) and imaging studies were reviewed and summarized as below. My recommendations will be communicated back to the patient's primary care physician and/or consulting physician(s) by way of shared medical record or letter via US mail. Thank you for allowing me to contribute to the care of your patient. REFERRING PHYSICIAN: [place] [address] [place] [id number] PCP: [address] [place] [address] / [facility] [id number] Accompanied by: Spouse CC: Tremors, r/o PD HxCC: 73 year old RHW male with history significant for bipolar disorder, schizophrenia, who presents for evaluation of tremors, r/o PD. Initial symptoms and onset: tremors since 2003. On Depakote and Abilify. Previously on Geodon and thorazine. Current status: hard to picker a spoon, bring it to his mouth. Overall slowness. Attributes to recent stroke. feels he has been slowing down longer, more like 5 years. Adult day care twice per week. Sore 'butt.' has a little skin breakdown. Has home care. Speech, nurses. 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 Scooter for 3 years. Always walking slower than . No walking for about a year or more. Psychiatrist wants him to see neurology, concerned for parkinsonism. Occasionally falls. Non motor parkinsonism symptoms Loss of sense of smell: no Hypomimia: yes Hypophonia: yes Neuropsychiatric symptoms; Depress mood/anxiety: stable Impaired Memory/Cognitive: not to bad. Probably could not handle affairs Hallucination: no Sleep disorders; Sleep problem: yes. Takes Depakote and Seroquel to sleep. Sleeps during the day. REM behavioral disorder (RBD): no Restless leg syndrome (RLS): no RLS. Used to get leg cramps. Better with potassium Autonomic symptoms; Bowel/bladder control: yes, both for about 1 year. Sialorrhea: no Swallowing: no Orthostatic hypotension symptoms: only if up too fast On further neurologic questioning, the patient denies new headaches, neck or back pain. No new focal weakness, numbness or paresthesias. No new blurry, double or loss of vision. No new loss of hearing, vertigo, or tinnitus. RECENT LABS: Component Latest Ref Rng AND Units 01/23/2018 02/08/2018 04/25/2018 Protein, Total 6.3 - 8.0 g/dL 6.9 Albumin 3.9 - 4.9 g/dL 3.9 Calcium 8.5 - 10.2 mg/dL 9.8 Bilirubin, Total 0.2 - 1.3 mg/dL 0.3 Alkaline Phosphatase 36 - 108 U/L 108 AST 14 - 40 U/L 31 Glucose 74 - 99 mg/dL 112 (H) BUN 9 - 24 mg/dL 21 Creatinine 0.73 - 1.22 mg/dL 1.54 (H) Sodium 136 - 144 mmol/L 142 Potassium 3.7 - 5.1 mmol/L 4.4 Chloride 97 - 105 mmol/L 99 CO2 22 - 30 mmol/L 32 (H) Anion Gap 9 - 18 mmol/L 11 ALT 10 - 54 U/L 15 eGFR- 54 eGFR-All Other Races . 45 Hemoglobin A1C 4.3 - 5.6 % 5.8 (H) Estimated Average Glucose mg/dL 120 TSH 0.400 - 5.500 uU/mL 2.510 Vitamin B12 232 - 1245 pg/mL Test sent to [facility]. Uric Acid 4.0 - 8.1 mg/dL Test sent to [facility]. RECENT IMAGING/DIAGNOSTICS: none PMH: PAST MEDICAL HISTORY Diagnosis Date - BPH (benign prostatic hyperplasia) Seeing Dr. Quesada, unsure of diagnosis - Diverticulosis of colon (without mention of hemorrhage) Diverticulosis - Dysmetabolic syndrome X 09/29/2006 - Esophageal reflux - Hypothyroidism - Lower extremity edema - Macular degeneration - Obesity, unspecified 09/29/2006 - Other abnormal blood chemistry - Stable angina (HCC) Seeing Dr. Lang - Unspecified essential hypertension - Unspecified schizophrenia, unspecified condition Seeing Dr. Preciado PSH: PAST SURGICAL HISTORY Procedure Laterality Date - COLONOSCOP W/ OR W/O [facility] SPEC 08/02/2003 Colonoscopy - COLONOSCOP W/ OR W/O [facility] SPEC 08/19/08 - COLONOSCOP W/ OR W/O [facility] SPEC 06/04/2013 Colonoscopy - PAST SURGICAL HISTORY OF throat polyps - REMOVAL OF TONSILS,<13 Y/O CURRENT MEDS: Current Outpatient Prescriptions: quetiapine fumarate (SEROQUEL ORAL) Take by mouth. ARIPiprazole (ABILIFY) 30 mg tablet Take 0.5 tablets by mouth once daily. allopurinol (ZYLOPRIM) 100 mg tablet TAKE ONE TABLET AT 8AM/NOON/8PM Menthol-Zinc Oxide (CALMOSEPTINE) 0.44-20.6 % Apply 1 application to affected area twice daily. Apply thin layer on inner buttocks twice a day and PRN soiled cloNIDine HCl (CATAPRES) 0.1 mg tablet Takes 1 tabs at bedtime and 1 tab in am by mouth. furosemide (LASIX) 40 mg tablet TAKE ONE TABLET BY MOUTH TWICE DAILY metoprolol succinate ER (TOPROL XL) 25 mg 24 hr tablet Take 1 tablet by mouth once daily. levothyroxine (SYNTHROID) 25 mcg tablet Take 1 tablet by mouth daily before breakfast. divalproex DR (DEPAKOTE) 500 mg EC tablet Take 1 tablet by mouth three times daily. omeprazole (PRILOSEC) 20 mg capsule Take 1 capsule by mouth once daily. (short fill supply for med sync program) tamsulosin ER (FLOMAX) 0.4 mg cp24 Take 1 capsule by mouth once daily. Take 30 minutes after supper. nitroglycerin sublingual (NITROQUICK) 0.4 mg SL tablet Dissolve 0.4mg tab (1tab) under tongue every 5min as needed for chest pain. If no response after max 3 tabs go to ED/notify doctor. Diaper,Brief, Adult,Disposable (DEPEND REAL FIT BRIEF MEN L/XL) misc 1 pad as needed for urinary continence Catheter ([facility] MALE EXTERNAL CATH) misc Apply 1 catheter at bedtime daily Cholecalciferol, Vitamin D3, (VITAMIN D) 1,000 unit cap Take 1,000 Units by mouth once daily. MV with Fuw-Isshamrp-Knxhnk (CENTRUM SILVER) 0.4-300-250 mg-mcg-mcg tab Take 1 tablet by mouth. B-complex with vitamin C (ALLBEE WITH C) tablet Take 1 tablet by mouth once daily. Aspirin 81 mg ORAL Tab Take 1 tablet by mouth once daily. Take with food. No current facility-administered medications for this visit. ALLERGIES: ALLERGIES Allergen Reactions - Iodine Intolerance increased heart rate. - Latex Rash - Cimetidine Intolerance loose stools. Pt. States he is not allergic to 05/05/2009 - Codeine GI Upset - Detrol [Tolterodine* Intolerance - Penicillins Intolerance - Dyazide [Triamteren* Intolerance leg cramps after 1 dose - Lipitor [Atorvastat* Mental Status Change depression,anxiety - Sulindac Diarrhea - Tessalon [Benzonata* Intolerance dyspnea FMH: FAMILY HISTORY Problem Relation Age of Onset - Prostate Cancer Father 59 [address] Quesada - Diabetes Mother - Colon Cancer Sister SOCIAL: Social History Marital status: Spouse name: Years of education: Number of children: 1 Social History Main Topics Smoking status: Former Smoker Packs/day: 0.00 Years: 0.00 Quit date: 09/26/1971 Smokeless tobacco: Never Used Alcohol use: No Drug use: No Sexual activity: Yes Partners with: Female REVIEW OF SYSTEMS (In addition to HPI): Review of Systems Constitutional Positive for Weight Gain Negative for Fevers, Night Sweats and Weight Loss Eyes: Negative Hent: Negative Cardiovascular Negative for Chest Pain and Lightheadedness Respiratory Negative for SOB at rest, SOB with exertion and Cough GI Positive for Diarrhea Negative for Abdominal Pain, Constipation and Nausea/Vomiting Positive for Incontinence Endocrine Negative for Heat Intolerance Musculoskeletal Negative for Back Pain and Muscle Pain Neurologic Positive for Memory Problems Negative for Headache, Numbness/Tingling, Weakness, Double Vision and Trouble Swallowing Psychiatric Negative for Hallucinations Patient's Review of Systems has been reviewed with the patient and updated as appropriate. PHYSICAL EXAM: BP 110/66 (BP Site: Right Arm, BP Position: Sitting, BP Cuff Size: Regular Adult) Pulse 76 GEN: Alert. NAD. Normal affect. Cooperative. HEENT: No icterus. Normal mucosa. NECK/BACK: Supple RESP: easy respirations CV: no edema EXT: No cyanosis. No erythema. SKIN: No rashes. No lesions. NEUROLOGICAL: MENTAL STATUS: Alert and oriented. Thought process and content unremarkable. Follows commands appropriately. Speech fluent. CN: II: PERRLA. III, IV, : EOMI. No ptosis present. V: Symmetric facial sensation to LT. VII: Face symmetric. VIII: Hearing symmetric. No nystagmus. IX, X: Symmetric palatal rise. XI: Symmetric shoulder shrug. XII: Tongue midline with symmetric movements. MOTOR: RIGHT UE: LEFT UE Deltoid 5/5 Deltoid 5/5 Biceps 5/5 Biceps 5/5 WE 5/5 WE 5/5 RIGHT LE: LEFT LE: HF 5/5 HF 5/5 KF 5/5 KF 5/5 DF 4/5 DF 4/5 REFLEXES: Reflexes decreased diffusely and symmetrically . SENSATION: LT intact and symmetric. CEREBELLAR: Normal F-N-F. No dysmetria. No nystagmus. GAIT: Deferred, not ambulatory MOVEMENT EXAM: Movement disorders examination: To quantify parkinsonism, Part III of the MDS-Unified Parkinson?s Disease Rating Scale was performed and detailed in the succeeding sections in this report. Please see the neurological health status section or the next paragraph for details. Each item is scored from 0 to 4. In general, a score of 0 means normal; 1 means mild; 2 means moderate; 3 means moderate to severe; 4 means severe. 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 Spiral smooth with right hand and shaky with left ASSESSMENT: 73 year old male with history significant for schizophrenia, bipolar disorder, with tremors and parkinsonism. Tremors for many years possibly due to Depakote. More recent development of parkinsonism which is either drug- induced or neurodegenerative. To differentiate would need to stop Abilify and Seroquel which is not prudent or to obtain DaTscan. He adamantly does not want any imaging. Discussed possibility of trial of Sinemet and then reassess for improvement. He does not want to do this either, argues he is not walking as it is. After discussion of potential benefits and side effects he does not want to try Sinemet. He will see his psychiatrist in a couple of weeks and discuss again with him. If he does want to pursue Sinemet would use titration below and have him follow-up with me in 3 months for recheck. Sinemet (carbidopa/levodopa) 25/100 Week 1: 1/2 tab 3 times a day Week 2: 1 tab 3 times a day Week 3: 1-1/2 tab 3 times a day Week 4 and on: 2 tabs 3 times a day Take with light food around mealtimes Ok to stop increasing the dose at any point you are better. ---> Follow-up: og Davis M.D. [facility] [place] Department of [facility] cc: NIKOS CHONG MD [address] [facility] [id number] [facility] [place] [id number] Referring Provider: NIKOS CHONG [[id number]] Allergies As of Date: 05/23/2018 Noted Allergy Reaction IODINE 08/27/2005 5 - Intolerance Comments: increased heart rate. LATEX 08/27/2005 2 - Rash CIMETIDINE 08/27/2005 5 - Intolerance Comments: loose stools. Pt. States he is not allergic to 05/05/2009 CODEINE 08/27/2005 8 - GI Upset DETROL (TOLTERODINE TARTRATE) 08/27/2005 5 - Intolerance PENICILLINS 08/27/2005 5 - Intolerance DYAZIDE (TRIAMTERENE-HYDROCHLOROT*12/17/2011 5 - Intolerance Comments: leg cramps after 1 dose LIPITOR (ATORVASTATIN CALCIUM) 02/15/2015 1 - Mental Status Change Comments: depression,anxiety MILK 05/23/2018 16 - Unknown SULINDAC 11/07/2009 6 - Diarrhea TESSALON (BENZONATATE) 10/11/2007 5 - Intolerance Comments: dyspnea Date Reviewed: 05/23/2018 Reviewed by: Kiya Davis - Fully Assessed Primary Visit Diagnosis:Tremor [R25.1] Other Visit Diagnosis:Parkinsonism, unspecified Parkinsonism type (HCC) [G20] Prescriptions as of 05/23/2018 Sig: SEROQUEL ORAL Take by mouth. ARIPIPRAZOLE 30 MG TABLET Take 0.5 tablets by mouth onc* ALLOPURINOL 100 MG TABLET TAKE ONE TABLET AT 8AM/NOON/8* MENTHOL 0.44 %-ZINC OXIDE 20.* Apply 1 application to affect* CLONIDINE HCL 0.1 MG TABLET Takes 1 tabs at bedtime and 1* FUROSEMIDE 40 MG TABLET TAKE ONE TABLET BY MOUTH TWIC* METOPROLOL SUCCINATE ER 25 MG* Take 1 tablet by mouth once d* LEVOTHYROXINE 25 MCG TABLET Take 1 tablet by mouth daily * DIVALPROEX 500 MG TABLET,JAVI* Take 1 tablet by mouth three * OMEPRAZOLE 20 MG CAPSULE,JAVI* Take 1 capsule by mouth once * TAMSULOSIN 0.4 MG CAPSULE Take 1 capsule by mouth once * NITROGLYCERIN 0.4 MG SUBLINGU* Dissolve 0.4mg tab (1tab) und* DIAPER,BRIEF,ADULT,DISPOSABLE 1 pad as needed for urinary c* CATHETER Apply 1 catheter at bedtime d* CHOLECALCIFEROL (VITAMIN D3) * Take 1,000 Units by mouth onc* EXXFSRCA-TCM-EHNAT ACID 0.4 M* Take 1 tablet by mouth. B-COMPLEX WITH VITAMIN C TABL* Take 1 tablet by mouth once d* * ASPIRIN 81 MG TABLET Take 1 tablet by mouth once d* Medication notes this encounter PREDNISONE 10 MG TABLET >> Bobby Brunson Ma 05/23/2018 2:07 PM >> BOBBY BRUNSON MA May 23, 2018 2:07 PM Not taking Problem List As Of Date 05/23/2018 Noted Resolved Unspecified schizophrenia, unspecified conditio*INVALID FOR*03/11/2014 DIVERTICULOSIS OF COLON W/O BLEED [K57.30] INVALID FOR* SCIATICA [M54.30] INVALID FOR*06/06/2006 JOINT PAIN-SHLDER [M25.519] INVALID FOR*05/05/2009 Essential hypertension [I10] INVALID FOR* More... Contact dermatitis and other eczema, due to uns*INVALID FOR*10/31/2013 Other abnormal blood chemistry [R79.89] 10/31/2013 ESOPHAGEAL REFLUX [K21.9] Obesity [E66.9] INVALID FOR* Dysmetabolic syndrome X [E88.81] INVALID FOR*10/31/2013 JOINT PAIN-HAND [M25.549] INVALID FOR*05/05/2009 Backache, unspecified [M54.9] INVALID FOR*10/31/2013 Allergic rhinitis, cause unspecified [J30.9] INVALID FOR*10/31/2013 Cervicalgia [M54.2] INVALID FOR*10/31/2013 BPH W URINARY OBS/LUTS [N40.1] INVALID FOR* Charcot joint INVALID FOR*05/26/2014 Macular Degeneration [H35.30] Tremor [R25.1] INVALID FOR* Bipolar 1 disorder, mixed (HCC) [F31.60] INVALID FOR* More... Right gluteus medius Bursitis [M71.9] INVALID FOR*10/31/2013 CHF (congestive heart failure) [I50.9] INVALID FOR* More... Lacunar infarction [I63.9] INVALID FOR* More... Cardiomyopathy [I42.9] INVALID FOR* Near syncope [R55] INVALID FOR*10/31/2013 Diabetic peripheral neuropathy (HCC) [E11.42] INVALID FOR*02/02/2017 Hypothyroid [E03.9] INVALID FOR* More... Charcot foot due to diabetes mellitus (HCC) [E1*INVALID FOR*01/25/2018 More... Bipolar affective disorder, mixed (HCC) [F31.60]INVALID FOR* More... BPH (benign prostatic hyperplasia) [N40.0] INVALID FOR* Family history of prostate cancer [Z80.42] INVALID FOR* Venous (peripheral) insufficiency [I87.2] INVALID FOR* Hyperlipidemia [E78.5] INVALID FOR* Benign non-nodular prostatic hyperplasia with l*INVALID FOR* More... Elevated prostate specific antigen (PSA) [R97.2*INVALID FOR* Urinary tract infection associated with cathete*INVALID FOR* Diastolic heart failure (HCC) [I50.30] INVALID FOR* Renal insufficiency [N28.9] INVALID FOR* Gastroesophageal reflux disease without esophag*INVALID FOR* More... History of colonic polyps [Z86.010] INVALID FOR* More... Parkinsonism (HCC) [G20] INVALID FOR* Medications Discontinued During This Encounter COMPOUNDED PRESCRIPTION 1 Ea* 0 01/18/2018 05/23/2018 Class: Print RX Sig: Special Orthopedic shoes: Re: Charcots joint in both the feet Disc: Reason for discontinue is not on file. COMPOUNDED PRESCRIPTION 1 Ea* 0 02/14/2018 05/23/2018 Class: Print RX Sig: Admit to SNF for residential, PT, OT. Dx: Charcot's, generalized weakness, severe depression, cardiomyopathy Disc: Reason for discontinue is not on file. COMPOUNDED PRESCRIPTION 1 Ea* 0 10/12/2016 05/23/2018 Class: Print RX Sig: Hospital bed repair Disc: Reason for discontinue is not on file. COMPOUNDED PRESCRIPTION 1 Ea* 3 06/15/2017 05/23/2018 Class: Print RX Sig: Exercise bike- customized for patient to use Re: charcot joint of the ankles Obesity Gait abnormality Disc: Reason for discontinue is not on file. COMPOUNDED PRESCRIPTION 1 Ea* 0 01/04/2017 05/23/2018 Class: Print RX Sig: Diabetic shoes Dx: E11.610, E11.42, I87.2 Last office visit: 08/28/16 Disc: Reason for discontinue is not on file. COMPOUNDED PRESCRIPTION 1 Ea* 0 12/23/2017 05/23/2018 Class: Print RX Sig: long term - PT/OT - decubitus ulcer, and weakness. [facility]. Fx .[phone] Disc: Reason for discontinue is not on file. COMPOUNDED PRESCRIPTION 1 Ea* 0 09/08/2017 05/23/2018 Class: Print RX Sig: Repair hospital bed Disc: Reason for discontinue is not on file. predniSONE (DELTASONE) 10 mg tablet 39 t* 0 02/09/2018 05/23/2018 Sig: Take 60mg x 3 days, 40mg x 3 days, 20mg x 3 days, 10mg x 3 days. Take with food. Patient not taking: Reported on 05/23/2018 Disc: Reason for discontinue is not on file. Disposition: Return if symptoms worsen or fail to improve. Follow-up and Disposition History Recorded Questionnaire: UPDRS - MOTOR EXAMINATION OFF SPEECH OFF -> 2 FACIAL EXPRESSION OFF -> 2 REST TREMOR - CRANIAL OFF -> 1 REST TREMOR - HANDS RT OFF -> 1 REST TREMOR - HANDS LT OFF -> 1 REST TREMOR - FEET RT OFF -> 0 REST TREMOR - FEET LT OFF -> 0 ACTION TREMOR - RT OFF -> 1 ACTION TREMOR - LT OFF -> 1 RIGIDITY - NECK OFF -> 1 RIGIDITY - UE - RT OFF -> 1 RIGIDITY - UE - LT OFF -> 2 RIGIDITY - LE - RT OFF -> 2 RIGIDITY - LE - LT OFF -> 2 FINGER TAPS - RT OFF -> 1 FINGER TAPS - LT OFF -> 1 HAND PRODUCTION TRUCK DRIVER - RT OFF -> 1 HAND PRODUCTION TRUCK DRIVER - LT OFF -> 2 PRONATE/SUPINATE - RT OFF -> 1 PRONATE/SUPINATE - LT OFF -> 1 LEG AGILITY - RT OFF -> 1 LEG AGILITY - LT OFF -> 1 BODY BRADYKINESIA OFF -> 2 Encounter Status:Closed by KIYA DAVIS MD on 05/23/18 COMP METABOLIC PANEL Collected: 04/25/2018 Status: F Source: [place] 3:02 PM [facility] [place] REPOSITORY TYPE CODE TESTS RESULT OUT OF REFERENCE UNITS RANGE LAB TP 6.3-8.0 g/dL Protein, Total 6.9 LAB ALB 3.9-4.9 g/dL Albumin 3.9 LAB CA 8.5-10.2 mg/dL Calcium, Total 9.8 LAB TBIL 0.2-1.3 mg/dL Bilirubin, Total 0.3 LAB ALKP 36-108 U/L Alkaline Phosphatase 108 LAB AST 14-40 U/L AST 31 LAB GLU 74-99 mg/dL Glucose High 112 Result Comment: The [place] Diabetes Association (ADA) provides guidance for cutoff values for fasting glucose and random glucose. The ADA defines fasting as no caloric intake for at least 8 hours. Fas ting plasma glucose results between 100 to 125 mg/dL indicate increased risk for diabetes (prediabetes). Fasting plasma glucose results greater than or equal to 126 mg/dL meet the criteria for diagnosis of diabetes. In the absence of unequivocal hyperglycemia, results should be confirmed by repeat testing. In a patient with classic symptoms of hyperglycemia or hyperglycemic crisis, random plasma glucose results greater than or equal to 200 mg/dL meet the criteria for diagnosis of diabetes. Reference: Standards of Medical Care in Diabetes 2016, [place] [employer] Association. Diabetes Care. 2016.39(Suppl 1). LAB BUN 9-24 mg/dL BUN 21 LAB CRET 0.73-1.22 mg/dL Creatinine High 1.54 LAB NA 136-144 mmol/L Sodium 142 LAB K 3.7-5.1 mmol/L Potassium 4.4 LAB CL 97-105 mmol/L Chloride 99 LAB CO2 22-30 mmol/L CO2 High 32 LAB AGAP 9-18 mmol/L Anion Gap 11 LAB ALT 10-54 U/L ALT 15 LAB GFRAA eGFR- Amer. 54 LAB GFRNAA . eGFR-All Other Races 45 Result Comment: eGFR (Estimated GFR) Units of measure: mL/min/1.73 meters squared eGFR is derived from the reexpressed MDRD Study equation using the following parameters: serum creatinine, age, gender and race. The creatinine assay has been calibrated to be traceable to IDMS. An eGFR <60 mL/min/1.73m2 for >3 months is consistent with chronic kidney disease. Refer to KDOQI guidelines for clinical interpretation. In patients with unstable renal function, e.g. those with acute kidney injury, the eGFR may not accurately reflect actual GFR. Performed By: #### CMP #### [facility] [address] [place], [place] [address] PROGRESS Observed: 03/30/2018 Status: COMPLETED Source: [place] 9:34 AM [facility] REPOSITORY O ID: [id number] Author: Mariam Grimes [facility] Service: (none) Author Type: Registered Nurse Type: Progress Notes Filed: 04/10/2018 12:31 PM Note Text: TRANSITION CARE MANAGEMENT (TCM) FOLLOW-UP NOTE Provider Action/FYI: Pt is marginally better. Patient identified by name and date of : YES Spoke to spousePatsy Summary: Pt and visited [facility] in [place] and liked it so he will be going a couple 1/2 days a week to socialize. I gave them appt with Dr. Davis information. Mail it as well. Concerns: Pt thinks he does more than believes he is. He is to document activities, etc and will try to do so. Healthcare Financial Analyst plan for next outreach: Will follow up 1 mo Signature Mariam Hutchinson RN Ambulatory Underground Distribution Engineer [facility] March 30, 2018 JAYDENJESSICA Observed: 03/30/2018 Status: COMPLETED Source: [place] 12:00 AM [facility] REPOSITORY Patient Outreach (INTMWS) MIGUEL ANGEL SANDERS ([id number]) 1945 M Date Time Provider Department 03/30/18 MARIAM CHOI During your visit today, we recorded the following information about you: Mariam Grimes RN 04/10/2018 12:31 PM Signed TRANSITION CARE MANAGEMENT (TCM) FOLLOW-UP NOTE Provider Action/FYI: Pt is marginally better. Patient identified by name and date of : YES Spoke to spouse, Patsy Summary: Pt and visited [facility] in [place] and liked it so he will be going a couple 1/2 days a week to socialize. I gave them appt with Dr. Davis information. Mail it as well. Concerns: Pt thinks he does more than believes he is. He is to document activities, etc and will try to do so. Healthcare Financial Analyst plan for next outreach: Will follow up 1 mo Signature Mariam Hutchinson RN Ambulatory Underground Distribution Engineer [facility] March 30, 2018 Allergies As of Date: 03/30/2018 Noted Allergy Reaction IODINE 08/27/2005 5 - Intolerance Comments: increased heart rate. LATEX 08/27/2005 2 - Rash CIMETIDINE 08/27/2005 5 - Intolerance Comments: loose stools. Pt. States he is not allergic to 05/05/2009 CODEINE 08/27/2005 8 - GI Upset DETROL (TOLTERODINE TARTRATE) 08/27/2005 5 - Intolerance PENICILLINS 08/27/2005 5 - Intolerance DYAZIDE (TRIAMTERENE-HYDROCHLOROT*12/17/2011 5 - Intolerance Comments: leg cramps after 1 dose LIPITOR (ATORVASTATIN CALCIUM) 02/15/2015 1 - Mental Status Change Comments: depression,anxiety SULINDAC 11/07/2009 6 - Diarrhea TESSALON (BENZONATATE) 10/11/2007 5 - Intolerance Comments: dyspnea Date Reviewed: 03/08/2018 Reviewed by: Pawel Montesinos LPN - Fully Assessed Reason for Visit: Underground Distribution Engineer Chronic Care [8002] Prescriptions as of 03/30/2018 Sig: ARIPIPRAZOLE 30 MG TABLET Take 0.5 tablets by mouth onc* CLONIDINE HCL 0.1 MG TABLET Takes 1 tabs at bedtime and 1* FUROSEMIDE 40 MG TABLET TAKE ONE TABLET BY MOUTH TWIC* COMPOUNDED PRESCRIPTION Admit to SNF for skilled nurs* PREDNISONE 10 MG TABLET Take 60mg x 3 days, 40mg x 3 * ALLOPURINOL 100 MG TABLET Take 1 tablet by mouth 3 time* METOPROLOL SUCCINATE ER 25 MG* Take 1 tablet by mouth once d* COMPOUNDED PRESCRIPTION Special Orthopedic shoes: * COMPOUNDED PRESCRIPTION long term - PT/OT - dec* COMPOUNDED PRESCRIPTION Repair hospital bed LEVOTHYROXINE 25 MCG TABLET Take 1 tablet by mouth daily * DIVALPROEX 500 MG TABLET,JAVI* Take 1 tablet by mouth three * OMEPRAZOLE 20 MG CAPSULE,JAVI* Take 1 capsule by mouth once * TAMSULOSIN 0.4 MG CAPSULE Take 1 capsule by mouth once * NITROGLYCERIN 0.4 MG SUBLINGU* Dissolve 0.4mg tab (1tab) und* COMPOUNDED PRESCRIPTION Exercise bike- customized for* DIAPER,BRIEF,ADULT,DISPOSABLE 1 pad as needed for urinary c* CATHETER Apply 1 catheter at bedtime d* COMPOUNDED PRESCRIPTION Diabetic shoes Dx: E11.610, * COMPOUNDED PRESCRIPTION Hospital bed repair CHOLECALCIFEROL (VITAMIN D3) * Take 1,000 Units by mouth onc* [id number] ACID 0.4 M* Take 1 tablet by mouth. B-COMPLEX WITH VITAMIN C TABL* Take 1 tablet by mouth once d* * ASPIRIN 81 MG TABLET Take 1 tablet by mouth once d* Problem List As Of Date 03/30/2018 Noted Resolved Unspecified schizophrenia, unspecified conditio*INVALID FOR*03/11/2014 DIVERTICULOSIS OF COLON W/O BLEED [K57.30] INVALID FOR* SCIATICA [M54.30] INVALID FOR*06/06/2006 JOINT PAIN-SHLDER [M25.519] INVALID FOR*05/05/2009 Essential hypertension [I10] INVALID FOR* More... Contact dermatitis and other eczema, due to uns*INVALID FOR*10/31/2013 Other abnormal blood chemistry [R79.89] 10/31/2013 ESOPHAGEAL REFLUX [K21.9] Obesity [E66.9] INVALID FOR* Dysmetabolic syndrome X [E88.81] INVALID FOR*10/31/2013 JOINT PAIN-HAND [M25.549] INVALID FOR*05/05/2009 Backache, unspecified [M54.9] INVALID FOR*10/31/2013 Allergic rhinitis, cause unspecified [J30.9] INVALID FOR*10/31/2013 Cervicalgia [M54.2] INVALID FOR*10/31/2013 BPH W URINARY OBS/LUTS [N40.1] INVALID FOR* Charcot joint INVALID FOR*05/26/2014 Macular Degeneration [H35.30] Tremor [R25.1] INVALID FOR* Bipolar 1 disorder, mixed (HCC) [F31.60] INVALID FOR* More... Right gluteus medius Bursitis [M71.9] INVALID FOR*10/31/2013 CHF (congestive heart failure) [I50.9] INVALID FOR* More... Lacunar infarction [I63.9] INVALID FOR* More... Cardiomyopathy [I42.9] INVALID FOR* Near syncope [R55] INVALID FOR*10/31/2013 Diabetic peripheral neuropathy (HCC) [E11.42] INVALID FOR*02/02/2017 Hypothyroid [E03.9] INVALID FOR* More... Charcot foot due to diabetes mellitus (HCC) [E1*INVALID FOR*01/25/2018 More... Bipolar affective disorder, mixed (HCC) [F31.60]INVALID FOR* More... BPH (benign prostatic hyperplasia) [N40.0] INVALID FOR* Family history of prostate cancer [Z80.42] INVALID FOR* Venous (peripheral) insufficiency [I87.2] INVALID FOR* Hyperlipidemia [E78.5] INVALID FOR* Benign non-nodular prostatic hyperplasia with l*INVALID FOR* More... Elevated prostate specific antigen (PSA) [R97.2*INVALID FOR* Urinary tract infection associated with cathete*INVALID FOR* Diastolic heart failure (HCC) [I50.30] INVALID FOR* Renal insufficiency [N28.9] INVALID FOR* Gastroesophageal reflux disease without esophag*INVALID FOR* More... History of colonic polyps [Z86.010] INVALID FOR* More... Encounter Status:Closed by MARIAM HUTCHINSON on 04/10/18 PROGRESS Observed: 03/20/2018 Status: COMPLETED Source: [place] 5:18 PM [facility] REPOSITORY HNO ID: [id number] Author: Mariam Hutchinson Service: (none) Author Type: Registered Nurse Type: Progress Notes Filed: 03/27/2018 3:34 PM Note Text: TRANSITION CARE MANAGEMENT (TCM) FOLLOW-UP NOTE Provider Action/FYI Pt questions whether to cut back on BP med as BP lower but cannot name numbers. Patient identified by name and date of : YES Spoke to patient Summary: Called [facility] to schedule with Neuro and they will take a message and notify me or pt with appt. Concerns: Pt is actually doing a little better in psych standpoint and happy with Dr. but is still unable to walk much or participate in much self care. Healthcare Financial Analyst plan for next outreach: Will follow up tomorrow with BP readings from HH RN. Signature Mariam Hutchinson senior science consultant Underground Distribution Engineer [facility] March 20, 2018 BEATATOUTREACH Observed: 03/20/2018 Status: COMPLETED Source: [place] 12:00 AM [facility] REPOSITORY Patient Outreach (INTMWS) MIGUEL ANGEL SANDERS ([id number]) 1945 M Date Time Provider Department 03/20/18 MARIAM CHOI INTRaheemWS During your visit today, we recorded the following information about you: Mariam Grimes RN 03/27/2018 3:34 PM Signed TRANSITION CARE MANAGEMENT (TCM) FOLLOW-UP NOTE Provider Action/FYI Pt questions whether to cut back on BP med as BP lower but cannot name numbers. Patient identified by name and date of : YES Spoke to patient Summary: Called [facility] to schedule with Neuro and they will take a message and notify me or pt with appt. Concerns: Pt is actually doing a little better in psych standpoint and happy with Dr. but is still unable to walk much or participate in much self care. Healthcare Financial Analyst plan for next outreach: Will follow up tomorrow with BP readings from HH RN. Signature Mariam Hutchinson RN Ambulatory Underground Distribution Engineer [facility] March 20, 2018 Allergies As of Date: 03/20/2018 Noted Allergy Reaction IODINE 08/27/2005 5 - Intolerance Comments: increased heart rate. LATEX 08/27/2005 2 - Rash CIMETIDINE 08/27/2005 5 - Intolerance Comments: loose stools. Pt. States he is not allergic to 05/05/2009 CODEINE 08/27/2005 8 - GI Upset DETROL (TOLTERODINE TARTRATE) 08/27/2005 5 - Intolerance PENICILLINS 08/27/2005 5 - Intolerance DYAZIDE (TRIAMTERENE-HYDROCHLOROT*12/17/2011 5 - Intolerance Comments: leg cramps after 1 dose LIPITOR (ATORVASTATIN CALCIUM) 02/15/2015 1 - Mental Status Change Comments: depression,anxiety SULINDAC 11/07/2009 6 - Diarrhea TESSALON (BENZONATATE) 10/11/2007 5 - Intolerance Comments: dyspnea Date Reviewed: 03/08/2018 Reviewed by: Pawel Montesinos LPN - Fully Assessed Reason for Visit: Underground Distribution Engineer Hospital Follow Up [3610] Problem List As Of Date 03/20/2018 Noted Resolved Unspecified schizophrenia, unspecified conditio*INVALID FOR*03/11/2014 DIVERTICULOSIS OF COLON W/O BLEED [K57.30] INVALID FOR* SCIATICA [M54.30] INVALID FOR*06/06/2006 JOINT PAIN-SHLDER [M25.519] INVALID FOR*05/05/2009 Essential hypertension [I10] INVALID FOR* More... Contact dermatitis and other eczema, due to uns*INVALID FOR*10/31/2013 Other abnormal blood chemistry [R79.89] 10/31/2013 ESOPHAGEAL REFLUX [K21.9] Obesity [E66.9] INVALID FOR* Dysmetabolic syndrome X [E88.81] INVALID FOR*10/31/2013 JOINT PAIN-HAND [M25.549] INVALID FOR*05/05/2009 Backache, unspecified [M54.9] INVALID FOR*10/31/2013 Allergic rhinitis, cause unspecified [J30.9] INVALID FOR*10/31/2013 Cervicalgia [M54.2] INVALID FOR*10/31/2013 BPH W URINARY OBS/LUTS [N40.1] INVALID FOR* Charcot joint INVALID FOR*05/26/2014 Macular Degeneration [H35.30] Tremor [R25.1] INVALID FOR* Bipolar 1 disorder, mixed (HCC) [F31.60] INVALID FOR* More... Right gluteus medius Bursitis [M71.9] INVALID FOR*10/31/2013 CHF (congestive heart failure) [I50.9] INVALID FOR* More... Lacunar infarction [I63.9] INVALID FOR* More... Cardiomyopathy [I42.9] INVALID FOR* Near syncope [R55] INVALID FOR*10/31/2013 Diabetic peripheral neuropathy (HCC) [E11.42] INVALID FOR*02/02/2017 Hypothyroid [E03.9] INVALID FOR* More... Charcot foot due to diabetes mellitus (HCC) [E1*INVALID FOR*01/25/2018 More... Bipolar affective disorder, mixed (HCC) [F31.60]INVALID FOR* More... BPH (benign prostatic hyperplasia) [N40.0] INVALID FOR* Family history of prostate cancer [Z80.42] INVALID FOR* Venous (peripheral) insufficiency [I87.2] INVALID FOR* Hyperlipidemia [E78.5] INVALID FOR* Benign non-nodular prostatic hyperplasia with l*INVALID FOR* More... Elevated prostate specific antigen (PSA) [R97.2*INVALID FOR* Urinary tract infection associated with cathete*INVALID FOR* Diastolic heart failure (HCC) [I50.30] INVALID FOR* Renal insufficiency [N28.9] INVALID FOR* Gastroesophageal reflux disease without esophag*INVALID FOR* More... History of colonic polyps [Z86.010] INVALID FOR* More... Encounter Status:Closed by MARIAM HUTCHINSON on 03/27/18 PROGRESS Observed: 03/08/2018 Status: COMPLETED Source: [place] 6:24 PM [facility] REPOSITORY HNO ID: [id number] Author: Mariam Hutchinson Service: (none) Author Type: Registered Nurse Type: Progress Notes Filed: 03/20/2018 5:16 PM Note Text: PRIMARY CARE COORDINATION IN OFFICE VISIT WITH PCP Patient has been identified by name and date of . PCP Assessment/Plan: Reviewed PCP plan with patient using Teach Back Pt to see Neurology and increase self PT at home BETWEEN PT visits. PCC Plan of Care: Patient concerns: Still difficulty walking. Feels so weak. Patient goals: Tearful- wants to feel better and be able to care for himself. PCC Interventions: Schedule Neuro appt. Next Office Visit: 06/07/2018 Plan For Next Call: Next week with Neuro appt Mariam Hutchinson senior science consultant Underground Distribution Engineer Internal Medicine [facility] March 08, 2018 PROGRESS Observed: 03/08/2018 Status: COMPLETED Source: [place] 5:13 PM [facility] REPOSITORY HNO ID: [id number] Author: Nikos Chong Service: (none) Author Type: Physician Type: Progress Notes Filed: 03/08/2018 8:12 PM Note Text: Reason for Visit Patient presents with: Established Patient: TCM SNF d/c 03/02/18,weakness,depression Miguel Angel Sanders is a 72 year old male who presents here today for Above Complaints.. Health Maintenance ZOSTER VACCINE (SHINGRIX)(2 of 3) DTAP,TDAP,TD(1 - Tdap) COLORECTAL CANCER SCREENING,SEE MODIFIER HPI Here after rehab , he was in for 2 and a half weeks, he notes He achieved a better attitude to himself, is doing more PHYSICAL THERAPY, in the rehab he notes he could move 20 feet to 40 feet. He is practicing his exercises at home, but other than during therapy he does not do much at home. He cannot clean himself after his bowel movements. has to help him with that . He did see his psychiatrist, who started him on seroquel. His abilify was decreased to 15 mgs. He does have a little more shaking than normal. He does not seem to have insight into what he is doing and he is a little defiant. Patsy and he decided they would keep a document with a records of how much he is doing I do think he needs to see the neurologist because we note that he has inertia of movement when he walks on the walker. He does note that with the allpurinol his body ache had resolved Provider Action/FYI: PT has seen pt at home, but he is not walking much. ? ? Initial contact with patient post discharge, spoke to Patsy. Patient identified by name and . ? SUMMARY: -Pt discharged from SNF- [facility] on 03/03/18. -Follow up appointment on 03/09/18. -Medication review done will bring info. -Admitted for: Weakness ? CONCERNS: Pt continues to be weak. Has been asking to push him around in a WC- not cooperating with walking. PT at [facility] was excellent, but pt's legs just continue to be weak. Difficulty w/walker. ? NEW MEDICATIONS: will review at appt ? MEDS HELD/DISCONTINUED: None ? BRIEF HOSPITAL COURSE: Pt was getting weaker and weaker at home and finally agreed to go to [facility] for rehab. Went to [facility] for 2-3 times daily PT. ? No problem-specific Assessment AND Plan notes found for this encounter. PAST MEDICAL HISTORY Diagnosis Date - BPH (benign prostatic hyperplasia) Seeing Dr. Quesada, unsure of diagnosis - Diverticulosis of colon (without mention of hemorrhage) Diverticulosis - Dysmetabolic syndrome X 09/29/2006 - Esophageal reflux - Hypothyroidism - Lower extremity edema - Macular degeneration - Obesity, unspecified 09/29/2006 - Other abnormal blood chemistry - Stable angina (HCC) Seeing Dr. Lang - Unspecified essential hypertension - Unspecified schizophrenia, unspecified condition Seeing Dr. Preciado PAST SURGICAL HISTORY Procedure Laterality Date - COLONOSCOP W/ OR W/O BRS SPEC 08/02/2003 Colonoscopy - COLONOSCOP W/ OR W/O BRS SPEC 08/19/08 - COLONOSCOP W/ OR W/O [facility] SPEC 06/04/2013 Colonoscopy - PAST SURGICAL HISTORY OF throat polyps - REMOVAL OF TONSILS,<12 Y/O FAMILY HISTORY Problem Relation Age of Onset - Prostate Cancer Father [address] Quesada - Diabetes Mother - Colon Cancer Sister Social History Substance Use Topics - Smoking status: Former Smoker Quit date: 09/26/1971 - Smokeless tobacco: Never Used - Alcohol use No Past medical history, appointments, medications, allergies reviewed. Pertinent Lab/Diagnostic Studies are reviewed and discussed today Current Outpatient Prescriptions: - cloNIDine HCl (CATAPRES) 0.1 mg tablet - furosemide (LASIX) 40 mg tablet - COMPOUNDED PRESCRIPTION - predniSONE (DELTASONE) 10 mg tablet - allopurinol (ZYLOPRIM) 100 mg tablet - metoprolol succinate ER (TOPROL XL) 25 mg 24 hr tablet - COMPOUNDED PRESCRIPTION - COMPOUNDED PRESCRIPTION - COMPOUNDED PRESCRIPTION - levothyroxine (SYNTHROID) 25 mcg tablet - divalproex DR (DEPAKOTE) 500 mg EC tablet - ARIPiprazole (ABILIFY) 30 mg tablet - omeprazole (PRILOSEC) 20 mg capsule - tamsulosin ER (FLOMAX) 0.4 mg cp24 - nitroglycerin sublingual (NITROQUICK) 0.4 mg SL tablet - COMPOUNDED PRESCRIPTION - Diaper,Brief, Adult,Disposable (DEPEND REAL FIT BRIEF MEN L/XL) misc - Catheter ([facility] MALE EXTERNAL CATH) misc - COMPOUNDED PRESCRIPTION - COMPOUNDED PRESCRIPTION - Cholecalciferol, Vitamin D3, (VITAMIN D) 1,000 unit cap - MV with Eio-Rubxtgwr-Wogxwu (CENTRUM SILVER) 0.4-300-250 mg-mcg-mcg tab - B-complex with vitamin C (ALLBEE WITH C) tablet - Aspirin 81 mg ORAL Tab Review of Systems CONSTITUTIONAL: No fevers, chills night sweats, unintended weight loss CARDIOVASCULAR: No chest pain, dyspnea, palpitations, orthopnea, PND, ankle edema. PULM: No dyspnea, unexplained cough. GI: No dysphagia/odynophagia, problematic reflux, constipation, diarrhea, changes in stool habits, hematochezia, melena. : No new urinary complaints, including dysuria, gross hematuria or pyuria. NEURO: No new balance problems, peripheral weakness/paresthesias or numbness of concern. Physical Exam BP 124/72 (BP Site: Left Arm, BP Position: Sitting, BP Cuff Size: Large Adult) Resp 12 Ht 172.7 cm (5' 8) Wt 98.9 kg (218 lb) BMI 33.15 kg/m? General appearance: In a wheel chair, looks a little weaker than before, he in no acute distress, well nourished. He does have a tremor, at resting and when moving Skin: Skin color, texture, turgor normal, no suspicious rashes or lesions Head: Normocephalic, no masses, lesions, tenderness or abnormalities Eyes: Anicteric sclera. Pupils are equally round and reactive to light. Extraocular movements are intact. Lungs: Lungs clear to auscultation. No wheezing, rhonchi, rales Heart: RRR without murmur, gallop, or rubs. ASSESSMENT/PLAN: 1. Bipolar 1 disorder (HCC) - ICD9: 296.7, ICD10: F31.9 (primary diagnosis) Updated decreased in abilify - ARIPIPRAZOLE 30 MG TABLET 2. Physical deconditioning - ICD9: 799.3, ICD10: R53.81 Along with and Lyubov, we discussed we empathized with the weakness and how it is making him feel and we reassured him we were there to help him and that he should try a little to do thinks on his own and be more active He cried when we discussed [facility]. Spent more than 40 mins with the patient 3. Essential hypertension - ICD9: 401.9, ICD10: I10 - good control - Recommended regular aerobic exercise. - Recommend home blood pressure monitoring, to bring results in on next visit - Goal of BP <130/80 4. Chronic gout without tophus, unspecified cause, unspecified site - ICD9: 274.02, ICD10: M1A.9XX0 Cont the allpurinol NIKOS CHONG MD PROGRESS Observed: 03/08/2018 Status: COMPLETED Source: [place] 4:53 PM [facility] [place] REPOSITORY [facility] ID: [id number] Author: Nikos Chong Service: (none) Author Type: Physician Type: Progress Notes Filed: 03/08/2018 8:12 PM Note Text: ? Provider Action/FYI: PT has seen pt at home, but he is not walking much. ? ? Initial contact with patient post discharge, spoke to Patsy. Patient identified by name and . ? SUMMARY: -Pt discharged from SNF- [facility] on 03/03/18. -Follow up appointment on 03/09/18. -Medication review done will bring info. -Admitted for: Weakness ? CONCERNS: Pt continues to be weak. Has been asking to push him around in a WC- not cooperating with walking. PT at [facility] was excellent, but pt's legs just continue to be weak. Difficulty w/walker. ? NEW MEDICATIONS: will review at appt ? MEDS HELD/DISCONTINUED: None ? BRIEF HOSPITAL COURSE: Pt was getting weaker and weaker at home and finally agreed to go to [facility] for rehab. Went to [facility] for 2-3 times daily PT. ? Note Details Additional Documentation Encounter Info: ? Billing Info, History, Allergies, Detailed Report CNOV Observed: 03/08/2018 Status: COMPLETED Source: [place] 4:40 PM [facility] REPOSITORY Office Visit (INTMWS) MIGUEL ANGEL SANDERS ([id number]) 1945 M Date Time Provider Department 03/08/18 4:40 PM NIKOS CHONG INTRaheemWS During your visit today, we recorded the following information about you: Respiration Blood pressure Weight Height 12/minute 124/72 98.9 kg 1.727 m NIKOS CHONG MD 03/08/2018 8:12 PM Signed ? Provider Action/FYI: PT has seen pt at home, but he is not walking much. ? ? Initial contact with patient post discharge, spoke to Patsy. Patient identified by name and . ? SUMMARY: -Pt discharged from [facility]- [facility] on 03/03/18. -Follow up appointment on 03/09/18. -Medication review done will bring info. -Admitted for: Weakness ? CONCERNS: Pt continues to be weak. Has been asking to push him around in a WC- not cooperating with walking. PT at [facility] was excellent, but pt's legs just continue to be weak. Difficulty w/walker. ? NEW MEDICATIONS: will review at appt ? MEDS HELD/DISCONTINUED: None ? BRIEF HOSPITAL COURSE: Pt was getting weaker and weaker at home and finally agreed to go to [facility] for rehab. Went to [facility] for 2-3 times daily PT. ? Note Details Additional Documentation Encounter Info: ? Billing Info, History, Allergies, Detailed Report NIKOS CHONG MD 03/08/2018 8:12 PM Signed Reason for Visit Patient presents with: Established Patient: [facility] SNF d/c 03/02/18,weakness,depression Miguel Angel Sanders is a 72 year old male who presents here today for Above Complaints.. Health Maintenance ZOSTER VACCINE (SHINGRIX)(2 of 3) DTAP,TDAP,TD(1 - Tdap) COLORECTAL CANCER SCREENING,SEE MODIFIER HPI Here after rehab , he was in for 2 and a half weeks, he notes He achieved a better attitude to himself, is doing more PHYSICAL THERAPY, in the rehab he notes he could move 20 feet to 40 feet. He is practicing his exercises at home, but other than during therapy he does not do much at home. He cannot clean himself after his bowel movements. has to help him with that . He did see his psychiatrist, who started him on seroquel. His abilify was decreased to 15 mgs. He does have a little more shaking than normal. He does not seem to have insight into what he is doing and he is a little defiant. Patsy and he decided they would keep a document with a records of how much he is doing I do think he needs to see the neurologist because we note that he has inertia of movement when he walks on the walker. He does note that with the allpurinol his body ache had resolved Provider Action/FYI: PT has seen pt at home, but he is not walking much. ? ? Initial contact with patient post discharge, spoke to Patsy. Patient identified by name and . ? SUMMARY: -Pt discharged from [facility]- [facility] on 03/03/18. -Follow up appointment on 03/09/18. -Medication review done will bring info. -Admitted for: Weakness ? CONCERNS: Pt continues to be weak. Has been asking to push him around in a WC- not cooperating with walking. PT at SNF was excellent, but pt's legs just continue to be weak. Difficulty w/walker. ? NEW MEDICATIONS: will review at appt ? MEDS HELD/DISCONTINUED: None ? BRIEF HOSPITAL COURSE: Pt was getting weaker and weaker at home and finally agreed to go to SNF for rehab. Went to [facility] for 2-3 times daily PT. ? No problem-specific Assessment AND Plan notes found for this encounter. PAST MEDICAL HISTORY Diagnosis Date - BPH (benign prostatic hyperplasia) Seeing Dr. Quesada, unsure of diagnosis - Diverticulosis of colon (without mention of hemorrhage) Diverticulosis - Dysmetabolic syndrome X 09/29/2006 - Esophageal reflux - Hypothyroidism - Lower extremity edema - Macular degeneration - Obesity, unspecified 09/29/2006 - Other abnormal blood chemistry - Stable angina (HCC) Seeing Dr. Lang - Unspecified essential hypertension - Unspecified schizophrenia, unspecified condition Seeing Dr. Preciado PAST SURGICAL HISTORY Procedure Laterality Date - COLONOSCOP W/ OR W/O [facility] SPEC 08/02/2003 Colonoscopy - COLONOSCOP W/ OR W/O [facility] SPEC 08/19/08 - COLONOSCOP W/ OR W/O [facility] SPEC 06/04/2013 Colonoscopy - PAST SURGICAL HISTORY OF throat polyps - REMOVAL OF TONSILS,<12 Y/O FAMILY HISTORY Problem Relation Age of Onset - Prostate Cancer Father [address] Quesada - Diabetes Mother - Colon Cancer Sister Social History Substance Use Topics - Smoking status: Former Smoker Quit date: 09/26/1971 - Smokeless tobacco: Never Used - Alcohol use No Past medical history, appointments, medications, allergies reviewed. Pertinent Lab/Diagnostic Studies are reviewed and discussed today Current Outpatient Prescriptions: - cloNIDine HCl (CATAPRES) 0.1 mg tablet - furosemide (LASIX) 40 mg tablet - COMPOUNDED PRESCRIPTION - predniSONE (DELTASONE) 10 mg tablet - allopurinol (ZYLOPRIM) 100 mg tablet - metoprolol succinate ER (TOPROL XL) 25 mg 24 hr tablet - COMPOUNDED PRESCRIPTION - COMPOUNDED PRESCRIPTION - COMPOUNDED PRESCRIPTION - levothyroxine (SYNTHROID) 25 mcg tablet - divalproex DR (DEPAKOTE) 500 mg EC tablet - ARIPiprazole (ABILIFY) 30 mg tablet - omeprazole (PRILOSEC) 20 mg capsule - tamsulosin ER (FLOMAX) 0.4 mg cp24 - nitroglycerin sublingual (NITROQUICK) 0.4 mg SL tablet - COMPOUNDED PRESCRIPTION - Diaper,Brief, Adult,Disposable (DEPEND REAL FIT BRIEF MEN L/XL) misc - Catheter ([facility] MALE EXTERNAL CATH) misc - COMPOUNDED PRESCRIPTION - COMPOUNDED PRESCRIPTION - Cholecalciferol, Vitamin D3, (VITAMIN D) 1,000 unit cap - MV with Tqa-Vatvcntq-Cmrvtz (CENTRUM SILVER) 0.4-300-250 mg-mcg-mcg tab - B-complex with vitamin C (ALLBEE WITH C) tablet - Aspirin 81 mg ORAL Tab Review of Systems CONSTITUTIONAL: No fevers, chills night sweats, unintended weight loss CARDIOVASCULAR: No chest pain, dyspnea, palpitations, orthopnea, PND, ankle edema. PULM: No dyspnea, unexplained cough. GI: No dysphagia/odynophagia, problematic reflux, constipation, diarrhea, changes in stool habits, hematochezia, melena. : No new urinary complaints, including dysuria, gross hematuria or pyuria. NEURO: No new balance problems, peripheral weakness/paresthesias or numbness of concern. Physical Exam BP 124/72 (BP Site: Left Arm, BP Position: Sitting, BP Cuff Size: Large Adult) Resp 12 Ht 172.7 cm (5' 8) Wt 98.9 kg (218 lb) BMI 33.15 kg/m? General appearance: In a wheel chair, looks a little weaker than before, he in no acute distress, well nourished. He does have a tremor, at resting and when moving Skin: Skin color, texture, turgor normal, no suspicious rashes or lesions Head: Normocephalic, no masses, lesions, tenderness or abnormalities Eyes: Anicteric sclera. Pupils are equally round and reactive to light. Extraocular movements are intact. Lungs: Lungs clear to auscultation. No wheezing, rhonchi, rales Heart: RRR without murmur, gallop, or rubs. ASSESSMENT/PLAN: 1. Bipolar 1 disorder (HCC) - ICD9: 296.7, ICD10: F31.9 (primary diagnosis) Updated decreased in abilify - ARIPIPRAZOLE 30 MG TABLET 2. Physical deconditioning - ICD9: 799.3, ICD10: R53.81 Along with and Lyubov, we discussed we empathized with the weakness and how it is making him feel and we reassured him we were there to help him and that he should try a little to do thinks on his own and be more active He cried when we discussed [facility]. Spent more than 40 mins with the patient 3. Essential hypertension - ICD9: 401.9, ICD10: I10 - good control - Recommended regular aerobic exercise. - Recommend home blood pressure monitoring, to bring results in on next visit - Goal of BP <130/80 4. Chronic gout without tophus, unspecified cause, unspecified site - ICD9: 274.02, ICD10: M1A.9XX0 Cont the allpurinol NIKOS CHONG MD Referring Provider: SELF [[id number]] Allergies As of Date: 03/08/2018 Noted Allergy Reaction IODINE 08/27/2005 5 - Intolerance Comments: increased heart rate. LATEX 08/27/2005 2 - Rash CIMETIDINE 08/27/2005 5 - Intolerance Comments: loose stools. Pt. States he is not allergic to 05/05/2009 CODEINE 08/27/2005 8 - GI Upset DETROL (TOLTERODINE TARTRATE) 08/27/2005 5 - Intolerance PENICILLINS 08/27/2005 5 - Intolerance DYAZIDE (TRIAMTERENE-HYDROCHLOROT*12/17/2011 5 - Intolerance Comments: leg cramps after 1 dose LIPITOR (ATORVASTATIN CALCIUM) 02/15/2015 1 - Mental Status Change Comments: depression,anxiety SULINDAC 11/07/2009 6 - Diarrhea TESSALON (BENZONATATE) 10/11/2007 5 - Intolerance Comments: dyspnea Date Reviewed: 03/08/2018 Reviewed by: Pawel Montesinos LPN - Fully Assessed Reason for Visit: Established Patient [[id number]] Cmt: TCM SNF d/c 03/02/18,weakness,depression Primary Visit Diagnosis:Bipolar 1 disorder (HCC) [F31.9] Other Visit Diagnoses:Physical deconditioning [R53.81] Essential hypertension [I10] Chronic gout without tophus, unspecified cause, unspecified site [M1A.9XX0] Order(s):ARIPiprazole (ABILIFY) 30 mg tabletTake 0.5 tablets by mouth once daily.Disp: 30 tabletRfl: 12 Prescriptions as of 03/08/2018 Sig: ARIPIPRAZOLE 30 MG TABLET Take 0.5 tablets by mouth onc* CLONIDINE HCL 0.1 MG TABLET Takes 1 tabs at bedtime and 1* FUROSEMIDE 40 MG TABLET TAKE ONE TABLET BY MOUTH TWIC* COMPOUNDED PRESCRIPTION Admit to SNF for skilled nurs* PREDNISONE 10 MG TABLET Take 60mg x 3 days, 40mg x 3 * ALLOPURINOL 100 MG TABLET Take 1 tablet by mouth 3 time* METOPROLOL SUCCINATE ER 25 MG* Take 1 tablet by mouth once d* COMPOUNDED PRESCRIPTION Special Orthopedic shoes: * COMPOUNDED PRESCRIPTION long term - PT/OT - dec* COMPOUNDED PRESCRIPTION Repair hospital bed LEVOTHYROXINE 25 MCG TABLET Take 1 tablet by mouth daily * DIVALPROEX 500 MG TABLET,JAVI* Take 1 tablet by mouth three * OMEPRAZOLE 20 MG CAPSULE,JAVI* Take 1 capsule by mouth once * TAMSULOSIN 0.4 MG CAPSULE Take 1 capsule by mouth once * NITROGLYCERIN 0.4 MG SUBLINGU* Dissolve 0.4mg tab (1tab) und* COMPOUNDED PRESCRIPTION Exercise bike- customized for* DIAPER,BRIEF,ADULT,DISPOSABLE 1 pad as needed for urinary c* CATHETER Apply 1 catheter at bedtime d* COMPOUNDED PRESCRIPTION Diabetic shoes Dx: E11.610, * COMPOUNDED PRESCRIPTION Hospital bed repair CHOLECALCIFEROL (VITAMIN D3) * Take 1,000 Units by mouth onc* OMLVENKJ-APN-AAHHL ACID 0.4 M* Take 1 tablet by mouth. B-COMPLEX WITH VITAMIN C TABL* Take 1 tablet by mouth once d* * ASPIRIN 81 MG TABLET Take 1 tablet by mouth once d* Problem List As Of Date 03/08/2018 Noted Resolved Unspecified schizophrenia, unspecified conditio*INVALID FOR*03/11/2014 DIVERTICULOSIS OF COLON W/O BLEED [K57.30] INVALID FOR* SCIATICA [M54.30] INVALID FOR*06/06/2006 JOINT PAIN-SHLDER [M25.519] INVALID FOR*05/05/2009 Essential hypertension [I10] INVALID FOR* More... Contact dermatitis and other eczema, due to uns*INVALID FOR*10/31/2013 Other abnormal blood chemistry [R79.89] 10/31/2013 ESOPHAGEAL REFLUX [K21.9] Obesity [E66.9] INVALID FOR* Dysmetabolic syndrome X [E88.81] INVALID FOR*10/31/2013 JOINT PAIN-HAND [M25.549] INVALID FOR*05/05/2009 Backache, unspecified [M54.9] INVALID FOR*10/31/2013 Allergic rhinitis, cause unspecified [J30.9] INVALID FOR*10/31/2013 Cervicalgia [M54.2] INVALID FOR*10/31/2013 BPH W URINARY OBS/LUTS [N40.1] INVALID FOR* Charcot joint INVALID FOR*05/26/2014 Macular Degeneration [H35.30] Tremor [R25.1] INVALID FOR* Bipolar 1 disorder, mixed (HCC) [F31.60] INVALID FOR* More... Right gluteus medius Bursitis [M71.9] INVALID FOR*10/31/2013 CHF (congestive heart failure) [I50.9] INVALID FOR* More... Lacunar infarction [I63.9] INVALID FOR* More... Cardiomyopathy [I42.9] INVALID FOR* Near syncope [R55] INVALID FOR*10/31/2013 Diabetic peripheral neuropathy (HCC) [E11.42] INVALID FOR*02/02/2017 Hypothyroid [E03.9] INVALID FOR* More... Charcot foot due to diabetes mellitus (HCC) [E1*INVALID FOR*01/25/2018 More... Bipolar affective disorder, mixed (HCC) [F31.60]INVALID FOR* More... BPH (benign prostatic hyperplasia) [N40.0] INVALID FOR* Family history of prostate cancer [Z80.42] INVALID FOR* Venous (peripheral) insufficiency [I87.2] INVALID FOR* Hyperlipidemia [E78.5] INVALID FOR* Benign non-nodular prostatic hyperplasia with l*INVALID FOR* More... Elevated prostate specific antigen (PSA) [R97.2*INVALID FOR* Urinary tract infection associated with cathete*INVALID FOR* Diastolic heart failure (HCC) [I50.30] INVALID FOR* Renal insufficiency [N28.9] INVALID FOR* Gastroesophageal reflux disease without esophag*INVALID FOR* More... History of colonic polyps [Z86.010] INVALID FOR* More... Prescriptions ordered this encounter Disp Refills Start End ARIPIPRAZOLE 30 MG TABLET 30 t* 12 03/08/2018 Class: Med Update Route: ORAL Sig: Take 0.5 tablets by mouth once daily. Medications Discontinued During This Encounter ARIPiprazole (ABILIFY) 30 mg tablet 30 t* 12 08/29/2017 03/08/2018 Route: ORAL Sig: Take 1 tablet by mouth once daily. Disc: Reason for discontinue is not on file. Encounter Status:Closed by NIKOS CHONG MD on 03/08/18 CNPTOUTRMARCELOCH Observed: 03/08/2018 Status: COMPLETED Source: [place] 12:00 AM [facility] REPOSITORY Patient Outreach (INTMWS) MIGUEL ANGEL SANDERS ([id number]) 1945 M Date Time Provider Department 03/08/18 MARIAM CHOI During your visit today, we recorded the following information about you: Mariam Grimes RN 03/20/2018 5:16 PM Signed PRIMARY CARE COORDINATION IN OFFICE VISIT WITH PCP Patient has been identified by name and date of . PCP Assessment/Plan: Reviewed PCP plan with patient using Teach Back Pt to see Neurology and increase self PT at home BETWEEN PT visits. PCC Plan of Care: Patient concerns: Still difficulty walking. Feels so weak. Patient goals: Tearful- wants to feel better and be able to care for himself. PCC Interventions: Schedule Neuro appt. Next Office Visit: 06/07/2018 Plan For Next Call: Next week with Neuro appt Mariam Hutchinson RN Ambulatory Underground Distribution Engineer Internal Medicine [facility] March 08, 2018 Allergies As of Date: 03/08/2018 Noted Allergy Reaction IODINE 08/27/2005 5 - Intolerance Comments: increased heart rate. LATEX 08/27/2005 2 - Rash CIMETIDINE 08/27/2005 5 - Intolerance Comments: loose stools. Pt. States he is not allergic to 05/05/2009 CODEINE 08/27/2005 8 - GI Upset DETROL (TOLTERODINE TARTRATE) 08/27/2005 5 - Intolerance PENICILLINS 08/27/2005 5 - Intolerance DYAZIDE (TRIAMTERENE-HYDROCHLOROT*12/17/2011 5 - Intolerance Comments: leg cramps after 1 dose LIPITOR (ATORVASTATIN CALCIUM) 02/15/2015 1 - Mental Status Change Comments: depression,anxiety SULINDAC 11/07/2009 6 - Diarrhea TESSALON (BENZONATATE) 10/11/2007 5 - Intolerance Comments: dyspnea Date Reviewed: 03/08/2018 Reviewed by: Pawel Montesinos LPN - Fully Assessed Reason for Visit: Underground Distribution Engineer Chronic Care [[id number]] Prescriptions as of 03/08/2018 Sig: ARIPIPRAZOLE 30 MG TABLET Take 0.5 tablets by mouth onc* CLONIDINE HCL 0.1 MG TABLET Takes 1 tabs at bedtime and 1* FUROSEMIDE 40 MG TABLET TAKE ONE TABLET BY MOUTH TWIC* COMPOUNDED PRESCRIPTION Admit to SNF for skilled nurs* PREDNISONE 10 MG TABLET Take 60mg x 3 days, 40mg x 3 * ALLOPURINOL 100 MG TABLET Take 1 tablet by mouth 3 time* METOPROLOL SUCCINATE ER 25 MG* Take 1 tablet by mouth once d* COMPOUNDED PRESCRIPTION Special Orthopedic shoes: * COMPOUNDED PRESCRIPTION long term - PT/OT - dec* COMPOUNDED PRESCRIPTION Repair hospital bed LEVOTHYROXINE 25 MCG TABLET Take 1 tablet by mouth daily * DIVALPROEX 500 MG TABLET,JAVI* Take 1 tablet by mouth three * OMEPRAZOLE 20 MG CAPSULE,JAVI* Take 1 capsule by mouth once * TAMSULOSIN 0.4 MG CAPSULE Take 1 capsule by mouth once * NITROGLYCERIN 0.4 MG SUBLINGU* Dissolve 0.4mg tab (1tab) und* COMPOUNDED PRESCRIPTION Exercise bike- customized for* DIAPER,BRIEF,ADULT,DISPOSABLE 1 pad as needed for urinary c* CATHETER Apply 1 catheter at bedtime d* COMPOUNDED PRESCRIPTION Diabetic shoes Dx: E11.610, * COMPOUNDED PRESCRIPTION Hospital bed repair CHOLECALCIFEROL (VITAMIN D3) * Take 1,000 Units by mouth onc* LPYIBLRA-JRI-GEDAH ACID 0.4 M* Take 1 tablet by mouth. B-COMPLEX WITH VITAMIN C TABL* Take 1 tablet by mouth once d* * ASPIRIN 81 MG TABLET Take 1 tablet by mouth once d* Problem List As Of Date 03/08/2018 Noted Resolved Unspecified schizophrenia, unspecified conditio*INVALID FOR*03/11/2014 DIVERTICULOSIS OF COLON W/O BLEED [K57.30] INVALID FOR* SCIATICA [M54.30] INVALID FOR*06/06/2006 JOINT PAIN-SHLDER [M25.519] INVALID FOR*05/05/2009 Essential hypertension [I10] INVALID FOR* More... Contact dermatitis and other eczema, due to uns*INVALID FOR*10/31/2013 Other abnormal blood chemistry [R79.89] 10/31/2013 ESOPHAGEAL REFLUX [K21.9] Obesity [E66.9] INVALID FOR* Dysmetabolic syndrome X [E88.81] INVALID FOR*10/31/2013 JOINT PAIN-HAND [M25.549] INVALID FOR*05/05/2009 Backache, unspecified [M54.9] INVALID FOR*10/31/2013 Allergic rhinitis, cause unspecified [J30.9] INVALID FOR*10/31/2013 Cervicalgia [M54.2] INVALID FOR*10/31/2013 BPH W URINARY OBS/LUTS [N40.1] INVALID FOR* Charcot joint INVALID FOR*05/26/2014 Macular Degeneration [H35.30] Tremor [R25.1] INVALID FOR* Bipolar 1 disorder, mixed (HCC) [F31.60] INVALID FOR* More... Right gluteus medius Bursitis [M71.9] INVALID FOR*10/31/2013 CHF (congestive heart failure) [I50.9] INVALID FOR* More... Lacunar infarction [I63.9] INVALID FOR* More... Cardiomyopathy [I42.9] INVALID FOR* Near syncope [R55] INVALID FOR*10/31/2013 Diabetic peripheral neuropathy (HCC) [E11.42] INVALID FOR*02/02/2017 Hypothyroid [E03.9] INVALID FOR* More... Charcot foot due to diabetes mellitus (HCC) [E1*INVALID FOR*01/25/2018 More... Bipolar affective disorder, mixed (HCC) [F31.60]INVALID FOR* More... BPH (benign prostatic hyperplasia) [N40.0] INVALID FOR* Family history of prostate cancer [Z80.42] INVALID FOR* Venous (peripheral) insufficiency [I87.2] INVALID FOR* Hyperlipidemia [E78.5] INVALID FOR* Benign non-nodular prostatic hyperplasia with l*INVALID FOR* More... Elevated prostate specific antigen (PSA) [R97.2*INVALID FOR* Urinary tract infection associated with cathete*INVALID FOR* Diastolic heart failure (HCC) [I50.30] INVALID FOR* Renal insufficiency [N28.9] INVALID FOR* Gastroesophageal reflux disease without esophag*INVALID FOR* More... History of colonic polyps [Z86.010] INVALID FOR* More... Encounter Status:Closed by MARIAM HUTCHINSON on 03/20/18 PROGRESS Observed: 03/02/2018 Status: COMPLETED Source: [place] 3:54 PM [facility] REPOSITORY HNO ID: [id number] Author: Mariam Hutchinson Service: (none) Author Type: Registered Nurse Type: Progress Notes Filed: 03/08/2018 3:30 PM Note Text: TRANSITION CARE MANAGEMENT (TCM) INITIAL CONTACT Provider Action/FYI: PT has seen pt at home, but he is not walking much. Initial contact with patient post discharge, spoke to Patsy. Patient identified by name and . SUMMARY: -Pt discharged from SNF- [facility] on 03/03/18. -Follow up appointment on 03/09/18. -Medication review done will bring info. -Admitted for: Weakness CONCERNS: Pt continues to be weak. Has been asking to push him around in a WC- not cooperating with walking. PT at SNF was excellent, but pt's legs just continue to be weak. Difficulty w/walker. NEW MEDICATIONS: will review at appt MEDS HELD/DISCONTINUED: None BRIEF HOSPITAL COURSE: Pt was getting weaker and weaker at home and finally agreed to go to SNF for rehab. Went to [facility] for 2-3 times daily PT. GUILLERMO Observed: 03/02/2018 Status: COMPLETED Source: [place] 12:00 AM [facility] REPOSITORY Patient Outreach (INTMWS) MIGUEL ANGEL SANDERS ([id number]) 1945 M Date Time Provider Department 03/02/18 MARIAM CHOI During your visit today, we recorded the following information about you: Mariam Grimes RN 03/08/2018 3:30 PM Signed TRANSITION CARE MANAGEMENT (TCM) INITIAL CONTACT Provider Action/FYI: PT has seen pt at home, but he is not walking much. Initial contact with patient post discharge, spoke to Patsy. Patient identified by name and . SUMMARY: -Pt discharged from SNF- [facility] on 03/03/18. -Follow up appointment on 03/09/18. -Medication review done will bring info. -Admitted for: Weakness CONCERNS: Pt continues to be weak. Has been asking to push him around in a WC- not cooperating with walking. PT at [facility] was excellent, but pt's legs just continue to be weak. Difficulty w/walker. NEW MEDICATIONS: will review at appt MEDS HELD/DISCONTINUED: None BRIEF HOSPITAL COURSE: Pt was getting weaker and weaker at home and finally agreed to go to SNF for rehab. Went to [facility] for 2-3 times daily PT. Allergies As of Date: 03/02/2018 Noted Allergy Reaction IODINE 08/27/2005 5 - Intolerance Comments: increased heart rate. LATEX 08/27/2005 2 - Rash CIMETIDINE 08/27/2005 5 - Intolerance Comments: loose stools. Pt. States he is not allergic to 05/05/2009 CODEINE 08/27/2005 8 - GI Upset DETROL (TOLTERODINE TARTRATE) 08/27/2005 5 - Intolerance PENICILLINS 08/27/2005 5 - Intolerance DYAZIDE (TRIAMTERENE-HYDROCHLOROT*12/17/2011 5 - Intolerance Comments: leg cramps after 1 dose LIPITOR (ATORVASTATIN CALCIUM) 02/15/2015 1 - Mental Status Change Comments: depression,anxiety SULINDAC 11/07/2009 6 - Diarrhea TESSALON (BENZONATATE) 10/11/2007 5 - Intolerance Comments: dyspnea Date Reviewed: 12/07/2017 Reviewed by: Pawel Montesinos LPN - Fully Assessed Reason for Visit: Underground Distribution Engineer Hospital Follow Up [3610] Prescriptions as of 03/02/2018 Sig: CLONIDINE HCL 0.1 MG TABLET Takes 1 tabs at bedtime and 1* FUROSEMIDE 40 MG TABLET TAKE ONE TABLET BY MOUTH TWIC* COMPOUNDED PRESCRIPTION Admit to SNF for skilled nurs* PREDNISONE 10 MG TABLET Take 60mg x 3 days, 40mg x 3 * ALLOPURINOL 100 MG TABLET Take 1 tablet by mouth 3 time* METOPROLOL SUCCINATE ER 25 MG* Take 1 tablet by mouth once d* COMPOUNDED PRESCRIPTION Special Orthopedic shoes: * COMPOUNDED PRESCRIPTION long term - PT/OT - dec* COMPOUNDED PRESCRIPTION Repair hospital bed LEVOTHYROXINE 25 MCG TABLET Take 1 tablet by mouth daily * DIVALPROEX 500 MG TABLET,JAVI* Take 1 tablet by mouth three * ARIPIPRAZOLE 30 MG TABLET Take 1 tablet by mouth once d* OMEPRAZOLE 20 MG CAPSULE,JAVI* Take 1 capsule by mouth once * TAMSULOSIN 0.4 MG CAPSULE Take 1 capsule by mouth once * NITROGLYCERIN 0.4 MG SUBLINGU* Dissolve 0.4mg tab (1tab) und* COMPOUNDED PRESCRIPTION Exercise bike- customized for* DIAPER,BRIEF,ADULT,DISPOSABLE 1 pad as needed for urinary c* CATHETER Apply 1 catheter at bedtime d* COMPOUNDED PRESCRIPTION Diabetic shoes Dx: E11.610, * COMPOUNDED PRESCRIPTION Hospital bed repair CHOLECALCIFEROL (VITAMIN D3) * Take 1,000 Units by mouth onc* BHYWZHUC-XGY-UEGNT ACID 0.4 M* Take 1 tablet by mouth. B-COMPLEX WITH VITAMIN C TABL* Take 1 tablet by mouth once d* * ASPIRIN 81 MG TABLET Take 1 tablet by mouth once d* Problem List As Of Date 03/02/2018 Noted Resolved Unspecified schizophrenia, unspecified conditio*INVALID FOR*03/11/2014 DIVERTICULOSIS OF COLON W/O BLEED [K57.30] INVALID FOR* SCIATICA [M54.30] INVALID FOR*06/06/2006 JOINT PAIN-SHLDER [M25.519] INVALID FOR*05/05/2009 Essential hypertension [I10] INVALID FOR* More... Contact dermatitis and other eczema, due to uns*INVALID FOR*10/31/2013 Other abnormal blood chemistry [R79.89] 10/31/2013 ESOPHAGEAL REFLUX [K21.9] Obesity [E66.9] INVALID FOR* Dysmetabolic syndrome X [E88.81] INVALID FOR*10/31/2013 JOINT PAIN-HAND [M25.549] INVALID FOR*05/05/2009 Backache, unspecified [M54.9] INVALID FOR*10/31/2013 Allergic rhinitis, cause unspecified [J30.9] INVALID FOR*10/31/2013 Cervicalgia [M54.2] INVALID FOR*10/31/2013 BPH W URINARY OBS/LUTS [N40.1] INVALID FOR* Charcot joint INVALID FOR*05/26/2014 Macular Degeneration [H35.30] Tremor [R25.1] INVALID FOR* Bipolar 1 disorder, mixed (HCC) [F31.60] INVALID FOR* More... Right gluteus medius Bursitis [M71.9] INVALID FOR*10/31/2013 CHF (congestive heart failure) [I50.9] INVALID FOR* More... Lacunar infarction [I63.9] INVALID FOR* More... Cardiomyopathy [I42.9] INVALID FOR* Near syncope [R55] INVALID FOR*10/31/2013 Diabetic peripheral neuropathy (HCC) [E11.42] INVALID FOR*02/02/2017 Hypothyroid [E03.9] INVALID FOR* More... Charcot foot due to diabetes mellitus (HCC) [E1*INVALID FOR*01/25/2018 More... Bipolar affective disorder, mixed (HCC) [F31.60]INVALID FOR* More... BPH (benign prostatic hyperplasia) [N40.0] INVALID FOR* Family history of prostate cancer [Z80.42] INVALID FOR* Venous (peripheral) insufficiency [I87.2] INVALID FOR* Hyperlipidemia [E78.5] INVALID FOR* Benign non-nodular prostatic hyperplasia with l*INVALID FOR* More... Elevated prostate specific antigen (PSA) [R97.2*INVALID FOR* Urinary tract infection associated with cathete*INVALID FOR* Diastolic heart failure (HCC) [I50.30] INVALID FOR* Renal insufficiency [N28.9] INVALID FOR* Gastroesophageal reflux disease without esophag*INVALID FOR* More... History of colonic polyps [Z86.010] INVALID FOR* More... Encounter Status:Closed by MARIAM HUTCHINSON on 03/08/18 PROGRESS Observed: 02/13/2018 Status: COMPLETED Source: [place] 5:38 PM [facility] REPOSITORY HNO ID: [id number] Author: Nikos Chong Service: (none) Author Type: Physician Type: Progress Notes Filed: 02/15/2018 9:03 AM Note Text: Lyubov, His h and p should be in the H/P note section, Please review and let me know if I need to add anything HISTORY PHYSICAL Observed: 02/13/2018 Status: COMPLETED Source: [place] 5:24 PM [facility] REPOSITORY HNO ID: [id number] Author: Nikos Chong Service: (none) Author Type: Physician Type: HANDP Filed: 02/15/2018 9:03 AM Note Text: HPI ? Here with his Patsy, patient has not been walking much for the past 2 years or more. He used to walk with walker prior to that. For past 2 years he slowly stopped walking the reason is not clear , we think it is his charcots disease, that contributed the most. He was told he had Diabetes Mellitus at that time but after loosing weight he his DIABETES MELLITUS resovled, before loosing weight his feet were very painful and he could move it much, he did loose 70 pounds with tops and prevented from becoming diabetic. His muslces now are atrophied and he cannot bear his own weight. ? He complains today that he is tired all the time. That his muscles are weak he cannot get around from all the atrophy. He has a long standing history of depression, and bipolar he was taking depakote and abilify. he is on 4 pills of depakote, this was started by Dr Preciado he will be going back to see him again although he is almost retired, because he was the one who took care of him inpatient when we had severe depression that needed inpatient treatment, and is the one who has him on high doses of medication, which I think may be causing some of his sleepiness. unable to care for him alone at home, as he is not able to toilet , groom and ambulate on his own She is reminded of the time he was inpatient due to severe depression He is also having body aches all over, we had done a uric acid levels on him and he did have very high levels, so he is on prednisone and we plan to increase his allopurinol ? His other problems are hypothyroidism for his he is being treated well, gerd and he takes meprolol for bp control ?also needs tamsulosin for BPH No problem-specific Assessment AND Plan notes found for this encounter. ? ? PAST MEDICAL HISTORY PAST MEDICAL HISTORY Diagnosis Date - BPH (benign prostatic hyperplasia) ? ? Seeing Dr. Quesada, unsure of diagnosis - Diverticulosis of colon (without mention of hemorrhage) ? ? Diverticulosis - Dysmetabolic syndrome X 09/29/2006 - Esophageal reflux ? - Hypothyroidism ? - Lower extremity edema ? - Macular degeneration ? - Obesity, unspecified 09/29/2006 - Other abnormal blood chemistry ? - Stable angina (HCC) ? ? Seeing Dr. Lang - Unspecified essential hypertension ? - Unspecified schizophrenia, unspecified condition ? ? Seeing Dr. Preciado ? PAST SURGICAL HISTORY PAST SURGICAL HISTORY Procedure Laterality Date - COLONOSCOP W/ OR W/O BRSH SPEC ? 08/02/2003 ? Colonoscopy - COLONOSCOP W/ OR W/O BRSH SPEC ? 08/19/08 - COLONOSCOP W/ OR W/O BRSH SPEC ? 06/04/2013 ? Colonoscopy - PAST SURGICAL HISTORY OF ? ? ? throat polyps - REMOVAL OF TONSILS,<12 Y/O ? FAMILY HISTORY FAMILY HISTORY Problem Relation Age of Onset - Prostate Cancer Father 59 ? ? Seeing Dr. Quesada - Diabetes Mother ? - Colon Cancer Sister ? ? ? SOCIAL HISTORY Social History Substance Use Topics - Smoking status: Former Smoker ? ? Quit date: 09/26/1971 - Smokeless tobacco: Never Used - Alcohol use No ? ? Past medical history, appointments, medications, allergies reviewed. Pertinent Lab/Diagnostic Studies are reviewed and discussed today ? CURRENT MEDICATIONS ? Current Outpatient Prescriptions: - metoprolol succinate ER (TOPROL XL) 25 mg 24 hr tablet - COMPOUNDED PRESCRIPTION - COMPOUNDED PRESCRIPTION - COMPOUNDED PRESCRIPTION - levothyroxine (SYNTHROID) 25 mcg tablet - allopurinol (ZYLOPRIM) 100 mg tablet - divalproex DR (DEPAKOTE) 500 mg EC tablet - ARIPiprazole (ABILIFY) 30 mg tablet - omeprazole (PRILOSEC) 20 mg capsule - tamsulosin ER (FLOMAX) 0.4 mg cp24 - cloNIDine HCl (CATAPRES) 0.1 mg tablet - nitroglycerin sublingual (NITROQUICK) 0.4 mg SL tablet - COMPOUNDED PRESCRIPTION - Diaper,Brief, Adult,Disposable (DEPEND REAL FIT BRIEF MEN L/XL) misc - Catheter ([facility] MALE EXTERNAL CATH) misc - furosemide (LASIX) 40 mg tablet - COMPOUNDED PRESCRIPTION - COMPOUNDED PRESCRIPTION - Cholecalciferol, Vitamin D3, (VITAMIN D) 1,000 unit cap - MV with Wbq-Txbwpgub-Yitago (CENTRUM SILVER) 0.4-300-250 mg-mcg-mcg tab - B-complex with vitamin C (ALLBEE WITH C) tablet - Aspirin 81 mg ORAL Tab ? ? Review of Systems CONSTITUTIONAL: No fevers, chills night sweats, unintended weight loss CARDIOVASCULAR: No chest pain, dyspnea, palpitations, orthopnea, PND, ankle edema. PULM: No dyspnea, unexplained cough. GI: No dysphagia/odynophagia, problematic reflux, constipation, diarrhea, changes in stool habits, hematochezia, melena. : No new urinary complaints, including dysuria, gross hematuria or pyuria. NEURO: No new balance problems, peripheral weakness/paresthesias or numbness of concern. ? Physical Exam BP 122/62 (BP Site: Left Arm, BP Position: Sitting, BP Cuff Size: Large Adult) Pulse 79 Resp 12 Ht 172.7 cm (5' 8) Wt 105.7 kg (233 lb) SpO2 94% BMI 35.43 kg/m? General appearance: In a wheel chair, sitting with out distress, well nourished. Skin: Skin color, texture, turgor normal, no suspicious rashes or lesions Head: Normocephalic, no masses, lesions, tenderness or abnormalities Eyes: Anicteric sclera. Pupils are equally round and reactive to light. Extraocular movements are intact. Lungs: Lungs clear to auscultation. No wheezing, rhonchi, rales Heart: RRR without murmur, gallop, or rubs. Extremities: charcot deformity of foot. ASSESSMENT/PLAN: 1. Charcot foot due to diabetes mellitus (HCC) - ICD9: 250.60, 713.5, ICD10: E11.610 (primary diagnosis) Diabetes Mellitus resolved after weight loss but his charcots still persists. ? 2. Essential hypertension - ICD9: 401.9, ICD10: I10 - good control - Recommended regular aerobic exercise. - Recommend home blood pressure monitoring, to bring results in on next visit - Goal of BP <130/80 ? 3. Bipolar 1 disorder (HCC) - ICD9: 296.7, ICD10: F31.9 Decrease the valproate to 3 and further to 2 tabs if needed - CONSULT TO PSYCHIATRY ? 4. Depression, unspecified depression type - ICD9: 311, ICD10: F32.9 ?he would benefit from seeing his psychiatrist he has an appointment coming up in the near future. - CONSULT TO PSYCHIATRY ? 5. Vitamin B12 deficiency - ICD9: 266.2, ICD10: E53.8 ? - VITAMIN B12 BLOOD ? 6. Gout, unspecified cause, unspecified chronicity, unspecified site - ICD9: 274.9, ICD10: M10.9 Getting treated with prednisone and plan it to increase The allopurinol - URIC ACID BLOOD ? 7. No energy - ICD9: 780.79, ICD10: R53.83 ?and he has pain all over his body this is like from gout. - TSH BLD ? NIKOS CHONG MD ? PROGRESS Observed: 02/13/2018 Status: COMPLETED Source: [place] 3:39 PM [facility] REPOSITORY HNO ID: [id number] Author: Nikos Chong Service: (none) Author Type: Physician Type: Progress Notes Filed: 02/15/2018 9:03 AM Note Text: Tu Mcarthur, Would the note from last visit work? It has most of the information that is needed, I can addend it and add more info if you would need me to. We dont usually dictate H and Ps. Sorry I am behind could not sit and talk to you Regards, Nikos Chong MD PROGRESS Observed: 02/13/2018 Status: COMPLETED Source: [place] 2:29 PM [facility] REPOSITORY HNO ID: [id number] Author: Mariam Grimes [facility] Service: (none) Author Type: Registered Nurse Type: Progress Notes Filed: 02/15/2018 9:03 AM Note Text: PRIMARY CARE COORDINATION FOLLOW-UP NOTE Provider Action/FYI: Checked with [facility] and he can go there today or tomorrow. NEED HANDP and med list faxed to to [facility] prior to them going. Patient identified by name and date of . YES Spoke to patient and spouse, Patsy Summary: calling because continues with weakness and can barely arise from chair. After much discussion, they feel he would benefit from stay at Rehab. Although he seems to feel a little better' on prednisone, he is too difficult for her to care for at this point. Concerns: unable to care for him alone at home. Worsening weakness. Needs Inpt rehab. Has been to [facility] previously and would like to go there. Healthcare Financial Analyst plan for next outreach: Will follow up upon D/C. Signature Mariam Hutchinson RN Ambulatory Underground Distribution Engineer Internal [facility] February 13, 2018 GUILLERMO Observed: 02/13/2018 Status: COMPLETED Source: [place] 12:00 AM [facility] REPOSITORY Patient Outreach (INTMWS) MIGUEL ANGEL SANDERS ([id number]) 1945 M Date Time Provider Department 02/13/18 MARIAM CHOI During your visit today, we recorded the following information about you: Mariam Grimes RN 02/15/2018 9:03 AM Signed PRIMARY CARE COORDINATION FOLLOW-UP NOTE Provider Action/FYI: Checked with [facility] and he can go there today or tomorrow. NEED HANDP and med list faxed to to [facility] prior to them going. Patient identified by name and date of . YES Spoke to patient and spouse, Patsy Summary: calling because continues with weakness and can barely arise from chair. After much discussion, they feel he would benefit from stay at Rehab. Although he seems to feel a little better' on prednisone, he is too difficult for her to care for at this point. Concerns: unable to care for him alone at home. Worsening weakness. Needs Inpt rehab. Has been to [facility] previously and would like to go there. Healthcare Financial Analyst plan for next outreach: Will follow up upon D/C. Signature Mariam Hutchinson RN Ambulatory Underground Distribution Engineer Internal [facility] February 13, 2018 NIKOS CHONG MD 02/15/2018 9:03 AM Signed Hi Lyubov, Would the note from last visit work? It has most of the information that is needed, I can addend it and add more info if you would need me to. We dont usually dictate H and Ps. Sorry I am behind could not sit and talk to you Regards, Nikos CHONG MD 02/15/2018 9:03 AM Signed HPI ? Here with his Patsy, patient has not been walking much for the past 2 years or more. He used to walk with walker prior to that. For past 2 years he slowly stopped walking the reason is not clear , we think it is his charcots disease, that contributed the most. He was told he had Diabetes Mellitus at that time but after loosing weight he his DIABETES MELLITUS resovled, before loosing weight his feet were very painful and he could move it much, he did loose 70 pounds with tops and prevented from becoming diabetic. His muslces now are atrophied and he cannot bear his own weight. ? He complains today that he is tired all the time. That his muscles are weak he cannot get around from all the atrophy. He has a long standing history of depression, and bipolar he was taking depakote and abilify. he is on 4 pills of depakote, this was started by Dr Preciado he will be going back to see him again although he is almost retired, because he was the one who took care of him inpatient when we had severe depression that needed inpatient treatment, and is the one who has him on high doses of medication, which I think may be causing some of his sleepiness. unable to care for him alone at home, as he is not able to toilet , groom and ambulate on his own She is reminded of the time he was inpatient due to severe depression He is also having body aches all over, we had done a uric acid levels on him and he did have very high levels, so he is on prednisone and we plan to increase his allopurinol ? His other problems are hypothyroidism for his he is being treated well, gerd and he takes meprolol for bp control ?also needs tamsulosin for BPH No problem-specific Assessment AND Plan notes found for this encounter. ? ? PAST MEDICAL HISTORY PAST MEDICAL HISTORY Diagnosis Date - BPH (benign prostatic hyperplasia) ? ? Seeing Dr. Quesada, unsure of diagnosis - Diverticulosis of colon (without mention of hemorrhage) ? ? Diverticulosis - Dysmetabolic syndrome X 09/29/2006 - Esophageal reflux ? - Hypothyroidism ? - Lower extremity edema ? - Macular degeneration ? - Obesity, unspecified 09/29/2006 - Other abnormal blood chemistry ? - Stable angina (HCC) ? ? Seeing Dr. Lang - Unspecified essential hypertension ? - Unspecified schizophrenia, unspecified condition ? ? Seeing Dr. Preciado ? PAST SURGICAL HISTORY PAST SURGICAL HISTORY Procedure Laterality Date - COLONOSCOP W/ OR W/O BRSH SPEC ? 08/02/2003 ? Colonoscopy - COLONOSCOP W/ OR W/O BRSH SPEC ? 08/19/08 - COLONOSCOP W/ OR W/O BRSH SPEC ? 06/04/2013 ? Colonoscopy - PAST SURGICAL HISTORY OF ? ? ? throat polyps - REMOVAL OF TONSILS,<13 Y/O ? FAMILY HISTORY FAMILY HISTORY Problem Relation Age of Onset - Prostate Cancer Father 59 ? ? Seeing Dr. Quesada - Diabetes Mother ? - Colon Cancer Sister ? ? ? SOCIAL HISTORY Social History Substance Use Topics - Smoking status: Former Smoker ? ? Quit date: 09/26/1971 - Smokeless tobacco: Never Used - Alcohol use No ? ? Past medical history, appointments, medications, allergies reviewed. Pertinent Lab/Diagnostic Studies are reviewed and discussed today ? CURRENT MEDICATIONS ? Current Outpatient Prescriptions: - metoprolol succinate ER (TOPROL XL) 25 mg 24 hr tablet - COMPOUNDED PRESCRIPTION - COMPOUNDED PRESCRIPTION - COMPOUNDED PRESCRIPTION - levothyroxine (SYNTHROID) 25 mcg tablet - allopurinol (ZYLOPRIM) 100 mg tablet - divalproex DR (DEPAKOTE) 500 mg EC tablet - ARIPiprazole (ABILIFY) 30 mg tablet - omeprazole (PRILOSEC) 20 mg capsule - tamsulosin ER (FLOMAX) 0.4 mg cp24 - cloNIDine HCl (CATAPRES) 0.1 mg tablet - nitroglycerin sublingual (NITROQUICK) 0.4 mg SL tablet - COMPOUNDED PRESCRIPTION - Diaper,Brief, Adult,Disposable (DEPEND REAL FIT BRIEF MEN L/XL) misc - Catheter ([facility] MALE EXTERNAL CATH) misc - furosemide (LASIX) 40 mg tablet - COMPOUNDED PRESCRIPTION - COMPOUNDED PRESCRIPTION - Cholecalciferol, Vitamin D3, (VITAMIN D) 1,000 unit cap - MV with Uat-Miqkksgv-Oovust (CENTRUM SILVER) 0.4-300-250 mg-mcg-mcg tab - B-complex with vitamin C (ALLBEE WITH C) tablet - Aspirin 81 mg ORAL Tab ? ? Review of Systems CONSTITUTIONAL: No fevers, chills night sweats, unintended weight loss CARDIOVASCULAR: No chest pain, dyspnea, palpitations, orthopnea, PND, ankle edema. PULM: No dyspnea, unexplained cough. GI: No dysphagia/odynophagia, problematic reflux, constipation, diarrhea, changes in stool habits, hematochezia, melena. : No new urinary complaints, including dysuria, gross hematuria or pyuria. NEURO: No new balance problems, peripheral weakness/paresthesias or numbness of concern. ? Physical Exam BP 122/62 (BP Site: Left Arm, BP Position: Sitting, BP Cuff Size: Large Adult) Pulse 79 Resp 12 Ht 172.7 cm (5' 8) Wt 105.7 kg (233 lb) SpO2 94% BMI 35.43 kg/m? General appearance: In a wheel chair, sitting with out distress, well nourished. Skin: Skin color, texture, turgor normal, no suspicious rashes or lesions Head: Normocephalic, no masses, lesions, tenderness or abnormalities Eyes: Anicteric sclera. Pupils are equally round and reactive to light. Extraocular movements are intact. Lungs: Lungs clear to auscultation. No wheezing, rhonchi, rales Heart: RRR without murmur, gallop, or rubs. Extremities: charcot deformity of foot. ASSESSMENT/PLAN: 1. Charcot foot due to diabetes mellitus (HCC) - ICD9: 250.60, 713.5, ICD10: E11.610 (primary diagnosis) Diabetes Mellitus resolved after weight loss but his charcots still persists. ? 2. Essential hypertension - ICD9: 401.9, ICD10: I10 - good control - Recommended regular aerobic exercise. - Recommend home blood pressure monitoring, to bring results in on next visit - Goal of BP <130/80 ? 3. Bipolar 1 disorder (HCC) - ICD9: 296.7, ICD10: F31.9 Decrease the valproate to 3 and further to 2 tabs if needed - CONSULT TO PSYCHIATRY ? 4. Depression, unspecified depression type - ICD9: 311, ICD10: F32.9 ?he would benefit from seeing his psychiatrist he has an appointment coming up in the near future. - CONSULT TO PSYCHIATRY ? 5. Vitamin B12 deficiency - ICD9: 266.2, ICD10: E53.8 ? - VITAMIN B12 BLOOD ? 6. Gout, unspecified cause, unspecified chronicity, unspecified site - ICD9: 274.9, ICD10: M10.9 Getting treated with prednisone and plan it to increase The allopurinol - URIC ACID BLOOD ? 7. No energy - ICD9: 780.79, ICD10: R53.83 ?and he has pain all over his body this is like from gout. - TSH BLD ? NIKOS CHONG MD ? NIKOS CHONG MD 02/15/2018 9:03 AM Signed Lyubov, His h and p should be in the H/P note section, Please review and let me know if I need to add anything Allergies As of Date: 02/13/2018 Noted Allergy Reaction IODINE 08/27/2005 5 - Intolerance Comments: increased heart rate. LATEX 08/27/2005 2 - Rash CIMETIDINE 08/27/2005 5 - Intolerance Comments: loose stools. Pt. States he is not allergic to 05/05/2009 CODEINE 08/27/2005 8 - GI Upset DETROL (TOLTERODINE TARTRATE) 08/27/2005 5 - Intolerance PENICILLINS 08/27/2005 5 - Intolerance DYAZIDE (TRIAMTERENE-HYDROCHLOROT*12/17/2011 5 - Intolerance Comments: leg cramps after 1 dose LIPITOR (ATORVASTATIN CALCIUM) 02/15/2015 1 - Mental Status Change Comments: depression,anxiety SULINDAC 11/07/2009 6 - Diarrhea TESSALON (BENZONATATE) 10/11/2007 5 - Intolerance Comments: dyspnea Date Reviewed: 12/07/2017 Reviewed by: Pawel Montesinos LPN - Fully Assessed Reason for Visit: Underground Distribution Engineer Chronic Care [[id number]] Order(s):COMPOUNDED PRESCRIPTIONAdmit to SNF for residential, PT, OT. Dx: Charcot's, generalized weakness, severe depression, cardiomyopathyDisp: 1 EachRfl: 0 Prescriptions as of 02/13/2018 Sig: COMPOUNDED PRESCRIPTION Admit to SNF for skilled nurs* PREDNISONE 10 MG TABLET Take 60mg x 3 days, 40mg x 3 * ALLOPURINOL 100 MG TABLET Take 1 tablet by mouth 3 time* METOPROLOL SUCCINATE ER 25 MG* Take 1 tablet by mouth once d* COMPOUNDED PRESCRIPTION Special Orthopedic shoes: * COMPOUNDED PRESCRIPTION long term - PT/OT - dec* COMPOUNDED PRESCRIPTION Repair hospital bed LEVOTHYROXINE 25 MCG TABLET Take 1 tablet by mouth daily * DIVALPROEX 500 MG TABLET,JAVI* Take 1 tablet by mouth three * ARIPIPRAZOLE 30 MG TABLET Take 1 tablet by mouth once d* OMEPRAZOLE 20 MG CAPSULE,JAVI* Take 1 capsule by mouth once * TAMSULOSIN 0.4 MG CAPSULE Take 1 capsule by mouth once * CLONIDINE HCL 0.1 MG TABLET Takes 1 tabs at bedtime and 1* NITROGLYCERIN 0.4 MG SUBLINGU* Dissolve 0.4mg tab (1tab) und* COMPOUNDED PRESCRIPTION Exercise bike- customized for* DIAPER,BRIEF,ADULT,DISPOSABLE 1 pad as needed for urinary c* CATHETER Apply 1 catheter at bedtime d* FUROSEMIDE 40 MG TABLET Take 1 tablet by mouth twice * COMPOUNDED PRESCRIPTION Diabetic shoes Dx: E11.610, * COMPOUNDED PRESCRIPTION Hospital bed repair CHOLECALCIFEROL (VITAMIN D3) * Take 1,000 Units by mouth onc* [id number]-[id number]-PSHFB ACID 0.4 M* Take 1 tablet by mouth. B-COMPLEX WITH VITAMIN C TABL* Take 1 tablet by mouth once d* * ASPIRIN 81 MG TABLET Take 1 tablet by mouth once d* Problem List As Of Date 02/13/2018 Noted Resolved Unspecified schizophrenia, unspecified conditio*INVALID FOR*03/11/2014 DIVERTICULOSIS OF COLON W/O BLEED [K57.30] INVALID FOR* SCIATICA [M54.30] INVALID FOR*06/06/2006 JOINT PAIN-SHLDER [M25.519] INVALID FOR*05/05/2009 Essential hypertension [I10] INVALID FOR* More... Contact dermatitis and other eczema, due to uns*INVALID FOR*10/31/2013 Other abnormal blood chemistry [R79.89] 10/31/2013 ESOPHAGEAL REFLUX [K21.9] Obesity [E66.9] INVALID FOR* Dysmetabolic syndrome X [E88.81] INVALID FOR*10/31/2013 JOINT PAIN-HAND [M25.549] INVALID FOR*05/05/2009 Backache, unspecified [M54.9] INVALID FOR*10/31/2013 Allergic rhinitis, cause unspecified [J30.9] INVALID FOR*10/31/2013 Cervicalgia [M54.2] INVALID FOR*10/31/2013 BPH W URINARY OBS/LUTS [N40.1] INVALID FOR* Charcot joint INVALID FOR*05/26/2014 Macular Degeneration [H35.30] Tremor [R25.1] INVALID FOR* Bipolar 1 disorder, mixed (HCC) [F31.60] INVALID FOR* More... Right gluteus medius Bursitis [M71.9] INVALID FOR*10/31/2013 CHF (congestive heart failure) [I50.9] INVALID FOR* More... Lacunar infarction [I63.9] INVALID FOR* More... Cardiomyopathy [I42.9] INVALID FOR* Near syncope [R55] INVALID FOR*10/31/2013 Diabetic peripheral neuropathy (HCC) [E11.42] INVALID FOR*02/02/2017 Hypothyroid [E03.9] INVALID FOR* More... Charcot foot due to diabetes mellitus (HCC) [E1*INVALID FOR*01/25/2018 More... Bipolar affective disorder, mixed (HCC) [F31.60]INVALID FOR* More... BPH (benign prostatic hyperplasia) [N40.0] INVALID FOR* Family history of prostate cancer [Z80.42] INVALID FOR* Venous (peripheral) insufficiency [I87.2] INVALID FOR* Hyperlipidemia [E78.5] INVALID FOR* Benign non-nodular prostatic hyperplasia with l*INVALID FOR* More... Elevated prostate specific antigen (PSA) [R97.2*INVALID FOR* Urinary tract infection associated with cathete*INVALID FOR* Diastolic heart failure (HCC) [I50.30] INVALID FOR* Renal insufficiency [N28.9] INVALID FOR* Gastroesophageal reflux disease without esophag*INVALID FOR* More... History of colonic polyps [Z86.010] INVALID FOR* More... Prescriptions ordered this encounter Disp Refills Start End COMPOUNDED PRESCRIPTION 1 Ea* 0 02/14/2018 Class: Print RX Sig: Admit to SNF for residential, PT, OT. Dx: Charcot's, generalized weakness, severe depression, cardiomyopathy Follow-up and Disposition History Recorded Encounter Status:Closed by MARIAM HUTCHINSON on 02/15/18 PROGRESS Observed: 02/09/2018 Status: COMPLETED Source: [place] 1:44 PM [facility] REPOSITORY HNO ID: [id number] Author: Mariam Hutchinson Service: (none) Author Type: Registered Nurse Type: Progress Notes Filed: 02/09/2018 1:54 PM Note Text: Pt and notified of results and medication. He will call in 2wks with report. PROGRESS Observed: 02/09/2018 Status: COMPLETED Source: [place] 12:53 PM [facility] REPOSITORY HNO ID: [id number] Author: Nikos Chong Service: (none) Author Type: Physician Type: Progress Notes Filed: 02/09/2018 1:54 PM Note Text: He has gout related inflammation it seems cannot give indomethacin as his kidney may get damaged Try to control sugars during that time. And after he is done with pred And has no symptoms he will need to increase his allopurinol To 100 3 times a day Patient's request for medication is as follows: Signed Prescriptions Disp Refills predniSONE (DELTASONE) 10 mg tablet 39 tablet 0 Sig: Take 60mg x 3 days, 40mg x 3 days, 20mg x 3 days, 10mg x 3 days. Take with food. Prescription(s) as above. Please process accordingly. NIKOS CHONG MD PROGRESS Observed: 02/09/2018 Status: COMPLETED Source: [place] 11:05 AM [facility] REPOSITORY HNO ID: [id number] Author: Pawel Montesinos LPN Service: (none) Author Type: (none) Type: Progress Notes Filed: 02/09/2018 1:54 PM Note Text: [facility] labs printed and abnormal uric acid levels- 13.0 High. Patient complained to Lyubov Hutchinson RN about having pain all over. Please review labs that were placed on desk. PROGRESS Observed: 02/08/2018 Status: COMPLETED Source: [place] 2:16 PM [facility] REPOSITORY HNO ID: [id number] Author: Mariam Hutchinson Service: (none) Author Type: Registered Nurse Type: Progress Notes Filed: 02/09/2018 1:54 PM Note Text: PRIMARY CARE COORDINATION IN OFFICE VISIT WITH PCP Patient has been identified by name and date of . PCP Assessment/Plan: Reviewed PCP plan with patient using Teach Back Pt getting labs done today VERY depressed- seeing psychiatrist in [place] next wk. PCC Plan of Care: Patient concerns: Feels tired and depressed and achy. Will call with lab results tomorrow. Patient goals: To see psych PCC Interventions: Call pt with results tomorrow. Much reassurance and support. Next Office Visit: 06/07/2018 Plan For Next Call: tomorrow Mariam Hutchinson senior science consultant Underground Distribution Engineer Internal Medicine [facility] February 08, 2018 VITAMIN B12 Collected: 02/08/2018 Status: F Source: [place] 2:10 PM [facility] [place] REPOSITORY TYPE CODE TESTS RESULT OUT OF REFERENCE UNITS RANGE LAB B12 232-1245 pg/mL Test Vitamin B12 sent to [facility]. Result Comment: Account Credited CBC AND DIFFERENTIAL Collected: 02/08/2018 Status: F Source: [place] 2:10 PM [facility] REPOSITORY TYPE CODE TESTS RESULT OUT OF REFERENCE UNITS RANGE LAB WBC 3.70-11.00 k/uL Test WBC sent to [facility]. Result Comment: Account Credited LAB RBC 4.20-6.00 m/uL Test sent RBC to [facility]. Result Comment: Account Credited LAB HGB 13.0-17.0 g/dL Hemoglobin Test sent to [facility]. Result Comment: Account Credited LAB HCT 39.0-51.0 % Hematocrit Test sent to [facility]. Result Comment: Account Credited LAB MCV 80.0-100.0 fL Test sent MCV to [facility]. Result Comment: Account Credited LAB MCH 26.0-34.0 pG Test sent MCH to [facility]. Result Comment: Account Credited LAB MCHC 30.5-36.0 g/dL Test MCHC sent to [facility]. Result Comment: Account Credited LAB RDWCV 11.5-15.0 % Test RDW-CV sent to [facility]. Result Comment: Account Credited LAB PLTCT 150-400 k/uL Test Platelet Count sent to [facility]. Result Comment: Account Credited LAB MPV 9.0-12.7 fL Test sent MPV to [facility]. Result Comment: Account Credited LAB JAIME Recheck Test sent to [facility]. Result Comment: Account Credited LAB ANEUT % Test sent to Neut% [facility]. Result Comment: Account Credited LAB AANEUT 1.45-7.50 k/uL Test Abs sent to [facility]. Result Comment: Account Credited LAB [facility]YMP [facility] Result Comment: Account Credited LAB AALYMP 1.00-4.00 k/uL Test Abs Lymph sent to [facility]. Result Comment: Account Credited LAB AMONO % Test sent to [place]% [facility]. Result Comment: Account Credited LAB AAMONO <0.87 k/uL Test sent Abs [place] to [facility]. Result Comment: Account Credited LAB AEOS % Test sent to Eosin% [facility]. Result Comment: Account Credited LAB AAEOS <0.46 k/uL Test sent Abs Eosin to [facility]. Result Comment: Account Credited LAB ABASO % [facility] Result Comment: Account Credited LAB AABASO <0.11 k/uL Test sent Abs Baso to [facility]. Result Comment: Account Credited LAB REVW Test sent to Review [facility]. Result Comment: Account Credited LAB CBCCOM Comment Test sent to [facility]. Result Comment: Account Credited URIC ACID Collected: 02/08/2018 Status: F Source: [place] 2:10 PM [facility] REPOSITORY TYPE CODE TESTS RESULT OUT OF REFERENCE UNITS RANGE LAB URIC 4.0-8.1 mg/dL Test Uric sent to [facility]. Result Comment: Account Credited CBC W/DIFF, AUTOMATED Collected: 02/08/2018 Status: F Source: [place] 2:07 PM [facility] REPOSITORY TYPE CODE TESTS RESULT OUT OF RANGE REFERENCE UNITS LAB L100.1000 4.4-11.0 K/mm3 Normal WBC 7.9 LAB L100.1200 4.6-6.2 M/mm3 Normal RBC 4.98 LAB L100.1300 13.0-16.5 g/dl Normal HGB 15.4 LAB L100.1400 40-54 % Normal HCT 46.0 LAB L100.1500 80-94 fL Normal MCV 92.4 LAB L100.1600 27.0-32.0 pg Normal MCH 30.9 LAB L100.1700 32-36 g/gl Normal MCHC 33.5 LAB L100.1810 11.6-14.6 % Normal RDW CV 14.2 LAB L100.1820 35.1-43.9 fl High RDW SD 46.4 LAB L100.1900 150-450 K/mm3 Normal PLT 194 LAB L100.2000 6.2-12.0 fl Normal MPV 11.6 LAB L100.2100 47-70 % Normal NEUT% 57.3 LAB L100.2200 19-41 % Normal LY% 28.7 LAB L100.2300 0-10 % High MONO% 11.9 LAB L100.2400 0-5 % Normal EO% 1.1 LAB L100.2500 0-1 % Normal BASO% 0.4 LAB L100.2550 0.0-0.9 % Normal IM GRAN % 0.600 Result Comment: IG% - Immature Granulocytes (promyelocytes, myelocytes and metamyelocytes) > 1% indicates that a LEFT SHIFT is Present. LAB L100.2620 2.0-7.7 X10 3/uL Normal Absolute Neut 4.5 LAB L100.2720 0.83-4.51 X10 3/ul Normal Absolute Lymph 2.27 Performed By: #### L100.0100 #### [facility] [address], [place], [id number] URIC ACID Collected: 02/08/2018 Status: F Source: [place] 2:07 PM [facility] REPOSITORY TYPE CODE TESTS RESULT OUT OF RANGE REFERENCE UNITS LAB L501.1400 3.5-7.2 mg/dL High URIC 13.0 Result Comment: The drugs N-Acetylcysteine and Metamizole may falsely depress this assay. Performed By: #### L501.1400 #### [facility] [address], [place], [id number] VITAMIN B12 Collected: 02/08/2018 Status: F Source: [place] 2:07 PM [facility] REPOSITORY TYPE CODE TESTS RESULT OUT OF RANGE REFERENCE UNITS LAB L503.0105 211-911 pg/mL Normal Vitamin B12 806 Performed By: #### L503.0105 #### [facility] [address] [facility] [place], [address] BEATATOUTREACH Observed: 02/08/2018 Status: COMPLETED Source: [place] 12:00 AM [facility] REPOSITORY Patient Outreach (INTMWS) TOMMYMIGUEL ANGEL Mami ([id number]) 1945 M Date Time Provider Department 02/08/18 MARIAM CHOI During your visit today, we recorded the following information about you: Mariam Grimes RN 02/09/2018 1:54 PM Signed PRIMARY CARE COORDINATION IN OFFICE VISIT WITH PCP Patient has been identified by name and date of . PCP Assessment/Plan: Reviewed PCP plan with patient using Teach Back Pt getting labs done today VERY depressed- seeing psychiatrist in [place] next wk. PCC Plan of Care: Patient concerns: Feels tired and depressed and achy. Will call with lab results tomorrow. Patient goals: To see psych PCC Interventions: Call pt with results tomorrow. Much reassurance and support. Next Office Visit: 06/07/2018 Plan For Next Call: tomorrow Mariam Hutchinson RN Ambulatory Underground Distribution Engineer Internal Medicine [facility] February 08, 2018 Pawel Montesinos LPN 02/09/2018 1:[address] [facility] labs printed and abnormal uric acid levels- 13.0 High. Patient complained to Lyubov Hutchinson RN about having pain all over. Please review labs that were placed on desk. NIKOS CHONG MD 02/09/2018 1:54 PM Signed He has gout related inflammation it seems cannot give indomethacin as his kidney may get damaged Try to control sugars during that time. And after he is done with pred And has no symptoms he will need to increase his allopurinol To 100 3 times a day Patient's request for medication is as follows: Signed Prescriptions Disp Refills predniSONE (DELTASONE) 10 mg tablet 39 tablet 0 Sig: Take 60mg x 3 days, 40mg x 3 days, 20mg x 3 days, 10mg x 3 days. Take with food. Prescription(s) as above. Please process accordingly. MD Mariam MARINO RN 02/09/2018 1:54 PM Signed Pt and notified of results and medication. He will call in 2wks with report. Allergies As of Date: 02/08/2018 Noted Allergy Reaction IODINE 08/27/2005 5 - Intolerance Comments: increased heart rate. LATEX 08/27/2005 2 - Rash CIMETIDINE 08/27/2005 5 - Intolerance Comments: loose stools. Pt. States he is not allergic to 05/05/2009 CODEINE 08/27/2005 8 - GI Upset DETROL (TOLTERODINE TARTRATE) 08/27/2005 5 - Intolerance PENICILLINS 08/27/2005 5 - Intolerance DYAZIDE (TRIAMTERENE-HYDROCHLOROT*12/17/2011 5 - Intolerance Comments: leg cramps after 1 dose LIPITOR (ATORVASTATIN CALCIUM) 02/15/2015 1 - Mental Status Change Comments: depression,anxiety SULINDAC 11/07/2009 6 - Diarrhea TESSALON (BENZONATATE) 10/11/2007 5 - Intolerance Comments: dyspnea Date Reviewed: 12/07/2017 Reviewed by: Pawel Montesinos LPN - Fully Assessed Reason for Visit: Underground Distribution Engineer Chronic Care [[id number]] Order(s):predniSONE (DELTASONE) 10 mg tabletTake 60mg x 3 days, 40mg x 3 days, 20mg x 3 days, 10mg x 3 days. Take with food.Disp: 39 tabletRfl: 0 allopurinol (ZYLOPRIM) 100 mg tabletTake 1 tablet by mouth 3 times daily at 6AM 12PM and 9PM.Disp: 90 tabletRfl: 3 Prescriptions as of 02/08/2018 Sig: PREDNISONE 10 MG TABLET Take 60mg x 3 days, 40mg x 3 * ALLOPURINOL 100 MG TABLET Take 1 tablet by mouth 3 time* METOPROLOL SUCCINATE ER 25 MG* Take 1 tablet by mouth once d* COMPOUNDED PRESCRIPTION Special Orthopedic shoes: * COMPOUNDED PRESCRIPTION long term - PT/OT - dec* COMPOUNDED PRESCRIPTION Repair hospital bed LEVOTHYROXINE 25 MCG TABLET Take 1 tablet by mouth daily * DIVALPROEX 500 MG TABLET,JAVI* Take 1 tablet by mouth three * ARIPIPRAZOLE 30 MG TABLET Take 1 tablet by mouth once d* OMEPRAZOLE 20 MG CAPSULE,JAVI* Take 1 capsule by mouth once * TAMSULOSIN 0.4 MG CAPSULE Take 1 capsule by mouth once * CLONIDINE HCL 0.1 MG TABLET Takes 1 tabs at bedtime and 1* NITROGLYCERIN 0.4 MG SUBLINGU* Dissolve 0.4mg tab (1tab) und* COMPOUNDED PRESCRIPTION Exercise bike- customized for* DIAPER,BRIEF,ADULT,DISPOSABLE 1 pad as needed for urinary c* CATHETER Apply 1 catheter at bedtime d* FUROSEMIDE 40 MG TABLET Take 1 tablet by mouth twice * COMPOUNDED PRESCRIPTION Diabetic shoes Dx: E11.610, * COMPOUNDED PRESCRIPTION Hospital bed repair CHOLECALCIFEROL (VITAMIN D3) * Take 1,000 Units by mouth onc* KCOXVGXU-RHL-INHGQ ACID 0.4 M* Take 1 tablet by mouth. B-COMPLEX WITH VITAMIN C TABL* Take 1 tablet by mouth once d* * ASPIRIN 81 MG TABLET Take 1 tablet by mouth once d* Problem List As Of Date 02/08/2018 Noted Resolved Unspecified schizophrenia, unspecified conditio*INVALID FOR*03/11/2014 DIVERTICULOSIS OF COLON W/O BLEED [K57.30] INVALID FOR* SCIATICA [M54.30] INVALID FOR*06/06/2006 JOINT PAIN-SHLDER [M25.519] INVALID FOR*05/05/2009 Essential hypertension [I10] INVALID FOR* More... Contact dermatitis and other eczema, due to uns*INVALID FOR*10/31/2013 Other abnormal blood chemistry [R79.89] 10/31/2013 ESOPHAGEAL REFLUX [K21.9] Obesity [E66.9] INVALID FOR* Dysmetabolic syndrome X [E88.81] INVALID FOR*10/31/2013 JOINT PAIN-HAND [M25.549] INVALID FOR*05/05/2009 Backache, unspecified [M54.9] INVALID FOR*10/31/2013 Allergic rhinitis, cause unspecified [J30.9] INVALID FOR*10/31/2013 Cervicalgia [M54.2] INVALID FOR*10/31/2013 BPH W URINARY OBS/LUTS [N40.1] INVALID FOR* Charcot joint INVALID FOR*05/26/2014 Macular Degeneration [H35.30] Tremor [R25.1] INVALID FOR* Bipolar 1 disorder, mixed (HCC) [F31.60] INVALID FOR* More... Right gluteus medius Bursitis [M71.9] INVALID FOR*10/31/2013 CHF (congestive heart failure) [I50.9] INVALID FOR* More... Lacunar infarction [I63.9] INVALID FOR* More... Cardiomyopathy [I42.9] INVALID FOR* Near syncope [R55] INVALID FOR*10/31/2013 Diabetic peripheral neuropathy (HCC) [E11.42] INVALID FOR*02/02/2017 Hypothyroid [E03.9] INVALID FOR* More... Charcot foot due to diabetes mellitus (HCC) [E1*INVALID FOR*01/25/2018 More... Bipolar affective disorder, mixed (HCC) [F31.60]INVALID FOR* More... BPH (benign prostatic hyperplasia) [N40.0] INVALID FOR* Family history of prostate cancer [Z80.42] INVALID FOR* Venous (peripheral) insufficiency [I87.2] INVALID FOR* Hyperlipidemia [E78.5] INVALID FOR* Benign non-nodular prostatic hyperplasia with l*INVALID FOR* More... Elevated prostate specific antigen (PSA) [R97.2*INVALID FOR* Urinary tract infection associated with cathete*INVALID FOR* Diastolic heart failure (HCC) [I50.30] INVALID FOR* Renal insufficiency [N28.9] INVALID FOR* Gastroesophageal reflux disease without esophag*INVALID FOR* More... History of colonic polyps [Z86.010] INVALID FOR* More... Prescriptions ordered this encounter Disp Refills Start End PREDNISONE 10 MG TABLET 39 t* 0 02/09/2018 Sig: Take 60mg x 3 days, 40mg x 3 days, 20mg x 3 days, 10mg x 3 days. Take with food. ALLOPURINOL 100 MG TABLET 90 t* 3 02/09/2018 Route: ORAL Sig: Take 1 tablet by mouth 3 times daily at 6AM 12PM and 9PM. Medications Discontinued During This Encounter allopurinol (ZYLOPRIM) 100 mg tablet 90 t* 1 09/05/2017 02/09/2018 Route: ORAL Sig: Take 1 tablet by mouth once daily. For gout. Disc: Reason for discontinue is not on file. Follow-up and Disposition History Recorded Encounter Status:Closed by MARIAM HUTCHINSON on 02/09/18 PROGRESS Observed: 01/25/2018 Status: COMPLETED Source: [place] 4:11 PM [facility] [place] REPOSITORY HNO ID: [id number] Author: Nikos Chong Service: (none) Author Type: Physician Type: Progress Notes Filed: 04/11/2018 5:43 PM Note Text: Reason for Visit Patient presents with: Established Patient: no energy, sciatic pain better Miguel Angel Sanders is a 72 year old male who presents here today for Above Complaints.. Health Maintenance DTAP,TDAP,TD(1 - Tdap) COLORECTAL CANCER SCREENING,SEE MODIFIER HPI Here with his Patsy, patient has not been walking much for the past 2 years or more. He used too walk with walker prior to that. The reason is not clear, we think it is his charcots disease, that contributed the most. It was very painful and he could move it much, he did loose 70 pounds with tops and prevented from becoming diabetic. His muslces now are atrophied and he cannot bear his own weight. He complains today that he is tired all the time, For depression, and bipolar he was taking depakote and abilify. he is on 4 pills of depakote, I think he needs to cut that down alittle. He might benefit from seeing DR Zaragoza his old psychologist again. We will check his b12, levels as I think he may be low and that may be contributing to his condition No problem-specific Assessment AND Plan notes found for this encounter. PAST MEDICAL HISTORY Diagnosis Date - BPH (benign prostatic hyperplasia) Seeing Dr. Quesada, unsure of diagnosis - Diverticulosis of colon (without mention of hemorrhage) Diverticulosis - Dysmetabolic syndrome X 09/29/2006 - Esophageal reflux - Hypothyroidism - Lower extremity edema - Macular degeneration - Obesity, unspecified 09/29/2006 - Other abnormal blood chemistry - Stable angina (HCC) Seeing Dr. Lang - Unspecified essential hypertension - Unspecified schizophrenia, unspecified condition Seeing Dr. Preciado PAST SURGICAL HISTORY Procedure Laterality Date - COLONOSCOP W/ OR W/O BRSH SPEC 08/02/2003 Colonoscopy - COLONOSCOP W/ OR W/O BRSH SPEC 08/19/08 - COLONOSCOP W/ OR W/O BRSH SPEC 06/04/2013 Colonoscopy - PAST SURGICAL HISTORY OF throat polyps - REMOVAL OF TONSILS,<12 Y/O FAMILY HISTORY Problem Relation Age of Onset - Prostate Cancer Father [address] Quesada - Diabetes Mother - Colon Cancer Sister Social History Substance Use Topics - Smoking status: Former Smoker Quit date: 09/26/1971 - Smokeless tobacco: Never Used - Alcohol use No Past medical history, appointments, medications, allergies reviewed. Pertinent Lab/Diagnostic Studies are reviewed and discussed today Current Outpatient Prescriptions: - metoprolol succinate ER (TOPROL XL) 25 mg 24 hr tablet - COMPOUNDED PRESCRIPTION - COMPOUNDED PRESCRIPTION - COMPOUNDED PRESCRIPTION - levothyroxine (SYNTHROID) 25 mcg tablet - allopurinol (ZYLOPRIM) 100 mg tablet - divalproex DR (DEPAKOTE) 500 mg EC tablet - ARIPiprazole (ABILIFY) 30 mg tablet - omeprazole (PRILOSEC) 20 mg capsule - tamsulosin ER (FLOMAX) 0.4 mg cp24 - cloNIDine HCl (CATAPRES) 0.1 mg tablet - nitroglycerin sublingual (NITROQUICK) 0.4 mg SL tablet - COMPOUNDED PRESCRIPTION - Diaper,Brief, Adult,Disposable (DEPEND REAL FIT BRIEF MEN L/XL) misc - Catheter ([facility] MALE EXTERNAL CATH) misc - furosemide (LASIX) 40 mg tablet - COMPOUNDED PRESCRIPTION - COMPOUNDED PRESCRIPTION - Cholecalciferol, Vitamin D3, (VITAMIN D) 1,000 unit cap - MV with Rwk-Jrresqcy-Crgrug (CENTRUM SILVER) 0.4-300-250 mg-mcg-mcg tab - B-complex with vitamin C (ALLBEE WITH C) tablet - Aspirin 81 mg ORAL Tab Review of Systems CONSTITUTIONAL: No fevers, chills night sweats, unintended weight loss CARDIOVASCULAR: No chest pain, dyspnea, palpitations, orthopnea, PND, ankle edema. PULM: No dyspnea, unexplained cough. GI: No dysphagia/odynophagia, problematic reflux, constipation, diarrhea, changes in stool habits, hematochezia, melena. : No new urinary complaints, including dysuria, gross hematuria or pyuria. NEURO: No new balance problems, peripheral weakness/paresthesias or numbness of concern. Physical Exam BP 122/62 (BP Site: Left Arm, BP Position: Sitting, BP Cuff Size: Large Adult) Pulse 79 Resp 12 Ht 172.7 cm (5' 8) Wt 105.7 kg (233 lb) SpO2 94% BMI 35.43 kg/m? General appearance: in the wheel chair , alert, in no acute distress, well nourished. Skin: Skin color, texture, turgor normal, no suspicious rashes or lesions Head: Normocephalic, no masses, lesions, tenderness or abnormalities Eyes: Anicteric sclera. Pupils are equally round and reactive to light. Extraocular movements are intact. Lungs: Lungs clear to auscultation. No wheezing, rhonchi, rales Heart: RRR left ankle is deformed from the charcots joint. Extremities: left foot is highly deformed, , there is swelling and deviation of the joint from charcots ASSESSMENT/PLAN: 1. Essential hypertension - ICD9: 401.9, ICD10: I10 (primary diagnosis) - good control - Recommended regular aerobic exercise. - Recommend home blood pressure monitoring, to bring results in on next visit - Goal of BP <130/80 2. Bipolar 1 disorder (HCC) - ICD9: 296.7, ICD10: F31.9 Decrease the valproate to 3 and further to 2 tabs if needed - CONSULT TO PSYCHIATRY - CONSULT TO PSYCHIATRY 3. Depression, unspecified depression type - ICD9: 311, ICD10: F32.9 - CONSULT TO PSYCHIATRY 4. Vitamin B12 deficiency - ICD9: 266.2, ICD10: E53.8 Recheck - VITAMIN B12 BLOOD 5. Gout, unspecified cause, unspecified chronicity, unspecified site - ICD9: 274.9, ICD10: M10.9 - URIC ACID BLOOD 6. No energy - ICD9: 780.79, ICD10: R53.83 - TSH BLD - CBC + DIFF 7. Obstructive sleep apnea syndrome - ICD9: 327.23, ICD10: G47.33 - POLYSOMNOGRAM (PSG)/HOME SLEEP APNEA TESTING (HSAT) 8. Charcot's arthropathy - ICD9: 349.9, 713.5, ICD10: M14.60 9. Charcot's joint - ICD9: 349.9, 713.5, ICD10: M14.60 Patients left ankle is deformed from the charcots that he started developing when he got diabetes, this process continued for a while even when his sugars came back to normal after loosing more than 70 pounds, Due to the deformed foot he is not able to walk and be ambulatory He needs better shoes to enable him to walk and be more functional as he is mostly bound to the wheel chair at this point NIKOS CHONG MD CNOV Observed: 01/25/2018 Status: COMPLETED Source: [place] 3:40 PM [facility] REPOSITORY Office Visit (INTMWS) MIGUEL ANGEL SANDERS ([id number]) 1945 M Date Time Provider Department 01/25/18 3:40 PM NIKOS CHONG INTMWS During your visit today, we recorded the following information about you: Pulse Respiration Blood pressure Weight 79/minute 12/minute 122/62 105.7 kg Height 1.727 m NIKOS CHONG MD 04/11/2018 5:43 PM Addendum Reason for Visit Patient presents with: Established Patient: no energy, sciatic pain better Miguel Angel Mami Tommy is a 72 year old male who presents here today for Above Complaints.. Health Maintenance DTAP,TDAP,TD(1 - Tdap) COLORECTAL CANCER SCREENING,SEE MODIFIER HPI Here with his Patsy, patient has not been walking much for the past 2 years or more. He used too walk with walker prior to that. The reason is not clear, we think it is his charcots disease, that contributed the most. It was very painful and he could move it much, he did loose 70 pounds with tops and prevented from becoming diabetic. His muslces now are atrophied and he cannot bear his own weight. He complains today that he is tired all the time, For depression, and bipolar he was taking depakote and abilify. he is on 4 pills of depakote, I think he needs to cut that down alittle. He might benefit from seeing DR Zaragoza his old psychologist again. We will check his b12, levels as I think he may be low and that may be contributing to his condition No problem-specific Assessment AND Plan notes found for this encounter. PAST MEDICAL HISTORY Diagnosis Date - BPH (benign prostatic hyperplasia) Seeing Dr. Quesada, unsure of diagnosis - Diverticulosis of colon (without mention of hemorrhage) Diverticulosis - Dysmetabolic syndrome X 09/29/2006 - Esophageal reflux - Hypothyroidism - Lower extremity edema - Macular degeneration - Obesity, unspecified 09/29/2006 - Other abnormal blood chemistry - Stable angina (HCC) Seeing Dr. Lang - Unspecified essential hypertension - Unspecified schizophrenia, unspecified condition Seeing Dr. Preciado PAST SURGICAL HISTORY Procedure Laterality Date - COLONOSCOP W/ OR W/O BRSH SPEC 08/02/2003 Colonoscopy - COLONOSCOP W/ OR W/O BRS SPEC 08/19/08 - COLONOSCOP W/ OR W/O BRS SPEC 06/04/2013 Colonoscopy - PAST SURGICAL HISTORY OF throat polyps - REMOVAL OF TONSILS,<12 Y/O FAMILY HISTORY Problem Relation Age of Onset - Prostate Cancer Father [address] Quesada - Diabetes Mother - Colon Cancer Sister Social History Substance Use Topics - Smoking status: Former Smoker Quit date: 09/26/1971 - Smokeless tobacco: Never Used - Alcohol use No Past medical history, appointments, medications, allergies reviewed. Pertinent Lab/Diagnostic Studies are reviewed and discussed today Current Outpatient Prescriptions: - metoprolol succinate ER (TOPROL XL) 25 mg 24 hr tablet - COMPOUNDED PRESCRIPTION - COMPOUNDED PRESCRIPTION - COMPOUNDED PRESCRIPTION - levothyroxine (SYNTHROID) 25 mcg tablet - allopurinol (ZYLOPRIM) 100 mg tablet - divalproex DR (DEPAKOTE) 500 mg EC tablet - ARIPiprazole (ABILIFY) 30 mg tablet - omeprazole (PRILOSEC) 20 mg capsule - tamsulosin ER (FLOMAX) 0.4 mg cp24 - cloNIDine HCl (CATAPRES) 0.1 mg tablet - nitroglycerin sublingual (NITROQUICK) 0.4 mg SL tablet - COMPOUNDED PRESCRIPTION - Diaper,Brief, Adult,Disposable (DEPEND REAL FIT BRIEF MEN L/XL) misc - Catheter ([facility] MALE EXTERNAL CATH) misc - furosemide (LASIX) 40 mg tablet - COMPOUNDED PRESCRIPTION - COMPOUNDED PRESCRIPTION - Cholecalciferol, Vitamin D3, (VITAMIN D) 1,000 unit cap - MV with Jmh-Vxecqewn-Fypgjb (CENTRUM SILVER) 0.4-300-250 mg-mcg-mcg tab - B-complex with vitamin C (ALLBEE WITH C) tablet - Aspirin 81 mg ORAL Tab Review of Systems CONSTITUTIONAL: No fevers, chills night sweats, unintended weight loss CARDIOVASCULAR: No chest pain, dyspnea, palpitations, orthopnea, PND, ankle edema. PULM: No dyspnea, unexplained cough. GI: No dysphagia/odynophagia, problematic reflux, constipation, diarrhea, changes in stool habits, hematochezia, melena. : No new urinary complaints, including dysuria, gross hematuria or pyuria. NEURO: No new balance problems, peripheral weakness/paresthesias or numbness of concern. Physical Exam BP 122/62 (BP Site: Left Arm, BP Position: Sitting, BP Cuff Size: Large Adult) Pulse 79 Resp 12 Ht 172.7 cm (5' 8) Wt 105.7 kg (233 lb) SpO2 94% BMI 35.43 kg/m? General appearance: in the wheel chair , alert, in no acute distress, well nourished. Skin: Skin color, texture, turgor normal, no suspicious rashes or lesions Head: Normocephalic, no masses, lesions, tenderness or abnormalities Eyes: Anicteric sclera. Pupils are equally round and reactive to light. Extraocular movements are intact. Lungs: Lungs clear to auscultation. No wheezing, rhonchi, rales Heart: RRR left ankle is deformed from the charcots joint. Extremities: left foot is highly deformed, , there is swelling and deviation of the joint from charcots ASSESSMENT/PLAN: 1. Essential hypertension - ICD9: 401.9, ICD10: I10 (primary diagnosis) - good control - Recommended regular aerobic exercise. - Recommend home blood pressure monitoring, to bring results in on next visit - Goal of BP <130/80 2. Bipolar 1 disorder (HCC) - ICD9: 296.7, ICD10: F31.9 Decrease the valproate to 3 and further to 2 tabs if needed - CONSULT TO PSYCHIATRY - CONSULT TO PSYCHIATRY 3. Depression, unspecified depression type - ICD9: 311, ICD10: F32.9 - CONSULT TO PSYCHIATRY 4. Vitamin B12 deficiency - ICD9: 266.2, ICD10: E53.8 Recheck - VITAMIN B12 BLOOD 5. Gout, unspecified cause, unspecified chronicity, unspecified site - ICD9: 274.9, ICD10: M10.9 - URIC ACID BLOOD 6. No energy - ICD9: 780.79, ICD10: R53.83 - TSH BLD - CBC + DIFF 7. Obstructive sleep apnea syndrome - ICD9: 327.23, ICD10: G47.33 - POLYSOMNOGRAM (PSG)/HOME SLEEP APNEA TESTING (HSAT) 8. Charcot's arthropathy - ICD9: 349.9, 713.5, ICD10: M14.60 9. Charcot's joint - ICD9: 349.9, 713.5, ICD10: M14.60 Patients left ankle is deformed from the charcots that he started developing when he got diabetes, this process continued for a while even when his sugars came back to normal after loosing more than 70 pounds, Due to the deformed foot he is not able to walk and be ambulatory He needs better shoes to enable him to walk and be more functional as he is mostly bound to the wheel chair at this point NIKOS CHONG MD Referring Provider: NIKOS CHONG [[id number]] Allergies As of Date: 01/25/2018 Noted Allergy Reaction IODINE 08/27/2005 5 - Intolerance Comments: increased heart rate. LATEX 08/27/2005 2 - Rash CIMETIDINE 08/27/2005 5 - Intolerance Comments: loose stools. Pt. States he is not allergic to 05/05/2009 CODEINE 08/27/2005 8 - GI Upset DETROL (TOLTERODINE TARTRATE) 08/27/2005 5 - Intolerance PENICILLINS 08/27/2005 5 - Intolerance DYAZIDE (TRIAMTERENE-HYDROCHLOROT*12/17/2011 5 - Intolerance Comments: leg cramps after 1 dose LIPITOR (ATORVASTATIN CALCIUM) 02/15/2015 1 - Mental Status Change Comments: depression,anxiety SULINDAC 11/07/2009 6 - Diarrhea TESSALON (BENZONATATE) 10/11/2007 5 - Intolerance Comments: dyspnea Date Reviewed: 12/07/2017 Reviewed by: Pawel Montesinos LPN - Fully Assessed Reason for Visit: Established Patient [175] Cmt: no energy, sciatic pain better Primary Visit Diagnosis:Essential hypertension [I10] Other Visit Diagnoses:Bipolar 1 disorder (HCC) [F31.9] Depression, unspecified depression type [F32.9] Vitamin B12 deficiency [E53.8] Gout, unspecified cause, unspecified chronicity, unspecified site [M10.9] No energy [R53.83] Obstructive sleep apnea syndrome [G47.33] Charcot's arthropathy [M14.60] Charcot's joint [M14.60] Order(s):CONSULT TO PSYCHIATRY [9035] Order #: [id number]: 1 VITAMIN B12 BLOOD [SQB12] Order #: [id number] FUTURE URIC ACID BLOOD [SQURIC] Order #: [id number] FUTURE CBC + DIFF [SQCBCDIF] Order #: [id number] FUTURE POLYSOMNOGRAM (PSG)/HOME SLEEP APNEA TESTING (HSAT) [6592829] Order #: [id number] FUTURE Prescriptions as of 01/25/2018 Sig: METOPROLOL SUCCINATE ER 25 MG* Take 1 tablet by mouth once d* COMPOUNDED PRESCRIPTION Special Orthopedic shoes: * COMPOUNDED PRESCRIPTION long term - PT/OT - dec* COMPOUNDED PRESCRIPTION Repair hospital bed LEVOTHYROXINE 25 MCG TABLET Take 1 tablet by mouth daily * X ALLOPURINOL 100 MG TABLET Take 1 tablet by mouth once d* DIVALPROEX 500 MG TABLET,JAVI* Take 1 tablet by mouth three * OMEPRAZOLE 20 MG CAPSULE,JAVI* Take 1 capsule by mouth once * TAMSULOSIN 0.4 MG CAPSULE Take 1 capsule by mouth once * NITROGLYCERIN 0.4 MG SUBLINGU* Dissolve 0.4mg tab (1tab) und* X ARIPIPRAZOLE 30 MG TABLET Take 1 tablet by mouth once d* X METOPROLOL TARTRATE 25 MG TAB* Take 1 tablet by mouth twice * X CLONIDINE HCL 0.1 MG TABLET Takes 1 tabs at bedtime and 1* COMPOUNDED PRESCRIPTION Exercise bike- customized for* DIAPER,BRIEF,ADULT,DISPOSABLE 1 pad as needed for urinary c* CATHETER Apply 1 catheter at bedtime d* X FUROSEMIDE 40 MG TABLET Take 1 tablet by mouth twice * COMPOUNDED PRESCRIPTION Diabetic shoes Dx: E11.610, * COMPOUNDED PRESCRIPTION Hospital bed repair CHOLECALCIFEROL (VITAMIN D3) * Take 1,000 Units by mouth onc* [id number]-IKTZG ACID 0.4 M* Take 1 tablet by mouth. B-COMPLEX WITH VITAMIN C TABL* Take 1 tablet by mouth once d* * ASPIRIN 81 MG TABLET Take 1 tablet by mouth once d* Problem List As Of Date 01/25/2018 Noted Resolved Unspecified schizophrenia, unspecified conditio*INVALID FOR*03/11/2014 DIVERTICULOSIS OF COLON W/O BLEED [K57.30] INVALID FOR* SCIATICA [M54.30] INVALID FOR*06/06/2006 JOINT PAIN-SHLDER [M25.519] INVALID FOR*05/05/2009 Essential hypertension [I10] INVALID FOR* More... Contact dermatitis and other eczema, due to uns*INVALID FOR*10/31/2013 Other abnormal blood chemistry [R79.89] 10/31/2013 ESOPHAGEAL REFLUX [K21.9] Obesity [E66.9] INVALID FOR* Dysmetabolic syndrome X [E88.81] INVALID FOR*10/31/2013 JOINT PAIN-HAND [M25.549] INVALID FOR*05/05/2009 Backache, unspecified [M54.9] INVALID FOR*10/31/2013 Allergic rhinitis, cause unspecified [J30.9] INVALID FOR*10/31/2013 Cervicalgia [M54.2] INVALID FOR*10/31/2013 BPH W URINARY OBS/LUTS [N40.1] INVALID FOR* Charcot joint INVALID FOR*05/26/2014 Macular Degeneration [H35.30] Tremor [R25.1] INVALID FOR* Bipolar 1 disorder, mixed (HCC) [F31.60] INVALID FOR* More... Right gluteus medius Bursitis [M71.9] INVALID FOR*10/31/2013 CHF (congestive heart failure) [I50.9] INVALID FOR* More... Lacunar infarction [I63.9] INVALID FOR* More... Cardiomyopathy [I42.9] INVALID FOR* Near syncope [R55] INVALID FOR*10/31/2013 Diabetic peripheral neuropathy (HCC) [E11.42] INVALID FOR*02/02/2017 Hypothyroid [E03.9] INVALID FOR* More... Charcot foot due to diabetes mellitus (HCC) [E1*INVALID FOR*01/25/2018 More... Bipolar affective disorder, mixed (HCC) [F31.60]INVALID FOR* More... BPH (benign prostatic hyperplasia) [N40.0] INVALID FOR* Family history of prostate cancer [Z80.42] INVALID FOR* Venous (peripheral) insufficiency [I87.2] INVALID FOR* Hyperlipidemia [E78.5] INVALID FOR* Benign non-nodular prostatic hyperplasia with l*INVALID FOR* More... Elevated prostate specific antigen (PSA) [R97.2*INVALID FOR* Urinary tract infection associated with cathete*INVALID FOR* Diastolic heart failure (HCC) [I50.30] INVALID FOR* Renal insufficiency [N28.9] INVALID FOR* Gastroesophageal reflux disease without esophag*INVALID FOR* More... History of colonic polyps [Z86.010] INVALID FOR* More... Encounter Status:Closed by NIKOS CHONG MD on 01/25/18 HEMOGLOBIN A1C Collected: 01/23/2018 Status: F Source: [place] 4:40 PM [facility] REPOSITORY TYPE CODE TESTS RESULT OUT OF REFERENCE UNITS RANGE LAB HGBA1C 4.3-5.6 % High Hemoglobin A1c 5.8 LAB HBA0 mg/dL Est. Average Glucose 120 Result Comment: eAG: (Estimated average glucose) is a calculated value from HgbA1c and is floor representative of the average blood glucose level in the last 2-3 month period. Performed By: #### HBA1C #### [facility] [address] [address] TSH Collected: 01/23/2018 Status: F Source: [place] 4:40 PM [facility] REPOSITORY TYPE CODE TESTS RESULT OUT OF RANGE REFERENCE UNITS LAB TSH 0.400-5.500 uU/mL TSH 2.510 Performed By: #### TSH #### [facility] [address] [address] PROGRESS Observed: 01/19/2018 Status: COMPLETED Source: [place] 2:22 PM [facility] REPOSITORY HNO ID: [id number] Author: Mariam Hutchinson Service: (none) Author Type: Registered Nurse Type: Progress Notes Filed: 03/27/2018 3:58 PM Note Text: PRIMARY CARE COORDINATION FOLLOW-UP NOTE Provider Action/FYI Pt struggling with depression. Patient identified by name and date of . YES Spoke to P. therapist and pt. Summary: Pt has been undergoing physical therapy but is more depressed but doesn't want to change meds. The behavioral health nurse they were going to have see pt has not started with HH yet so they want [facility] to see pt. Relayed that they can send order for Dr Chong to sign next week. They also inquired about any forms from [employer] to fit pt with better shoes to help with ambulation. Concerns: Pt has a psych history and saw psychiatrist last in Aug 2017 and states MD was looking to cut back on his practice. Healthcare Financial Analyst plan for next outreach: Will follow up as needed Signature Mariam Hutchinson RN Ambulatory Underground Distribution Engineer Internal Medicine [facility] January 19, 2018 GUILLERMO Observed: 01/19/2018 Status: COMPLETED Source: [place] 12:00 AM [facility] REPOSITORY Patient Outreach (INTMWS) MIGUEL ANGEL SANDERS ([id number]) 1945 M Date Time Provider Department 01/19/18 MARIAM CHOI During your visit today, we recorded the following information about you: Mariam Grimes RN 03/27/2018 3:58 PM Signed PRIMARY CARE COORDINATION FOLLOW-UP NOTE Provider Action/FYI Pt struggling with depression. Patient identified by name and date of . YES Spoke to P. therapist and pt. Summary: Pt has been undergoing physical therapy but is more depressed but doesn't want to change meds. The behavioral health nurse they were going to have see pt has not started with HH yet so they want [facility] to see pt. Relayed that they can send order for Dr Chong to sign next week. They also inquired about any forms from [employer] to fit pt with better shoes to help with ambulation. Concerns: Pt has a psych history and saw psychiatrist last in Aug 2017 and states MD was looking to cut back on his practice. Healthcare Financial Analyst plan for next outreach: Will follow up as needed Signature Mariam Hutchinson RN Ambulatory Underground Distribution Engineer Internal Medicine [place] [facility] January 19, 2018 Allergies As of Date: 01/19/2018 Noted Allergy Reaction IODINE 08/27/2005 5 - Intolerance Comments: increased heart rate. LATEX 08/27/2005 2 - Rash CIMETIDINE 08/27/2005 5 - Intolerance Comments: loose stools. Pt. States he is not allergic to 05/05/2009 CODEINE 08/27/2005 8 - GI Upset DETROL (TOLTERODINE TARTRATE) 08/27/2005 5 - Intolerance PENICILLINS 08/27/2005 5 - Intolerance DYAZIDE (TRIAMTERENE-HYDROCHLOROT*12/17/2011 5 - Intolerance Comments: leg cramps after 1 dose LIPITOR (ATORVASTATIN CALCIUM) 02/15/2015 1 - Mental Status Change Comments: depression,anxiety SULINDAC 11/07/2009 6 - Diarrhea TESSALON (BENZONATATE) 10/11/2007 5 - Intolerance Comments: dyspnea Date Reviewed: 12/07/2017 Reviewed by: Pawel Montesinos LPN - Fully Assessed Reason for Visit: Underground Distribution Engineer Chronic Care [[id number]] Prescriptions as of 01/19/2018 Sig: COMPOUNDED PRESCRIPTION Special Orthopedic shoes: * COMPOUNDED PRESCRIPTION long term - PT/OT - dec* COMPOUNDED PRESCRIPTION Repair hospital bed LEVOTHYROXINE 25 MCG TABLET Take 1 tablet by mouth daily * X ALLOPURINOL 100 MG TABLET Take 1 tablet by mouth once d* DIVALPROEX 500 MG TABLET,JAVI* Take 1 tablet by mouth three * OMEPRAZOLE 20 MG CAPSULE,JAVI* Take 1 capsule by mouth once * TAMSULOSIN 0.4 MG CAPSULE Take 1 capsule by mouth once * NITROGLYCERIN 0.4 MG SUBLINGU* Dissolve 0.4mg tab (1tab) und* X ARIPIPRAZOLE 30 MG TABLET Take 1 tablet by mouth once d* X METOPROLOL TARTRATE 25 MG TAB* Take 1 tablet by mouth twice * X CLONIDINE HCL 0.1 MG TABLET Takes 1 tabs at bedtime and 1* COMPOUNDED PRESCRIPTION Exercise bike- customized for* DIAPER,BRIEF,ADULT,DISPOSABLE 1 pad as needed for urinary c* CATHETER Apply 1 catheter at bedtime d* X FUROSEMIDE 40 MG TABLET Take 1 tablet by mouth twice * COMPOUNDED PRESCRIPTION Diabetic shoes Dx: E11.610, * COMPOUNDED PRESCRIPTION Hospital bed repair CHOLECALCIFEROL (VITAMIN D3) * Take 1,000 Units by mouth onc* [id number] ACID 0.4 M* Take 1 tablet by mouth. B-COMPLEX WITH VITAMIN C TABL* Take 1 tablet by mouth once d* * ASPIRIN 81 MG TABLET Take 1 tablet by mouth once d* Problem List As Of Date 01/19/2018 Noted Resolved Unspecified schizophrenia, unspecified conditio*INVALID FOR*03/11/2014 DIVERTICULOSIS OF COLON W/O BLEED [K57.30] INVALID FOR* SCIATICA [M54.30] INVALID FOR*06/06/2006 JOINT PAIN-SHLDER [M25.519] INVALID FOR*05/05/2009 Essential hypertension [I10] INVALID FOR* More... Contact dermatitis and other eczema, due to uns*INVALID FOR*10/31/2013 Other abnormal blood chemistry [R79.89] 10/31/2013 ESOPHAGEAL REFLUX [K21.9] Obesity [E66.9] INVALID FOR* Dysmetabolic syndrome X [E88.81] INVALID FOR*10/31/2013 JOINT PAIN-HAND [M25.549] INVALID FOR*05/05/2009 Backache, unspecified [M54.9] INVALID FOR*10/31/2013 Allergic rhinitis, cause unspecified [J30.9] INVALID FOR*10/31/2013 Cervicalgia [M54.2] INVALID FOR*10/31/2013 BPH W URINARY OBS/LUTS [N40.1] INVALID FOR* Charcot joint INVALID FOR*05/26/2014 Macular Degeneration [H35.30] Tremor [R25.1] INVALID FOR* Bipolar 1 disorder, mixed (HCC) [F31.60] INVALID FOR* More... Right gluteus medius Bursitis [M71.9] INVALID FOR*10/31/2013 CHF (congestive heart failure) [I50.9] INVALID FOR* More... Lacunar infarction [I63.9] INVALID FOR* More... Cardiomyopathy [I42.9] INVALID FOR* Near syncope [R55] INVALID FOR*10/31/2013 Diabetic peripheral neuropathy (HCC) [E11.42] INVALID FOR*02/02/2017 Hypothyroid [E03.9] INVALID FOR* More... Charcot foot due to diabetes mellitus (HCC) [E1*INVALID FOR* More... Bipolar affective disorder, mixed (HCC) [F31.60]INVALID FOR* More... BPH (benign prostatic hyperplasia) [N40.0] INVALID FOR* Family history of prostate cancer [Z80.42] INVALID FOR* Venous (peripheral) insufficiency [I87.2] INVALID FOR* Hyperlipidemia [E78.5] INVALID FOR* Benign non-nodular prostatic hyperplasia with l*INVALID FOR* More... Elevated prostate specific antigen (PSA) [R97.2*INVALID FOR* Urinary tract infection associated with cathete*INVALID FOR* Diastolic heart failure (HCC) [I50.30] INVALID FOR* Renal insufficiency [N28.9] INVALID FOR* Gastroesophageal reflux disease without esophag*INVALID FOR* More... History of colonic polyps [Z86.010] INVALID FOR* More... Encounter Status:Closed by MARIAM HUTCHINSON on 03/27/18 ADORE Observed: 01/11/2018 Status: COMPLETED Source: [place] 12:00 AM [facility] REPOSITORY Patient Outreach (INTMWS) MIGUEL ANGEL SANDERS ([id number]) 1945 M Date Time Provider Department 01/11/18 MARIAM CHOI INTRaheemWS During your visit today, we recorded the following information about you: Mariam Grimes RN 07/07/2018 7:38 AM Signed PRIMARY CARE COORDINATION FOLLOW-UP NOTE Provider Action/FYI Patient identified by name and date of . YES Spoke to spouse, aPtsy Summary: Had pressure sore that was finally healed up and seems to be starting again. He had an episode when they went on trip , came home and was admitted to hospital then Rehab for 20 days then and has continued to see HHRN, PT ,etc by [facility] staff. Good group working with him now. He is progressing but not as much as she hoped. He is a little resistant to doing exercises and doesn't seem to have his heart into it but they are trying. Concerns: Pt also called and complained of R sciatica. Healthcare Financial Analyst plan for next outreach: Signature Mariam Hutchinson RN Ambulatory Underground Distribution Engineer Internal Medicine [facility] January 11, 2018 Allergies As of Date: 01/11/2018 Noted Allergy Reaction IODINE 08/27/2005 5 - Intolerance Comments: increased heart rate. LATEX 08/27/2005 2 - Rash CIMETIDINE 08/27/2005 5 - Intolerance Comments: loose stools. Pt. States he is not allergic to 05/05/2009 CODEINE 08/27/2005 8 - GI Upset DETROL (TOLTERODINE TARTRATE) 08/27/2005 5 - Intolerance PENICILLINS 08/27/2005 5 - Intolerance DYAZIDE (TRIAMTERENE-HYDROCHLOROT*12/17/2011 5 - Intolerance Comments: leg cramps after 1 dose LIPITOR (ATORVASTATIN CALCIUM) 02/15/2015 1 - Mental Status Change Comments: depression,anxiety SULINDAC 11/07/2009 6 - Diarrhea TESSALON (BENZONATATE) 10/11/2007 5 - Intolerance Comments: dyspnea Date Reviewed: 12/07/2017 Reviewed by: Pawel Montesinos LPN - Fully Assessed Reason for Visit: Underground Distribution Engineer Chronic Care [[id number]] Prescriptions as of 01/11/2018 Sig: X COMPOUNDED PRESCRIPTION long term - PT/OT - dec* X COMPOUNDED PRESCRIPTION Repair hospital bed X LEVOTHYROXINE 25 MCG TABLET Take 1 tablet by mouth daily * X ALLOPURINOL 100 MG TABLET Take 1 tablet by mouth once d* DIVALPROEX 500 MG TABLET,JAVI* Take 1 tablet by mouth three * OMEPRAZOLE 20 MG CAPSULE,JAVI* Take 1 capsule by mouth once * TAMSULOSIN 0.4 MG CAPSULE Take 1 capsule by mouth once * NITROGLYCERIN 0.4 MG SUBLINGU* Dissolve 0.4mg tab (1tab) und* X ARIPIPRAZOLE 30 MG TABLET Take 1 tablet by mouth once d* X METOPROLOL TARTRATE 25 MG TAB* Take 1 tablet by mouth twice * X CLONIDINE HCL 0.1 MG TABLET Takes 1 tabs at bedtime and 1* X COMPOUNDED PRESCRIPTION Exercise bike- customized for* DIAPER,BRIEF,ADULT,DISPOSABLE 1 pad as needed for urinary c* CATHETER Apply 1 catheter at bedtime d* X FUROSEMIDE 40 MG TABLET Take 1 tablet by mouth twice * X COMPOUNDED PRESCRIPTION Diabetic shoes Dx: E11.610, * X COMPOUNDED PRESCRIPTION Hospital bed repair CHOLECALCIFEROL (VITAMIN D3) * Take 1,000 Units by mouth onc* [id number] ACID 0.4 M* Take 1 tablet by mouth. B-COMPLEX WITH VITAMIN C TABL* Take 1 tablet by mouth once d* * ASPIRIN 81 MG TABLET Take 1 tablet by mouth once d* Problem List As Of Date 01/11/2018 Noted Resolved Unspecified schizophrenia, unspecified conditio*INVALID FOR*03/11/2014 DIVERTICULOSIS OF COLON W/O BLEED [K57.30] INVALID FOR* SCIATICA [M54.30] INVALID FOR*06/06/2006 JOINT PAIN-SHLDER [M25.519] INVALID FOR*05/05/2009 Essential hypertension [I10] INVALID FOR* More... Contact dermatitis and other eczema, due to uns*INVALID FOR*10/31/2013 Other abnormal blood chemistry [R79.89] 10/31/2013 ESOPHAGEAL REFLUX [K21.9] Obesity [E66.9] INVALID FOR* Dysmetabolic syndrome X [E88.81] INVALID FOR*10/31/2013 JOINT PAIN-HAND [M25.549] INVALID FOR*05/05/2009 Backache, unspecified [M54.9] INVALID FOR*10/31/2013 Allergic rhinitis, cause unspecified [J30.9] INVALID FOR*10/31/2013 Cervicalgia [M54.2] INVALID FOR*10/31/2013 BPH W URINARY OBS/LUTS [N40.1] INVALID FOR* Charcot joint INVALID FOR*05/26/2014 Macular Degeneration [H35.30] Tremor [R25.1] INVALID FOR* Bipolar 1 disorder, mixed (HCC) [F31.60] INVALID FOR* More... Right gluteus medius Bursitis [M71.9] INVALID FOR*10/31/2013 CHF (congestive heart failure) [I50.9] INVALID FOR* More... Lacunar infarction [I63.81] INVALID FOR* More... Cardiomyopathy [I42.9] INVALID FOR* Near syncope [R55] INVALID FOR*10/31/2013 Diabetic peripheral neuropathy (HCC) [E11.42] INVALID FOR*02/02/2017 Hypothyroid [E03.9] INVALID FOR* More... Charcot foot due to diabetes mellitus (HCC) [E1*INVALID FOR* More... Bipolar affective disorder, mixed (HCC) [F31.60]INVALID FOR* More... BPH (benign prostatic hyperplasia) [N40.0] INVALID FOR* Family history of prostate cancer [Z80.42] INVALID FOR* Venous (peripheral) insufficiency [I87.2] INVALID FOR* Hyperlipidemia [E78.5] INVALID FOR* Benign non-nodular prostatic hyperplasia with l*INVALID FOR* More... Elevated prostate specific antigen (PSA) [R97.2*INVALID FOR* Urinary tract infection associated with cathete*INVALID FOR* Diastolic heart failure (HCC) [I50.30] INVALID FOR* Renal insufficiency [N28.9] INVALID FOR* Gastroesophageal reflux disease without esophag*INVALID FOR* More... History of colonic polyps [Z86.010] INVALID FOR* More... Encounter Status:Closed by [email or web address] on 07/07/18 LUISANA Observed: 01/10/2018 Status: COMPLETED Source: [place] 12:00 [facility] REPOSITORY Letter Text [address] [place] [address] [phone] 01/10/2018 Miguel Angel Sanders [address] [facility] [address] Dear Gretchen Leslialix: Due to a change in the provider's schedule, it has been necessary to reschedule your appointment. Enclosed please find a new appointment reminder that will replace the one previously sent to you. If this appointment is not convenient for you, please contact our office at [phone]. Thank you for choosing the [facility] as your Healthcare Provider. Sincerely, Appointment Office GUILLERMO Observed: 12/27/2017 Status: COMPLETED Source: [place] 12:00 AM [facility] REPOSITORY Patient Outreach (INTMWS) TOMMYMIGUEL ANGEL ([id number]) 1945 M Date Time Provider Department 12/27/17 MARIAM CHOI During your visit today, we recorded the following information about you: Mariam Grimes RN 07/07/2018 8:15 AM Signed PRIMARY CARE COORDINATION FOLLOW-UP NOTE Provider Action/FYI Patient identified by name and date of . Spoke to Summary: Son, Christophe stopped in last concerned for his father's wounds. He has also fallen several times. He also questioned getting HH which it looks like in the records has recently been started again. He also wondered about Adult DayCare so his , Patsy can get a break as well. Haraln is a very sociable shanice so it might be very good for him a couple times a week. I called Patsy to speak with her but had to LMOM. Concerns: Harlan can be a lot of care and Patsy has her own health issues and needs a break. They have apparently discussed AL/SNF care but are resistant. Healthcare Financial Analyst plan for next outreach: Will follow up when Patsy calls Signature Mariam Hutchinson RN Ambulatory Underground Distribution Engineer Internal Medicine [facility] December 27, 2017 Allergies As of Date: 12/27/2017 Noted Allergy Reaction IODINE 08/27/2005 5 - Intolerance Comments: increased heart rate. LATEX 08/27/2005 2 - Rash CIMETIDINE 08/27/2005 5 - Intolerance Comments: loose stools. Pt. States he is not allergic to 05/05/2009 CODEINE 08/27/2005 8 - GI Upset DETROL (TOLTERODINE TARTRATE) 08/27/2005 5 - Intolerance PENICILLINS 08/27/2005 5 - Intolerance DYAZIDE (TRIAMTERENE-HYDROCHLOROT*12/17/2011 5 - Intolerance Comments: leg cramps after 1 dose LIPITOR (ATORVASTATIN CALCIUM) 02/15/2015 1 - Mental Status Change Comments: depression,anxiety SULINDAC 11/07/2009 6 - Diarrhea TESSALON (BENZONATATE) 10/11/2007 5 - Intolerance Comments: dyspnea Date Reviewed: 12/07/2017 Reviewed by: Pawel Montesinos LPN - Fully Assessed Reason for Visit: Underground Distribution Engineer Chronic Care [[id number]] Prescriptions as of 12/27/2017 Sig: X COMPOUNDED PRESCRIPTION long term - PT/OT - dec* X COMPOUNDED PRESCRIPTION Repair hospital bed X LEVOTHYROXINE 25 MCG TABLET Take 1 tablet by mouth daily * X ALLOPURINOL 100 MG TABLET Take 1 tablet by mouth once d* DIVALPROEX 500 MG TABLET,JAVI* Take 1 tablet by mouth three * OMEPRAZOLE 20 MG CAPSULE,JAVI* Take 1 capsule by mouth once * TAMSULOSIN 0.4 MG CAPSULE Take 1 capsule by mouth once * NITROGLYCERIN 0.4 MG SUBLINGU* Dissolve 0.4mg tab (1tab) und* X ARIPIPRAZOLE 30 MG TABLET Take 1 tablet by mouth once d* X METOPROLOL TARTRATE 25 MG TAB* Take 1 tablet by mouth twice * X CLONIDINE HCL 0.1 MG TABLET Takes 1 tabs at bedtime and 1* X COMPOUNDED PRESCRIPTION Exercise bike- customized for* DIAPER,BRIEF,ADULT,DISPOSABLE 1 pad as needed for urinary c* CATHETER Apply 1 catheter at bedtime d* X FUROSEMIDE 40 MG TABLET Take 1 tablet by mouth twice * X COMPOUNDED PRESCRIPTION Diabetic shoes Dx: E11.610, * X COMPOUNDED PRESCRIPTION Hospital bed repair CHOLECALCIFEROL (VITAMIN D3) * Take 1,000 Units by mouth onc* [id number] ACID 0.4 M* Take 1 tablet by mouth. B-COMPLEX WITH VITAMIN C TABL* Take 1 tablet by mouth once d* * ASPIRIN 81 MG TABLET Take 1 tablet by mouth once d* Problem List As Of Date 12/27/2017 Noted Resolved Unspecified schizophrenia, unspecified conditio*INVALID FOR*03/11/2014 DIVERTICULOSIS OF COLON W/O BLEED [K57.30] INVALID FOR* SCIATICA [M54.30] INVALID FOR*06/06/2006 JOINT PAIN-SHLDER [M25.519] INVALID FOR*05/05/2009 Essential hypertension [I10] INVALID FOR* More... Contact dermatitis and other eczema, due to uns*INVALID FOR*10/31/2013 Other abnormal blood chemistry [R79.89] 10/31/2013 ESOPHAGEAL REFLUX [K21.9] Obesity [E66.9] INVALID FOR* Dysmetabolic syndrome X [E88.81] INVALID FOR*10/31/2013 JOINT PAIN-HAND [M25.549] INVALID FOR*05/05/2009 Backache, unspecified [M54.9] INVALID FOR*10/31/2013 Allergic rhinitis, cause unspecified [J30.9] INVALID FOR*10/31/2013 Cervicalgia [M54.2] INVALID FOR*10/31/2013 BPH W URINARY OBS/LUTS [N40.1] INVALID FOR* Charcot joint INVALID FOR*05/26/2014 Macular Degeneration [H35.30] Tremor [R25.1] INVALID FOR* Bipolar 1 disorder, mixed (HCC) [F31.60] INVALID FOR* More... Right gluteus medius Bursitis [M71.9] INVALID FOR*10/31/2013 CHF (congestive heart failure) [I50.9] INVALID FOR* More... Lacunar infarction [I63.81] INVALID FOR* More... Cardiomyopathy [I42.9] INVALID FOR* Near syncope [R55] INVALID FOR*10/31/2013 Diabetic peripheral neuropathy (HCC) [E11.42] INVALID FOR*02/02/2017 Hypothyroid [E03.9] INVALID FOR* More... Charcot foot due to diabetes mellitus (HCC) [E1*INVALID FOR* More... Bipolar affective disorder, mixed (HCC) [F31.60]INVALID FOR* More... BPH (benign prostatic hyperplasia) [N40.0] INVALID FOR* Family history of prostate cancer [Z80.42] INVALID FOR* Venous (peripheral) insufficiency [I87.2] INVALID FOR* Hyperlipidemia [E78.5] INVALID FOR* Benign non-nodular prostatic hyperplasia with l*INVALID FOR* More... Elevated prostate specific antigen (PSA) [R97.2*INVALID FOR* Urinary tract infection associated with cathete*INVALID FOR* Diastolic heart failure (HCC) [I50.30] INVALID FOR* Renal insufficiency [N28.9] INVALID FOR* Gastroesophageal reflux disease without esophag*INVALID FOR* More... History of colonic polyps [Z86.010] INVALID FOR* More... 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 PCP: Nikos Chong MD Status: REG RCR Y Location: WC (1) Stage II pressure ulcer of right buttock Status: Acute Current Visit: Yes Code(s): L89.312 - Pressure ulcer of right buttock, stage 2 (2) Bipolar disorder Status: Chronic Current Visit: No Code(s): F31.9 - Bipolar disorder, unspecified (3) CHF (congestive heart failure) Status: Chronic Current Visit: No Code(s): I50.9 - Heart failure, unspecified (4) Charcot ankle Status: Chronic Current Visit: No Code(s): M14.679 - Charcot's joint, unspecified ankle and foot Comment: BL (5) Edema of both legs Status: Chronic Current Visit: Yes Code(s): R60.0 - Localized edema (6) GERD (gastroesophageal reflux disease) Status: Chronic Current Visit: No Code(s): K21.9 - Gastro- esophageal reflux disease without esophagitis (7) History of CVA (cerebrovascular accident) Status: Chronic Current Visit: No Code(s): Z86.73 - Personal history of transient ischemic attack (TIA), and cerebral infarction without residual deficits (8) History of tobacco use Status: Chronic Current Visit: No Code(s): Z87.891 - Personal history of nicotine dependence (9) Hypothyroidism Status: Chronic Current Visit: No Code(s): E03.9 - Hypothyroidism, unspecified Comment: Noted treated prior, not on regimen list. (10) Incontinence of feces Status: Chronic Current Visit: Yes Code(s): R15.9 - Full incontinence of feces (11) Incontinence of urine Status: Chronic Current Visit: Yes Code(s): R32 - Unspecified urinary incontinence (12) Mood disorder Status: Chronic Current Visit: No (13) Obesity (BMI 30-39.9) Status: Chronic Current Visit: No Code(s): E66.9 - Obesity, unspecified (14) COPD (chronic obstructive pulmonary disease) Status: Suspected Current Visit: No Code(s): J44.9 - Chronic obstructive pulmonary disease, unspecified History of Present Illness Date of Service: 12/15/17 Chief Complaint: ulcer right buttock x 1 month, intermittently open over past year. History of Wound: This is a 72-year-old male who presents due to ulcer on the medial right buttock. The patient has multiple comorbidities and an extensive medical history as listed above. The patient and caregiver () noted the ulceration on his right buttock about a month ago and has been using a and D ointment over this. He has had problems with ulcerations on his buttock intermittently over the past year. The patient also has chronic swelling in his lower extremities. He states that he does have a hospital bed at home, however due to chronic pain in his shoulders is only able to sleep in it at 2 hours at a time and then has to go to his recliner chair to sleep. He has limited mobility due to his pain, Charcot ankle deformities bilaterally, and Parkinson's. He spends most of his day in a sitting position, and requires a wheelchair for mobility. He has not been treated recently with antibiotics. He denies any pain around the ulceration or foul-smelling exudate. He denies any systemic signs of infection. The patient is incontinent of both stool and urine, which causes him to have excoriation at times. However he is not currently excoriated. The patient otherwise denies any fever, chills, nausea, vomiting, shortness of breath, chest pain or pressure, palpitations, orthopnea, lower extremity edema, syncope or presyncopal episodes. Past Medical History Past Medical History: Chronic Problems History of CVA (cerebrovascular accident) (Chronic) History of tobacco use (Chronic) GERD (gastroesophageal reflux disease) (Chronic) Hypothyroidism (Chronic) Noted treated prior, not on regimen list. NSTEMI (non-ST elevated myocardial infarction) (Chronic) Bipolar disorder (Chronic) Mood disorder (Chronic) Edema of both legs (Chronic) Dermatomycosis (Chronic) Obesity (BMI 30-39.9) (Chronic) CHF (congestive heart failure) (Chronic) Charcot ankle (Chronic) BL Pre-diabetes (Chronic) Incontinence of urine (Chronic) Incontinence of feces (Chronic) Incontinence associated dermatitis (Chronic) Benign hypertension (Chronic) Surgical History: tonsillectomy Allergies/Adverse Reactions: Allergies codeine Allergy (Verified 07/29/17 18:12) Rash latex Allergy (Verified 07/29/17 18:12) Rash Penicillins Allergy (Verified 07/29/17 18:12) Other colchicine Adverse Reaction (Verified 08/02/17 07:39) Other Home Medications: Ambulatory Orders Medication Instructions Recorded Aripiprazole [Abilify] 30 mg PO QHS 03/10/17 Aspirin [Aspirin, Baby] 81 mg PO DAILY@0800 03/10/17 - Family History Maternal Cancer, - - The patient's mother had a history of Alzheimer's disease. She at the age of 70. Paternal Cancer, - - Patient's father at age of 59 with prostate cancer. Smoking Status: Former smoker Review of Systems Constitutional: Denies: Chills, Fever, Weight Change Eyes: Denies: Pain, Vision Change HEENT: Denies: Difficulty Hearing, Difficulty Swallowing, Sinus Congestion Cardiovascular: Denies: Chest Pain, Palpitations Respiratory: Denies: Cough, Shortness of Breath Gastrointestinal: Denies: Diarrhea, Nausea, Vomiting Genitourinary: Denies: Dysuria, Hematuria Skin: Reports: Wounds - See HPI Endocrine: Denies: Heat/ Cold Intolerance, Polydipsia, Polyuria Hematologic/ Lymphatic: Denies: Easy Bruising, Easy Bleeding - Physical Exam Vital Signs Temp Pulse Resp BP 97.5 F L 116 H 20 H 142/81 H 12/15/17 14:12 12/15/17 14:12 12/15/17 14:12 12/15/17 14:12 General: Alert, Oriented x3, Cooperative, No apparent distress HEENT: Atraumatic Oral: Moist Mucosa Lungs: Clear to auscultation Cardiovascular: Regular rate, Regular Rhythm, Normal S1, Normal S2 Abdomen: Bowel Sounds Present, Soft, Non Tender Extremities: Diminished Peripheral Pulses, Edema - Generalized bilateral lower extremity edema Skin: Ulcer/ Wound - Stage II cluster pressure ulcer present right medial buttock, periwound bed is not inflamed and there are no signs of excoriation or systemic infection, no exudate present on exam, ulcer has slough Wound Measurements and Assessment WC - Nurse 1 - General Ulcer Measurement Start: 12/15/17 13:55 Freq: Status: Active Protocol: Activity Type Activity Date Activity User E-Sign Co-Sign Detail Recorded Client Recorded Date Recorded By Document 12/15/17 14:12 [id number] 12/15/17 14:21 Wound Center Nurse 1 [Ulcer Assessment] 2-right buttocks cluster -Combined with other wound No -Current Size (cm) - Length 0.2 -Current Size (cm) - Width 0.2 WC - Nurse 2 - General Ulcer CM Notes Start: 12/15/17 13:55 Freq: Status: Active Protocol: Activity Type Activity Date Activity User E-Sign Co-Sign Detail Recorded Client Recorded Date Recorded By Document 12/15/17 14:22 [id number] 12/15/17 15:05 Wound Center Nurse 2 Musculoskeletal: - - Patient has an essential tremor bilaterally upper extremities, limited range of motion present bilateral upper extremities due to pain Lymphatic: No Cervical, Supraclavicular, or Inguinal Adenopathy Neurological: Neuro grossly intact Psych/Mental Status: Normal Affect, Alert and oriented to time, place, person, mood and affect Debridement Note Post-Debridement Measurements/Treatment WC - Nurse 2 - General Ulcer CM Notes Start: 12/15/17 13:55 Freq: Status: Active Protocol: Activity Type Activity Date Activity User E-Sign Co-Sign Detail Recorded Client Recorded Date Recorded By Document 12/15/17 14:22 [id number] 12/15/17 15:05 Wound Center Nurse 2 2-right buttocks cluster -Time 14:53 -Correct Patient Yes -Correct Side, Site, Position Yes Wound debrided: Ulcer right buttock Laterality: Right Wound Grade/Stage: Stage II Type of Debridement: Excisional debridement Anesthesia Used: 4% Lidocaine Solution Depth: in the subcutaneous layer Percentage of wound debrided: 100 Instrument Used: 5mm curette Tissue Removed: Slough and devitalized tissue Severity: Fat Layer Exposed Amount of bleeding with debridement: Mild Bleeding Controlled with: Pressure Patient tolerated procedure well Assessment/Plan Active Problems Stage II pressure ulcer of right buttock (Acute) Edema of both legs (Chronic) Incontinence of urine (Chronic) Incontinence of feces (Chronic) Assessment: Stage II pressure ulcer right buttock. Limited mobility. Urinary and fecal incontinence Plan: The patient was seen and examined at the wound center today and was updated on the plan of care. A subcutaneous debridement was performed today. The patient tolerated the procedure well. The patients wound care will consist of: Moistened fibrocol to be applied daily and as needed if becomes soiled. Wound cultures were collected. Baseline bloodwork was done recently by his PCP, will request records for continuity of care. Patient educated on the importance of diet on wound healing and instructed to increase protein and vitamin C intake. Patient verbalized understanding. Good hygiene has been recommended. Patient's undergarments are to be changed frequently, when soiled by fecal or urinary incontinence. Offloading measures such as utilizing the hospital bed more frequently and frequent turning at minimum of every 1-2 hours and utilizing offloading mechanisms while in the wheelchair or his reclining chair have been thoroughly explained, and should prove of benefit to the patient. Patient is return in 1 week for reassessment. This note was generated with GeoPageation software. It may contain incorrect words, spelling, and punctuation that were not noted in checking the note before signing. Code Visit Office Visits / Consults: 33261 OV L4 Est 111xxx-113xx: 22450 Alyssa subq tissue 20 sq cm/< 12/16/17 1206 <Electronically signed by Oumar CROWDER> Date Oumar CROWDER CC: Signed Observed: 12/15/2017 Status: F Source: [place] CULTURE, DEEP WOUND 3:00 PM [facility] REPOSITORY Comments: RIGHT BUTTOCK CLUSTER STAGE II Gram Stain Gram Stain Rare White Blood Cells Rare Gram positive cocci Wound Culture ORGANISM 1: Staphylococcus aureus Amount Growth 1+ ORGANISM 2: Enterococcus faecalis Amount Growth 1+ Staphylococcus aureus: REACTION Benzylpenicillin NF >=0.5 R Cefoxitin *NF + Clindamycin $$ <=0.25 S Inducable Clindamycin Resistan - Erythromycin $ >=8 R Gentamicin $ <=0.5 S Levofloxacin $ >=8 R Linezolid $$$$ 2 S Oxacillin NF >=4 R Tigecycline $$$$ <=0.12 S Rifampin $$ <=0.5 S Tetracycline NF <=1 S Trimethoprim/Sulfametho $ <=10 S Vancomycin $ 1 S (NF) indicates non-formulary drug at [facility]. Approval by Infectious Disease Specialist required before non-formulary drugs may be ordered and/or dispensed. * CLSI guidelines does not recommend testing of cephalosporins. This interpretation is deduced from Beta-lactam/penicillin results. Enterococcus faecalis: REACTION Ampicillin $ <=2 S Benzylpenicillin NF 8 S Gentamicin SYN-R R Linezolid $$$$ 1 S Tigecycline $$$$ <=0.12 S Streptomycin $ SYN-S S Vancomycin $ 1 S (NF) indicates non-formulary drug at [facility]. Approval by Infectious Disease Specialist required before non-formulary drugs may be ordered and/or dispensed. * CLSI guidelines does not recommend testing of cephalosporins. This interpretation is deduced from Beta-lactam/penicillin results. Cult, Anaerobic No anaerobic bacteria isolated. Performed By: #### M100.1500 #### [facility] [address] [place], [address] PROGRESS Observed: 12/07/2017 Status: COMPLETED Source: [place] 2:05 PM [facility] REPOSITORY O ID: [id number] Author: Nikos Chong Service: (none) Author Type: Physician Type: Progress Notes Filed: 12/07/2017 8:05 PM Note Text: Reason for Visit Patient presents with: Established Patient: 3 month follow up- pressure sore Miguel Angel Sanders is a 72 year old male who presents here today for Above Complaints.. Health Maintenance COLORECTAL CANCER SCREENING,SEE MODIFIER HPI Patient is in a wheel chair when he is at home, has a walker etc. He has a hospital bed at home, but does not use it because it is uncomfortable, he thinks if he uses a foam topper it will help him. He goes for wound care at the [facility], his wound is not really getting better. But not completely closing. It is not getting worse but not getting better either. Been to see Dr. Dominguez, who discussed increasing mobility, and discouraged him from using tramadol. He has DDD of the back, but does not have pain from it. He is on depakote and abilify and his mood is controlled with it Son has macular degeneration and the Is going blind. I am not clear how he got to the point of not not walking setting up another visit to go over it No problem-specific Assessment AND Plan notes found for this encounter. PAST MEDICAL HISTORY Diagnosis Date - BPH (benign prostatic hyperplasia) Seeing Dr. Quesada, unsure of diagnosis - Diverticulosis of colon (without mention of hemorrhage) Diverticulosis - Dysmetabolic syndrome X 09/29/2006 - Esophageal reflux - Hypothyroidism - Lower extremity edema - Macular degeneration - Obesity, unspecified 09/29/2006 - Other abnormal blood chemistry - Stable angina (HCC) Seeing Dr. Lang - Unspecified essential hypertension - Unspecified schizophrenia, unspecified condition Seeing Dr. Preciado PAST SURGICAL HISTORY Procedure Laterality Date - COLONOSCOP W/ OR W/O [facility] SPEC 08/02/2003 Colonoscopy - COLONOSCOP W/ OR W/O [facility] SPEC 08/19/08 - COLONOSCOP W/ OR W/O [facility] SPEC 06/04/2013 Colonoscopy - PAST SURGICAL HISTORY OF throat polyps - REMOVAL OF TONSILS,<12 Y/O FAMILY HISTORY Problem Relation Age of Onset - Prostate Cancer Father [address] Quesada - Diabetes Mother - Colon Cancer Sister Social History Substance Use Topics - Smoking status: Former Smoker Quit date: 09/26/1971 - Smokeless tobacco: Never Used - Alcohol use No Past medical history, appointments, medications, allergies reviewed. Pertinent Lab/Diagnostic Studies are reviewed and discussed today Current Outpatient Prescriptions: - traMADol (ULTRAM) 50 mg tablet - COMPOUNDED PRESCRIPTION - levothyroxine (SYNTHROID) 25 mcg tablet - allopurinol (ZYLOPRIM) 100 mg tablet - predniSONE (DELTASONE) 10 mg tablet - divalproex DR (DEPAKOTE) 500 mg EC tablet - ARIPiprazole (ABILIFY) 30 mg tablet - omeprazole (PRILOSEC) 20 mg capsule - tamsulosin ER (FLOMAX) 0.4 mg cp24 - metoprolol tartrate, short acting, (LOPRESSOR) 25 mg tablet - cloNIDine HCl (CATAPRES) 0.1 mg tablet - nitroglycerin sublingual (NITROQUICK) 0.4 mg SL tablet - COMPOUNDED PRESCRIPTION - Diaper,Brief, Adult,Disposable (DEPEND REAL FIT BRIEF MEN L/XL) misc - Catheter ([facility] MALE EXTERNAL CATH) misc - furosemide (LASIX) 40 mg tablet - COMPOUNDED PRESCRIPTION - COMPOUNDED PRESCRIPTION - Cholecalciferol, Vitamin D3, (VITAMIN D) 1,000 unit cap - MV with Ffw-Jvutaphw-Paqxnn (CENTRUM SILVER) 0.4-300-250 mg-mcg-mcg tab - B-complex with vitamin C (ALLBEE WITH C) tablet - Aspirin 81 mg ORAL Tab Review of Systems CONSTITUTIONAL: No fevers, chills night sweats, unintended weight loss CARDIOVASCULAR: No chest pain, dyspnea, palpitations, orthopnea, PND, ankle edema. PULM: No dyspnea, unexplained cough. GI: No dysphagia/odynophagia, problematic reflux, constipation, diarrhea, changes in stool habits, hematochezia, melena. : No new urinary complaints, including dysuria, gross hematuria or pyuria. NEURO: No new balance problems, peripheral weakness/paresthesias or numbness of concern. Physical Exam BP 134/66 (BP Site: Left Arm, BP Position: Sitting, BP Cuff Size: Large Adult) Pulse 68 Resp 12 Ht 172.7 cm (5' 8) Wt 108.4 kg (239 lb) SpO2 95% BMI 36.34 kg/m2 General appearance: Well appearing, alert, in no acute distress, well nourished. Skin: Skin color, texture, turgor normal, no suspicious rashes or lesions Head: Normocephalic, no masses, lesions, tenderness or abnormalities Eyes: Anicteric sclera. Pupils are equally round and reactive to light. Extraocular movements are intact. Lungs: Lungs clear to auscultation. No wheezing, rhonchi, rales Heart: RRR without murmur, gallop, or rubs. Extremities: No deformities, edema, skin discoloration, clubbing or cyanosis. Good capillary refill. ASSESSMENT/PLAN: 1. Essential hypertension - ICD9: 401.9, ICD10: I10 (primary diagnosis) - good control - Recommended regular aerobic exercise. - Recommend home blood pressure monitoring, to bring results in on next visit - Goal of BP <130/80 2. Bipolar 1 disorder, mixed (HCC) - ICD9: 296.60, ICD10: F31.60 Stable and controlled 3. Acquired hypothyroidism - ICD9: 244.9, ICD10: E03.9 - Instructed patient on importance of taking on an empty stomach either first thing in the morning or at bedtime. 4. Hyperlipidemia, unspecified hyperlipidemia type - ICD9: 272.4, ICD10: E78.5 - good control - Continue current medication. 5. Cardiomyopathy, unspecified type (HCC) - ICD9: 425.4, ICD10: I42.9 Stable cont medication 6. Systolic congestive heart failure, unspecified chronicity (HCC) - ICD9: 428.20, 428.0, ICD10: I50.20 Stable cont medication. 7. Decubitus ulcer of sacral region, stage 2 - ICD9: 707.03, 707.22, ICD10: L89.152 - [facility] CNOV Observed: 12/07/2017 Status: COMPLETED Source: [place] 1:40 PM [facility] REPOSITORY Office Visit (INTMWS) MIGUEL ANGEL SANDERS ([id number]) 1945 M Date Time Provider Department 12/07/17 1:40 PM NIKOS CHONG INTRaheemWS During your visit today, we recorded the following information about you: Pulse Respiration Blood pressure Weight 68/minute 12/minute 134/66 108.4 kg Height 1.727 m NIKOS CHONG MD 12/07/2017 8:05 PM Signed Reason for Visit Patient presents with: Established Patient: 3 month follow up- pressure sore Miguel Angel Sanders is a 72 year old male who presents here today for Above Complaints.. Health Maintenance COLORECTAL CANCER SCREENING,SEE MODIFIER HPI Patient is in a wheel chair when he is at home, has a walker etc. He has a hospital bed at home, but does not use it because it is uncomfortable, he thinks if he uses a foam topper it will help him. He goes for wound care at the [facility], his wound is not really getting better. But not completely closing. It is not getting worse but not getting better either. Been to see Dr. Dominguez, who discussed increasing mobility, and discouraged him from using tramadol. He has DDD of the back, but does not have pain from it. He is on depakote and abilify and his mood is controlled with it Son has macular degeneration and the Is going blind. I am not clear how he got to the point of not not walking setting up another visit to go over it No problem-specific Assessment ANDamp; Plan notes found for this encounter. PAST MEDICAL HISTORY Diagnosis Date - BPH (benign prostatic hyperplasia) Seeing Dr. Quesada, unsure of diagnosis - Diverticulosis of colon (without mention of hemorrhage) Diverticulosis - Dysmetabolic syndrome X 09/29/2006 - Esophageal reflux - Hypothyroidism - Lower extremity edema - Macular degeneration - Obesity, unspecified 09/29/2006 - Other abnormal blood chemistry - Stable angina (HCC) Seeing Dr. Lang - Unspecified essential hypertension - Unspecified schizophrenia, unspecified condition Seeing Dr. Preciado PAST SURGICAL HISTORY Procedure Laterality Date - COLONOSCOP W/ OR W/O [facility] SPEC 08/02/2003 Colonoscopy - COLONOSCOP W/ OR W/O [facility] SPEC 08/19/08 - COLONOSCOP W/ OR W/O [facility] SPEC 06/04/2013 Colonoscopy - PAST SURGICAL HISTORY OF throat polyps - REMOVAL OF TONSILS,ANDlt;13 Y/O FAMILY HISTORY Problem Relation Age of Onset - Prostate Cancer Father [address] Quesada - Diabetes Mother - Colon Cancer Sister Social History Substance Use Topics - Smoking status: Former Smoker Quit date: 09/26/1971 - Smokeless tobacco: Never Used - Alcohol use No Past medical history, appointments, medications, allergies reviewed. Pertinent Lab/Diagnostic Studies are reviewed and discussed today Current Outpatient Prescriptions: - traMADol (ULTRAM) 50 mg tablet - COMPOUNDED PRESCRIPTION - levothyroxine (SYNTHROID) 25 mcg tablet - allopurinol (ZYLOPRIM) 100 mg tablet - predniSONE (DELTASONE) 10 mg tablet - divalproex DR (DEPAKOTE) 500 mg EC tablet - ARIPiprazole (ABILIFY) 30 mg tablet - omeprazole (PRILOSEC) 20 mg capsule - tamsulosin ER (FLOMAX) 0.4 mg cp24 - metoprolol tartrate, short acting, (LOPRESSOR) 25 mg tablet - cloNIDine HCl (CATAPRES) 0.1 mg tablet - nitroglycerin sublingual (NITROQUICK) 0.4 mg SL tablet - COMPOUNDED PRESCRIPTION - Diaper,Brief, Adult,Disposable (DEPEND REAL FIT BRIEF MEN L/XL) misc - Catheter ([facility] MALE EXTERNAL CATH) misc - furosemide (LASIX) 40 mg tablet - COMPOUNDED PRESCRIPTION - COMPOUNDED PRESCRIPTION - Cholecalciferol, Vitamin D3, (VITAMIN D) 1,000 unit cap - MV with Znv-Stwtpjwo-Kpibpf (CENTRUM SILVER) 0.4-300-250 mg-mcg-mcg tab - B-complex with vitamin C (ALLBEE WITH C) tablet - Aspirin 81 mg ORAL Tab Review of Systems CONSTITUTIONAL: No fevers, chills night sweats, unintended weight loss CARDIOVASCULAR: No chest pain, dyspnea, palpitations, orthopnea, PND, ankle edema. PULM: No dyspnea, unexplained cough. GI: No dysphagia/odynophagia, problematic reflux, constipation, diarrhea, changes in stool habits, hematochezia, melena. : No new urinary complaints, including dysuria, gross hematuria or pyuria. NEURO: No new balance problems, peripheral weakness/paresthesias or numbness of concern. Physical Exam BP 134/66 (BP Site: Left Arm, BP Position: Sitting, BP Cuff Size: Large Adult) Pulse 68 Resp 12 Ht 172.7 cm (5' 8ANDquot;) Wt 108.4 kg (239 lb) SpO2 95% BMI 36.34 kg/m2 General appearance: Well appearing, alert, in no acute distress, well nourished. Skin: Skin color, texture, turgor normal, no suspicious rashes or lesions Head: Normocephalic, no masses, lesions, tenderness or abnormalities Eyes: Anicteric sclera. Pupils are equally round and reactive to light. Extraocular movements are intact. Lungs: Lungs clear to auscultation. No wheezing, rhonchi, rales Heart: RRR without murmur, gallop, or rubs. Extremities: No deformities, edema, skin discoloration, clubbing or cyanosis. Good capillary refill. ASSESSMENT/PLAN: 1. Essential hypertension - ICD9: 401.9, ICD10: I10 (primary diagnosis) - good control - Recommended regular aerobic exercise. - Recommend home blood pressure monitoring, to bring results in on next visit - Goal of BP ANDlt;130/80 2. Bipolar 1 disorder, mixed (HCC) - ICD9: 296.60, ICD10: F31.60 Stable and controlled 3. Acquired hypothyroidism - ICD9: 244.9, ICD10: E03.9 - Instructed patient on importance of taking on an empty stomach either first thing in the morning or at bedtime. 4. Hyperlipidemia, unspecified hyperlipidemia type - ICD9: 272.4, ICD10: E78.5 - good control - Continue current medication. 5. Cardiomyopathy, unspecified type (HCC) - ICD9: 425.4, ICD10: I42.9 Stable cont medication 6. Systolic congestive heart failure, unspecified chronicity (HCC) - ICD9: 428.20, 428.0, ICD10: I50.20 Stable cont medication. 7. Decubitus ulcer of sacral region, stage 2 - ICD9: 707.03, 707.22, ICD10: L89.152 - CONSULT TO [facility], ARACELI CHONG MD Referring Provider: NIKOS CHONG [[id number]] Allergies As of Date: 12/07/2017 Noted Allergy Reaction IODINE 08/27/2005 5 - Intolerance Comments: increased heart rate. LATEX 08/27/2005 2 - Rash CIMETIDINE 08/27/2005 5 - Intolerance Comments: loose stools. Pt. States he is not allergic to 05/05/2009 CODEINE 08/27/2005 8 - GI Upset DETROL (TOLTERODINE TARTRATE) 08/27/2005 5 - Intolerance PENICILLINS 08/27/2005 5 - Intolerance DYAZIDE (TRIAMTERENE-HYDROCHLOROT*12/17/2011 5 - Intolerance Comments: leg cramps after 1 dose LIPITOR (ATORVASTATIN CALCIUM) 02/15/2015 1 - Mental Status Change Comments: depression,anxiety SULINDAC 11/07/2009 6 - Diarrhea TESSALON (BENZONATATE) 10/11/2007 5 - Intolerance Comments: dyspnea Date Reviewed: 12/07/2017 Reviewed by: Pawel Montesinos LPN - Fully Assessed Reason for Visit: Established Patient [175] Cmt: 3 month follow up- pressure sore Primary Visit Diagnosis:Essential hypertension [I10] Other Visit Diagnoses:Bipolar 1 disorder, mixed (HCC) [F31.60] Acquired hypothyroidism [E03.9] Hyperlipidemia, unspecified hyperlipidemia type [E78.5] Cardiomyopathy, unspecified type (HCC) [I42.9] Systolic congestive heart failure, unspecified chronicity (HCC) [I50.20] Decubitus ulcer of sacral region, stage 2 [L89.152] Order(s):[facility] [[id number]] Order #: [id number]: 1 Prescriptions as of 12/07/2017 Sig: TRAMADOL 50 MG TABLET Take 1 tablet by mouth four t* COMPOUNDED PRESCRIPTION Repair hospital bed LEVOTHYROXINE 25 MCG TABLET Take 1 tablet by mouth daily * ALLOPURINOL 100 MG TABLET Take 1 tablet by mouth once d* DIVALPROEX 500 MG TABLET,JAVI* Take 1 tablet by mouth three * ARIPIPRAZOLE 30 MG TABLET Take 1 tablet by mouth once d* OMEPRAZOLE 20 MG CAPSULE,JAVI* Take 1 capsule by mouth once * TAMSULOSIN 0.4 MG CAPSULE Take 1 capsule by mouth once * METOPROLOL TARTRATE 25 MG TAB* Take 1 tablet by mouth twice * CLONIDINE HCL 0.1 MG TABLET Takes 1 tabs at bedtime and 1* NITROGLYCERIN 0.4 MG SUBLINGU* Dissolve 0.4mg tab (1tab) und* COMPOUNDED PRESCRIPTION Exercise bike- customized for* DIAPER,BRIEF,ADULT,DISPOSABLE 1 pad as needed for urinary c* CATHETER Apply 1 catheter at bedtime d* FUROSEMIDE 40 MG TABLET Take 1 tablet by mouth twice * COMPOUNDED PRESCRIPTION Diabetic shoes Dx: E11.610, * COMPOUNDED PRESCRIPTION Hospital bed repair CHOLECALCIFEROL (VITAMIN D3) * Take 1,000 Units by mouth onc* JTODEMPI-PDX-VSROS ACID 0.4 M* Take 1 tablet by mouth. B-COMPLEX WITH VITAMIN C TABL* Take 1 tablet by mouth once d* * ASPIRIN 81 MG TABLET Take 1 tablet by mouth once d* Problem List As Of Date 12/07/2017 Noted Resolved Unspecified schizophrenia, unspecified conditio*INVALID FOR*03/11/2014 DIVERTICULOSIS OF COLON W/O BLEED [K57.30] INVALID FOR* SCIATICA [M54.30] INVALID FOR*06/06/2006 JOINT PAIN-SHLDER [M25.519] INVALID FOR*05/05/2009 Essential hypertension [I10] INVALID FOR* More... Contact dermatitis and other eczema, due to uns*INVALID FOR*10/31/2013 Other abnormal blood chemistry [R79.89] 10/31/2013 ESOPHAGEAL REFLUX [K21.9] Obesity [E66.9] INVALID FOR* Dysmetabolic syndrome X [E88.81] INVALID FOR*10/31/2013 JOINT PAIN-HAND [M25.549] INVALID FOR*05/05/2009 Backache, unspecified [M54.9] INVALID FOR*10/31/2013 Allergic rhinitis, cause unspecified [J30.9] INVALID FOR*10/31/2013 Cervicalgia [M54.2] INVALID FOR*10/31/2013 BPH W URINARY OBS/LUTS [N40.1] INVALID FOR* Charcot joint INVALID FOR*05/26/2014 Macular Degeneration [H35.30] Tremor [R25.1] INVALID FOR* Bipolar 1 disorder, mixed (HCC) [F31.60] INVALID FOR* More... Right gluteus medius Bursitis [M71.9] INVALID FOR*10/31/2013 CHF (congestive heart failure) [I50.9] INVALID FOR* More... Lacunar infarction [I63.9] INVALID FOR* More... Cardiomyopathy [I42.9] INVALID FOR* Near syncope [R55] INVALID FOR*10/31/2013 Diabetic peripheral neuropathy (HCC) [E11.42] INVALID FOR*02/02/2017 Hypothyroid [E03.9] INVALID FOR* More... Charcot foot due to diabetes mellitus (HCC) [E1*INVALID FOR* Bipolar affective disorder, mixed (HCC) [F31.60]INVALID FOR* More... BPH (benign prostatic hyperplasia) [N40.0] INVALID FOR* Family history of prostate cancer [Z80.42] INVALID FOR* Venous (peripheral) insufficiency [I87.2] INVALID FOR* Hyperlipidemia [E78.5] INVALID FOR* Benign non-nodular prostatic hyperplasia with l*INVALID FOR* More... Elevated prostate specific antigen (PSA) [R97.2*INVALID FOR* Urinary tract infection associated with cathete*INVALID FOR* Diastolic heart failure (HCC) [I50.30] INVALID FOR* Renal insufficiency [N28.9] INVALID FOR* Gastroesophageal reflux disease without esophag*INVALID FOR* More... History of colonic polyps [Z86.010] INVALID FOR* More... Medications Discontinued During This Encounter predniSONE (DELTASONE) 10 mg tablet 90 t* 2 09/05/2017 12/07/2017 Sig: Take 10 mgs daily for a Month and then take 5 mgs daily for a couple months Disc: Reason for discontinue is not on file. Encounter Status:Closed by NIKOS CHONG MD on 12/07/17 PROGRESS Observed: 12/05/2017 Status: COMPLETED Source: [place] 1:34 PM [facility] REPOSITORY HNO ID: [id number] Author: Manuel Dominguez Service: (none) Author Type: Physician Type: Progress Notes Filed: 12/05/2017 2:50 PM Note Text: 12/05/2017 [facility] CHIEF COMPLAINT: Low back pain HPI: Miguel Angel Sanders is a 72 year old male who presents to [facility] at the [place] [facility] today for initial evaluation His pain is located in the lower back and is described as tenderness. He states that the pain began 3 months ago and is not related to any specific injury or event. The patient states that the onset was gradual. Symptoms have been improving. The pain level is at 6/10 and is intermittent. It is exacerbated by sitting. It is mitigated/relieved by ice . 100% pain in spine vs 0% pain in arms/legs. Work Status: retired Pending Litigation: No PRIOR TREATMENT: Medication(s): He has tried the following for relief of his back/leg pain: OTC NSAID, Tramadol The patient states the last dose of . OTC NSAIDs was taken at 0800 12/05/17. Physical Therapy: He has not had physical therapy for his current symptoms. Spinal Injections: He has not gotten prior spinal injections. Other: None Current Outpatient Prescriptions: COMPOUNDED PRESCRIPTION [facility] bed levothyroxine (SYNTHROID) 25 mcg tablet Take 1 tablet by mouth daily before breakfast. allopurinol (ZYLOPRIM) 100 mg tablet Take 1 tablet by mouth once daily. For gout. divalproex DR (DEPAKOTE) 500 mg EC tablet Take 1 tablet by mouth three times daily. ARIPiprazole (ABILIFY) 30 mg tablet Take 1 tablet by mouth once daily. omeprazole (PRILOSEC) 20 mg capsule Take 1 capsule by mouth once daily. (short fill supply for [facility] program) tamsulosin ER (FLOMAX) 0.4 mg cp24 Take 1 capsule by mouth once daily. Take 30 minutes after supper. metoprolol tartrate, short acting, (LOPRESSOR) 25 mg tablet Take 1 tablet by mouth twice daily. cloNIDine HCl (CATAPRES) 0.1 mg tablet Takes 1 tabs at bedtime and 1 tab in am by mouth. COMPOUNDED PRESCRIPTION Exercise bike- customized for patient to useRe: charcot joint of the ankles Obesity Gait abnormality Diaper,Brief, Adult,Disposable (DEPEND REAL FIT BRIEF MEN L/XL) misc 1 pad as needed for urinary continence Catheter ([facility] MALE EXTERNAL CATH) misc Apply 1 catheter at bedtime daily furosemide (LASIX) 40 mg tablet Take 1 tablet by mouth twice daily. COMPOUNDED PRESCRIPTION Diabetic shoes Dx: E11.610, E11.42, I87.2 Last office visit: 08/28/16 COMPOUNDED PRESCRIPTION Hospital bed repair Cholecalciferol, Vitamin D3, (VITAMIN D) 1,000 unit cap Take 1,000 Units by mouth once daily. MV with Ogt-Spfodilv-Jalubt (CENTRUM SILVER) 0.4-300-250 mg-mcg-mcg tab Take 1 tablet by mouth. B-complex with vitamin C (ALLBEE WITH C) tablet Take 1 tablet by mouth once daily. Aspirin 81 mg ORAL Tab Take 1 tablet by mouth once daily. Take with food. traMADol (ULTRAM) 50 mg tablet Take 1 tablet by mouth four times daily as needed for Pain for up to 30 days. predniSONE (DELTASONE) 10 mg tablet Take 10 mgs daily for a Month and then take 5 mgs daily for a couple months nitroglycerin sublingual (NITROQUICK) 0.4 mg SL tablet Dissolve 0.4mg tab (1tab) under tongue every 5min as needed for chest pain. If no response after max 3 tabs go to ED/notify doctor. No current facility-administered medications for this visit. Allergies: Iodine; Latex; Cimetidine; Codeine; Detrol [Tolterodine Tartrate]; Penicillins; Dyazide [Triamterene-Hydrochlorothiazid]; Lipitor [Atorvastatin Calcium]; Sulindac; Tessalon [Benzonatate] PAST MEDICAL HISTORY Diagnosis Date - BPH (benign prostatic hyperplasia) Seeing Dr. Quesada, unsure of diagnosis - Diverticulosis of colon (without mention of hemorrhage) Diverticulosis - Dysmetabolic syndrome X 09/29/2006 - Esophageal reflux - Hypothyroidism - Lower extremity edema - Macular degeneration - Obesity, unspecified 09/29/2006 - Other abnormal blood chemistry - Stable angina (HCC) Seeing Dr. Lang - Unspecified essential hypertension - Unspecified schizophrenia, unspecified condition Seeing Dr. Preciado PAST SURGICAL HISTORY Procedure Laterality Date - COLONOSCOP W/ OR W/O [facility] SPEC 08/02/2003 Colonoscopy - COLONOSCOP W/ OR W/O [facility] SPEC 08/19/08 - COLONOSCOP W/ OR W/O [facility] SPEC 06/04/2013 Colonoscopy - PAST SURGICAL HISTORY OF throat polyps - REMOVAL OF TONSILS,<13 Y/O Social History Marital status: Spouse name: Years of education: Number of children: 1 Social History Main Topics Smoking status: Former Smoker Packs/day: 0.00 Years: 0.00 Quit date: 09/26/1971 Smokeless status: Never Used Alcohol use: No Drug use: No Sexual activity: Yes Partners with: Female FAMILY HISTORY Problem Relation Age of Onset - Prostate Cancer Father [address] Quesada - Diabetes Mother - Colon Cancer Sister REVIEW OF SYSTEMS: Constitutional: (-) Fever (-) Night Sweats (-) Weight Gain (-) Weight Loss (-) Fatigue Cardiovascular: (-) Chest Pain (-) Palpitations (-) Lightheadedness (-) Swelling of Ankles (-) Hx Heart Surgery Respiratory: (-) Shortness of Breath (-) Cough (-) Wheezing (-) Snoring Gastrointestinal: (-) Incontinence (-) Abdominal Pain (-) Diarrhea (-) Constipation (-) Nausea/Vomiting (-) Heart Burn Endocrine: (-) Thyroid Disorder (-) Diabetes Hematologic: (-) Prolonged Bleeding (-) Easy Bruising Genitourinary: (+) Incontinence (-) Frequency (-) Urinary Urgency Skin: (-) Rashes (-) Itching (-) Other Lesions Neurologic: (-) Headache (-) Double Vision (-) Confusion (-) Paralysis (-) Vertigo (-) Syncope Psychiatric: (-) Depression (-) Anxiety (-) Delusions (-) Hallucinations (-) Suicidal Thoughts Tamy Humphrey OARRS Report reviewed: Yes Narcotic Agreement reviewed and signed?: N/A Baseline Urine Toxicology obtained: N/A Urine Panel: No results found for: UQCANN, UQBNZL, RGO1AHF, UQAMPH, UQMAMP, UQBUPRE, UQNORBUP, UQMTHD, UQEDDP, UQTRAM, UQDTRM, UQFNTL, UQNFTL, UQCODE, UQMORP, UQDCDN, UQHCOD, UQOXYC, UQHMOR, UQOXYM, UQCREA, UQPH, UQSPGR, UQOXID, UQSPQ The pain panel was N/A OBJECTIVE: PHYSICAL EXAMINATION: Pulse 76, height 172.7 cm (5' 8), weight 107.5 kg (237 lb), SpO2 98 %. PHYSICAL EXAMINATION: GENERAL: Well appearing, in no acute distress PSYCH: Mood and affect is appropriate. Awake, alert, and oriented x 3 SKIN: Skin color, texture, turgor normal, no rashes or lesions HEENT: Normocephalic, atraumatic. CV: RRR, There are no significant varicosities and no pedal edema RESP: normal respiratory motion, normal breath sounds. GI: Abdomen soft and non-tender. MS: Bilateral upper and lower extremity strength is normal and symmetric. No atrophy or tone abnormalities are noted. LUMBAR: Lumbar curve was flat. On palpation, tenderness was present over lower sacral area. Palpation of the sciatic notch was negative for tenderness. Facet loading was positive, with axial loading. Lumbar range of motion includes limited flexion, limited extension and limited side rotation. SLR: SLR variable sitting - negative SI joint: positive right PSIS. Extremities: Peripheral joint ROM is full and pain free without obvious instability or laxity in all four extremities. No edema or skin discolorations noted. Ambulation: uses a walker at home. Gait exam not done. Gait: Deferred NEUR: Bilateral upper and lower extremity coordination and muscle stretch reflexes are physiologic and symmetric. No loss of sensation is noted. IMAGING STUDIES: Plain radiographs taken were reviewed with the patient during the visit. ASSESSMENT AND PLAN: Diagnosis: Encounter Diagnosis ICD-10-CM 1. Lumbar spondylosis M47.816 2. DDD (degenerative disc disease), lumbar M51.36 3. SI (sacroiliac) joint dysfunction M53.3 Discussion: A discussion was entertained regarding chronic opioid therapy as it relates to chronic benign pain. 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 .Mr. Sanders understands that his pain may not be entirely relieved by the use of medications alone. Other factors that may contribute to chronic pain were discussed including smoking, obesity, and a sedentary lifestyle. Plan: 1) xray of lumbar spine 4 views. 2) Ok to take OTC NSAIDS. 3) Encouraged active ambulation. He has been doing home PT. 4) Do not recommend injections. 5) Discussed he may benefit from wound center evaluation. 6) The patient was counseled regarding the importance of activity modification.. 7) RTC Will contact patient with results I have discussed and confirmed the above treatment plan with the patient. and I have reviewed the nurses notes and I am aware of the family/social history. Manuel Dominguez MD December 05, 2017 cc: Ger Hernandez CNP [id number] [facility] [id number] Results of consultation to be transmitted via electronic medical record for those providers who practice within [facility] or with access to [email or web address] via MD Connect, or via letter. CRISTINAOV Observed: 12/05/2017 Status: COMPLETED Source: [place] 12:30 PM [facility] REPOSITORY Office Visit (PNMDNA) LESLIALIXMIGUEL ANGEL Bolaños ([id number]) 1945 M Date Time Provider Department 12/05/17 12:30 PM MANUEL DOMINGUEZ PNMDNA During your visit today, we recorded the following information about you: Pulse Weight Height 76/minute 107.5 kg 1.727 m Manuel Dominguez MD 12/05/2017 2:50 PM Signed 12/05/2017 [facility] CHIEF COMPLAINT: Low back pain HPI: Miguel Angel Mami Sanders is a 72 year old male who presents to [facility] at the [facility] today for initial evaluation His pain is located in the lower back and is described as tenderness. He states that the pain began 3 months ago and is not related to any specific injury or event. The patient states that the onset was gradual. Symptoms have been improving. The pain level is at 6/10 and is intermittent. It is exacerbated by sitting. It is mitigated/relieved by ice . 100% pain in spine vs 0% pain in arms/legs. Work Status: retired Pending Litigation: No PRIOR TREATMENT: Medication(s): He has tried the following for relief of his back/leg pain: OTC NSAID, Tramadol The patient states the last dose of . OTC NSAIDs was taken at 0800 12/05/17. Physical Therapy: He has not had physical therapy for his current symptoms. Spinal Injections: He has not gotten prior spinal injections. Other: None [facility] bed levothyroxine (SYNTHROID) 25 mcg tablet Take 1 tablet by mouth daily before breakfast. allopurinol (ZYLOPRIM) 100 mg tablet Take 1 tablet by mouth once daily. For gout. divalproex DR (DEPAKOTE) 500 mg EC tablet Take 1 tablet by mouth three times daily. ARIPiprazole (ABILIFY) 30 mg tablet Take 1 tablet by mouth once daily. omeprazole (PRILOSEC) 20 mg capsule Take 1 capsule by mouth once daily. (short fill supply for med [employer] program) tamsulosin ER (FLOMAX) 0.4 mg cp24 Take 1 capsule by mouth once daily. Take 30 minutes after supper. metoprolol tartrate, short acting, (LOPRESSOR) 25 mg tablet Take 1 tablet by mouth twice daily. cloNIDine HCl (CATAPRES) 0.1 mg tablet Takes 1 tabs at bedtime and 1 tab in am by mouth. COMPOUNDED PRESCRIPTION Exercise bike- customized for patient to useRe: charcot joint of the ankles Obesity Gait abnormality Diaper,Brief, Adult,Disposable (DEPEND REAL FIT BRIEF MEN L/XL) misc 1 pad as needed for urinary continence Catheter ([facility] MALE EXTERNAL CATH) misc Apply 1 catheter at bedtime daily furosemide (LASIX) 40 mg tablet Take 1 tablet by mouth twice daily. COMPOUNDED PRESCRIPTION Diabetic shoes Dx: E11.610, E11.42, I87.2 Last office visit: 08/28/16 [facility] bed repair Cholecalciferol, Vitamin D3, (VITAMIN D) 1,000 unit cap Take 1,000 Units by mouth once daily. MV with Fet-Afwhmphx-Meypps (CENTRUM SILVER) 0.4-300-250 mg-mcg-mcg tab Take 1 tablet by mouth. B-complex with vitamin C (ALLBEE WITH C) tablet Take 1 tablet by mouth once daily. Aspirin 81 mg ORAL Tab Take 1 tablet by mouth once daily. Take with food. traMADol (ULTRAM) 50 mg tablet Take 1 tablet by mouth four times daily as needed for Pain for up to 30 days. predniSONE (DELTASONE) 10 mg tablet Take 10 mgs daily for a Month and then take 5 mgs daily for a couple months nitroglycerin sublingual (NITROQUICK) 0.4 mg SL tablet Dissolve 0.4mg tab (1tab) under tongue every 5min as needed for chest pain. If no response after max 3 tabs go to ED/notify doctor. No current facility-administered medications for this visit. Allergies: Iodine; Latex; Cimetidine; Codeine; Detrol [Tolterodine Tartrate]; Penicillins; Dyazide [Triamterene-Hydrochlorothiazid]; Lipitor [Atorvastatin Calcium]; Sulindac; Tessalon [Benzonatate] PAST MEDICAL HISTORY Diagnosis Date - BPH (benign prostatic hyperplasia) Seeing Dr. Quesada, unsure of diagnosis - Diverticulosis of colon (without mention of hemorrhage) Diverticulosis - Dysmetabolic syndrome X 09/29/2006 - Esophageal reflux - Hypothyroidism - Lower extremity edema - Macular degeneration - Obesity, unspecified 09/29/2006 - Other abnormal blood chemistry - Stable angina (HCC) Seeing Dr. Lang - Unspecified essential hypertension - Unspecified schizophrenia, unspecified condition Seeing Dr. Preciado PAST SURGICAL HISTORY Procedure Laterality Date - COLONOSCOP W/ OR W/O [facility] SPEC 08/02/2003 Colonoscopy - COLONOSCOP W/ OR W/O [facility] SPEC 08/19/08 - COLONOSCOP W/ OR W/O [facility] SPEC 06/04/2013 Colonoscopy - PAST SURGICAL HISTORY OF throat polyps - REMOVAL OF TONSILS,ANDlt;13 Y/O Social History Marital status: Spouse name: Years of education: Number of children: 1 Social History Main Topics Smoking status: Former Smoker Packs/day: 0.00 Years: 0.00 Quit date: 09/26/1971 Smokeless status: Never Used Alcohol use: No Drug use: No Sexual activity: Yes Partners with: Female FAMILY HISTORY Problem Relation Age of Onset - Prostate Cancer Father 59 [address] Quesada - Diabetes Mother - Colon Cancer Sister REVIEW OF SYSTEMS: Constitutional: (-) Fever (-) Night Sweats (-) Weight Gain (-) Weight Loss (-) Fatigue Cardiovascular: (-) Chest Pain (-) Palpitations (-) Lightheadedness (-) Swelling of Ankles (-) Hx Heart Surgery Respiratory: (-) Shortness of Breath (-) Cough (-) Wheezing (-) Snoring Gastrointestinal: (-) Incontinence (-) Abdominal Pain (-) Diarrhea (-) Constipation (-) Nausea/Vomiting (-) Heart Burn Endocrine: (-) Thyroid Disorder (-) Diabetes Hematologic: (-) Prolonged Bleeding (-) Easy Bruising Genitourinary: (+) Incontinence (-) Frequency (-) Urinary Urgency Skin: (-) Rashes (-) Itching (-) Other Lesions Neurologic: (-) Headache (-) Double Vision (-) Confusion (-) Paralysis (-) Vertigo (-) Syncope Psychiatric: (-) Depression (-) Anxiety (-) Delusions (-) Hallucinations (-) Suicidal Thoughts Tamy Humphrey RUST Report reviewed: Yes Narcotic Agreement reviewed and signed?: N/A Baseline Urine Toxicology obtained: N/A Urine Panel: No results found for: UQCANN, UQBNZL, EJK4SQW, UQAMPH, UQMAMP, UQBUPRE, UQNORBUP, UQMTHD, UQEDDP, UQTRAM, UQDTRM, UQFNTL, UQNFTL, UQCODE, UQMORP, UQDCDN, UQHCOD, UQOXYC, UQHMOR, UQOXYM, UQCREA, UQPH, UQSPGR, UQOXID, UQSPQ The pain panel was N/A OBJECTIVE: PHYSICAL EXAMINATION: Pulse 76, height 172.7 cm (5' 8ANDquot;), weight 107.5 kg (237 lb), SpO2 98 %. PHYSICAL EXAMINATION: GENERAL: Well appearing, in no acute distress PSYCH: Mood and affect is appropriate. Awake, alert, and oriented x 3 SKIN: Skin color, texture, turgor normal, no rashes or lesions HEENT: Normocephalic, atraumatic. CV: RRR, There are no significant varicosities and no pedal edema RESP: normal respiratory motion, normal breath sounds. GI: Abdomen soft and non-tender. MS: Bilateral upper and lower extremity strength is normal and symmetric. No atrophy or tone abnormalities are noted. LUMBAR: Lumbar curve was flat. On palpation, tenderness was present over lower sacral area. Palpation of the sciatic notch was negative for tenderness. Facet loading was positive, with axial loading. Lumbar range of motion includes limited flexion, limited extension and limited side rotation. SLR: SLR variable sitting - negative SI joint: positive right PSIS. Extremities: Peripheral joint ROM is full and pain free without obvious instability or laxity in all four extremities. No edema or skin discolorations noted. Ambulation: uses a walker at home. Gait exam not done. Gait: Deferred NEUR: Bilateral upper and lower extremity coordination and muscle stretch reflexes are physiologic and symmetric. No loss of sensation is noted. IMAGING STUDIES: Plain radiographs taken were reviewed with the patient during the visit. ASSESSMENT AND PLAN: Diagnosis: Encounter Diagnosis ICD-10-CM 1. Lumbar spondylosis M47.816 2. DDD (degenerative disc disease), lumbar M51.36 3. SI (sacroiliac) joint dysfunction M53.3 Discussion: A discussion was entertained regarding chronic opioid therapy as it relates to chronic benign pain. A senior living use of opioids have generally not been effective in managing chronic benign pain, therefore I do not recommend it. .Mr. Sanders understands that his pain may not be entirely relieved by the use of medications alone. Other factors that may contribute to chronic pain were discussed including smoking, obesity, and a sedentary lifestyle. Plan: 1) xray of lumbar spine 4 views. 2) Ok to take OTC NSAIDS. 3) Encouraged active ambulation. He has been doing home PT. 4) Do not recommend injections. 5) Discussed he may benefit from wound center evaluation. 6) The patient was counseled regarding the importance of activity modification.. 7) RTC Will contact patient with results I have discussed and confirmed the above treatment plan with the patient. and I have reviewed the nurses notes and I am aware of the family/social history. Manuel Dominguez MD December 05, 2017 cc: Ger Hernandez CNP [address] [place] [address] Results of consultation to be transmitted via electronic medical record for those providers who practice within [facility] or with access to [email or web address] via MD Connect, or via letter. Referring Provider: GER HERNANDEZ (SUPERVISOR [employer]OR MAKING) [[id number]] Allergies As of Date: 12/05/2017 Noted Allergy Reaction IODINE 08/27/2005 5 - Intolerance Comments: increased heart rate. LATEX 08/27/2005 2 - Rash CIMETIDINE 08/27/2005 5 - Intolerance Comments: loose stools. Pt. States he is not allergic to 05/05/2009 CODEINE 08/27/2005 8 - GI Upset DETROL (TOLTERODINE TARTRATE) 08/27/2005 5 - Intolerance PENICILLINS 08/27/2005 5 - Intolerance DYAZIDE (TRIAMTERENE-HYDROCHLOROT*12/17/2011 5 - Intolerance Comments: leg cramps after 1 dose LIPITOR (ATORVASTATIN CALCIUM) 02/15/2015 1 - Mental Status Change Comments: depression,anxiety SULINDAC 11/07/2009 6 - Diarrhea TESSALON (BENZONATATE) 10/11/2007 5 - Intolerance Comments: dyspnea Date Reviewed: 12/05/2017 Reviewed by: Tamy Humphrey - Fully Assessed Reason for Visit: Low Back Pain [126] Primary Visit Diagnosis:Lumbar spondylosis [M47.816] Other Visit Diagnoses:DDD (degenerative disc disease), lumbar [M51.36] SI (sacroiliac) joint dysfunction [M53.3] Order(s):XR LUMBAR PARS DEFECT 4V AP/LAT/BOTH OBL [[id number]] Order #: [id number] FUTURE Prescriptions as of 12/05/2017 Sig: COMPOUNDED PRESCRIPTION Repair hospital bed LEVOTHYROXINE 25 MCG TABLET Take 1 tablet by mouth daily * ALLOPURINOL 100 MG TABLET Take 1 tablet by mouth once d* DIVALPROEX 500 MG TABLET,JAVI* Take 1 tablet by mouth three * ARIPIPRAZOLE 30 MG TABLET Take 1 tablet by mouth once d* OMEPRAZOLE 20 MG CAPSULE,JAVI* Take 1 capsule by mouth once * TAMSULOSIN 0.4 MG CAPSULE Take 1 capsule by mouth once * METOPROLOL TARTRATE 25 MG TAB* Take 1 tablet by mouth twice * CLONIDINE HCL 0.1 MG TABLET Takes 1 tabs at bedtime and 1* COMPOUNDED PRESCRIPTION Exercise bike- customized for* DIAPER,BRIEF,ADULT,DISPOSABLE 1 pad as needed for urinary c* CATHETER Apply 1 catheter at bedtime d* FUROSEMIDE 40 MG TABLET Take 1 tablet by mouth twice * COMPOUNDED PRESCRIPTION Diabetic shoes Dx: E11.610, * COMPOUNDED PRESCRIPTION Hospital bed repair CHOLECALCIFEROL (VITAMIN D3) * Take 1,000 Units by mouth onc* [id number] ACID 0.4 M* Take 1 tablet by mouth. B-COMPLEX WITH VITAMIN C TABL* Take 1 tablet by mouth once d* * ASPIRIN 81 MG TABLET Take 1 tablet by mouth once d* TRAMADOL 50 MG TABLET Take 1 tablet by mouth four t* PREDNISONE 10 MG TABLET Take 10 mgs daily for a Caio* NITROGLYCERIN 0.4 MG SUBLINGU* Dissolve 0.4mg tab (1tab) und* Medication notes this encounter TRAMADOL 50 MG TABLET >> Tamy Humphrey 12/05/2017 1:32 PM >> TAMY HUMPHREY TueDec 05, 2017 1:32 PM Not taking PREDNISONE 10 MG TABLET >> Tamy Taverasmor 12/05/2017 1:32 PM >> TAMY HUMPHREY [facility] Dec 05, 2017 1:32 PM Not taking NITROGLYCERIN 0.4 MG SUBLINGUAL TABLET >> Tamy Taverasmor 12/05/2017 1:32 PM >> TAMY HUMPHREY TueDec 05, 2017 1:32 PM Not taking Problem List As Of Date 12/05/2017 Noted Resolved Unspecified schizophrenia, unspecified conditio*INVALID FOR*03/11/2014 DIVERTICULOSIS OF COLON W/O BLEED [K57.30] INVALID FOR* SCIATICA [M54.30] INVALID FOR*06/06/2006 JOINT PAIN-SHLDER [M25.519] INVALID FOR*05/05/2009 Essential hypertension [I10] INVALID FOR* More... Contact dermatitis and other eczema, due to uns*INVALID FOR*10/31/2013 Other abnormal blood chemistry [R79.89] 10/31/2013 ESOPHAGEAL REFLUX [K21.9] Obesity [E66.9] INVALID FOR* Dysmetabolic syndrome X [E88.81] INVALID FOR*10/31/2013 JOINT PAIN-HAND [M25.549] INVALID FOR*05/05/2009 Backache, unspecified [M54.9] INVALID FOR*10/31/2013 Allergic rhinitis, cause unspecified [J30.9] INVALID FOR*10/31/2013 Cervicalgia [M54.2] INVALID FOR*10/31/2013 BPH W URINARY OBS/LUTS [N40.1] INVALID FOR* Charcot joint INVALID FOR*05/26/2014 Macular Degeneration [H35.30] Tremor [R25.1] INVALID FOR* Bipolar 1 disorder, mixed (HCC) [F31.60] INVALID FOR* More... Right gluteus medius Bursitis [M71.9] INVALID FOR*10/31/2013 CHF (congestive heart failure) [I50.9] INVALID FOR* More... Lacunar infarction [I63.9] INVALID FOR* More... Cardiomyopathy [I42.9] INVALID FOR* Near syncope [R55] INVALID FOR*10/31/2013 Diabetic peripheral neuropathy (HCC) [E11.42] INVALID FOR*02/02/2017 Hypothyroid [E03.9] INVALID FOR* More... Charcot foot due to diabetes mellitus (HCC) [E1*INVALID FOR* Bipolar affective disorder, mixed (HCC) [F31.60]INVALID FOR* More... BPH (benign prostatic hyperplasia) [N40.0] INVALID FOR* Family history of prostate cancer [Z80.42] INVALID FOR* Venous (peripheral) insufficiency [I87.2] INVALID FOR* Hyperlipidemia [E78.5] INVALID FOR* Benign non-nodular prostatic hyperplasia with l*INVALID FOR* More... Elevated prostate specific antigen (PSA) [R97.2*INVALID FOR* Urinary tract infection associated with cathete*INVALID FOR* Diastolic heart failure (HCC) [I50.30] INVALID FOR* Renal insufficiency [N28.9] INVALID FOR* Gastroesophageal reflux disease without esophag*INVALID FOR* More... History of colonic polyps [Z86.010] INVALID FOR* More... Encounter Status:Closed by MANUEL DOMINGUEZ MD on 12/05/17 CNPTOUTREAMY Observed: 11/22/2017 Status: COMPLETED Source: [place] 12:00 AM [facility] REPOSITORY Patient Outreach ([facility]) TOMMYMIGUEL ANGEL ([id number]) 1945 M Date Time Provider Department 11/22/17 NIKOS CHONG [facility] During your visit today, we recorded the following information about you: Allergies As of Date: 11/22/2017 Noted Allergy Reaction IODINE 08/27/2005 5 - Intolerance Comments: increased heart rate. LATEX 08/27/2005 2 - Rash CIMETIDINE 08/27/2005 5 - Intolerance Comments: loose stools. Pt. 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] Visit Diagnosis:Medication management [Z79.899] Order(s):HGB A1C [[id number]] Order #: [id number] FUTURE Prescriptions as of 11/22/2017 Sig: TRAMADOL 50 MG TABLET Take 1 tablet by mouth four t* X COMPOUNDED PRESCRIPTION Repair hospital bed X LEVOTHYROXINE 25 MCG TABLET Take 1 tablet by mouth daily * X ALLOPURINOL 100 MG TABLET Take 1 tablet by mouth once d* X PREDNISONE 10 MG TABLET Take 10 mgs daily for a Caio* DIVALPROEX 500 MG TABLET,JAVI* Take 1 tablet by mouth three * OMEPRAZOLE 20 MG CAPSULE,JAVI* Take 1 capsule by mouth once * TAMSULOSIN 0.4 MG CAPSULE Take 1 capsule by mouth once * NITROGLYCERIN 0.4 MG SUBLINGU* Dissolve 0.4mg tab (1tab) und* X ARIPIPRAZOLE 30 MG TABLET Take 1 tablet by mouth once d* X METOPROLOL TARTRATE 25 MG TAB* Take 1 tablet by mouth twice * X CLONIDINE HCL 0.1 MG TABLET Takes 1 tabs at bedtime and 1* X COMPOUNDED PRESCRIPTION Exercise bike- customized for* DIAPER,BRIEF,ADULT,DISPOSABLE 1 pad as needed for urinary c* CATHETER Apply 1 catheter at bedtime d* X FUROSEMIDE 40 MG TABLET Take 1 tablet by mouth twice * X COMPOUNDED PRESCRIPTION Diabetic shoes Dx: E11.610, * X COMPOUNDED PRESCRIPTION Hospital bed repair CHOLECALCIFEROL (VITAMIN D3) * Take 1,000 Units by mouth onc* [id number] ACID 0.4 M* Take 1 tablet by mouth. B-COMPLEX WITH VITAMIN C TABL* Take 1 tablet by mouth once d* * ASPIRIN 81 MG TABLET Take 1 tablet by mouth once d* Problem List As Of Date 11/22/2017 Noted Resolved Unspecified schizophrenia, unspecified conditio*INVALID FOR*03/11/2014 DIVERTICULOSIS OF COLON W/O BLEED [K57.30] INVALID FOR* SCIATICA [M54.30] INVALID FOR*06/06/2006 JOINT PAIN-SHLDER [M25.519] INVALID FOR*05/05/2009 Essential hypertension [I10] INVALID FOR* More... Contact dermatitis and other eczema, due to uns*INVALID FOR*10/31/2013 Other abnormal blood chemistry [R79.89] 10/31/2013 ESOPHAGEAL REFLUX [K21.9] Obesity [E66.9] INVALID FOR* Dysmetabolic syndrome X [E88.81] INVALID FOR*10/31/2013 JOINT PAIN-HAND [M25.549] INVALID FOR*05/05/2009 Backache, unspecified [M54.9] INVALID FOR*10/31/2013 Allergic rhinitis, cause unspecified [J30.9] INVALID FOR*10/31/2013 Cervicalgia [M54.2] INVALID FOR*10/31/2013 BPH W URINARY OBS/LUTS [N40.1] INVALID FOR* Charcot joint INVALID FOR*05/26/2014 Macular Degeneration [H35.30] Tremor [R25.1] INVALID FOR* Bipolar 1 disorder, mixed (HCC) [F31.60] INVALID FOR* More... Right gluteus medius Bursitis [M71.9] INVALID FOR*10/31/2013 CHF (congestive heart failure) [I50.9] INVALID FOR* More... Lacunar infarction [I63.81] INVALID FOR* More... Cardiomyopathy [I42.9] INVALID FOR* Near syncope [R55] INVALID FOR*10/31/2013 Diabetic peripheral neuropathy (HCC) [E11.42] INVALID FOR*02/02/2017 Hypothyroid [E03.9] INVALID FOR* More... Charcot foot due to diabetes mellitus (HCC) [E1*INVALID FOR* More... Bipolar affective disorder, mixed (HCC) [F31.60]INVALID FOR* More... BPH (benign prostatic hyperplasia) [N40.0] INVALID FOR* Family history of prostate cancer [Z80.42] INVALID FOR* Venous (peripheral) insufficiency [I87.2] INVALID FOR* Hyperlipidemia [E78.5] INVALID FOR* Benign non-nodular prostatic hyperplasia with l*INVALID FOR* More... Elevated prostate specific antigen (PSA) [R97.2*INVALID FOR* Urinary tract infection associated with cathete*INVALID FOR* Diastolic heart failure (HCC) [I50.30] INVALID FOR* Renal insufficiency [N28.9] INVALID FOR* Gastroesophageal reflux disease without esophag*INVALID FOR* More... History of colonic polyps [Z86.010] INVALID FOR* More... Encounter Status:Closed by EPIC, PRODUSER on 07/07/18 XR HIP 3V PELV+ Observed: 11/17/2017 Status: F Source: [place] AP/LAT RT 4:53 PM [facility] REPOSITORY * * *Final Report* * * DATE OF EXAM: Nov 17 2017 4:53PM WOX [id number] - XR HIP 3V PELV+ AP/LAT RT / PROCEDURE REASON: multiple diagnoses * * * * Physician Interpretation * * * * PELVIS AND RIGHT HIP RADIOGRAPHS History: Right hip pain. Unspecified fall, subsequent encounter Pain in right hip Comparison: None. Technique: AP pelvis, one view. AP and lateral right hip, two views. Result: No acute fracture or dislocation. Hip joint spaces are grossly maintained with tiny osteophytes. Suspected tiny subchondral cysts of the left superior acetabulum. Pubic symphysis and sacroiliac joints are maintained. Moderate to severe lower lumbar spine degenerative changes. Soft tissues are unremarkable. IMPRESSION: No acute osseous abnormality. Minimal bilateral hip degenerative changes. Moderate to severe lower lumbar spine degenerative changes. Family Physician: PSCKevin Transcribe Date/Time: Nov 18 2017 7:19A Dictated by : TIEN HAYNES MD This examination was interpreted and the report reviewed and electronically signed by: TIEN HAYNES MD on Nov 18 2017 7:20AM EST [id number] Observed: 11/17/2017 Status: COMPLETED Source: [place] 4:33 PM [facility] REPOSITORY HNO ID: [id number] Author: Yuki Evans Service: (none) Author Type: (none) Type: Progress Notes Filed: 11/17/2017 4:53 PM Note Text: Radiology Service Progress Note PATIENT NAME: Miguel Angel Sanders DATE OF SERVICE: November 17, 2017 TIME: 4:33 PM PATIENT IDENTITY VERIFICATION COMPLETED USING TWO (2) METHODS: Patient confirmed name verbally and Date of . PATIENT GENDER DATA: Male PATIENT RELEVANT IMPLANT DATA REVIEWED: Not Applicable RADIOLOGY DEPARTMENT: General X-ray: Exam(s) Completed: Pelvis X-Ray: Pelvis with Hip Right PERIPHERAL IV DATA: Not applicable SIGNED BY: Yuki Evans November 17, 2017 4:33 PM PROGRESS Observed: 11/17/2017 Status: COMPLETED Source: [place] 3:50 PM [facility] REPOSITORY HNO ID: [id number] Author: Ger Hernandez Service: (none) Author Type: Nurse Practitioner Type: Progress Notes Filed: 11/17/2017 4:41 PM Note Text: CC: Patient presents with: Right Hip Pain HPI Miguel Angel Sanders is a 72 year old male who presents with for right hip and thigh pain that started 2 weeks ago. Pain started suddenly and is unchanged. Pain is located right groin to right knee and described as an ache. Rated as 8-9 with leg extension. Admits to a history of 3-4 falls over the past month. Pain is aggravated by prolonged sitting and right leg extension. Alleviated by NSAIDS temporarily. Patient reports no back pain, no radiation of hip pain, and no numbness or tingling noted of the lower extremity. REVIEW OF SYSTEMS General: no fevers, no chills, no night sweats, no recurrent infections, no change in appetite, no change in energy and no significant changes in weight Respiratory: no cough, no wheezing, no shortness of breath, no hemoptysis Cardiovascular: no chest pain, no chest pressure and no palpitations GI: No nausea, vomiting, or diarrhea : No history of dysuria, frequency or incontinence Musculoskeletal: Negative for back pain or swelling. See HPI Skin: Negative for lesions, rash, and itching PAST MEDICAL HISTORY Diagnosis Date - BPH (benign prostatic hyperplasia) Seeing Dr. Quesada, unsure of diagnosis - Diverticulosis of colon (without mention of hemorrhage) Diverticulosis - Dysmetabolic syndrome X 09/29/2006 - Esophageal reflux - Hypothyroidism - Lower extremity edema - Macular degeneration - Obesity, unspecified 09/29/2006 - Other abnormal blood chemistry - Stable angina (HCC) Seeing Dr. Lang - Unspecified essential hypertension - Unspecified schizophrenia, unspecified condition Seeing Dr. Preciado PAST SURGICAL HISTORY Procedure Laterality Date - COLONOSCOP W/ OR W/O [facility] SPEC 08/02/2003 Colonoscopy - COLONOSCOP W/ OR W/O [facility] SPEC 08/19/08 - COLONOSCOP W/ OR W/O [facility] SPEC 06/04/2013 Colonoscopy - PAST SURGICAL HISTORY OF throat polyps - REMOVAL OF TONSILS,<13 Y/O ALLERGIES Iodine; Latex; Cimetidine; Codeine; Detrol [Tolterodine Tartrate]; Penicillins; Dyazide [Triamterene-Hydrochlorothiazid]; Lipitor [Atorvastatin Calcium]; Sulindac; Tessalon [Benzonatate] MEDICATIONS traMADol (ULTRAM) 50 mg tablet Take 1 tablet by mouth four times daily as needed for Pain for up to 30 days. COMPOUNDED PRESCRIPTION Repair hospital bed levothyroxine (SYNTHROID) 25 mcg tablet Take 1 tablet by mouth daily before breakfast. allopurinol (ZYLOPRIM) 100 mg tablet Take 1 tablet by mouth once daily. For gout. predniSONE (DELTASONE) 10 mg tablet Take 10 mgs daily for a Month and then take 5 mgs daily for a couple months divalproex DR (DEPAKOTE) 500 mg EC tablet Take 1 tablet by mouth three times daily. ARIPiprazole (ABILIFY) 30 mg tablet Take 1 tablet by mouth once daily. omeprazole (PRILOSEC) 20 mg capsule Take 1 capsule by mouth once daily. (short fill supply for med sync program) tamsulosin ER (FLOMAX) 0.4 mg cp24 Take 1 capsule by mouth once daily. Take 30 minutes after supper. metoprolol tartrate, short acting, (LOPRESSOR) 25 mg tablet Take 1 tablet by mouth twice daily. cloNIDine HCl (CATAPRES) 0.1 mg tablet Takes 1 tabs at bedtime and 1 tab in am by mouth. nitroglycerin sublingual (NITROQUICK) 0.4 mg SL tablet Dissolve 0.4mg tab (1tab) under tongue every 5min as needed for chest pain. If no response after max 3 tabs go to ED/notify doctor. COMPOUNDED PRESCRIPTION Exercise bike- customized for patient to useRe: charcot joint of the ankles Obesity Gait abnormality Diaper,Brief, Adult,Disposable (DEPEND REAL FIT BRIEF MEN L/XL) misc 1 pad as needed for urinary continence Catheter ([facility] MALE EXTERNAL CATH) misc Apply 1 catheter at bedtime daily furosemide (LASIX) 40 mg tablet Take 1 tablet by mouth twice daily. COMPOUNDED PRESCRIPTION Diabetic shoes Dx: E11.610, E11.42, I87.2 Last office visit: 08/28/16 COMPOUNDED PRESCRIPTION Hospital bed repair Cholecalciferol, Vitamin D3, (VITAMIN D) 1,000 unit cap Take 1,000 Units by mouth once daily. MV with Abr-Eddqyixn-Llzigu (CENTRUM SILVER) 0.4-300-250 mg-mcg-mcg tab Take 1 tablet by mouth. B-complex with vitamin C (ALLBEE WITH C) tablet Take 1 tablet by mouth once daily. Aspirin 81 mg ORAL Tab Take 1 tablet by mouth once daily. Take with food. FAMILY HISTORY Problem Relation Age of Onset - Prostate Cancer Father [address] Quesada - Diabetes Mother - Colon Cancer Sister Social History Substance Use Topics - Smoking status: Former Smoker Quit date: 09/26/1971 - Smokeless tobacco: Never Used - Alcohol use No PHYSICAL EXAM BP 130/82 (BP Site: Right Arm, BP Position: Sitting, BP Cuff Size: Regular Adult) Pulse 76 Resp 18 Gait limited and Station antalgic: No tenderness about the hip Flexion limited d/t physical limitations, patient in wheelchair. Extension to 45 degrees actively with discomfort, passive extension to 0 degrees without pain Positive distal pulses Negative Magen's, calf tenderness or palpable cords Heart: regular rate and rhythm, without murmur Lungs: Lungs clear to auscultation, No wheezing, rales or rhonchi ASSESSMENT/PLAN: 1. Right hip pain - ICD9: 719.45, ICD10: M25.551 (primary diagnosis) - S/p multiple falls - No concerning exam findings. Low suspicion for fracture, will order xray to confirm. Most likely hip contusion as a result of recurrent falls. - XR HIP GENERAL 3V PELV/AP/LAT RT - Encouraged ROM, ice and limited use of OTC NSAIDs for pain relief - Follow up to be determined by Xray results - Red flag signs and symptoms discussed and when to seek immediate medical attention, patient and verbalize understanding 2. Fall, subsequent encounter - ICD9: V58.89, E888.9, ICD10: W19.XXXD - Plan as above - XR HIP GENERAL 3V PELV/AP/LAT RT Ger Hernandez CNP PROGRESS Observed: 11/04/2017 Status: COMPLETED Source: [place] 2:18 PM [facility] REPOSITORY HNO ID: [id number] Author: Leeanna (Beata) Older Service: (none) Author Type: Nurse Practitioner Type: Progress Notes Filed: 11/04/2017 3:06 PM Note Text: CC: Patient presents with: Tailbone pain after a fall HPI Miguel Angel Sanders is a 72 year old male who presents today for tailbone pain x 2-3 weeks. . Patient states he was walking and fell onto his bottom onto carpeted floor. Has been experiencing tailbone pain since then. Pain is located directly over tailbone. No low back or hip pain, no other injuries from fall. Pain is actually better today, had been a 8 out of 10 and now is a 6. Sitting on rubber donut which helps a little. Treated with Tylenol also with mild relief. Nothing besides sitting seems to make pain worse. Denies leg weakness, numbness, tingling, bowel/bladder incontinence. REVIEW OF SYSTEMS See HPI PAST MEDICAL HISTORY Diagnosis Date - BPH (benign prostatic hyperplasia) Seeing Dr. Quesada, unsure of diagnosis - Diverticulosis of colon (without mention of hemorrhage) Diverticulosis - Dysmetabolic syndrome X 09/29/2006 - Esophageal reflux - Hypothyroidism - Lower extremity edema - Macular degeneration - Obesity, unspecified 09/29/2006 - Other abnormal blood chemistry - Stable angina (HCC) Seeing Dr. Lang - Unspecified essential hypertension - Unspecified schizophrenia, unspecified condition Seeing Dr. Preciado PAST SURGICAL HISTORY Procedure Laterality Date - COLONOSCOP W/ OR W/O [facility] SPEC 08/02/2003 Colonoscopy - COLONOSCOP W/ OR W/O [facility] SPEC 08/19/08 - COLONOSCOP W/ OR W/O [facility] SPEC 06/04/2013 Colonoscopy - PAST SURGICAL HISTORY OF throat polyps - REMOVAL OF TONSILS,<12 Y/O ALLERGIES Iodine; Latex; Cimetidine; Codeine; Detrol [Tolterodine Tartrate]; Penicillins; Dyazide [Triamterene-Hydrochlorothiazid]; Lipitor [Atorvastatin Calcium]; Sulindac; Tessalon [Benzonatate] MEDICATIONS COMPOUNDED PRESCRIPTION Repair hospital bed levothyroxine (SYNTHROID) 25 mcg tablet Take 1 tablet by mouth daily before breakfast. allopurinol (ZYLOPRIM) 100 mg tablet Take 1 tablet by mouth once daily. For gout. traMADol (ULTRAM) 50 mg tablet Take 1 tablet by mouth four times daily as needed for Pain. predniSONE (DELTASONE) 10 mg tablet Take 10 mgs daily for a Month and then take 5 mgs daily for a couple months divalproex DR (DEPAKOTE) 500 mg EC tablet Take 1 tablet by mouth three times daily. ARIPiprazole (ABILIFY) 30 mg tablet Take 1 tablet by mouth once daily. omeprazole (PRILOSEC) 20 mg capsule Take 1 capsule by mouth once daily. (short fill supply for med sync program) tamsulosin ER (FLOMAX) 0.4 mg cp24 Take 1 capsule by mouth once daily. Take 30 minutes after supper. metoprolol tartrate, short acting, (LOPRESSOR) 25 mg tablet Take 1 tablet by mouth twice daily. cloNIDine HCl (CATAPRES) 0.1 mg tablet Takes 1 tabs at bedtime and 1 tab in am by mouth. nitroglycerin sublingual (NITROQUICK) 0.4 mg SL tablet Dissolve 0.4mg tab (1tab) under tongue every 5min as needed for chest pain. If no response after max 3 tabs go to ED/notify doctor. COMPOUNDED PRESCRIPTION Exercise bike- customized for patient to useRe: charcot joint of the ankles Obesity Gait abnormality Diaper,Brief, Adult,Disposable (DEPEND REAL FIT BRIEF MEN L/XL) misc 1 pad as needed for urinary continence Catheter ([facility] MALE EXTERNAL CATH) misc Apply 1 catheter at bedtime daily furosemide (LASIX) 40 mg tablet Take 1 tablet by mouth twice daily. COMPOUNDED PRESCRIPTION Diabetic shoes Dx: E11.610, E11.42, I87.2 Last office visit: 08/28/16 COMPOUNDED PRESCRIPTION Hospital bed repair Cholecalciferol, Vitamin D3, (VITAMIN D) 1,000 unit cap Take 1,000 Units by mouth once daily. MV with Ddn-Rqpbewqp-Lxwjdb (CENTRUM SILVER) 0.4-300-250 mg-mcg-mcg tab Take 1 tablet by mouth. B-complex with vitamin C (ALLBEE WITH C) tablet Take 1 tablet by mouth once daily. Aspirin 81 mg ORAL Tab Take 1 tablet by mouth once daily. Take with food. FAMILY HISTORY Problem Relation Age of Onset - Prostate Cancer Father 59 [address] Quesada - Diabetes Mother - Colon Cancer Sister Social History Substance Use Topics - Smoking status: Former Smoker Quit date: 09/26/1971 - Smokeless tobacco: Never Used - Alcohol use No PHYSICAL EXAM BP 120/80 Pulse 71 Temp 36.2 ?C (97.2 ?F) (Temporal Artery) Resp 14 General Appearance: well appearing, in no acute distress, alert Back: No pain to palpation, Full and painless ROM including flexion, extension, lateral side bending and rotation. Coccyx is stable, no step-offs. Mild tenderness with palpation of coccyx. No bruising, redness or open areas. ASSESSMENT/PLAN: 1. Coccydynia - ICD9: 724.79, ICD10: M53.3 Pain likely from bruised coccyx, fracture is unlikely. No alarm symptoms or exam findings. X-rays not indicated at this time Treat with NSAID's, ice, heat and/or topical analgesics. 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 Potential red flag symptoms discussed with the patient. Reviewed appropriate action plan to take if red flag symptoms occur. Patient agreeable to treatment plan. OBSOLETE Observed: 10/25/2017 Status: COMPLETED Source: [place] 12:00 AM [facility] REPOSITORY Refill (INTMWS) MIGUEL ANGEL SANDERS ([id number]) 1945 M Date Time Provider Department 10/25/17 NIKOS CHONGWS During your visit today, we recorded the following information about you: Jimena Rossi Skin Tanner 10/25/2017 1:54 PM Signed Refills remaining at pharmacy. Allergies As of Date: 10/25/2017 Noted Allergy Reaction IODINE 08/27/2005 5 - Intolerance Comments: increased heart rate. LATEX 08/27/2005 2 - Rash CIMETIDINE 08/27/2005 5 - Intolerance Comments: loose stools. Pt. States he is not allergic to 05/05/2009 CODEINE 08/27/2005 8 - GI Upset DETROL (TOLTERODINE TARTRATE) 08/27/2005 5 - Intolerance PENICILLINS 08/27/2005 5 - Intolerance DYAZIDE (TRIAMTERENE-HYDROCHLOROT*12/17/2011 5 - Intolerance Comments: leg cramps after 1 dose LIPITOR (ATORVASTATIN CALCIUM) 02/15/2015 1 - Mental Status Change Comments: depression,anxiety SULINDAC 11/07/2009 6 - Diarrhea TESSALON (BENZONATATE) 10/11/2007 5 - Intolerance Comments: dyspnea Date Reviewed: 09/05/2017 Reviewed by: Pawel Montesinos LPN - Fully Assessed Reason for Visit: Refill Request [94] Prescriptions as of 10/25/2017 Sig: COMPOUNDED PRESCRIPTION Repair hospital bed LEVOTHYROXINE 25 MCG TABLET Take 1 tablet by mouth daily * ALLOPURINOL 100 MG TABLET Take 1 tablet by mouth once d* TRAMADOL 50 MG TABLET Take 1 tablet by mouth four t* PREDNISONE 10 MG TABLET Take 10 mgs daily for a Caio* DIVALPROEX 500 MG TABLET,JAVI* Take 1 tablet by mouth three * ARIPIPRAZOLE 30 MG TABLET Take 1 tablet by mouth once d* OMEPRAZOLE 20 MG CAPSULE,JAVI* Take 1 capsule by mouth once * TAMSULOSIN 0.4 MG CAPSULE Take 1 capsule by mouth once * METOPROLOL TARTRATE 25 MG TAB* Take 1 tablet by mouth twice * CLONIDINE HCL 0.1 MG TABLET Takes 1 tabs at bedtime and 1* NITROGLYCERIN 0.4 MG SUBLINGU* Dissolve 0.4mg tab (1tab) und* COMPOUNDED PRESCRIPTION Exercise bike- customized for* DIAPER,BRIEF,ADULT,DISPOSABLE 1 pad as needed for urinary c* CATHETER Apply 1 catheter at bedtime d* FUROSEMIDE 40 MG TABLET Take 1 tablet by mouth twice * COMPOUNDED PRESCRIPTION Diabetic shoes Dx: E11.610, * COMPOUNDED PRESCRIPTION Hospital bed repair CHOLECALCIFEROL (VITAMIN D3) * Take 1,000 Units by mouth onc* DKGCPWWT-KKS-FXZPQ ACID 0.4 M* Take 1 tablet by mouth. B-COMPLEX WITH VITAMIN C TABL* Take 1 tablet by mouth once d* * ASPIRIN 81 MG TABLET Take 1 tablet by mouth once d* Problem List As Of Date 10/25/2017 Noted Resolved Unspecified schizophrenia, unspecified conditio*INVALID FOR*03/11/2014 DIVERTICULOSIS OF COLON W/O BLEED [K57.30] INVALID FOR* SCIATICA [M54.30] INVALID FOR*06/06/2006 JOINT PAIN-SHLDER [M25.519] INVALID FOR*05/05/2009 Essential hypertension [I10] INVALID FOR* More... Contact dermatitis and other eczema, due to uns*INVALID FOR*10/31/2013 Other abnormal blood chemistry [R79.89] 10/31/2013 ESOPHAGEAL REFLUX [K21.9] Obesity [E66.9] INVALID FOR* Dysmetabolic syndrome X [E88.81] INVALID FOR*10/31/2013 JOINT PAIN-HAND [M25.549] INVALID FOR*05/05/2009 Backache, unspecified [M54.9] INVALID FOR*10/31/2013 Allergic rhinitis, cause unspecified [J30.9] INVALID FOR*10/31/2013 Cervicalgia [M54.2] INVALID FOR*10/31/2013 BPH W URINARY OBS/LUTS [N40.1] INVALID FOR* Charcot joint INVALID FOR*05/26/2014 Macular Degeneration [H35.30] Tremor [R25.1] INVALID FOR* Bipolar 1 disorder, mixed (HCC) [F31.60] INVALID FOR* More... Right gluteus medius Bursitis [M71.9] INVALID FOR*10/31/2013 CHF (congestive heart failure) [I50.9] INVALID FOR* More... Lacunar infarction [I63.9] INVALID FOR* More... Cardiomyopathy [I42.9] INVALID FOR* Near syncope [R55] INVALID FOR*10/31/2013 Diabetic peripheral neuropathy (HCC) [E11.42] INVALID FOR*02/02/2017 Hypothyroid [E03.9] INVALID FOR* More... Charcot foot due to diabetes mellitus (HCC) [E1*INVALID FOR* Bipolar affective disorder, mixed (HCC) [F31.60]INVALID FOR* More... BPH (benign prostatic hyperplasia) [N40.0] INVALID FOR* Family history of prostate cancer [Z80.42] INVALID FOR* Venous (peripheral) insufficiency [I87.2] INVALID FOR* Hyperlipidemia [E78.5] INVALID FOR* Benign non-nodular prostatic hyperplasia with l*INVALID FOR* More... Elevated prostate specific antigen (PSA) [R97.2*INVALID FOR* Urinary tract infection associated with cathete*INVALID FOR* Diastolic heart failure (HCC) [I50.30] INVALID FOR* Renal insufficiency [N28.9] INVALID FOR* Gastroesophageal reflux disease without esophag*INVALID FOR* More... History of colonic polyps [Z86.010] INVALID FOR* More... Encounter Status:Closed by PAWEL MONTESINOS LPN on 10/26/17 OBSOLETE Observed: 10/25/2017 Status: COMPLETED Source: [place] 12:00 AM [facility] REPOSITORY Refill (MELI) MIGUEL ANGEL SANDERS ([id number]) 1945 M Date Time Provider Department 10/25/17 CIRO LANG During your visit today, we recorded the following information about you: Jeanmarie Kline, RN, RN 10/26/2017 10:54 AM Signed Received refill request, please confirm if patient is going to follow with Dr. Ayala and if so offer an appt, thank you. Ly Rousseau Mike PSR 10/26/2017 2:03 PM Signed Contacted patient and he stated that he will not be following Dr. Lucy Kline, RN, RN 10/26/2017 2:54 PM Signed Noted, thank you. Allergies As of Date: 10/25/2017 Noted Allergy Reaction IODINE 08/27/2005 5 - Intolerance Comments: increased heart rate. LATEX 08/27/2005 2 - Rash CIMETIDINE 08/27/2005 5 - Intolerance Comments: loose stools. Pt. States he is not allergic to 05/05/2009 CODEINE 08/27/2005 8 - GI Upset DETROL (TOLTERODINE TARTRATE) 08/27/2005 5 - Intolerance PENICILLINS 08/27/2005 5 - Intolerance DYAZIDE (TRIAMTERENE-HYDROCHLOROT*12/17/2011 5 - Intolerance Comments: leg cramps after 1 dose LIPITOR (ATORVASTATIN CALCIUM) 02/15/2015 1 - Mental Status Change Comments: depression,anxiety SULINDAC 11/07/2009 6 - Diarrhea TESSALON (BENZONATATE) 10/11/2007 5 - Intolerance Comments: dyspnea Date Reviewed: 09/05/2017 Reviewed by: Pawel Montesinos LPN - Fully Assessed Reason for Visit: Refill Request [94] Prescriptions as of 10/25/2017 Sig: COMPOUNDED PRESCRIPTION Repair hospital bed LEVOTHYROXINE 25 MCG TABLET Take 1 tablet by mouth daily * ALLOPURINOL 100 MG TABLET Take 1 tablet by mouth once d* TRAMADOL 50 MG TABLET Take 1 tablet by mouth four t* PREDNISONE 10 MG TABLET Take 10 mgs daily for a Caio* DIVALPROEX 500 MG TABLET,JAVI* Take 1 tablet by mouth three * ARIPIPRAZOLE 30 MG TABLET Take 1 tablet by mouth once d* OMEPRAZOLE 20 MG CAPSULE,JAVI* Take 1 capsule by mouth once * TAMSULOSIN 0.4 MG CAPSULE Take 1 capsule by mouth once * METOPROLOL TARTRATE 25 MG TAB* Take 1 tablet by mouth twice * CLONIDINE HCL 0.1 MG TABLET Takes 1 tabs at bedtime and 1* NITROGLYCERIN 0.4 MG SUBLINGU* Dissolve 0.4mg tab (1tab) und* COMPOUNDED PRESCRIPTION Exercise bike- customized for* DIAPER,BRIEF,ADULT,DISPOSABLE 1 pad as needed for urinary c* CATHETER Apply 1 catheter at bedtime d* FUROSEMIDE 40 MG TABLET Take 1 tablet by mouth twice * COMPOUNDED PRESCRIPTION Diabetic shoes Dx: E11.610, * COMPOUNDED PRESCRIPTION Hospital bed repair CHOLECALCIFEROL (VITAMIN D3) * Take 1,000 Units by mouth onc* PFYXDSQP-WKU-KZUWV ACID 0.4 M* Take 1 tablet by mouth. B-COMPLEX WITH VITAMIN C TABL* Take 1 tablet by mouth once d* * ASPIRIN 81 MG TABLET Take 1 tablet by mouth once d* Problem List As Of Date 10/25/2017 Noted Resolved Unspecified schizophrenia, unspecified conditio*INVALID FOR*03/11/2014 DIVERTICULOSIS OF COLON W/O BLEED [K57.30] INVALID FOR* SCIATICA [M54.30] INVALID FOR*06/06/2006 JOINT PAIN-SHLDER [M25.519] INVALID FOR*05/05/2009 Essential hypertension [I10] INVALID FOR* More... Contact dermatitis and other eczema, due to uns*INVALID FOR*10/31/2013 Other abnormal blood chemistry [R79.89] 10/31/2013 ESOPHAGEAL REFLUX [K21.9] Obesity [E66.9] INVALID FOR* Dysmetabolic syndrome X [E88.81] INVALID FOR*10/31/2013 JOINT PAIN-HAND [M25.549] INVALID FOR*05/05/2009 Backache, unspecified [M54.9] INVALID FOR*10/31/2013 Allergic rhinitis, cause unspecified [J30.9] INVALID FOR*10/31/2013 Cervicalgia [M54.2] INVALID FOR*10/31/2013 BPH W URINARY OBS/LUTS [N40.1] INVALID FOR* Charcot joint INVALID FOR*05/26/2014 Macular Degeneration [H35.30] Tremor [R25.1] INVALID FOR* Bipolar 1 disorder, mixed (HCC) [F31.60] INVALID FOR* More... Right gluteus medius Bursitis [M71.9] INVALID FOR*10/31/2013 CHF (congestive heart failure) [I50.9] INVALID FOR* More... Lacunar infarction [I63.9] INVALID FOR* More... Cardiomyopathy [I42.9] INVALID FOR* Near syncope [R55] INVALID FOR*10/31/2013 Diabetic peripheral neuropathy (HCC) [E11.42] INVALID FOR*02/02/2017 Hypothyroid [E03.9] INVALID FOR* More... Charcot foot due to diabetes mellitus (HCC) [E1*INVALID FOR* Bipolar affective disorder, mixed (HCC) [F31.60]INVALID FOR* More... BPH (benign prostatic hyperplasia) [N40.0] INVALID FOR* Family history of prostate cancer [Z80.42] INVALID FOR* Venous (peripheral) insufficiency [I87.2] INVALID FOR* Hyperlipidemia [E78.5] INVALID FOR* Benign non-nodular prostatic hyperplasia with l*INVALID FOR* More... Elevated prostate specific antigen (PSA) [R97.2*INVALID FOR* Urinary tract infection associated with cathete*INVALID FOR* Diastolic heart failure (HCC) [I50.30] INVALID FOR* Renal insufficiency [N28.9] INVALID FOR* Gastroesophageal reflux disease without esophag*INVALID FOR* More... History of colonic polyps [Z86.010] INVALID FOR* More... Encounter Status:Closed by JEANMARIE KLINE on 10/26/17 ALLERGIES ALLERGIES DATE TYPE / NAME / CODE REACTION SEVERITY SOURCE CODE 08/13/2018 Drug Penicillins/[id number] Other Unknown [place] Allergy/41 0476(RXNORM) [facility] [id number]([facility]) Repository 08/13/2018 Drug codeine/[id number] Rash Unknown [place] Allergy/41 (RXNORM) [facility] [id number]([facility]) Repository 08/13/2018 Drug chocolate Diarrhea Unknown [place] Allergy/41 flavor/[id number]( [facility] [id number][facility] 08/13/2018 Drug latex/[id number](R Rash Unknown [place] Allergy/41 XNORM) [facility] [id number]([facility]) Repository 05/23/2018 DRUG MILK [facility] [place] [address] [id number]([facility]) 08/02/2017 Drug colchicine/[id number] Other Unknown [place] Allergy/41 372(RXNORM) [facility] [id number]( Hospital O[facility]) Repository 02/15/2015 DRUG ATORVASTATIN Mental [facility] INGREDI/41 CALCIUM [place] [id number](SN Repository OMED CT) 12/17/2011 DRUG/90812 TRIAMTERENE-HYDROC INTOLERANCE [facility] 1003(SNOME HLOROTHIAZID [place] D CT) Repository 11/07/[address] [facility] INGREDI/41 [place] 7398935(SN Repository OMED CT) 10/11/[address] [facility] INGREDI/41 [place] 5306031(SN Repository OMED CT) 08/27/2005 DRUG IODINE INTOLERANCE [facility] INGREDI/41 [place] 0199879(SN Repository OMED CT) 08/27/2005 Environ/[address] [facility] 6160846(SN [place] O[address] CT) Repository 08/27/2005 DRUG CIMETIDINE INTOLERANCE [facility] INGREDI/41 [place] 2610349(SN Repository OMED CT) 08/27/2005 DRUG CODEINE GI UPSET [facility] INGREDI/41 [place] 8148605(SN Repository OMED CT) 08/27/2005 DRUG TOLTERODINE INTOLERANCE [facility] INGREDI/41 TARTRATE [place] 0055888(SN Repository OMED CT) 08/27/2005 Drug PENICILLINS INTOLERANCE [facility] Class/4[address] [place] [address](SNOM Repository ED CT) ENCOUNTERS ENCOUNTERS ADMIT/DISCHARGE ACCOUNT NUMBER ADMITTING ENCOUNTER LOCATION SOURCE CLASS 10/14/2018 [id number] Ambulatory [facility] ding:[place] Repository B 09/28/2018 [id number] Ambulatory [facility] ding:[place] Repository B 09/18/2018 [id number] Ambulatory [facility] ding:[place] Repository B 08/19/2018 [id number] Ambulatory [facility] ding:[place] Repository D 08/13/2018 [id number] Ambulatory BMSBuilding: [place] BMS.[facility] Repository 08/13/2018/11/18 [id number] Emergency [address] ding:ED Repository 07/22/2018 [id number] Ambulatory [facility] ding:[place] Repository C 07/21/2018 [id number] Ambulatory [facility] ding:[place] Repository B 07/20/2018 [id number] Ambulatory [facility] ding:[place] Repository D 07/09/2018/07/19/20 [id number] Marquis Garcia Inpatient [address] ding:TCURoom Repository : TLD70Nuf: 1 07/07/2018 [id number] Ambulatory BMSBuilding: [place] [facility] Repository 07/05/2018/07/09/20 [id number] Humaira Yanez Ambulatory [address] ding:ZN3Jsuu Repository : PN405Nke: 1 07/05/2018 [id number] Humaira Yanez Ambulatory BMSBuilding: [place] Jana BMS.[facility] Repository 07/05/2018 [id number] Mariya Yaneza Ambulatory BMSBuilding: [place] BMS.[facility] Repository 07/05/2018 [id number] Rosie Humaira Ambulatory BMSBuilding: [place] Jana BMS.[facility] Repository 07/05/2018 [id number] Humaira Yanez Ambulatory BMSBuilding: [place] Jana BMS.[facility] Repository 07/05/2018 [id number] Rosie Humaira Ambulatory BMSBuilding: [place] Jana BMS.[facility] Repository 06/07/2018/06/08/20 [id number] Ambulatory [address] Repository 05/23/2018/05/25/20 [id number] Ambulatory [address] Repository 05/03/2018 [id number] Ambulatory [facility] Repository 04/25/2018/04/25/20 [id number] Ambulatory [address] Repository 03/08/2018/03/09/20 [id number] Ambulatory [address] Repository 02/08/2018 [id number] Ambulatory [facility] ding:LABSPEC Repository 02/08/2018/02/09/20 [id number] Ambulatory [address] Repository 01/25/2018/01/27/20 [id number] Ambulatory [address] Repository 01/23/2018 [id number] Ambulatory [facility] Repository 01/04/2018 [id number] Ambulatory [facility] ding:WC Repository 12/22/2017/12/25/19 [id number] Ambulatory [facility] ding:WC Repository 12/22/2017 [id number] Ambulatory BMSBuilding: [place] BMS.[facility] Repository 12/15/2017 [id number] Ambulatory BMSBuilding: [place] BMS.[facility] Repository 12/07/2017/12/08/19 [id number] Ambulatory [address] Repository 12/05/2017/12/06/19 [id number] Ambulatory [address] Repository 11/29/2017 [id number] Ambulatory [facility] Repository 11/17/2017/11/17/19 [id number] Ambulatory [address] Repository 11/17/2017/11/18/19 [id number] Ambulatory [address] Repository 11/04/2017/11/04/19 [id number] Ambulatory [address] Repository PAYERS PAYERS ENCOUNTER GUARANTOR PAYER SUBSCRIBER SOURCE 10/14/2018 MIGUEL ANGEL Bolaños Primary NOT GIVENUNK [place] [id number] Insurance:SELF PAY [facility]/[place]avis, [place] Number: Effective Repository [phone]: (330) Date:2018-10-14 (HP) 09/28/2018 MIGUEL ANGEL Bolaños Primary MIGUEL ANGEL [id number] [facility] [id number] Number: Repository [phone]: [phone]) [id number] (HP) Date:[id number] [facility] [place] [address]BU: 09/28/2018 Secondary NOT GIVENUNK [place] Insurance:SELF PAY [facility] Number: Effective Repository Date:2018-09-28 09/18/2018 MIGUEL ANGEL E Primary MIGUEL ANGEL Lafleur [id number] Insurance:[employer] ENGSTLIDOB: Community [facility] [id number] Number: Repository [address]Hdi: 330 [id number] [id number] (HP) Date:[id number] [place] [address]BY: 09/18/2018 Secondary NOT GIVENUNK [place] Insurance:SELF PAY Community [facility] Number: Effective Repository Date:2018-09-18 08/19/2018 MIGUEL ANGEL E Primary MIGUEL ANGEL Lafleur [id number] Insurance:SUMMA CARE ENGSTLIDOB[facility] MEDICAREPolicy [id number]: Rep[place] [address]Gcu: 330 [id number] 2762 (HP) Date:5393-86-68AM [address] [place] [address] 12765US: 08/19/2018 Secondary NOT GIVENUNK [place] Insurance:SELF PAY [facility] Number: Effective Repository Date:2018-08-19 08/13/2018 MIGUEL ANGEL E Primary MIGEUL ANGEL E [place] [id number] Insurance:SUMMA CARE ENGSTLIDOB: [facility] MEDICAREPolicy [id number] Number: Repository 22218Njm: 330 [id number] 2762 (HP) Date:5074-75-67FP [address] [place] [address] 87026XA: 08/13/2018 Secondary NOT GIVENUNK [place] Insurance:SELF PAY [facility] Number: Effective Repository Date:2018-08-13 08/13/2018 MIGUEL ANGEL E Primary MIGUEL ANGEL E Ciarra [id number] Insurance:SUMMA CARE ENGSTLIDOB: Community [place] MEDICAREPolicy [id number] [place] Number: Repository 92123Ztf: 330 [id number] [phone] (HP) Date:9736-92-65GG [facility] [facility] [place] [address]IB: 08/13/2018 Secondary NOT GIVENUNK Ciarra Insurance:SELF PAY [facility] Number: Effective Repository Date:2018-08-13 07/22/2018 MIGUEL ANGEL E Primary MIGUEL ANGEL E [place] [id number] Insurance:SUMMA CARE ENGSTLIDOB[facility] MED[facility]AREPolicy [id number] Number: Repository [id number]: (330 [id number] 276 (HP) Date:4104-73-42FP [address] [place] [address] 61094UQ: 07/22/2018 Secondary NOT GIVENUNK Ciarra Insurance:SELF PAY [facility] Number: Effective Repository Date:2018-07-22 07/21/2018 MIGUEL ANGEL E Primary MIGUEL ANGEL E [place] [id number] Insurance:SUMMA CARE ENGSTLIDOB: Community [place] MEDICAREPolicy [id number] Number: Repository 27253Ybt: 330 [id number] [phone] (HP) Date:0211-87-56GO [address] [place] [address] 36634HB: 07/21/2018 Secondary NOT GIVENUNK Ciarra Insurance:SELF PAY [facility] Number: Effective Repository Date:2018-07-21 07/20/2018 MIGUEL ANGEL E Primary MIGUEL ANGEL E Ciarra [id number] Insurance:SUMMA CARE ENGSTLIDOB: Community [place] MEDICAREPolicy [id number] [place] Number: Repository 575[address]Tsa: 330 [id number] [phone] (HP) Date:5475-00-03NU [address] [place] [address] 73637LD: 07/20/2018 Secondary NOT GIVENUNK [place] Insurance:SELF PAY [facility] Number: Effective Repository Date:2018-07-20 07/09/2018 MIGUEL ANGEL E Primary MIGUEL ANGEL Lfaleur [id number] Insurance:SUMMA CARE ENGSTLIDOB: [facility] RDC/O MEDICAREPolicy [id number] Ferry[place] Number: Repository 42041Veu: 330 [id number] 2762 () Date:0208-75-52QY [address] [place] [address] 72391XM: 07/09/2018 Secondary NOT GIVENUNK [place] Insurance:SELF PAY [facility] Number: Effective Repository Date:2018-07-09 07/07/2018 MIGUEL ANGEL E Primary MIGUEL ANGEL Israeloster [id number] Insurance:SUMMA CARE ENGSTLIDOB: Community [place] MEDICAREPolicy [id number] Number: Repository [address]Qae: 330 [id number] [phone] () Date:8711-62-49GW [address] [place] [address] 13597YF: 07/07/2018 Secondary NOT GIVENUNK [place] Insurance:SELF PAY [facility] Number: Effective Repository Date:2018-07-07 07/05/2018 MIGUEL ANGLE E Primary MIGUEL ANGEL Israeloster [id number] Insurance:SUMMA CARE ENGSTLIDOB: Community [place] MEDICAREPolicy [id number] [place] Number: Repository [id number]: 330 [id number] [phone] () Date:4721-23-70BZ [address] [place] [address] 16194WX: 07/05/2018 Secondary NOT GIVENUNK [place] Insurance:SELF PAY [facility] Number: Effective Repository Date:2018-07-05 07/05/2018 MIGUEL ANGEL E Primary MIGUEL ANGEL E Ciarra [id number] Insurance:SUMMA CARE ENGSTLIDOB: Community [place] MEDICAREPolicy [id number] [place]orda[place] Number: Repository [id number]: (330 [id number] [phone] (HP) Date:7431-98-53RF [address] [place] [address] 20207UG: 07/05/2018 Secondary NOT GIVENUNK [place] Insurance:SELF PAY [facility] Number: Effective Repository Date:2018-07-05 07/05/2018 MIGUEL ANGEL E Primary MIGUEL ANGEL E Ciarra [id number] Insurance:SUMMA CARE ENGSTLIDOB: Community [place] MEDICAREPolicy [id number] [place] Number: Repository 29887Ibg: 330 [id number] 276 (HP) Date:9421-52-05OA [address] [place] [address] 39882NI: 07/05/2018 Secondary NOT GIVENUNK [place]iar[place] Insurance:SELF PAY [facility] Number: Effective Repository Date:2018-07-05 07/05/2018 MIGUEL ANGEL E Primary MIGUEL ANGEL E Ciarra [id number] Insurance:SUMMA CARE ENGSTLIDOB: Community [place] MEDICAREPolicy [id number] [place] Number: Repository [id number]: (330 [id number] 276 () Date:5395-24-01XZ [address] [place] [address] 53951SG: 07/05/2018 Secondary NOT GIVENUNK [place] Insurance:SELF PAY [facility] Number: Effective Repository Date:2018-07-05 07/05/2018 MIGUEL ANGEL E Primary MIGUEL ANGEL E Ciarra [id number] Insurance:SUMMA CARE ENGSTLIDOB: Community [place] MEDICAREPolicy [id number] [place]orda, [place] Number: Repository 44[address]Uih: (330 [id number] [phone] (HP) Date:1372-88-20QE [address] [place] [address] 40926ZV: 07/05/2018 Secondary NOT GIVENUNK [place] Insurance:SELF PAY [facility] Number: Effective Repository Date:2018-07-05 07/05/2018 MIGUEL ANGEL E Primary MIGUEL ANGEL E [place] [id number] Insurance:SUMMA CARE ENGSTLIDOB: Community [place] MEDICAREPolicy [id number] [place] Number: Repository 29458Glz: 330 [id number] (HP) Date:0610-68-70ES [address] [place] [address] 35224XS: 07/05/2018 Secondary NOT GIVENUNK Ciarra Insurance:SELF PAY [facility] Number: Effective Repository Date:2018-07-05 05/03/2018 Miguel Angel E Primary Miguel Angel E [facility] EngstliDOB: [facility] [id number] [facility] Number: [id number] [facility] Effective Date: [place], [place] [address]Wtb: (HP) 02/08/2018 Miguel Angel E Primary Miguel Angel E [place] [id number] Insurance:SUMMA CARE EngstliDOB: Community [place] MEDICAREPolicy [id number] [place] Number: Repository [phone]: (330 [id number] [phone] () Date:0449-58-61XF [address] [place] [address] 55872MG: 02/08/2018 Secondary NOT GIVENUNK Ciar[place] Insurance:SELF PAY [facility] Number: Effective Repository Date:2018-02-08 01/04/2018 Miguel Angel E Primary Miguel Angel E Ciarra [id number] [facility] C[facility] EngstliDOB: Community [place] MEDICAREPolicy [id number] [place] Number: Repository 38[address]Fdy: 330 [id number] [phone] (HP) Date:4051-86-49GV [address] [place] [address] 61074FX: 01/04/2018 Secondary NOT GIVENUNK Ciarra Insurance:SELF PAY [facility] Number: Effective Repository Date:2017-12-25 12/22/2017 Miguel Angel E Primary Miguel Angel E Ciarra [id number] Insurance:[facility] C[facility] EngstliDOB: Community [place] MEDICAREPolicy [id number] [place] Number: Repository [address]Nkr: 330 [id number] [phone] (HP) Date:7375-41-30UC [address] [place] [address] 98221AB: 12/22/2017 Secondary NOT GIVENUNK Ciarra Insurance:SELF PAY [facility] Number: Effective Repository Date:2017-12-15 12/22/2017 Miguel Angel E Primary Miguel Angel E [place] [id number] Insurance:[facility] CARE EngstliDOB: Community [place] MEDICAREPolicy [id number] [place]: Repository 85392Tac: 330 [id number] [phone] (HP) Date:2256-61-58FU [address] [place] [address] 39468ZO: 12/22/2017 Secondary NOT GIVENUNK [place] Insurance:SELF PAY [facility] Number: Effective Repository Date:2017-12-22 12/15/2017 Miguel Angel E Primary Miguel Angel E Ciarra [id number] Insurance:[facility] C[facility] EngstliDOB: Community [place] MEDICAREPolicy [id number] [place] Number: Repository 455[address]Pgq: 330 [id number] [phone] (HP) Date:4650-82-20JI [address] [place] [address] 10383HF: 12/15/2017 Secondary NOT GIVENUNK Ciarra Insurance:SELF PAY [facility] Number: Effective Repository Date:2017-12-15 11/29/2017 Miguel Angel E Primary Miguel Angel E [facility] EngstliDOB: Insurance:[facility]CarePo EngstliDOB: System [id number] licy Number: [id number] [facility] Effective Date: [place], [place] [address]Pbd: (HP)
== END ==
LOC: OLS.AVEB 06:55
PROVIDERS: Visit Provider Family Medicine
DX: I10 Essential (primary) hypertension (principal)
CPT/HCPCS: 36415; 80048; 85027

== ENCOUNTER → 2018-10-23 04:00 | Outpatient (REF) | payer MEDICARE, SELFPAY | LOC: OLS.AVEB 04:00 | PROVIDERS: Visit Provider Family Medicine | DX: E03.9 Hypothyroidism, unspecified (principal) | CPT/HCPCS: 36415; 84443 ==

== ENCOUNTER → 2018-11-11 07:42 | Outpatient (REF) | payer MEDICARE, SELFPAY ==
[2018-11-11 09:20] LABS: Hematocrit 42.6 % (40-54); Hemoglobin 14.7 g/dl (13.0-16.5); Mean Corp Hgb Conc 34.5 g/gl (32-36); Mean Corpuscular Hgb 32.2 pg (27.0-32.0); Mean Corpuscular Volume 93.4 fL (80-94); Mean Platelet Vol. 11.2 fl (6.2-12.0); Platelet Count 176 K/mm3 (150-450); RBC Distribution Width CV 14.4 % (11.6-14.6); RBC Distribution Width SD 47.1 fl (35.1-43.9); Red Blood Count 4.56 M/mm3 (4.6-6.2); White Blood Count 7.7 K/mm3 (4.4-11.0)
[2018-11-11 09:21] LABS: Scan Indicated on CBC? Y/N NO
[2018-11-11 09:51] LABS: Anion Gap 9 (5-15); BUN 16 mg/dL (7-18); BUN/Creat Ratio 12.7 RATIO (10-20); Calcium,Total 9.4 mg/dL (8.5-10.1); Chloride 101 mmol/L (98-107); Creatinine, Serum 1.26 mg/dL (0.70-1.30); EST Glomerular Filtration Rate 60 mL/min (>60); Est Glom Filt Rate - Afr Amer 72 mL/min (>60); Glucose 100 mg/dL (74-106); Potassium 3.9 mmol/L (3.5-5.1); Sodium Level 139 mmol/L (136-145)
== END ==
LOC: OLS.AVEB 07:42
PROVIDERS: Visit Provider Family Medicine
DX: I10 Essential (primary) hypertension (principal); F03.90 Unspecified dementia, unspecified severity, without behavioral disturbance, psychotic disturbance, mood disturbance, and anxiety
CPT/HCPCS: 36415; 80048; 85027

== ENCOUNTER → 2018-12-09 07:35 | Outpatient (REF) | payer MEDICARE, SELFPAY ==
[2018-12-09 09:10] LABS: Hematocrit 44.1 % (40-54); Hemoglobin 14.5 g/dl (13.0-16.5); Mean Corp Hgb Conc 32.9 g/gl (32-36); Mean Corpuscular Hgb 30.9 pg (27.0-32.0); Mean Corpuscular Volume 93.8 fL (80-94); Mean Platelet Vol. 10.8 fl (6.2-12.0); Platelet Count 207 K/mm3 (150-450); RBC Distribution Width CV 15.4 % (11.6-14.6); RBC Distribution Width SD 52.9 fl (35.1-43.9); White Blood Count 9.8 K/mm3 (4.4-11.0)
[2018-12-09 09:11] LABS: Scan Indicated on CBC? Y/N NO
[2018-12-09 09:28] LABS: Anion Gap 8 (5-15); BUN 18 mg/dL (7-18); BUN/Creat Ratio 13.2 RATIO (10-20); Calcium,Total 9.3 mg/dL (8.5-10.1); Chloride 104 mmol/L (98-107); Creatinine, Serum 1.36 mg/dL (0.70-1.30); EST Glomerular Filtration Rate 55 mL/min (>60); Est Glom Filt Rate - Afr Amer 66 mL/min (>60); Glucose 98 mg/dL (74-106); Potassium 3.8 mmol/L (3.5-5.1); Sodium Level 142 mmol/L (136-145)
== END ==
LOC: OLS.AVEB 07:35
PROVIDERS: Visit Provider Family Medicine
DX: I10 Essential (primary) hypertension (principal); F03.90 Unspecified dementia, unspecified severity, without behavioral disturbance, psychotic disturbance, mood disturbance, and anxiety
CPT/HCPCS: 36415; 80048; 85027

== ENCOUNTER → 2019-01-06 05:24 | Outpatient (REF) | payer MEDICARE, SELFPAY ==
[2019-01-06 07:18] LABS: Hematocrit 39.5 % (40-54); Hemoglobin 13.5 g/dl (13.0-16.5); Mean Corp Hgb Conc 34.2 g/gl (32-36); Mean Corpuscular Hgb 31.4 pg (27.0-32.0); Mean Corpuscular Volume 91.9 fL (80-94); Mean Platelet Vol. 10.9 fl (6.2-12.0); Platelet Count 181 K/mm3 (150-450); RBC Distribution Width CV 15.1 % (11.6-14.6); RBC Distribution Width SD 49.7 fl (35.1-43.9)
[2019-01-06 07:19] LABS: Scan Indicated on CBC? Y/N NO
[2019-01-06 07:51] LABS: Anion Gap 7 (5-15); BUN 17 mg/dL (7-18); BUN/Creat Ratio 13.5 RATIO (10-20); Chloride 104 mmol/L (98-107); Creatinine, Serum 1.26 mg/dL (0.70-1.30); EST Glomerular Filtration Rate 60 mL/min (>60); Est Glom Filt Rate - Afr Amer 72 mL/min (>60); Glucose 92 mg/dL (74-106); Potassium 3.7 mmol/L (3.5-5.1); Sodium Level 141 mmol/L (136-145)
== END ==
LOC: OLS.AVEB 05:24
PROVIDERS: Visit Provider Family Medicine
DX: E03.9 Hypothyroidism, unspecified (principal); G20 Parkinson's disease; F31.9 Bipolar disorder, unspecified; M10.9 Gout, unspecified; N40.0 Benign prostatic hyperplasia without lower urinary tract symptoms
CPT/HCPCS: 36415; 80048; 85027

== ENCOUNTER → 2019-01-20 05:01 | Outpatient (REF) | payer MEDICARE, SELFPAY | LOC: OLS.AVEB 05:01 | PROVIDERS: Visit Provider Family Medicine | DX: E03.9 Hypothyroidism, unspecified (principal) | CPT/HCPCS: 36415; 84443 ==

== ENCOUNTER → 2019-02-03 07:10 | Outpatient (REF) | payer MEDICARE, SELFPAY ==
[2019-02-03 08:46] LABS: Hematocrit 39.7 % (40-54); Hemoglobin 13.3 g/dl (13.0-16.5); Mean Corp Hgb Conc 33.5 g/gl (32-36); Mean Corpuscular Hgb 31.5 pg (27.0-32.0); Mean Corpuscular Volume 94.1 fL (80-94); Mean Platelet Vol. 10.9 fl (6.2-12.0); Platelet Count 166 K/mm3 (150-450); RBC Distribution Width CV 15.7 % (11.6-14.6); RBC Distribution Width SD 53.8 fl (35.1-43.9); Red Blood Count 4.22 M/mm3 (4.6-6.2); White Blood Count 9.2 K/mm3 (4.4-11.0)
[2019-02-03 08:54] LABS: Scan Indicated on CBC? Y/N NO
[2019-02-03 09:03] LABS: Anion Gap 5 (5-15); BUN 14 mg/dL (7-18); Chloride 106 mmol/L (98-107); Creatinine, Serum 1.17 mg/dL (0.70-1.30); EST Glomerular Filtration Rate 65 mL/min (>60); Est Glom Filt Rate - Afr Amer 79 mL/min (>60); Glucose 95 mg/dL (74-106); Sodium Level 142 mmol/L (136-145)
== END ==
LOC: OLS.AVEB 07:10
PROVIDERS: Visit Provider Family Medicine
DX: I10 Essential (primary) hypertension (principal); E03.9 Hypothyroidism, unspecified; R60.9 Edema, unspecified; M10.9 Gout, unspecified
CPT/HCPCS: 36415; 80048; 85027